=== PATIENT | male | born 1945 | race Caucasian/White ===

== ENCOUNTER 2019-11-02 18:02 | Inpatient (IN) | payer MEDICARE, SELFPAY ==
[2019-11-02 18:04] VITALS: BP 108/85; PULSE 82; RESP 16; TEMP 36.7; O2SAT 97; BMI 27.3
[2019-11-02 18:09] VITALS: BP 97/64; PULSE 72; RESP 17; TEMP 36.8; O2SAT 99
--- NOTE | 2019-11-02 19:39 | RAD_ITS ---
STUDY: X-RAY CHEST REASON FOR EXAM: Male, 74 years old. PT ARRIVES TO ED WITH COMPLAINTS. HAD A BIOPSY THAT CAUSED BLOOD INFECTION TECHNIQUE: Frontal view COMPARISON: None. FINDINGS: The lungs are clear and expanded. There is no demonstrated pleural abnormality. Normal size heart. Normal mediastinum and haleigh. Normal visualized pulmonary arteries. Normal visualized aortic arch and descending thoracic aorta. Normal visualized thoracic spine. Normal visualized ribs, clavicles, and shoulders. There is no demonstrated abnormality of the visualized soft tissue structures of the upper abdomen. RAD/Chest 1 View (Portable) IMPRESSION: Normal x-ray examination of the chest. Electronically Signed: Yadiel Skinner DO at 19:58 EST Tel [phone], Service support ,
[2019-11-02] MEDS: 0.9% Normal Saline 1,000 ML 150 ML IV (20:16)
[2019-11-02 20:18] VITALS: BP 97/64; PULSE 73; RESP 11; O2SAT 99
[2019-11-02 20:25] LABS: Absolute Lymphocyte Count 1.04 X10^3/uL (0.83-4.51); Absolute Neutrophil Count 3.8 X10^3/uL (2.0-7.7); Basophil# 0.03 X10^3/uL; Basophil% 0.5 % (0-1); Eosinophils% 3.5 % (0-5); Hematocrit 32.1 % (40-54); Hemoglobin 11.2 g/dL (13.0-16.5); Lymphocyte # 1.04 X10^3/ul (4.0); Lymphocyte % 18.2 % (19-41); Mean Corp Hgb Conc 34.9 g/dL (32-36); Mean Corpuscular Hgb 33.7 pg (27.0-32.0); Mean Corpuscular Volume 96.7 fL (80-94); Mean Platelet Vol. 10.7 fl (6.2-12.0); Monocyte% 10.5 % (0-10); NRBC Flagged by Analyzer 0 % (0-5); Neutrophil # 3.81 X10^3/uL (2.7-7.7); Neutrophil % 66.9 % (47-70); POSITIVE COUNT YES; Platelet Count 230 K/mm3 (150-450); RBC Distribution Width CV 12.5 % (11.6-14.6); RBC Distribution Width SD 44.3 fl (35.1-43.9); Red Blood Count 3.32 M/mm3 (4.6-6.2); White Blood Count 5.7 K/mm3 (4.4-11.0)
[2019-11-02 20:35] LABS: Differential Indicated SCAN CRITERIA MET
[2019-11-02 20:43] LABS: ALB/GLOB Ratio 0.6 RATIO (0.9-2.4); AST(SGOT) 62 U/L (15-37); Alanine Aminotransfer ALT/SGPT 49 U/L (16-61); Albumin, Serum 3.1 g/dL (3.2-5.0); Alkaline Phosphatase 63 U/L (45-117); Anion Gap 8 (5-15); BUN 58 mg/dL (7-18); BUN/Creat Ratio 22.7 RATIO (10-20); Calcium,Total 9.4 mg/dL (8.5-10.1); Chloride 101 mmol/L (98-107); Creatinine, Serum 2.56 mg/dL (0.70-1.30); EST Glomerular Filtration Rate 26 mL/min (>60); Est Glom Filt Rate - Afr Amer 32 mL/min (>60); Estimated Creatinine Clearance 30.33 ml/min; Glucose 130 mg/dL (74-106); Potassium 4.6 mmol/L (3.5-5.1); Protein, Total 8.1 g/dL (6.4-8.2); Sodium Level 132 mmol/L (136-145)
[2019-11-02 21:42] LABS: Mucous, Urine 0 SEEN /hpf (<or=2+); Red Blood Cells-Urine 0 SEEN /hpf (0-5); Squamous Epithelial Cells - UA 0 SEEN /hpf (0-5)
[2019-11-02 21:42] LABS: Differential Comment SCANNED; Platelet Estimate ADEQUATE (ADEQ)
[2019-11-02 21:43] LABS: Color, Urine Yellow (Yellow); Glucose, Dipstick Normal (Normal); Ketone-Dipstick Negative (Negative); Leukocyte Esterase-Dipstick 500 /ul (Negative); Nitrite-Dipstick Negative (Negative); Occult Blood-Urine 25 /ul (Negative); Protein-Dipstick 500 mg/dl (Negative); Urine Bilirubin Dipstick Negative (Negative); Urine Clarity Cloudy (Clear); Urine Urobilinogen Normal (Normal)
[2019-11-02 21:44] LABS: Red Cell Morphology NORM C+C NORMAL (NORM C&C)
[2019-11-02 21:51] VITALS: BP 112/75; PULSE 74; RESP 18; TEMP 36.9; O2SAT 100
[2019-11-02 21:52] LABS: Bacteria 2+ /hpf (None Seen); White Blood Cells >100 SEEN /hpf (0-5)
[2019-11-02] MEDS: 0.9% Normal Saline 1,000 ML 999 ML IV (21:53)
--- NOTE | 2019-11-02 22:25 | HP.PCM_ITS ---
History of Present Illness Date of Admission: 11/02/19 Chief Complaint: weakness, general malaise The patient is a 74 year old M with a PMH as outlined. He was admitted via the ED on 11/02/2019 with a complaint of generalised weakness and malaise. Patient was admitted at [facility] in September 2018 after he had a prostate biopsy due to suspicion for enlarged prostate. He subsequently developed sepsis due to UTI was in the hospital for about 5 days. He was subsequently discharged home and states is not been doing well since. He subsequently felt gradually weaker and had generalized malaise which worsened over the past few days. He has not been able to eat or drink well and also had burning with urination. He denied any fever or chills, cough or chest pain, palpitations, abdominal pain, diarrhea vomiting. He felt very unwell today so he decided to come to the ED. He tried going to his PCPs at the [facility] but they were just about closing so he decided to come to the ED. On admission in the ED, vitals were significant for blood pressure of 112/75. He was afebrile with temperature of 98.4 and pulse rate was 74 with respiratory of 18. Was saturating at 100% on room air. Chemistry was remarkable for sodium of 132 and creatinine of 2.56. Initial troponin was negative. CBC showed WBC of 5.7 with hemoglobin of 11.2. Urinalysis showed bacteria of 2+ WBC of more than 100. He has been admitted to be managed for debility due to UTI. [] Past Medical History Allergies No Known Allergies Allergy (Verified 11/02/19 18:09) Home Medications: Ambulatory Orders Medication Instructions Recorded Amlodipine [Norvasc] 5 mg PO DAILY 11/02/19 Aspirin [Aspirin, Baby] 1 tab PO DAILY 11/02/19 Atorvastatin Calcium [Lipitor] 10 mg PO QHS 11/02/19 Fenofibrate [Tricor] 48 mg PO DAILY 11/02/19 Glimepiride 4 mg PO DAILY 11/02/19 Lisinopril 40 mg PO DAILY 11/02/19 metFORMIN HCl [Glucophage] 1,000 mg PO BIDCM 11/02/19 Surgical History: no surgical history Psychiatric History: No pertinent psych hx Lives: Spouse/ Significant Other Smoking Status: Never smoker Alcohol: None Drugs: None - *Family History Maternal History Items: No pertinent history Paternal History Items: No pertinent history Review of Systems Constitutional: Reports: Anorexia, Malaise, Weakness, Fatigue. Denies: Chills, Fever Eyes: Denies: Blurred vision HEENT: Denies: Head Aches, Sinus Congestion, Sinus Drainage Cardiovascular: Denies: Chest Pain, Palpitations Respiratory: Denies: Cough, Shortness of Breath, Shortness of breath at rest, Shortness of breath upon exertion, Sputum production Gastrointestinal: Denies: Abdominal Pain, Nausea, Vomiting Genitourinary: Reports: Dysuria Musculoskeletal: Denies: Joint Pain, Joint Tenderness Skin: Denies: Rash, Wounds Neurological: Denies: Numbness, Tingling, Focal weakness Psychiatric: Denies: Anxiety, Depression, Homicidal Ideations, Suicidal Ideations Hematologic/ Lymphatic: Denies: Easy Bruising, Easy Bleeding VTE Information - Inpt Only VTE Present on Admission: No VTE Pharm Prophylaxis ordered?: Yes - Physical Exam Vitals/I&O's: Vital Signs Temp Pulse Resp BP Pulse Ox 98.4 F 74 18 112/75 100 11/02/19 21:51 11/02/19 21:51 11/02/19 21:51 11/02/19 21:51 11/02/19 21:51 Oxygen Delivery Method Room Air Weight: 213 lb Body Mass Index (BMI) 27.3 General: Alert, Oriented x3, Cooperative, No apparent distress, Lethargic HEENT: Atraumatic, PERRLA, EOMI, Normocephalic Oral: Dry Mucosa Neck: Supple, No JVD, Negative Carotid Bruits Lungs: Clear to auscultation, Normal air movement, No rhonchi, No wheeze, No rales Cardiovascular: Regular rate, Regular Rhythm, Normal S1, Normal S2, No murmurs Abdomen: Bowel Sounds Present, Soft, Non Tender, Non-Distended, No Hepato- splenomegaly Extremities: No clubbing, No cyanosis, No edema, Capillary Refill Less than 3 Seconds Musculoskeletal: No Tenderness to Palpation of Joints or Extremities Lymphatic: No Cervical, Supraclavicular, or Inguinal Adenopathy Neurological: Cranial nerves II-XII grossly intact, Neuro grossly intact, Motor Exam 5/5 strength throughout Psych/Mental Status: Normal Affect, Appropriate, Alert and oriented to time, place, person, mood and affect Laboratory Results 11/02/19 20:10: WBC 5.7, RBC 3.32 L, Hgb 11.2 L, Hct 32.1 L, MCV 96.7 H, MCH 33.7 H, MCHC 34.9, RDW Std Deviation 44.3 H, RDW Coeff of Bobby 12.5, Plt Count 230, MPV 10.7, Immature Gran % (Auto) 0.400, Neut % (Auto) 66.9, Lymph % (Auto) 18.2 L, Stephens % (Auto) 10.5 H, Eos % (Auto) 3.5, Baso % (Auto) 0.5, Absolute Neuts (auto) 3.8, Absolute Lymphs (auto) 1.04, Nucleated RBC % 0, Differential Comment SCANNED, Platelet Estimate ADEQUATE, Plt Morphology Comment COMMENT, RBC Morphology NORM C+C 11/02/19 20:10: Sodium 132 L, Potassium 4.6, Chloride 101, Carbon Dioxide 23.0, Anion Gap 8, BUN 58 H, Creatinine 2.56 H, Estim Creat Clear Calc 30.33, Est GFR (MDRD) Af Amer 32 L, Est GFR (MDRD) Non-Af 26 L, BUN/Creatinine Ratio 22.7 H, Glucose 130 H, Calcium 9.4, Total Bilirubin 0.50, AST 62 H, ALT 49, Alkaline Phosphatase 63, Troponin I < 0.015, Total Protein 8.1, Albumin 3.1 L, Globulin 5.0 H, Albumin/Globulin Ratio 0.6 L 11/02/19 21:38: Urine Color Yellow, Urine Clarity Cloudy, Urine pH 5.0, Ur Specific [place] 1.020, Urine Protein 500 H, Urine Glucose (UA) Normal, Urine Ketones Negative, Urine Occult Blood 25 H, Urine Nitrite Negative, Urine Bilirubin Negative, Urine Urobilinogen Normal, Ur Leukocyte Esterase 500 H, Urine RBC 0 SEEN, Urine WBC >100 SEEN, Ur Squamous Epith Cells 0 SEEN, Urine Bacteria 2+, Urine Mucus 0 SEEN Diagnostic Data Chest X-Ray 11/02/19 19:39 IMPRESSION: Normal x-ray examination of the chest. Electronically Signed: Yadiel Skinner DO at 19:58 EST Tel [phone], Service support , Current Medications Sodium Chloride () 1,000 mls @ 150 mls/hr IV .[id number] [facility] Last Admin: 11/02/19 20:16 Dose: 150 mls/hr Documented by: Ceftriaxone Sodium (Rocephin) 1 gm in 50 mls @ 100 mls/hr IV X1 ONE Stop: 11/02/19 22:43 Assessment/Plan 74 y/o admitted with a complaint of weakness and generalised malaise, with UA positive for UTI 1. UTI * Was admitted in [facility] and discharged on April 05 to be managed for sepsis due to UTI. States he had E. coli then. * Currently has no leukocytosis and UA is positive for UTI with 2+ bacteria more than 100 WBC per high-power field * Admit to [facility]. * Hydrated with IV fluid normal saline at 150 cc/h. * Start with IV ceftriaxone * Get blood cultures. * 2. Debility due to UTI: Consult PT OT. Fall precautions. 3. GOKUL on CKD: * Creatinine is 2.56 with a baseline of around 1.3 from September 2019, from admission at [facility] * Likely due to dehydration as he is not been eating and drinking well. * Will hydrate gently with IV fluid normal saline. * Will insert Ibarra catheter due to history of enlarged prostate and monitor urine output. * Will get renal USG to rule out any obstructive uropathy. * 4. Hyponatremia: Sodium is 132. This is likely due to dehydration. Should improve with IV fluid administration. 5. Hypertension: On amlodipine and lisinopril. Hold lisinopril on account of GOKUL. 6. Type 2 diabetes mellitus: On glimepiride and metformin which will be held on account of GOKUL. Accu-Cheks AC at bedtime. Insulin sliding scale. 7. Hyperlipidemia: On statin. DVT prophylaxis: Lovenox renally dosed Code Visit Inpatient E&M: 20997 Init Hosp L3
--- NOTE | 2019-11-02 22:33 | ED.DCSUM_ITS ---
- ER Visit Summary Date of Service: 11/02/19 Chief Complaint: Weakness History of Present Illness: The patient is a 74 M who presents with weakness. He has had this for about a month. At the end of September he was admitted to [facility] for E. coli bacteremia and UTI. This is after a cystoscopy for what sounds like prostate biopsies. He was told that he had prostate cancer after this biopsy. He has not started any treatment. Since being home he has felt weak. He is not eating well. He has had some fecal incontinence. He states he has low energy. He denies any blood in his stools. He did have some bleeding after his cystoscopy. Physical Examination: Vital signs reviewed. HEENT exam unremarkable. Heart is regular rate and rhythm without murmurs. Lungs are clear to auscultation. Abdomen is soft and nontender. Extremities reveal no edema. Skin exam normal. Neurologic exam diffuse overall weakness but is got no other neurologic deficits. Test Results: Blood cell count normal. Hemoglobin 11.2. BUN 58, creatinine 2.56. He has a UTI. Chest x-ray unremarkable Emergency Department Course and Treatment: Patient was given IV fluids. I gave him a dose of Rocephin. His creatinine has doubled in the past 2 weeks. His culture from [place] grew out pansensitive E. coli. I will treat him with IV Rocephin. He will be admitted to the hospital. Treatment Plan: [] Disposition: Admit Impression: Acute kidney injury, UTI, dehydration This note was generated with [employer] dictation software. It may contain incorrect words, spelling, and punctuation that were not noted in review of the chart prior to signing ED Disposition - Plan for ED Patient: Referrals: Mo Gorman [Primary Care Provider] -
[2019-11-02] MEDS: Ceftriaxone 1 GM/50 ML BAG IV (22:42)
[2019-11-02 23:40] VITALS: BP 120/81; PULSE 67; RESP 16; TEMP 36.7; O2SAT 99
[2019-11-02 23:41] VITALS: PULSE 70; BMI 25.8
[2019-11-03] VITALS (9 sets, daily range): BP systolic 110–143; BP diastolic 66–76; PULSE 67–83; RESP 18; TEMP 36.6–37.2; O2SAT 96–98
[2019-11-03] MEDS: 0.9% Normal Saline 1,000 ML 150 ML IV ×3 (00:02→13:49)
[2019-11-03 04:02] LABS: Urea Nitrogen, Urine 658 mg/dL (NO RANGE EST.)
[2019-11-03 05:11] LABS: Absolute Neutrophil Count 4.9 X10^3/uL (2.0-7.7); Basophil# 0.03 X10^3/uL; Basophil% 0.5 % (0-1); Eosinophil# 0.16 X10^3/uL; Eosinophils% 2.7 % (0-5); Hematocrit 28.7 % (40-54); Hemoglobin 9.9 g/dL (13.0-16.5); Lymphocyte % 10.2 % (19-41); Mean Corp Hgb Conc 34.5 g/dL (32-36); Mean Corpuscular Hgb 33.8 pg (27.0-32.0); Mean Platelet Vol. 9.3 fl (6.2-12.0); Monocyte# 0.18 X10^3/uL; Monocyte% 3.1 % (0-10); NRBC Flagged by Analyzer 0 % (0-5); Neutrophil # 4.87 X10^3/uL (2.7-7.7); Neutrophil % 83.2 % (47-70); POSITIVE DIFFERENTIAL YES; Platelet Count 225 K/mm3 (150-450); RBC Distribution Width CV 12.5 % (11.6-14.6); RBC Distribution Width SD 45.1 fl (35.1-43.9); Red Blood Count 2.93 M/mm3 (4.6-6.2); White Blood Count 5.9 K/mm3 (4.4-11.0)
[2019-11-03 05:12] LABS: Differential Indicated SCAN CRITERIA MET
[2019-11-03 05:25] LABS: Anion Gap 10 (5-15); BUN 57 mg/dL (7-18); BUN/Creat Ratio 24.4 RATIO (10-20); Calcium,Total 8.6 mg/dL (8.5-10.1); Chloride 104 mmol/L (98-107); Creatinine, Serum 2.34 mg/dL (0.70-1.30); EST Glomerular Filtration Rate 29 mL/min (>60); Est Glom Filt Rate - Afr Amer 35 mL/min (>60); Estimated Creatinine Clearance 33.18 ml/min; Glucose 150 mg/dL (74-106); Potassium 3.9 mmol/L (3.5-5.1); Sodium Level 138 mmol/L (136-145)
[2019-11-03 05:47] LABS: Differential Comment SCANNED; Platelet Estimate ADEQUATE (ADEQ); Red Cell Morphology NORM C+C NORMAL (NORM C&C)
--- NOTE | 2019-11-03 05:55 | US_ITS ---
STUDY: RENAL ULTRASOUND - COMPLETE REASON FOR EXAM: Male, 74 years old. GOKUL, BPH COMPARISON: None TECHNIQUE: Serial longitudinal and transverse scans of the kidneys were obtained utilizing a real-time sector scanner. FINDINGS: The right and left kidneys were examined and have the following measurements: Right Kidney: 13.3 cm. x 10.0 cm. x 6.2 cm. in size with a cortex measuring 1.8 cm in thickness. Left Kidney: 12.6 cm. x 4.6 cm. x 6.1 cm. in size with a cortex measuring 2.0 cm in thickness. No fluid is noted in Morison''s pouch. The right renal parenchyma has a normal echogenic relationship to the liver. The right renal contour is smooth and no evidence hydronephrosis is identified. There is normal Doppler flow to the right kidney. Left renal contour is smooth and no evidence of hydronephrosis is identified. There is normal Doppler flow to the left kidney. A Ibarra catheter is noted in a collapsed urinary bladder US/Kidney and Bladder IMPRESSION: Normal bilateral renal ultrasound Electronically Signed: Roc Mathis, at 11:43 EST Tel , Service support ,
[2019-11-03 07:11] LABS: Bedside Glucose 145 mg/dL (70-110)
[2019-11-03] MEDS: Aspirin 81 MG TAB.CHEW PO (08:53)
[2019-11-03] MEDS: Fenofibrate 48 MG Tablet PO (08:53)
[2019-11-03] MEDS: Enoxaparin 30 MG/0.3 ML Syringe SC (08:53)
[2019-11-03] MEDS: amLODIPine 5 MG Tablet PO (08:53)
--- NOTE | 2019-11-03 11:41 | CASEMGMT ---
KENYATTA SALMON assessment: Face to Face with patient for initial transition planning/care coordination assessment. RN LUIS ANTONIO introduced self and role at [facility], pt voices understanding and consents to assessment at this time. Pt is sitting up in chair in no distress at this time. Pt is pale and c/o some fatigue. Pt is Alert and oriented x4 at this time and answers most questions appropriately at this time. Care providers, pharmacy, and demographics verified at this time. Presentation: Pt arrived with complaints, recent bx of prostate that caused blood infection Admitting dx: Debility, UTI, GOKUL PCP: [facility] Specialists: Pt states no current specialists. Preferred Pharmacy: [facility]Mail order Insurance: AeR Prescription Benefit: AeR Living Will/HPOA: Pt states that he thinks he has LW/HPOA and that his daughter, Ann-Marie, is HPOA. Pt is aware that these are not on file at [facility] at this time. LNOK: Chel Dede, sig other Living Arrangements: Pt states lives with girlfriend in 2 story house and states has been having some frequent falls at home. Pt states is mostly independent with ADL's but has been 'weak' since recent admission for bx. Transportation: Pt states drives self and states no transportation concerns at this time. DME/HHC: Pt states has grab bars in shower and states no need for any furthe DME at this time. Pt states no hx of HHC or SNF in the past. Pt states no concerns with going home at time of discharge. Pt states is retired. Pt states does not smoke or drink ETOH. Pt states no further concerns/needs at this time. CM to follow PT/OT evals and for any further discharge planning/needs. Advised pt to ask for CM if any further questions/concerns/needs arise, voices understanding. Pt Goal: Home Plan: TBD, pending PT/OT evals. [place] KENYATTA SALMON
[2019-11-03 12:05] LABS: Bedside Glucose 220 mg/dL (70-110)
[2019-11-03] MEDS: Insulin Lispro 100 UNIT/ML INSULN.PEN SC ×2 (12:06→16:46)
--- NOTE | 2019-11-03 12:58 | PCM.PROGNOTE ---
<Anjana Cesar - Last Filed: 11/03/19 13:06> Subjective: Patient seen and examined. Denies fever, chills. Denies nausea, vomiting. Reports generalized weakness. Denies other complaints. - Physical Exam Vitals/I&O's: Vital Signs Temp Pulse Resp BP Pulse Ox 98.9 F 77 18 110/67 97 11/03/19 08:51 11/03/19 08:51 11/03/19 08:51 11/03/19 08:51 11/03/19 08:51 Oxygen Delivery Method Room Air Weight: 201 lb 0.985 oz Body Mass Index (BMI) 25.8 Intake and Output for Last 24 Hours 11/01/19 11/02/19 11/03/19 23:59 23:59 23:59 Intake Total 915.8 / 915.8 1785 / 1785 Output Total 1100 / 1100 Balance 915.8 / 915.8 685 / 685 General: Alert, Oriented x3, Cooperative HEENT: Atraumatic, PERRLA, EOMI, Normocephalic Neck: Supple, No JVD, Negative Carotid Bruits Lungs: Clear to auscultation, Normal air movement Cardiovascular: Regular rate, Regular Rhythm, Normal S1, Normal S2, No murmurs Abdomen: Bowel Sounds Present, Soft, Non Tender, Non-Distended Extremities: No clubbing, No cyanosis, No edema, Capillary Refill Less than 3 Seconds Skin: No rashes, No breakdown Musculoskeletal: No Tenderness to Palpation of Joints or Extremities Neurological: Cranial nerves II-XII grossly intact, Neuro grossly intact Psych/Mental Status: Flat Affect Microbiology Past 72 Hours 11/02/19 21:38 Urine, Clean Catch Urine Culture - Preliminary GNR lactose epic ambulatory analyst Laboratory Results 11/02/19 20:10: WBC 5.7, RBC 3.32 L, Hgb 11.2 L, Hct 32.1 L, MCV 96.7 H, MCH 33.7 H, MCHC 34.9, RDW Std Deviation 44.3 H, RDW Coeff of Obbby 12.5, Plt Count 230, MPV 10.7, Immature Gran % (Auto) 0.400, Neut % (Auto) 66.9, Lymph % (Auto) 18.2 L, Smith % (Auto) 10.5 H, Eos % (Auto) 3.5, Baso % (Auto) 0.5, Absolute Neuts (auto) 3.8, Absolute Lymphs (auto) 1.04, Nucleated RBC % 0, Differential Comment SCANNED, Platelet Estimate ADEQUATE, Plt Morphology Comment COMMENT, RBC Morphology NORM C+C 11/02/19 20:10: Sodium 132 L, Potassium 4.6, Chloride 101, Carbon Dioxide 23.0, Anion Gap 8, BUN 58 H, Creatinine 2.56 H, Estim Creat Clear Calc 30.33, Est GFR (MDRD) Af Amer 32 L, Est GFR (MDRD) Non-Af 26 L, BUN/Creatinine Ratio 22.7 H, Glucose 130 H, Calcium 9.4, Total Bilirubin 0.50, AST 62 H, ALT 49, Alkaline Phosphatase 63, Troponin I < 0.015, Total Protein 8.1, Albumin 3.1 L, Globulin 5.0 H, Albumin/Globulin Ratio 0.6 L 11/02/19 21:38: Urine Color Yellow, Urine Clarity Cloudy, Urine pH 5.0, Ur Specific [place] 1.020, Urine Protein 500 H, Urine Glucose (UA) Normal, Urine Ketones Negative, Urine Occult Blood 25 H, Urine Nitrite Negative, Urine Bilirubin Negative, Urine Urobilinogen Normal, Ur Leukocyte Esterase 500 H, Urine RBC 0 SEEN, Urine WBC >100 SEEN, Ur Squamous Epith Cells 0 SEEN, Urine Bacteria 2+, Urine Mucus 0 SEEN 11/03/19 02:30: Urine Urea Nitrogen 658 11/03/19 02:30: Urine Creatinine 101.00 11/03/19 04:55: WBC 5.9, RBC 2.93 L, Hgb 9.9 L, Hct 28.7 L, MCV 98.0 H, MCH 33.8 H, MCHC 34.5, RDW Std Deviation 45.1 H, RDW Coeff of Bobby 12.5, Plt Count 225, MPV 9.3, Immature Gran % (Auto) 0.300, Neut % (Auto) 83.2 H, Lymph % (Auto) 10.2 L, Smith % (Auto) 3.1, Eos % (Auto) 2.7, Baso % (Auto) 0.5, Absolute Neuts (auto) 4.9, Absolute Lymphs (auto) 0.60 L, Nucleated RBC % 0, Differential Comment SCANNED, Platelet Estimate ADEQUATE, RBC Morphology NORM C+C 11/03/19 04:55: Sodium 138, Potassium 3.9, Chloride 104, Carbon Dioxide 24.0, Anion Gap 10, BUN 57 H, Creatinine 2.34 H, Estim Creat Clear Calc 33.18, Est GFR (MDRD) Af Amer 35 L, Est GFR (MDRD) Non-Af 29 L, BUN/Creatinine Ratio 24.4 H, Glucose 150 H, Calcium 8.6 11/03/19 06:47: POC Glucose 145 H 11/03/19 11:59: POC Glucose 220 H Current Medications Amlodipine Besylate (Norvasc) 5 mg PO DAILY [facility] Last Admin: 11/03/19 08:53 Dose: 5 mg Documented by: Aspirin (Aspirin, Baby) 81 mg PO DAILYCM [facility] Last Admin: 11/03/19 08:53 Dose: 81 mg Documented by: Atorvastatin Calcium (Lipitor) 10 mg PO QHS [facility] Enoxaparin Sodium (Lovenox) 30 mg SC DAILY [facility] Last Admin: 11/03/19 08:53 Dose: 30 mg Documented by: Fenofibrate (Tricor) 48 mg PO DAILY [facility] Last Admin: 11/03/19 08:53 Dose: 48 mg Documented by: Glucagon () 1 mg IM .X1 PRN PRN Reason: Hypoglycemia Sodium Chloride () 1,000 mls @ 150 mls/hr IV .Q6H40M [facility] Last Admin: 11/03/19 06:45 Dose: 150 mls/hr Documented by: Ceftriaxone Sodium (Rocephin) 1 gm in 50 mls @ 100 mls/hr IV Q24H [facility] Dextrose (Dextrose 10%-Water) 250 mls @ 999 mls/hr IV .Q16M PRN; Protocol PRN Reason: HYPOGLYCEMIA Sodium Chloride () 250 mls @ 15 mls/hr IV .[id number] PRN PRN Reason: Saline Flush Sodium Chloride () 250 mls @ 15 mls/hr IV .[id number] PRN PRN Reason: Additional IVPB Infusion Insulin Human Lispro (Humalog Kwikpen (Bkc)) 0 unit SC ACHS [facility]; Protocol Last Admin: 11/03/19 12:06 Dose: 4 units Documented by: Ondansetron HCl (Zofran) 4 mg IV Q8H PRN PRN PRN Reason: NAUSEA/VOMITING Medical Necessity - Tobacco Use Smoking Status: Never smoker Assessment/Plan 1. Acute GNR UTI-continue Rocephin. Preliminary culture GNR, final pending. Afebrile. No leukocytosis. 2. Acute kidney injury on suspected chronic kidney disease-no prior labs for comparison to stage CKD. Renal ultrasound unremarkable. Check FENa. Trend BMP. If no significant improvement, will consult nephrology. Suspect prerenal secondary to dehydration. 3. Hypovolemic hyponatremia-resolved with hydration. Trend BMP. 4. Debility, patient reports falls at home-PT/OT. 5. Hypertension-continue amlodipine, hold lisinopril. 6. Type 2 diabetes mellitus-oral regimen on hold. Continue Accu-Cheks with sliding scale insulin. 7. Hyperlipidemia-continue statin. DVT prophylaxis-Lovenox subcu This patient was seen by NEDRA Tyler under the supervision of Dr. Marquez. <Oscar Marquez - Last Filed: 11/03/19 13:41> - Physical Exam Vitals/I&O's: Vital Signs Temp Pulse Resp BP Pulse Ox 98.9 F 77 18 110/67 97 11/03/19 08:51 11/03/19 08:51 11/03/19 08:51 11/03/19 08:51 11/03/19 08:51 Oxygen Delivery Method Room Air Weight: 91.2 kg Body Mass Index (BMI) 25.8 Intake and Output for Last 24 Hours 11/01/19 11/02/19 11/03/19 23:59 23:59 23:59 Intake Total 915.8 / 915.8 1785 / 1785 Output Total 1100 / 1100 Balance 915.8 / 915.8 685 / 685 Microbiology Past 72 Hours 11/02/19 21:38 Urine, Clean Catch Urine Culture - Preliminary GNR lactose epic ambulatory analyst Laboratory Results 11/02/19 20:10: WBC 5.7, RBC 3.32 L, Hgb 11.2 L, Hct 32.1 L, MCV 96.7 H, MCH 33.7 H, MCHC 34.9, RDW Std Deviation 44.3 H, RDW Coeff of Bobby 12.5, Plt Count 230, MPV 10.7, Immature Gran % (Auto) 0.400, Neut % (Auto) 66.9, Lymph % (Auto) 18.2 L, Smith % (Auto) 10.5 H, Eos % (Auto) 3.5, Baso % (Auto) 0.5, Absolute Neuts (auto) 3.8, Absolute Lymphs (auto) 1.04, Nucleated RBC % 0, Differential Comment SCANNED, Platelet Estimate ADEQUATE, Plt Morphology Comment COMMENT, RBC Morphology NORM C+C 11/02/19 20:10: Sodium 132 L, Potassium 4.6, Chloride 101, Carbon Dioxide 23.0, Anion Gap 8, BUN 58 H, Creatinine 2.56 H, Estim Creat Clear Calc 30.33, Est GFR (MDRD) Af Amer 32 L, Est GFR (MDRD) Non-Af 26 L, BUN/Creatinine Ratio 22.7 H, Glucose 130 H, Calcium 9.4, Total Bilirubin 0.50, AST 62 H, ALT 49, Alkaline Phosphatase 63, Troponin I < 0.015, Total Protein 8.1, Albumin 3.1 L, Globulin 5.0 H, Albumin/Globulin Ratio 0.6 L 11/02/19 21:38: Urine Color Yellow, Urine Clarity Cloudy, Urine pH 5.0, Ur Specific [place] 1.020, Urine Protein 500 H, Urine Glucose (UA) Normal, Urine Ketones Negative, Urine Occult Blood 25 H, Urine Nitrite Negative, Urine Bilirubin Negative, Urine Urobilinogen Normal, Ur Leukocyte Esterase 500 H, Urine RBC 0 SEEN, Urine WBC >100 SEEN, Ur Squamous Epith Cells 0 SEEN, Urine Bacteria 2+, Urine Mucus 0 SEEN 11/03/19 02:30: Urine Urea Nitrogen 658 11/03/19 02:30: Urine Creatinine 101.00 11/03/19 04:55: WBC 5.9, RBC 2.93 L, Hgb 9.9 L, Hct 28.7 L, MCV 98.0 H, MCH 33.8 H, MCHC 34.5, RDW Std Deviation 45.1 H, RDW Coeff of Bobby 12.5, Plt Count 225, MPV 9.3, Immature Gran % (Auto) 0.300, Neut % (Auto) 83.2 H, Lymph % (Auto) 10.2 L, Smith % (Auto) 3.1, Eos % (Auto) 2.7, Baso % (Auto) 0.5, Absolute Neuts (auto) 4.9, Absolute Lymphs (auto) 0.60 L, Nucleated RBC % 0, Differential Comment SCANNED, Platelet Estimate ADEQUATE, RBC Morphology NORM C+C 11/03/19 04:55: Sodium 138, Potassium 3.9, Chloride 104, Carbon Dioxide 24.0, Anion Gap 10, BUN 57 H, Creatinine 2.34 H, Estim Creat Clear Calc 33.18, Est GFR (MDRD) Af Amer 35 L, Est GFR (MDRD) Non-Af 29 L, BUN/Creatinine Ratio 24.4 H, Glucose 150 H, Calcium 8.6 11/03/19 06:47: POC Glucose 145 H 11/03/19 11:59: POC Glucose 220 H Current Medications Amlodipine Besylate (Norvasc) 5 mg PO DAILY [facility] Last Admin: 11/03/19 08:53 Dose: 5 mg Documented by: Aspirin (Aspirin, Baby) 81 mg PO DAILYCM [facility] Last Admin: 11/03/19 08:53 Dose: 81 mg Documented by: Atorvastatin Calcium (Lipitor) 10 mg PO QHS [facility] Enoxaparin Sodium (Lovenox) 30 mg SC DAILY [facility] Last Admin: 11/03/19 08:53 Dose: 30 mg Documented by: Fenofibrate (Tricor) 48 mg PO DAILY [facility] Last Admin: 11/03/19 08:53 Dose: 48 mg Documented by: Glucagon () 1 mg IM .X1 PRN PRN Reason: Hypoglycemia Sodium Chloride () 1,000 mls @ 100 mls/hr IV .Q10H [facility] Last Admin: 11/03/19 06:45 Dose: 150 mls/hr Documented by: Ceftriaxone Sodium (Rocephin) 1 gm in 50 mls @ 100 mls/hr IV Q24H [facility] Dextrose (Dextrose 10%-Water) 250 mls @ 999 mls/hr IV .Q16M PRN; Protocol PRN Reason: HYPOGLYCEMIA Sodium Chloride () 250 mls @ 15 mls/hr IV .[id number] PRN PRN Reason: Saline Flush Sodium Chloride () 250 mls @ 15 mls/hr IV .[id number] PRN PRN Reason: Additional IVPB Infusion Insulin Human Lispro (Humalog Kwikpen (Bkc)) 0 unit SC ACHS [facility]; Protocol Last Admin: 11/03/19 12:06 Dose: 4 units Documented by: Ondansetron HCl (Zofran) 4 mg IV Q8H PRN PRN PRN Reason: NAUSEA/VOMITING Assessment/Plan This patient was seen in conjunction with NEDRA Tyler . I have independently interviewed and examined the patient and reviewed pertinent historical, laboratory, and other data. Please refer to NEDRA Tyler note for details of this patient's presentation, findings, and recommendations. I have reviewed NEDRA Tyler note and concur with documented findings. In brief, patient is a 74-year-old gentleman admitted with generalized malaise found to have acute cystitis admitted to regular nursing floor for further management Physical Examination: GENERAL: Ill-looking HEENT: Atraumatic; EYES; Anicteric, Normal Conjunctiva NECK; supple, normal thyroid, RESPIRATORY: Diminished to auscultation CARDIOVASCULAR: Regular S1 S2, GI: soft, normoactive bowel sounds, : No Renal angle tenderness; NEURO: Awake; no lateralizing signs. SKIN: No Rash PSYCH; Flat affect Assessment: 1. Acute cystitis with gram-negative rods 2. Acute kidney injury 3. Hypovolemic hyponatremia 4. Essential hypertension 5. Diabetes mellitus type 2 6. Dyslipidemia 7. Physical debility 8. DVT prophylaxis Recommendations: 1. I have discussed the results of my overview and impressions with the patient 2. Options for management were reviewed Code Visit Inpatient E&M: 52161 Subs Hosp L3
[2019-11-03 14:32] LABS: Urine Sodium 40 mmol/L (Not Establ.)
[2019-11-03 17:11] LABS: Bedside Glucose 184 mg/dL (70-110)
[2019-11-03] MEDS: 0.9% Normal Saline 1,000 ML 100 ML IV (21:00)
[2019-11-03] MEDS: Atorvastatin Calcium 10 MG Tablet PO (21:56)
[2019-11-03] MEDS: Ceftriaxone 1 GM/50 ML BAG IV (22:11)
[2019-11-03 22:30] LABS: Bedside Glucose 126 mg/dL (70-110)
[2019-11-04] VITALS (7 sets, daily range): BP systolic 100–132; BP diastolic 46–74; PULSE 61–77; RESP 16–18; TEMP 36.5–36.6; O2SAT 97–99
[2019-11-04 05:12] LABS: Hematocrit 26.9 % (40-54); Mean Corp Hgb Conc 33.5 g/dL (32-36); Mean Corpuscular Hgb 33.2 pg (27.0-32.0); Mean Corpuscular Volume 99.3 fL (80-94); Platelet Count 196 K/mm3 (150-450); RBC Distribution Width CV 12.6 % (11.6-14.6); RBC Distribution Width SD 45.3 fl (35.1-43.9); Red Blood Count 2.71 M/mm3 (4.6-6.2)
[2019-11-04 05:35] LABS: Anion Gap 6 (5-15); BUN 34 mg/dL (7-18); BUN/Creat Ratio 19.9 RATIO (10-20); Calcium,Total 8.4 mg/dL (8.5-10.1); Chloride 109 mmol/L (98-107); Creatinine, Serum 1.71 mg/dL (0.70-1.30); EST Glomerular Filtration Rate 42 mL/min (>60); Est Glom Filt Rate - Afr Amer 51 mL/min (>60); Glucose 141 mg/dL (74-106); Potassium 4.1 mmol/L (3.5-5.1); Sodium Level 140 mmol/L (136-145)
[2019-11-04] MEDS: Insulin Lispro 100 UNIT/ML INSULN.PEN SC ×3 (07:42→22:11)
[2019-11-04 07:50] LABS: Bedside Glucose 156 mg/dL (70-110)
[2019-11-04] MEDS: amLODIPine 5 MG Tablet PO (08:31)
[2019-11-04] MEDS: Fenofibrate 48 MG Tablet PO (08:31)
[2019-11-04] MEDS: Enoxaparin 30 MG/0.3 ML Syringe SC (08:31)
[2019-11-04] MEDS: Aspirin 81 MG TAB.CHEW PO (08:31)
--- NOTE | 2019-11-04 08:52 | PCM.PN.HOSP ---
Reason for Visit: Follow-up acute cystitis and physical debility Subjective: Patient is a 74-year-old gentleman admitted with generalized malaise found to have acute cystitis admitted to regular nursing floor for further management urine culture so far positive for gram-negative rods awaiting final identification and sensitivities. Objective: GENERAL: Ill-looking HEENT: Atraumatic; EYES; Anicteric, Normal Conjunctiva NECK; supple, normal thyroid, RESPIRATORY: Diminished to auscultation CARDIOVASCULAR: Regular S1 S2, GI: soft, normoactive bowel sounds, : No Renal angle tenderness; NEURO: Awake; no lateralizing signs. 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 Results 11/03/19 02:30: Ur Random Sodium 40 11/03/19 11:59: POC Glucose 220 H 11/03/19 16:45: POC Glucose 184 H 11/03/19 22:09: POC Glucose 126 H 11/04/19 04:55: WBC 4.0 L, RBC 2.71 L, Hgb 9.0 L, Hct 26.9 L, MCV 99.3 H, MCH 33.2 H, MCHC 33.5, RDW Std Deviation 45.3 H, RDW Coeff of Bobby 12.6, Plt Count 196, MPV 9.0 11/04/19 04:55: Sodium 140, Potassium 4.1, Chloride 109 H, Carbon Dioxide 25.0, Anion Gap 6, BUN 34 H, Creatinine 1.71 H, Estim Creat Clear Calc 45.40, Est GFR (MDRD) Af Amer 51 L, Est GFR (MDRD) Non-Af 42 L, BUN/Creatinine Ratio 19.9, Glucose 141 H, Calcium 8.4 L 11/04/19 07:31: POC Glucose 156 H Current Medications Amlodipine Besylate (Norvasc) 5 mg PO DAILY [facility] Last Admin: 11/04/19 08:31 Dose: 5 mg Documented by: Aspirin (Aspirin, Baby) 81 mg PO DAILYCM [facility] Last Admin: 11/04/19 08:31 Dose: 81 mg Documented by: Atorvastatin Calcium (Lipitor) 10 mg PO QHS [facility] Last Admin: 11/03/19 21:56 Dose: 10 mg Documented by: Enoxaparin Sodium (Lovenox) 30 mg SC DAILY [facility] Last Admin: 11/04/19 08:31 Dose: 30 mg Documented by: Fenofibrate (Tricor) 48 mg PO DAILY [facility] Last Admin: 11/04/19 08:31 Dose: 48 mg Documented by: Glucagon () 1 mg IM .X1 PRN PRN Reason: Hypoglycemia Sodium Chloride () 1,000 mls @ 100 mls/hr IV .Q10H [facility] Last Infusion: 11/03/19 22:50 Dose: 100 mls/hr Documented by: Ceftriaxone Sodium (Rocephin) 1 gm in 50 mls @ 100 mls/hr IV Q24H [facility] Last Infusion: 11/03/19 22:50 Dose: Infused Documented by: Dextrose (Dextrose 10%-Water) 250 mls @ 999 mls/hr IV .Q16M PRN; Protocol PRN Reason: HYPOGLYCEMIA Sodium Chloride () 250 mls @ 15 mls/hr IV .[id number] PRN PRN Reason: Saline Flush Sodium Chloride () 250 mls @ 15 mls/hr IV .[id number] PRN PRN Reason: Additional IVPB Infusion Insulin Human Lispro (Humalog Kwikpen (Bkc)) 0 unit SC ACHS [facility]; Protocol Last Admin: 11/04/19 07:42 Dose: 2 units Documented by: Ondansetron HCl (Zofran) 4 mg IV Q8H PRN PRN PRN Reason: NAUSEA/VOMITING STROKE Vital Signs/Narrative: Vital Signs Temp Pulse Resp BP Pulse Ox 11/04/19 08:19 97.8 F 61 18 116/67 99 11/04/19 05:04 77 Medical Necessity - Tobacco Use Smoking Status: Never smoker Assessment/Plan Patient is a 74-year-old gentleman admitted with generalized malaise found to have acute cystitis admitted to regular nursing floor for further management 1. Acute cystitis with gram-negative rods ?Admitted to regular nursing floor started on broad-spectrum antibiotic therapy with plans adjust antibiotics based on culture result 2. Acute kidney injury ?On IV fluid with subsequent monitoring of electrolytes 3. Hypovolemic hyponatremia ?Managed with fluids. Sodium levels up from 132 on admission to 140 4. Essential hypertension -BP stable at this point , on amlodipine did continue 5. Diabetes mellitus type II ~, patient's oral hypoglycemics held. Placed on long acting insulin, Accu-Cheks a.c. and at bedtime and covered with sliding scale insulin 6. Dyslipidemia ~patient is on statin as well as fenofibrate therapy, continued at home dose 7. Physical debility -Requested PT OT eval and social worker psychiatric to assist with discharge planning 8. Anemia ?Secondary to anemia of chronic disorder monitoring H&H with plans to transfuse patient With medical hemoglobin falls below 7. 9. DVT prophylaxis -Enoxaparin Active Medications Amlodipine Besylate (Norvasc) 5 mg PO DAILY [facility] Last Admin: 11/04/19 08:31 Dose: 5 mg Documented by: [facility] Admin: 11/04/19 08:31 Dose: 81 mg Documented by: Atorvastatin Calcium (Lipitor) 10 mg PO QHS [facility] Last Admin: 11/03/19 21:56 Dose: 10 mg Documented by: Enoxaparin Sodium (Lovenox) 30 mg SC DAILY [facility] Last Admin: 11/04/19 08:31 Dose: 30 mg Documented by: Fenofibrate (Tricor) 48 mg PO DAILY [facility] Last Admin: 11/04/19 08:31 Dose: 48 mg Documented by: Glucagon () 1 mg IM .X1 PRN PRN Reason: Hypoglycemia Sodium Chloride () 1,000 mls @ 100 mls/hr IV .Q10H [facility] Last Infusion: 11/03/19 22:50 Dose: 100 mls/hr Documented by: Ceftriaxone Sodium (Rocephin) 1 gm in 50 mls @ 100 mls/hr IV Q24H [facility] Last Infusion: 11/03/19 22:50 Dose: Infused Documented by: Dextrose (Dextrose 10%-Water) 250 mls @ 999 mls/hr IV .Q16M PRN; Protocol PRN Reason: HYPOGLYCEMIA Sodium Chloride () 250 mls @ 15 mls/hr IV .[id number] PRN PRN Reason: Saline Flush Sodium Chloride () 250 mls @ 15 mls/hr IV .[id number] PRN PRN Reason: Additional IVPB Infusion Insulin Human Lispro (Humalog Kwikpen (Bkc)) 0 unit SC ACHS [facility]; Protocol Last Admin: 11/04/19 07:42 Dose: 2 units Documented by: Ondansetron HCl (Zofran) 4 mg IV Q8H PRN PRN PRN Reason: NAUSEA/VOMITING Code Visit Inpatient E&M: 17640 Subs Hosp L2
--- NOTE | 2019-11-04 09:36 | NURSING ---
Pt requesting d/c. This RN called micro to determine when final result of urine culture would be resulted. Notified final would be in tomorrow. Dr. Marquez updated and states he wants to keep patient as he is deconditioned. Patient notified of same.
--- NOTE | 2019-11-04 10:00 | CASEMGMT ---
Addendum entered by Dominique Ivan 11/04/19 11:18: SW spoke w/pt about LW. Pt initially said it was difficult to speak about this topic, but then we did discuss the document briefly to see if he would like to complete it. Upon further discussion, pt states he thinks he does have a living will at home. TARYN Frost Original Note: As per pt, has POA but unable to bring in documentation, he had said daughter Ann-Marie is POA. TARYN Frost
--- NOTE | 2019-11-04 10:13 | CASEMGMT ---
SW met w/pt in room in regard to discharge plan. Pt states plans to return home, significant other Chel will be there with him. Pt declined referral to rehab facility. SW spoke w/pt about home health, pt declined referral for this as well. Pt then spoke w/SW about that he was to go to [facility] tomorrow, he takes bikes and goes down with his buddies. Pt states this is the first year he cannot go. SW offered support to pt. No further needs anticipated, pt plans to return home at discharge. TARYN Frost
[2019-11-04] MEDS: 0.9% Normal Saline 1,000 ML 100 ML IV ×2 (10:34→19:45)
[2019-11-04 11:40] LABS: Bedside Glucose 192 mg/dL (70-110)
[2019-11-04 16:46] LABS: Bedside Glucose 176 mg/dL (70-110)
[2019-11-04] MEDS: Ceftriaxone 1 GM/50 ML BAG IV (22:07)
[2019-11-04] MEDS: Atorvastatin Calcium 10 MG Tablet PO (22:07)
[2019-11-04 22:26] LABS: Bedside Glucose 181 mg/dL (70-110)
[2019-11-05 02:08] VITALS: BP 112/70; PULSE 65; RESP 18; TEMP 36.9; O2SAT 97
[2019-11-05] MEDS: 0.9% Normal Saline 1,000 ML 100 ML IV (05:45)
[2019-11-05 06:45] LABS: Bedside Glucose 137 mg/dL (70-110)
--- NOTE | 2019-11-05 09:42 | DCINST_ITS ---
You will use the following diet at home:: No restrictions Your food should be the consistency of: Regular Discharge Activity: Return to Normal Activity Allergies/Adverse Reactions: Allergies No Known Allergies Allergy (Verified 11/02/19 18:09) Medications to take at Discharge Amlodipine [Norvasc] 5 mg PO DAILY 11/02/19 Aspirin [Aspirin, Baby] 1 tab PO DAILY 11/02/19 Atorvastatin Calcium [Lipitor] 10 mg PO QHS 11/02/19 Fenofibrate [Tricor] 48 mg PO DAILY 11/02/19 Glimepiride 4 mg PO DAILY 11/02/19 Lisinopril 40 mg PO DAILY 11/02/19 metFORMIN HCl [Glucophage] 1,000 mg PO BIDCM 11/02/19 Cephalexin [Keflex] 500 mg PO Q8 #21 cap 11/05/19 The following prescriptions were given: Cephalexin [Keflex] 500 mg PO Q8 #21 cap Transmission Status: Pending to [id number] Primary Care Physician: Mo Gorman [Primary Care Provider] - Please follow up with your Primary Care Physician in: in 5-7 days Test Results: Test results from this visit will be discussed in further detail at your follow- up appointment, if applicable. Proposed Discharge Date: 11/05/19
--- NOTE | 2019-11-05 09:48 | PCM.DC.SUM ---
Discharge Date and Diagnosis - Problem List Patient Problems: Active and Suspected Problems Acute cystitis (Acute) Date of Admission: 11/02/19 Date of Discharge: 11/05/19 - Primary Discharge Diagnosis Active and Suspected Problems Acute cystitis (Acute) - Secondary Discharge Diagnosis Chronic Problems Essential hypertension (Chronic) Dyslipidemia (Chronic) Hospital Course and Treatment Summary of Care Provided: Patient is a 74-year-old gentleman admitted with generalized malaise found to have acute cystitis admitted to regular nursing floor for further management 1. Acute cystitis with E. coli. ?Admitted to regular nursing floor started on broad-spectrum antibiotic therapy with plans adjust antibiotics based on culture result patient grew E. coli in the urine discharged home on Keflex 2. Acute kidney injury ?On IV fluid with subsequent monitoring of electrolytes ?Kidney function did improve. 3. Hypovolemic hyponatremia ?Managed with fluids. Sodium levels up from 132 on admission to 140 4. Essential hypertension -BP stable at this point , on amlodipine did continue 5. Diabetes mellitus type II ~, patient's oral hypoglycemics held. Placed on long acting insulin, Accu-Cheks a.c. and at bedtime and covered with sliding scale insulin 6. Dyslipidemia ~patient is on statin as well as fenofibrate therapy, continued at home dose 7. Physical debility -Requested PT OT eval and neonatal social worker to assist with discharge planning 8. Anemia ?Secondary to anemia of chronic disorder monitoring H&H with plans to transfuse patient With medical hemoglobin falls below 7. 9. DVT prophylaxis -Enoxaparin Patient Problems: Active and Suspected Problems Acute cystitis (Acute) Objective: GENERAL: Cooperative in no apparent distress HEENT: Atraumatic; EYES; Anicteric, Normal Conjunctiva NECK; supple, normal thyroid, RESPIRATORY: Diminished to auscultation CARDIOVASCULAR: Regular S1 S2, GI: soft, normoactive bowel sounds, : No Renal angle tenderness; NEURO: Awake; no lateralizing signs. SKIN: No Rash PSYCH; Flat affect - Physical Exam Vitals/I&O's: Vital Signs Temp Pulse Resp BP Pulse Ox 98.4 F 65 18 112/70 97 11/05/19 02:08 11/05/19 02:08 11/05/19 02:08 11/05/19 02:08 11/05/19 02:08 Oxygen Delivery Method Room Air Weight: 91.2 kg Body Mass Index (BMI) 25.8 Intake and Output for Last 24 Hours 11/03/19 11/04/19 11/05/19 23:59 23:59 23:59 Intake Total 4253.33 / 4253.33 3163.33 / 3163.33 1250 / 1250 Output Total 2250 / 2250 650 / 650 Balance / 2513.33 / 2513.33 1250 / 1250 Microbiology Past 72 Hours 11/02/19 21:38 Urine, Clean Catch Urine Culture - Final Escherichia coli Laboratory Results 11/04/19 11:15: POC Glucose 192 H 11/04/19 16:03: POC Glucose 176 H 11/04/19 22:10: POC Glucose 181 H 11/05/19 06:36: POC Glucose 137 H Current Medications Amlodipine Besylate (Norvasc) 5 mg PO DAILY [facility] Last Admin: 11/04/19 08:31 Dose: 5 mg Documented by: Aspirin (Aspirin, Baby) 81 mg PO DAILYCM [facility] Last Admin: 11/04/19 08:31 Dose: 81 mg Documented by: Atorvastatin Calcium (Lipitor) 10 mg PO QHS [facility] Last Admin: 11/04/19 22:07 Dose: 10 mg Documented by: Enoxaparin Sodium (Lovenox) 30 mg SC DAILY [facility] Last Admin: 11/04/19 08:31 Dose: 30 mg Documented by: Fenofibrate (Tricor) 48 mg PO DAILY [facility] Last Admin: 11/04/19 08:31 Dose: 48 mg Documented by: Glucagon () 1 mg IM .X1 PRN PRN Reason: Hypoglycemia Sodium Chloride () 1,000 mls @ 100 mls/hr IV .Q10H [facility] Last Admin: 11/05/19 05:45 Dose: 100 mls/hr Documented by: Ceftriaxone Sodium (Rocephin) 1 gm in 50 mls @ 100 mls/hr IV Q24H [facility] Last Infusion: 11/04/19 22:40 Dose: Infused Documented by: Dextrose (Dextrose 10%-Water) 250 mls @ 999 mls/hr IV .Q16M PRN; Protocol PRN Reason: HYPOGLYCEMIA Sodium Chloride () 250 mls @ 15 mls/hr IV .L63C15H PRN PRN Reason: Saline Flush Sodium Chloride () 250 mls @ 15 mls/hr IV .Y33M34H PRN PRN Reason: Additional IVPB Infusion Insulin Human Lispro (Humalog Kwikpen (Bkc)) 0 unit SC ACHS [facility]; Protocol Last Admin: 11/05/19 06:38 Dose: Not Given Documented by: Nutritional Formula (Lactose Free) (Glucerna Shake) 120 ml PO TIDCM [facility] Last Admin: 11/04/19 16:13 Dose: Not Given Documented by: Ondansetron HCl (Zofran) 4 mg IV Q8H PRN PRN PRN Reason: NAUSEA/VOMITING Discharge Diet: No Restrictions Discharge Activity: Return to Normal Activity Home Medications: Medications to take at Discharge Amlodipine [Norvasc] 5 mg PO DAILY 11/02/19 Aspirin [Aspirin, Baby] 1 tab PO DAILY 11/02/19 Atorvastatin Calcium [Lipitor] 10 mg PO QHS 11/02/19 Fenofibrate [Tricor] 48 mg PO DAILY 11/02/19 Glimepiride 4 mg PO DAILY 11/02/19 Lisinopril 40 mg PO DAILY 11/02/19 metFORMIN HCl [Glucophage] 1,000 mg PO BIDCM 11/02/19 Cephalexin [Keflex] 500 mg PO Q8 #21 cap 11/05/19 Following Prescrptions Were Given to Patient: Cephalexin [Keflex] 500 mg PO Q8 #21 cap Transmission Status: Pending to [id number] Primary Care Physician: oM Gorman [Primary Care Provider] - Please follow up with your Primary Care Physician in: in 5-7 days Disposition: Home Minutes spent on discharge:: 32 Patient Condition:: Stable Medical Necessity - Tobacco Use Smoking Status: Never smoker Meaningful Use Info Meaningful Use Diagnoses (Choose all that apply): None applicable Code Visit Inpatient E&M: 46283 Disch Hosp
[2019-11-05] MEDS: Aspirin 81 MG TAB.CHEW PO (10:14)
[2019-11-05] MEDS: amLODIPine 5 MG Tablet PO (10:15)
[2019-11-05] MEDS: Fenofibrate 48 MG Tablet PO (10:15)
[2019-11-05 10:17] VITALS: BP 131/61; PULSE 76; RESP 18; TEMP 36.7; O2SAT 100
== END 2019-11-05 11:09 | disposition home or self-care (01) | DRG 683 ==
LOC: ED 19:30 → PCU 22:43 → MS2 11-03 22:53 → MS3 11-04 14:59
PROVIDERS: Nurse Practitioner Family; Admitting Provider Student in an Organized Health Care Education/Training Program; Emergency Provider Emergency Medicine; PCP Internal Medicine; Visit Provider Internal Medicine
DX: N17.9 Acute kidney failure, unspecified (principal); N30.00 Acute cystitis without hematuria; E87.1 Hypo-osmolality and hyponatremia; E86.0 Dehydration; B96.20 Unspecified Escherichia coli [E. coli] as the cause of diseases classified elsewhere; R53.81 Other malaise; E78.5 Hyperlipidemia, unspecified; E11.9 Type 2 diabetes mellitus without complications; I10 Essential (primary) hypertension; D64.9 Anemia, unspecified; Z79.84 Long term (current) use of oral hypoglycemic drugs
CPT/HCPCS: 36415; 71045; 76770; 80048; 80053; 81001; 82570; 82962; 84300; 84484; 84540; 85025; 85027; 87077; 87086; 87088; 87186; 97110; 97116; 97162; 97166; 97530; 97535; 97802; 99284; J7030; A4216

== ENCOUNTER 2021-12-02 10:46 | Day surgery (SDC) | payer MEDICARE, SELFPAY ==
[2021-12-02] VITALS (7 sets, daily range): BP systolic 128–155; BP diastolic 73–83; PULSE 46–63; RESP 16–18; TEMP 36.4–36.6; O2SAT 92–100; BMI 28.0
[2021-12-02] MEDS: Lactated Ringers 1,000 ML 15 ML IV (11:31)
[2021-12-02 11:41] LABS: Bedside Glucose 128 mg/dL (74-106)
--- NOTE | 2021-12-02 12:15 | IMM_PTH ---
PATIENT: ZHANNA OBRIEN LOC: EN U#:[id number] AGE/SX: 76/M ROOM: RE12/02/[address]: Dr. Gabriel Bradford DO : 1945 BED: DIS: 12/02/2021 SPEC #: [id number] RECD: 12/03/21 14:37 STATUS: CHRISTINA REQuyen #: [id number] STEPHAN: 12/02/21 12:[address]: Gabriel Bradford DEPT: IMMUNOHISTOCHEMISTRY RECD BY: Marlene Marcial ENTERED: 12/03/21 14:37 SP TYPE: IMMUNO OTHR DR: Dr. Todd Christianson MD Tissues: Stomach, NOS Procedures: H Pylori (initial) PHYSICIAN & INSTITUTION [place] [address] SPECIMEN INFORMATION: Tissue Source: Polyp of gastric cardia Clinical Info: Polyp of gastric cardia Specimen Number: [id number] CPT code: 30632 METHODOLOGY: Deparaffinized sections of prefer/formalin-fixed tissue or PAP/DQ stained slides are incubated with monoclonal/polyclonal antibodies/oligonucleotide probes. Localization is made via biotin free immunoperoxidase method. Appropriate controls are performed and reacted as expected. Results on target cell population are indicated in the following table: RESULTS: ANTIBODY / CLONE RESULT H Pylori (polyclonal) negative These tests were developed and their performance characteristics determined by [facility]. They may not have been cleared or approved by the U.S. Food and Drug Administration. The FDA has determined that such clearance or approval is not necessary. INTERPRETATION: Polyp of gastric cardia: Negative for Helicobacter pylori organisms. JACKELIN:johny 12/04/2021
--- NOTE | 2021-12-02 12:15 | EGD_PTH ---
PATIENT: ZHANNA OBRIEN LOC: EN U#:[id number] AGE/SX: 76/M ROOM: RE12/02/[address]: Dr. Gabriel Bradford DO : 1945 BED: DIS: 12/02/2021 SPEC #: [id number] RECD: 12/02/21 14:05 STATUS: CHRISTINA MAYCOL #: [id number] STEPHAN: 12/02/21 12:[address]: Gabriel Bradford DEPT: SURGICAL PATHOLOGY RECD BY: Rossi Martinez ENTERED: 12/03/21 08:12 SP TYPE: EGD BIOPSY OTHR DR: Dr. Todd Christianson MD Tissues: Gastric mucous membrane Procedures: Surgery Specimen Level IV HEADER OPERATION: EGD and incomplete colonoscopy PRE-OP DIAGNOSIS: Polyp of gastric cardia TISSUE SUBMITTED: Polyp of gastric cardia MICROSCOPIC DIAGNOSIS Gastric cardia polyp, biopsy: Fragments of hyperplastic cells/inflammatory polyp. Additional fragment of gastric mucosa with moderate chronic inflammation. JACKELIN:johny 12/04/2021 COMMENT The results of immunohistochemistry for Helicobacter pylori will be reported separately ([id number]). MICROSCOPIC DESCRIPTION Slides are reviewed. GROSS DESCRIPTION Received in fixative is one container labeled with the patient's name and designated polyp of gastric cardia. The specimen consists of multiple irregular fragments of light irwin soft tissue that in aggregate measure 1.5 x 0.4 x 0.2 cm. The specimen is totally submitted in one cassette. / JACKELIN:johny 12/03/2021 TC:5 CPT: 39592
--- NOTE | 2021-12-02 12:22 | HP.PCM_ITS ---
History and Physical Date of Admission: 12/02/21 76 M who presents to the office today for the evaluation of anemia. Patient said the he has had some issues with anemia in the past. After checking his blood counts his hemoglobin was [address] way down to 7.7. He has been on iron therapy along with vitamin C, but he has not had any etiology of his anemia. He says that he does see dark stool but he blames this on the oral iron. He does have poorly controlled diabetes mellitus and CKD. He takes aspirin on a daily basis. He does get occasional heartburn without chest pain or esophageal dysphagia. He is experiencing some mild nausea on occasion. He suffers also from diabetic neuropathy and nephropathy. He does reports that he has issues with dizziness. With medication changes for DMII he was also started on vitamin B12 pills and since this he has had dizziness with some falls. Additional medical history includes diabetes II (treated with metformin and glimipiride), arthritis/osteoarthritis, hyperlipidemia, HTN, asbestos exposure, prostate cancer with treatment. Last colonoscopy performed 2016. ROS Const Constitutional: No anorexia, fatigue, fever(s), weight change or sleep problems Eyes Eyes: No change in vision ENT ENT: No abnormal hearing, difficulty swallowing, mouth lesions, tongue swelling or throat swelling Resp Respiratory: No cough or shortness of breath Cardio Cardiology: No chest pain at rest, chest pain with exertion, shortness of breath or dyspnea on exertion Gastro GI: No difficulty swallowing Genitourinary Male: No difficulty urinating or burning urination Musc Musculoskeletal: No joint pain, joint swelling, muscle weakness or decreased muscle mass Skin Skin: No hair loss in leg, yellowing of the eye, itchy eyes, rash, skin ulcer or skin swelling Neuro Neurology: No abnormal hearing, abnormal movements, confusion, unsteady gait/balance or memory loss Psych Psychiatric: No anxiety, No confusion and No memory loss Endo Endocrine: No fatigue or weight change Aller/Imm Allergy/Immunologic: No itchy eyes, throat swelling or tongue swelling Hossein/Lymp Hematologic/Lymphatic: No easy bleeding, easy bruising or enlarged lymph nodes Exam Const General: cooperative and comfortable Nutritional Appearance: average body habitus and well nourished HENMT Head: normal to inspection Ears: hearing grossly normal bilaterally Nose: external nose normal Face and sinus: normal facial exam Mouth: oral mucosae normal Throat: posterior oropharynx normal Eyes General: appearance normal, both eyes and all related structures Neck Neck: normal visual inspection Chest Chest palpation & inspection: normal inspection of the chest and normal palpation of entire chest wall Resp Effort & Inspection: normal respiratory effort Auscultation: Bilateral: Clear to Auscultation Cardio Palpation: normal PMI Rate: regular rate Rhythm: regular rhythm GI Inspection: normal to inspection Auscultation: normal bowel sounds Percussion: normal to percussion Palpation: no hepatosplenomegaly Skin General: no rashes or lesions noted Neuro General: patient alert Extrem General: normal to inspection Psych Affect: normal affect Quality Reporting Tobacco Screening ([facility] 138) Smoking Status: Never smoker Assessment and Plan Assessment and Plan (1) Anemia: Plan - Dr. Rios Friend, DO: The differential diagnosis for his anemia does include peptic ulcer disease, AVMs, gastritis, esophagitis, duodenitis. Also initial diagnosis would be neoplasia involving the upper or lower GI tract. He should undergo upper and lower endoscopy and possible capsule endoscopy. He was explained alternatives, risk, benefits including outstanding bleeding, infection, sepsis, perforation, need for emergent . He will have ASA of 3. I have re-examined the patient. There are no clinical changes since date of exam.
--- NOTE | 2021-12-02 13:08 | OP.COLON_ITS ---
Patient Name: Dean Oh Procedure Date: 12/02/2021 12:52 PM Date of : 1945 Age: 76 Procedure: Colonoscopy Indications: Iron deficiency anemia Providers: Gabriel Bradford DO Medicines: See the Anesthesia note for documentation of the administered medications Patient Profile: Last Colonoscopy: date unknown. Unable to locate last colonoscopy report. Complications: No immediate complications. Procedure: Pre-Anesthesia Assessment: - Prior to the procedure, a History and Physical was performed, and patient medications and allergies were reviewed. The patient is competent. The risks and benefits of the procedure and the sedation options and risks were discussed with the patient. All questions were answered and informed consent was obtained. Patient identification and proposed procedure were verified by the physician in the pre-procedure area. Mental Status Examination: alert and oriented. Airway Examination: normal oropharyngeal airway and neck mobility. Respiratory Examination: clear to auscultation. CV Examination: normal. Prophylactic Antibiotics: The patient does not require prophylactic antibiotics. Prior Anticoagulants: The patient has taken no previous anticoagulant or antiplatelet agents. ASA Grade Assessment: II - A patient with mild systemic disease. After reviewing the risks and benefits, the patient was deemed in satisfactory condition to undergo the procedure. The anesthesia plan was to use moderate sedation / analgesia (conscious sedation). Immediately prior to administration of medications, the patient was re-assessed for adequacy to receive sedatives. The heart rate, respiratory rate, oxygen saturations, blood pressure, adequacy of pulmonary ventilation, and response to care were monitored throughout the procedure. The physical status of the patient was re-assessed after the procedure. After I obtained informed consent, the scope was passed under direct vision. Throughout the procedure, the patient's blood pressure, pulse, and oxygen saturations were monitored continuously. The colonoscope was introduced through the anus and advanced to the hepatic flexure. The colonoscopy was performed without difficulty. The patient tolerated the procedure well. The quality of the bowel preparation was inadequate. Moderate Sedation: Moderate (conscious) sedation was administered by the endoscopy nurse and supervised by the endoscopist. The patient's oxygen saturation, heart rate, blood pressure and response to care were monitored. Total physician intraservice time was 15 minutes. Scope In: 12:55:04 PM Scope Out: 12:57:54 PM Total Procedure Duration Time 0 hours 2 minutes 50 seconds Findings: The perianal and digital rectal examinations were normal. A few small and large-mouthed diverticula were found in the recto-sigmoid colon, sigmoid colon and descending colon. A large amount of solid stool was found in the rectum, in the recto-sigmoid colon, in the sigmoid colon, in the descending colon, at the splenic flexure, in the transverse colon and at the hepatic flexure, precluding visualization. Lavage of the area was performed using greater than 500 mL of sterile water, resulting in incomplete clearance with continued poor visualization. Impression: - Preparation of the colon was inadequate. - Diverticulosis in the recto-sigmoid colon, in the sigmoid colon and in the descending colon. - Stool in the rectum, in the recto-sigmoid colon, in the sigmoid colon, in the descending colon, at the splenic flexure, in the transverse colon and at the hepatic flexure. - No specimens collected. Recommendation: - Discharge patient to home. - Resume previous diet. - Continue present medications. - Repeat colonoscopy in 3 months because the bowel preparation was suboptimal. Procedure Code(s): --- Professional --- 33540, 53, Colonoscopy, flexible; diagnostic, including collection of specimen(s) by brushing or washing, when performed (separate procedure) 77433, 59, Moderate sedation services provided by the same physician or other qualified health outdoor emergency care technician performing the diagnostic or therapeutic service that the sedation supports, requiring the presence of an independent trained observer to assist in the monitoring of the patient's level of consciousness and physiological status; initial 15 minutes of intraservice time, patient age 5 years or older CPT copyright 2017 [employer]. All rights reserved. The codes documented in this report are preliminary and upon burglar alarm superintendent review may be revised to meet current compliance requirements. Gabriel Bradford DO 12/02/2021 1:07:20 PM This report has been signed electronically. Number of Addenda: 1 Note Initiated On: 12/02/2021 12:52 PM Addendum Number: 1 Addendum Date: 06/04/2022 6:18:25 AM MAC was used as sedation for this procedure. Gabriel Bradford DO 06/04/2022 6:18:29 AM This report has been signed electronically.
--- NOTE | 2021-12-02 13:08 | OP.CCLET_ITS ---
06/04/2022 Todd Christianson MD Re : Colonoscopy procedure for Dean Oh Dear Dr. Christianson This procedure was performed on Thursday, December 02, 2021. My impressions and recommendations are as follows: Impressions : - Preparation of the colon was inadequate. - Diverticulosis in the recto-sigmoid colon, in the sigmoid colon and in the descending colon. - Stool in the rectum, in the recto-sigmoid colon, in the sigmoid colon, in the descending colon, at the splenic flexure, in the transverse colon and at the hepatic flexure. - No specimens collected. Recommendations : - Discharge patient to home. - Resume previous diet. - Continue present medications. - Repeat colonoscopy in 3 months because the bowel preparation was suboptimal. My findings are described in the full procedure note, which is enclosed. If I can be of further assistance, please feel free to contact me at . Sincerely, Gabriel Bradford, 12/02/2021 1:07:20 PM This report has been signed electronically.
--- NOTE | 2021-12-02 13:11 | OP.EGD_ITS ---
Patient Name: Dean Oh Procedure Date: 12/02/2021 12:28 PM Date of : 1945 Age: 76 Procedure: Upper GI endoscopy Indications: Iron deficiency anemia Providers: Gabriel Bradford DO Medicines: See the Anesthesia note for documentation of the administered medications Patient Profile: This is a 76 year old male. Refer to note in patient chart for documentation of history and physical. Complications: No immediate complications. Procedure: Pre-Anesthesia Assessment: - Prior to the procedure, a History and Physical was performed, and patient medications and allergies were reviewed. The risks and benefits of the procedure and the sedation options and risks were discussed with the patient. All questions were answered and informed consent was obtained. Patient identification and proposed procedure were verified in the pre-procedure area. Mental Status Examination: alert and oriented. Airway Examination: normal oropharyngeal airway and neck mobility. Respiratory Examination: clear to auscultation. CV Examination: normal. Prophylactic Antibiotics: The patient does not require prophylactic antibiotics. Prior Anticoagulants: The patient has taken no previous anticoagulant or antiplatelet agents. After reviewing the risks and benefits, the patient was deemed in satisfactory condition to undergo the procedure. The anesthesia plan was to use moderate sedation / analgesia (conscious sedation). Immediately prior to administration of medications, the patient was re-assessed for adequacy to receive sedatives. The heart rate, respiratory rate, oxygen saturations, blood pressure, adequacy of pulmonary ventilation, and response to care were monitored throughout the procedure. The physical status of the patient was re-assessed after the procedure. After obtaining informed consent, the endoscope was passed under direct vision. Throughout the procedure, the patient's blood pressure, pulse, and oxygen saturations were monitored continuously. The gastroscope was introduced through the mouth, and advanced to the second part of duodenum. The upper GI endoscopy was accomplished without difficulty. The patient tolerated the procedure well. Moderate Sedation: Moderate (conscious) sedation was administered by the endoscopy nurse and supervised by the endoscopist. The patient's oxygen saturation, heart rate, blood pressure and response to care were monitored. Total physician intraservice time was 15 minutes. Scope In: 12:40:49 PM Scope Out: 12:51:10 PM Total Procedure Duration Time 0 hours 10 minutes 21 seconds Findings: The examined esophagus was normal. Three 5 mm sessile polyps with stigmata of recent bleeding were found on the greater curvature of the stomach. The polyp was removed with a jumbo cold forceps. Resection and retrieval were complete. Verification of patient identification for the specimen was done. Estimated blood loss was minimal. The second portion of the duodenum was normal. Impression: - Normal esophagus. - Three gastric polyps. Resected and retrieved. - Normal second portion of the duodenum. Recommendation: - Discharge patient to home. - Resume previous diet. - Continue present medications. - Await pathology results. Procedure Code(s): --- Professional --- 16741, Esophagogastroduodenoscopy, flexible, transoral; with biopsy, single or multiple 76125, 59, Moderate sedation services provided by the same physician or other qualified health complex care nurse practitioner performing the diagnostic or therapeutic service that the sedation supports, requiring the presence of an independent trained observer to assist in the monitoring of the patient's level of consciousness and physiological status; initial 15 minutes of intraservice time, patient age 5 years or older CPT copyright 2017 [employer]. All rights reserved. The codes documented in this report are preliminary and upon clinical lab clerk review may be revised to meet current compliance requirements. Gabriel Bradford DO 12/02/2021 1:10:23 PM This report has been signed electronically. Number of Addenda: 1 Note Initiated On: 12/02/2021 12:28 PM Addendum Number: 1 Addendum Date: 06/04/2022 6:18:11 AM MAC was used as sedation for this procedure. Gabriel Bradford DO 06/04/2022 6:18:15 AM This report has been signed electronically.
--- NOTE | 2021-12-02 13:12 | OP.CCLET_ITS ---
06/04/2022 Todd Christianson MD Re : Upper GI endoscopy procedure for Dean Adriano Dear Dr. Christianson This procedure was performed on Thursday, December 02, 2021. My impressions and recommendations are as follows: Impressions : - Normal esophagus. - Three gastric polyps. Resected and retrieved. - Normal second portion of the duodenum. Recommendations : - Discharge patient to home. - Resume previous diet. - Continue present medications. - Await pathology results. My findings are described in the full procedure note, which is enclosed. If I can be of further assistance, please feel free to contact me at . Sincerely, Gabriel Bradford, 12/02/2021 1:10:23 PM This report has been signed electronically.
== END 2021-12-02 23:59 | disposition home or self-care (01) ==
LOC: EN 10:50 → AC 10:52
PROVIDERS: PCP Family Medicine; Referring Provider Family Medicine; Visit Provider Internal Medicine Gastroenterology
PROC: 0DJD8ZZ Inspection of Lower Intestinal Tract, Via Natural or Artificial Opening Endoscopic (ICD-10-PCS; CPT 45378; principal; 2021-12-02 12:10)
DX: K57.30 Diverticulosis of large intestine without perforation or abscess without bleeding (principal); E11.9 Type 2 diabetes mellitus without complications; K31.7 Polyp of stomach and duodenum; D64.9 Anemia, unspecified; E78.00 Pure hypercholesterolemia, unspecified; I10 Essential (primary) hypertension; M19.90 Unspecified osteoarthritis, unspecified site; Z79.84 Long term (current) use of oral hypoglycemic drugs; Z79.82 Long term (current) use of aspirin; Z79.899 Other long term (current) drug therapy
CPT/HCPCS: 45378; 43239; 82962; 88305; 88342; J7120

== ENCOUNTER 2022-08-14 05:13 | Day surgery (SDC) | payer MEDICARE, SELFPAY ==
[2022-08-14] VITALS (7 sets, daily range): BP systolic 122–156; BP diastolic 71–84; PULSE 58–68; RESP 14–18; TEMP 36.4–36.8; O2SAT 96–100; BMI 28.5
--- NOTE | 2022-08-14 | COLBX_PTH ---
PATIENT: ZHANNA OBRIEN LOC: EN U#:[id number] AGE/SX: 77/M ROOM: RE08/14/[address]: Dr. Gabriel Bradford DO : 1945 BED: DIS: 08/14/2022 SPEC #: [id number] RECD: 08/14/22 11:44 STATUS: CHRISTINA REQuyen #: [id number] STEPHAN: 08/14/22 00:[address]: Gabriel Bradford DEPT: SURGICAL PATHOLOGY RECD BY: Srinivasan Rincon ENTERED: 08/14/22 11:45 SP TYPE: COLON BX OTHR DR: Dr. Todd Christianson MD Tissues: Ileum, NOS Procedures: Surgery Specimen Level IV HEADER OPERATION: Colonoscopy (MAC), electrohemostasis PRE-OP DIAGNOSIS: Anemia TISSUE SUBMITTED: Terminal ileum biopsy MICROSCOPIC DIAGNOSIS Terminal ileum, biopsy: Fragments of small intestinal mucosa, no pathologic diagnosis. JACKELIN:johny 08/15/2022 MICROSCOPIC DESCRIPTION Slides are reviewed. GROSS DESCRIPTION Received in fixative is one container labeled with the patient's name and designated terminal ileum biopsy. The specimen consists of two irregular fragments of light irwin soft tissue that in aggregate measure 0.8 x 0.5 x 0.1 cm. The specimen is totally submitted in one cassette. / SJ:johny 08/14/2022 TC:4 CPT: 35796
[2022-08-14] MEDS: Lactated Ringers 1,000 ML 15 ML IV (05:50)
--- NOTE | 2022-08-14 06:26 | PCM.HP.BLA ---
History and Physical Date of Admission: 08/14/22 77 M who presents to the office today for Follow up visit. Dean established with this clinic 10.02.21 with referral from his PCP for anemia evaluation. He has a history of anemia with hemoglobin trending from 14 to 7.7. At time of presentation he was taking PO iron therapy with vitamin C but no etiology had been found. Additional medical history includes diabetes II (treated with metformin and glimepiride), arthritis/osteoarthritis, hyperlipidemia, HTN, asbestos exposure, prostate cancer with treatment. EGD and colonoscopy performed 12.02.21. EGD found three hyperplastic/inflammatory gastric polyps, retrieved. H.Pylori negative. Colonoscopy prep was inadequate. Diverticulosis in recto-sigmoid, sigmoid and descending colon. No specimens collected. Plan LV 12.16.21: Anemia ? repeat colonoscopy one year r/t inadequate prep. Inflammatory polyps seen in stomach Gastritis ? continue PPI and carfate. Feels he is doing well overall. ROS Const Constitutional: No anorexia, fatigue, fever(s), weight change or sleep problems Eyes Eyes: No change in vision ENT ENT: No abnormal hearing, difficulty swallowing, mouth lesions, tongue swelling or throat swelling Resp Respiratory: No cough or shortness of breath Cardio Cardiology: No chest pain at rest, chest pain with exertion, shortness of breath or dyspnea on exertion Gastro GI: No difficulty swallowing Genitourinary Male: No difficulty urinating or burning urination Musc Musculoskeletal: No joint pain, joint swelling, muscle weakness or decreased muscle mass Skin Skin: No hair loss in leg, yellowing of the eye, itchy eyes, rash, skin ulcer or skin swelling Neuro Neurology: No abnormal hearing, abnormal movements, confusion, unsteady gait/balance or memory loss Psych Psychiatric: No anxiety, No confusion and No memory loss Endo Endocrine: No fatigue or weight change Aller/Imm Allergy/Immunologic: No itchy eyes, throat swelling or tongue swelling Hossein/Lymp Hematologic/Lymphatic: No easy bleeding, easy bruising or enlarged lymph nodes Exam Const General: cooperative and comfortable Nutritional Appearance: average body habitus and well nourished [facility] Head: normal to inspection Ears: hearing grossly normal bilaterally Nose: external nose normal Face and sinus: normal facial exam Mouth: oral mucosae normal Throat: posterior oropharynx normal Eyes General: appearance normal, both eyes and all related structures Neck Neck: normal visual inspection Chest Chest palpation & inspection: normal inspection of the chest and normal palpation of entire chest wall Resp Effort & Inspection: normal respiratory effort Auscultation: Bilateral: Clear to Auscultation Cardio Palpation: normal PMI Rate: regular rate Rhythm: regular rhythm GI Inspection: normal to inspection Auscultation: normal bowel sounds Percussion: normal to percussion Palpation: no hepatosplenomegaly Skin General: no rashes or lesions noted Neuro General: patient alert Extrem General: normal to inspection Psych Affect: normal affect Quality Reporting Tobacco Screening ([facility] 138) Smoking Status: Never smoker Assessment and Plan Assessment and Plan (1) Anemia: ?Status:?Chronic ?Plan: He underwent EGD and colonoscopy for his iron deficiency anemia and macrocytosis.? There were no signs of active bleeding in his upper GI tract and he had a very poor prep for his colonoscopy.? We will need to repeat his colonoscopy and if that is negative he will need a capsule endoscopy notes to evaluate his entire GI tract.? We will recheck his iron studies as well as his CBC including hemoglobin and platelets.? He is not taking nonsteroidals except for aspirin.? He does not know his last hemoglobin A1c.? He is not having abdominal pain, cramping, hematochezia or melena.? We will reschedule his colonoscopy. I have examined the patient and the H&P has been reviewed. There are no clinical changes since date of exam.
[2022-08-14 06:50] LABS: Bedside Glucose 149 mg/dL (74-106)
--- NOTE | 2022-08-14 07:06 | OP.COLON_ITS ---
Patient Name: Dean Oh Procedure Date: 08/14/2022 6:16 AM Date of : 1945 Age: 77 Procedure: Colonoscopy Indications: Iron deficiency anemia Providers: Gabriel Bradford DO Referring MD: Todd Christianson MD Medicines: Monitored Anesthesia Care Patient Profile: This is a 77 year old male. Refer to note in patient chart for documentation of history and physical. Last Colonoscopy: 6 months ago. Complications: No immediate complications. Procedure: Pre-Anesthesia Assessment: - Prior to the procedure, a History and Physical was performed, and patient medications and allergies were reviewed. The risks and benefits of the procedure and the sedation options and risks were discussed with the patient. All questions were answered and informed consent was obtained. Patient identification and proposed procedure were verified by the physician in the pre-procedure area. Mental Status Examination: alert and oriented. Airway Examination: normal oropharyngeal airway and neck mobility. Respiratory Examination: clear to auscultation. CV Examination: normal. Prophylactic Antibiotics: The patient does not require prophylactic antibiotics. Prior Anticoagulants: The patient has taken no previous anticoagulant or antiplatelet agents. After reviewing the risks and benefits, the patient was deemed in satisfactory condition to undergo the procedure. The anesthesia plan was to use minimal sedation / analgesia (anxiolysis). Immediately prior to administration of medications, the patient was re-assessed for adequacy to receive sedatives. The heart rate, respiratory rate, oxygen saturations, blood pressure, adequacy of pulmonary ventilation, and response to care were monitored throughout the procedure. The physical status of the patient was re-assessed after the procedure. After I obtained informed consent, the scope was passed under direct vision. Throughout the procedure, the patient's blood pressure, pulse, and oxygen saturations were monitored continuously. The Colonoscope was introduced through the anus and advanced to the terminal ileum. The colonoscopy was performed without difficulty. The patient tolerated the procedure well. The quality of the bowel preparation was adequate. Scope In: 6:38:05 AM Scope Withdrawal Time 0 hours 12 minutes 54 seconds Scope Out: 6:57:04 AM Total Procedure Duration Time 0 hours 18 minutes 59 seconds Findings: The perianal and digital rectal examinations were normal. Scattered small and large-mouthed diverticula were found in the entire colon. Stool was found in the rectum, in the recto-sigmoid colon, in the sigmoid colon and in the cecum. A single medium-sized angiodysplastic lesion with bleeding was found in the cecum. Coagulation for hemostasis using heater probe was successful. Estimated blood loss was minimal. Localized inflammation, mild in severity and characterized by congestion (edema) was found in the terminal ileum. Biopsies were taken with a cold forceps for histology. Verification of patient identification for the specimen was done. Estimated blood loss was minimal. The terminal ileum contained a single small angiodysplastic lesion with bleeding. Coagulation for hemostasis using heater probe was successful. Estimated blood loss was minimal. Impression: - No specimens collected. Recommendation: - Discharge patient to home. - Resume previous diet. - Continue present medications. - Await pathology results. - Repeat colonoscopy in 5 years for surveillance. - Return to GI office. Procedure Code(s): --- Professional --- 55311, 59, Colonoscopy, flexible; with control of bleeding, any method 23861, Colonoscopy, flexible; with biopsy, single or multiple CPT copyright 2017 [employer]. All rights reserved. The codes documented in this report are preliminary and upon wage and salary specialist review may be revised to meet current compliance requirements. Gabriel Bradford DO 08/14/2022 7:06:01 AM This report has been signed electronically. Number of Addenda: 0 Note Initiated On: 08/14/2022 6:16 AM
--- NOTE | 2022-08-14 07:07 | OP.CCLET_ITS ---
08/14/2022 Todd Christianson MD Re : Colonoscopy procedure for Dean Oh Dear Dr. Christianson This procedure was performed on August. My impressions and recommendations are as follows: Impressions : - No specimens collected. Recommendations : - Discharge patient to home. - Resume previous diet. - Continue present medications. - Await pathology results. - Repeat colonoscopy in 5 years for surveillance. - Return to GI office. My findings are described in the full procedure note, which is enclosed. If I can be of further assistance, please feel free to contact me at . Sincerely, Gabriel Bradford, 08/14/2022 7:06:01 AM This report has been signed electronically.
== END 2022-08-14 07:49 | disposition home or self-care (01) ==
LOC: EN 05:13 → AC 05:14
PROVIDERS: PCP Family Medicine; Referring Provider Family Medicine; Visit Provider Internal Medicine Gastroenterology
PROC: 0DJD8ZZ Inspection of Lower Intestinal Tract, Via Natural or Artificial Opening Endoscopic (ICD-10-PCS; CPT 45378; principal; 2022-08-14 06:25)
DX: K57.30 Diverticulosis of large intestine without perforation or abscess without bleeding (principal); E11.9 Type 2 diabetes mellitus without complications; D50.9 Iron deficiency anemia, unspecified; E78.00 Pure hypercholesterolemia, unspecified; I10 Essential (primary) hypertension; Z79.82 Long term (current) use of aspirin; Z79.84 Long term (current) use of oral hypoglycemic drugs; Z79.899 Other long term (current) drug therapy; Z86.16 Personal history of COVID-19
CPT/HCPCS: 45380; 45382; 82962; 88305; J7120; J2405

== ENCOUNTER → 2022-08-28 | Outpatient (CLI) | payer MEDICARE, SELFPAY ==
[2022-08-28 14:47] LABS: Absolute Lymphocyte Count 1.89 X10^3/uL (0.83-4.51); Basophil# 0.04 X10^3/uL; Basophil% 0.7 % (0-1); Eosinophils% 3.6 % (0-5); Hematocrit 35.8 % (40-54); Hemoglobin 12.2 g/dL (13.0-16.5); Lymphocyte # 1.89 X10^3/ul (0.83-4.51); Lymphocyte % 33.8 % (19-41); Mean Corp Hgb Conc 34.1 g/dL (32-36); Mean Corpuscular Hgb 31.6 pg (27.0-32.0); Mean Corpuscular Volume 92.7 fL (80-94); Mean Platelet Vol. 8.5 fl (6.2-12.0); Monocyte# 0.47 X10^3/uL; Monocyte% 8.4 % (0-10); NRBC Flagged by Analyzer 0 % (0-5); Neutrophil # 2.99 X10^3/uL (2.7-7.7); Neutrophil % 53.3 % (47-70); Platelet Count 272 K/mm3 (150-450); RBC Distribution Width CV 13.2 % (11.6-14.6); RBC Distribution Width SD 44.9 fl (35.1-43.9); Red Blood Count 3.86 M/mm3 (4.6-6.2); White Blood Count 5.6 K/mm3 (4.4-11.0)
[2022-08-28 15:16] LABS: Ferritin 61 ng/mL (26-388); Iron 59 ug/dL (65-175); Iron Binding Capacity,Total 346 ug/dL (250-450); PERCENT IRON SATURATION 17.1 % (15.0-55.0)
== END | disposition home or self-care (01) ==
LOC: LABSPEC 14:16
PROVIDERS: Nurse Practitioner Adult Health; PCP Family Medicine; Referring Provider Nurse Practitioner Gerontology; Visit Provider Nurse Practitioner Gerontology
DX: N30.00 Acute cystitis without hematuria (principal); D64.9 Anemia, unspecified
CPT/HCPCS: 36415; 82728; 83540; 83550; 85025

== ENCOUNTER → 2023-02-23 | Outpatient (CLI) | payer MEDICARE, SELFPAY ==
[2023-02-23 15:13] LABS: Absolute Lymphocyte Count 1.89 X10^3/uL (0.83-4.51); Absolute Neutrophil Count 3.7 X10^3/uL (2.0-7.7); Basophil# 0.05 X10^3/uL; Basophil% 0.8 % (0-1); Eosinophil# 0.28 X10^3/uL; Eosinophils% 4.3 % (0-5); Hematocrit 37.9 % (40-54); Hemoglobin 12.2 g/dL (13.0-16.5); Lymphocyte # 1.89 X10^3/ul (0.83-4.51); Lymphocyte % 29.1 % (19-41); Mean Corp Hgb Conc 32.2 g/dL (32-36); Mean Corpuscular Hgb 30.7 pg (27.0-32.0); Mean Corpuscular Volume 95.2 fL (80-94); Monocyte# 0.58 X10^3/uL; Monocyte% 8.9 % (0-10); NRBC Flagged by Analyzer 0 % (0-5); Neutrophil # 3.68 X10^3/uL (2.7-7.7); Neutrophil % 56.6 % (47-70); Platelet Count 252 K/mm3 (150-450); RBC Distribution Width CV 12.7 % (11.6-14.6); RBC Distribution Width SD 43.8 fl (35.1-43.9); Red Blood Count 3.98 M/mm3 (4.6-6.2); White Blood Count 6.5 K/mm3 (4.4-11.0)
[2023-02-23 15:46] LABS: Ferritin 49 ng/mL (26-388); Iron 59 ug/dL (65-175); Iron Binding Capacity,Total 376 ug/dL (250-450); PERCENT IRON SATURATION 15.7 % (15.0-55.0)
== END | disposition home or self-care (01) ==
PROVIDERS: PCP Family Medicine; Referring Provider Nurse Practitioner Adult Health; Visit Provider Nurse Practitioner Adult Health
DX: N30.00 Acute cystitis without hematuria (principal); D64.9 Anemia, unspecified
CPT/HCPCS: 36415; 82728; 83540; 83550; 85025

== ENCOUNTER 2025-02-26 12:40 | Emergency (ER) | payer MEDICARE, SELFPAY ==
[2025-02-26 12:40] VITALS: BP 171/89; PULSE 67; RESP 14; TEMP 37; O2SAT 97; BMI 29.7
--- NOTE | 2025-02-26 13:53 | EX.ED.DYSGE1 ---
HPI History of Present Illness Chief Complaint: General Illness [facility] Medical History Alcohol use Altered gait Ambulates with cane Bladder disease Dementia Diabetes Dietary restriction Easy bruising Headache Heartburn High cholesterol History of edema History of pain when walking History of renal disease History of stress test Hx of traumatic brain injury Hypertension Laxative abuse Leg cramps Loss of consciousness Loss of hearing Low iron Non-smoker Prostate disease Restless legs Shortness of breath on exertion Wears glasses Home Medications ?Medication ?Instructions ?Recorded ?Last Taken ?Type amlodipine 5 mg tablet 5 mg PO DAILY 11/02/19 02/26/25 History aspirin 81 mg chewable tablet 1 tab PO DAILY 11/02/19 02/26/25 History fenofibrate nanocrystallized 48 mg 48 mg PO DAILY 11/02/19 02/26/25 History tablet glimepiride 4 mg tablet 4 mg PO DAILY 11/02/19 02/26/25 History lisinopril 40 mg tablet 40 mg PO DAILY 11/02/19 02/26/25 History metformin 500 mg tablet 1,000 mg PO BIDCM 11/02/19 02/26/25 History atorvastatin 40 mg tablet 40 mg PO DAILY 02/26/25 02/25/25 History ferrous sulfate, dried 159 mg (45 159 mg PO DAILY 02/26/25 02/26/25 History mg iron) tablet,extended release finasteride 5 mg tablet 5 mg PO DAILY 02/26/25 02/26/25 History mecobalamin (vitamin B12) 1,000 2,000 mcg PO DAILY 02/26/25 02/26/25 History mcg lozenges pioglitazone 30 mg tablet 30 mg PO DAILY 02/26/25 02/26/25 History tamsulosin 0.4 mg capsule 0.4 mg PO Q24H 02/26/25 02/25/25 History Allergy/AdvReac Type Severity Reaction Status Date / Time No Known Allergies Allergy Verified 02/23/23 14:20 Surgical History History of circumcision History of colonoscopy Social History Smoking Status: Never smoker EXAM Physical Exam Const Vital Signs: 02/26/25 12:40 02/26/25 13:05 02/26/25 14:38 Temperature 98.6 F Temperature Source Oral Pulse Rate 67 58 L Respiratory Rate 14 16 Respiratory Effort Normal Non-Labored Respiratory Pattern Normal Blood Pressure 171/89 H 172/84 H Blood Pressure Mean 116 113 Pulse Ox 97 100 Oxygen Delivery Method Room Air Room Air 02/26/25 16:00 02/26/25 17:19 Temperature 97.8 F Temperature Source Pulse Rate 64 64 Respiratory Rate 14 14 Respiratory Effort Respiratory Pattern Blood Pressure 145/86 H 145/86 H Blood Pressure Mean 105 105 Pulse Ox 99 99 Oxygen Delivery Method Room Air [facility] [place] Narrative Medical decision making narrative: HISTORY OF PRESENT ILLNESS: Chief complaint: Dizziness, altered mental status 79-year-old male history of altered gait, alcohol use, hyperlipidemia, hypertension presents with dizziness and concern for change in mental status. Patient notes transient confusion. States he has had kidney pain for several days. He notes at times he feels more confused like he is thinking more slowly than usual. States he lifting very fast but more recently he is felt more slowly. He denies head trauma, headache. Denies visual disturbance, loss of movement sensation or coordination. He endorses bilateral flank pain that began 2 to 3 days ago. Denies urinary complaint such as urgency frequency or dysuria. Notes he has been urinating more but has been drinking more tried to flush his system. He states he was diagnosed with sepsis REVIEW OF SYSTEMS: Pertinent positives: transient confusion, dizziness, bilateral flank pain. Pertinent negatives: BRIGGS, CP, SOB, Vomiting, fever PHYSICAL EXAM: Nursing triage notes reviewed, Vital signs reviewed Constitutional: please see [facility] HENT: MMM Eyes: Pupils equal round and reactive to light, Extraocular muscles intact Neck: No stridor, no JVD, full neck ROM Lungs: Clear to auscultation, No wheezing or rales. No increased work of breathing, no conversational dyspnea, no accessory muscle use, no nasal flaring. No respiratory distress noted Heart: Regular rate and rhythm, No murmurs, No rubs and No gallops, 2+ distal pulses (radial, femoral, posterior tibial) in all extremities Abdomen: Soft, there is no tenderness, rigidity, rebound or guarding, no obvious peritoneal signs, no palpable pulsatile abdominal masses, no auscultated abdominal bruit : No CVAT Extremities: No edema Neuro: Alert, oriented x 3, no new focal neurological deficits, cranial nerves II through XII intact, 5/5 strength in all present extremities. Intact sensation to light touch in all present extremities, 2+ reflexes bilateral patella tendons. Skin: No rash or lesions noted MEDICAL DECISION MAKING: Chief Complaint: please see HPI External records reviewed: Reviewed prior inpatient notes. Reviewed prior gastroenterology note. Reviewed medications. Reviewed allergies and problem list. Factors affecting care: as per HPI Social determinants of health: patient alcohol use History obtained from others: none Consults: none [facility] Narrative: The patient was initially hypertensive with a blood pressure 171/89 otherwise afebrile and nontoxic-appearing. Exam without focal neurologic deficits. No focal cardiopulmonary abnormalities I considered the following differential diagnosis: ICH, mass, nephrolithiasis, pyelonephritis, pneumonia, UTI, metabolic or infectious encephalopathy I obtained a broad lab and imaging workup to further determine if the patient was suffering from a life-threatening etiology. Initially assisted 500 cc bolus. ALL IMAGES (IF OBTAINED) HAVE BEEN PERSONALLY REVIEWED AND INTERPRETED BY MYSELF. CBC with no leukocytosis to suggest systemic inflammation, mild anemia, no thrombocytopenia BMP with improved renal function, no significant electrolyte abnormalities, no sign of metabolic acidosis Lactate is wnl indicating no end-organ hypoperfusion and/or hypoxia. LFTs show no evidence of hepatobiliary pathology. Urinalysis shows no evidence of urinary inflammation suggestive of UTI I have personally reviewed the patient's chest x-ray. Chest x-ray is unremarkable for pulmonary edema, pneumothorax, pneumonia or focal cardiopulmonary abnormality. CT scan of the brain was negative for ICH or mass or bleed CT scan abdomen pelvis with IV contrast showed no evidence of acute intra-abdominal otology. Did show distended bladder, hydronephrosis Upon reevaluation the patient urinated approximately 2 L of urine. He certainly does not have a bladder outlet obstruction. He has no sign of UTI. Patient blood pressure improved to 145/86 (was still technically abnormal does not require emergent treatment). He has no sign of sepsis (no leukocytosis, no anion gap, no metabolic acidosis, lactate less than or equal to 2). His kidney numbers are improved with a creatinine of 1.57 which is better than his last 4 studies which were as high as 2.56. There is no clear etiology to explain his symptoms. His mental status was reassessed he was alert and orient x 3. I discussed his mental status with his family ember who noted he is at his baseline. He is appropriate for discharge with close urology follow-up given report of hydronephrosis The patient and/or family, caregivers express understanding. The patient and/or family, caregivers agrees with the plan. Shared decision making: I will have a discussion with the patient and or visitors regarding risk/benefits of further testing or admission. They will be made aware of of the risk/benefits inherent in this decision they will be given the opportunity to voice understanding. Total critical care time today provided was at least 0 minutes. This excludes separately billable procedures. Critical care time (if documented) is secondary to the patient having high probability of clinically significant/life threatening deterioration in the patient's condition which required my urgent intervention. Impression: 1. Dizziness 2. Transient confusion 3. Hydronephrosis Dispo: Discharge home This note was generated with Plynked dictation software. It may contain incorrect words, spelling, and punctuation that were not noted in review of the chart prior to signing. Lab Data Labs: Laboratory Results - last 24 hr 02/26/25 02/26/25 14:55 15:00 WBC 5.8 RBC 3.61 L Hgb 11.4 L Hct 33.7 L MCV 93.4 MCH 31.6 MCHC 33.8 RDW Std Deviation 46.3 H RDW Coeff of Bobby 13.5 Plt Count 234 MPV 8.8 Immature Gran % (Auto) 0.200 Neut % (Auto) 65.8 Lymph % (Auto) 22.1 Harrison % (Auto) 7.1 Eos % (Auto) 4.3 Baso % (Auto) 0.5 Absolute Neuts (auto) 3.8 Absolute Lymphs (auto) 1.28 Nucleated RBC % 0 Sodium 141 Potassium 4.1 Chloride 105 Carbon Dioxide 23.9 Anion Gap 12 BUN 15 Creatinine 1.57 H Estim Creat Clear Calc 49.56 L Est GFR (MDRD) Non-Af 45 L BUN/Creatinine Ratio 9.3 L Glucose 89 Lactic Acid 2.0 Calcium 9.5 Total Bilirubin 0.32 AST 29 ALT 15 Alkaline Phosphatase 53 Troponin T High Sens 18 Total Protein 7.2 Albumin 4.4 Globulin 2.8 Albumin/Globulin Ratio 1.6 Lipase 49 Urine Color Straw Urine Clarity Clear Urine pH 7.0 Ur Specific [place] 1.005 Urine Protein Negative Urine Glucose (UA) Normal Urine Ketones Negative Urine Occult Blood Negative Urine Nitrite Negative Urine Bilirubin Negative Urine Urobilinogen Normal Ur Leukocyte Esterase Negative Urine RBC 0-5 SEEN Urine WBC 0-5 SEEN Ur Squamous Epith Cells 0-5 SEEN Urine Bacteria 0 SEEN Urine Mucus 0 SEEN Radiography Diagnostic Testing: Clinical Impression(s) from Imaging Studies Brain CT 02/26/25 14:27 IMPRESSION: No acute intracranial finding. Reading Location: [facility] Abdomen/Pelvis CT 02/26/25 14:28 IMPRESSION: 1. Markedly enlarged prostate, distended urinary bladder with mild right and moderate left hydroureteronephrosis, likely secondary to chronic outlet obstruction. Urinary bladder scan and possible straight catheterization recommended. 2. Small left mid ureteral diverticulum, likely secondary to chronic bladder outlet obstruction. 3. Moderate distal colonic diverticulosis. Reading Location: [facility] Chest X-Ray 02/26/25 15:50 IMPRESSION: Negative Chest. Reading Location: [facility] Discharge Plan Triage Chief Complaint: General Illness ED Provider: Blayne Mcdonald Dx/Rx/DC Orders Clinical Impression: Dizziness Instructions: ED Dizziness, Uncertain Cause Prescriptions: No Action metformin 500 MG tablet 1,000 mg PO BIDCM amlodipine 5 MG tablet 5 mg PO DAILY glimepiride 4 MG tablet 4 mg PO DAILY aspirin 81 MG tablet,chewable 1 tab PO DAILY lisinopril 40 MG tablet 40 mg PO DAILY fenofibrate nanocrystallized 48 MG tablet 48 mg PO DAILY atorvastatin 40 mg tablet 40 mg PO DAILY tamsulosin 0.4 mg capsule 0.4 mg PO Q24H pioglitazone 30 mg tablet 30 mg PO DAILY finasteride 5 mg tablet 5 mg PO DAILY ferrous sulfate, dried 159 mg (45 mg iron) tablet extended release 159 mg PO DAILY mecobalamin (vitamin B12) 1,000 mcg lozenge 2,000 mcg PO DAILY Rx Instructions: allow to dissolve in mouth OR may chew lightly before swallowing Primary Care Provider: Todd Christianson Referrals: Todd Christianson MD [Primary Care Provider] - Activity Restrictions/Additional Instructions: Thank you for trusting us with your care today! Your labs and images were reassuring. No sign of sepsis or infections. Please take Tylenol (2 pills, 650 mg), ibuprofen (2 pills, 400 mg) every 6 hours as needed for pain and fever control. Please return to the emergency department if your symptoms change or worsen. Please follow with your primary care physician for further outpatient evaluation and management. Print Language: Kittitian Disposition Disposition: Home, Self Care Discharge Date/Time: 02/26/25 17:20
--- NOTE | 2025-02-26 14:27 | CT_ITS ---
EXAM: BRAIN/HEAD WITHOUT CONTRAST CLINICAL HISTORY: 79 y/o M with DIZZINESS. COMPARISON: None. TECHNIQUE: Routine CT imaging of the head without IV contrast. Additional multiplanar reformats were obtained. Dose reduction techniques were used including intermediate exposure control (AEC),iterative reconstruction technique, and/or mA and/or KV dose adjustments based on patient's size. FINDINGS: The ventricles, sulci and cisterns are normal for patient age. There is no acute intracranial hemorrhage or herniation. There is no midline shift, mass effect, or extra-axial collection. Mild scattered supratentorial white matter hypodensities. 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 The baker-white matter interfaces are otherwise maintained. Prior ocular lens replacements. The visualized paranasal sinuses and mastoids are unremarkable. No acute calvarial fracture or scalp hematoma. CT/Brain/Head without Contrast IMPRESSION: No acute intracranial finding. Reading Location: [id number]
--- NOTE | 2025-02-26 14:28 | EKG12_ITS ---
Test Reason : GENERAL Blood Pressure : */* mmHG Vent. Rate : 61 BPM Atrial Rate : 61 BPM P-R Int : 228 ms QRS Dur : 92 ms QT Int : 408 ms P-R-T Axes : 73 5 48 degrees QTcB Int : 410 ms Sinus rhythm with 1st degree A-V block Otherwise normal ECG Confirmed by JAIR MCDONOUGH, JACKSON ([id number]), editor book NEGRO HUNTER ([id number]) on 02/28/2025 6:44:36 AM Referred By: Confirmed By: JACKSON ADAM MD
--- NOTE | 2025-02-26 14:28 | CT_ITS ---
PROCEDURE: ABDOMEN/PELVIS W IV CONT ONLY 02/26/2025 REASON FOR EXAM: BILATERAL FLANK PAIN TECHNIQUE: ABDOMEN/PELVIS W IV CONT ONLY with delayed phase imaging. Coronal and Sagittal reconstruction series were provided. CONTRAST: Visualized within the mid left ureter. Minimal contrast visualized within the urinary bladder on delayed phase imaging, likely due to timing of contrast bolus. VOLUME: 100 mL One or more dose reduction techniques were used (e.g., Automated exposure control, adjustment of the mA and/or kV according to patient size, use of iterative reconstruction technique. RADIATION DOSE SUMMARY: DLP: 2400 mGycm COMPARISON: Renal bladder ultrasound 11/03/2019. FINDINGS: Lung bases: Bibasilar atelectasis. The heart is normal in size. Liver: Mild hepatomegaly with diffuse hepatic steatosis. The major portal veins are patent. No biliary ductal dilation. Gallbladder: No radiopaque stones within the gallbladder. Spleen: Normal in size. Pancreas: Unremarkable. Adrenals: Right adrenal mass, likely an adenoma. No left adrenal mass. Kidneys: Mild symmetric renal cortical scarring. Mild right and moderate left hydroureteronephrosis. No renal or ureteral calculi. Contrast opacifies the bilateral renal collecting systems on delayed imaging. Contrast layering throughout the left ureter at the site of focal ureteral outpouching (best visualized on sagittal image 102). Minimal contrast within the urinary bladder on delayed imaging, likely secondary to timing of contrast bolus. Bladder: The urinary bladder is distended and unremarkable. Reproductive Organs: Markedly enlarged prostate which indents the bladder base. Bowel: The bowel loops are nondilated. No ascites or pneumoperitoneum. Normal appendix. Moderate distal colonic diverticulosis. Lymph nodes: No suspicious lymphadenopathy. Vasculature: Moderate mixed plaque of the aortoiliac vessels. Ectasia of the right common iliac artery measuring up to 2.5 cm (series 2, image 90). Bones: Thoracolumbar spondylosis. CT/Abdomen/Pelvis W IV Cont ONLY IMPRESSION: 1. Markedly enlarged prostate, distended urinary bladder with mild right and mo derate left hydroureteronephrosis, likely secondary to chronic outlet obstruction. Urinary bladder scan and possible str aight catheterization recommended. 2. Small left mid ureteral diverticulum, likely secondary to chronic bladder ou tlet obstruction. 3. Moderate distal colonic diverticulosis. Reading Location: [facility]
[2025-02-26] MEDS: 0.9% Normal Saline (500mL Bag) 500 ML 1000 ML IV (14:30)
[2025-02-26 14:38] VITALS: BP 172/84; PULSE 58; RESP 16; O2SAT 100
--- OUTSIDE RECORDS SUMMARY | 2025-02-26 15:02 | XMS RPT_ITS | CCD ---
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 Mo Gorman Referring Provider Dr. Gabriel Bradford Attending Provider [phone] Dr. Todd Bunch Primary Care Provider Dr. Todd Bunch Referring Provider Dr. Gabriel Bradford Other Provider [phone] Todd Bunch MD Primary Care Provider LEATHA PRECIADO Referring Unavailable TODD BUNCH Primary Care Unavailable Todd Bunch MD Primary Care Provider Dr. Todd Bunch Primary Care Provider Dr. Todd Bunch Referring Provider Dr. Gabriel Bradford Attending Provider [phone] Dr. Gabriel Bradford Other Provider [phone] Todd Bunch MD Primary Care Provider Yunior HUDSON, DIRECTOR OF GLOBAL SALES-C Elda Hurt Attending Provider [phone] Dr. Todd Bunch Primary Care Provider Dr. Todd Bunch Referring Provider Yunior HUDSON, DIRECTOR OF GLOBAL SALES-C Elda Hurt Attending Provider [phone] Todd Bunch Referring Unavailable Gabriel Bradford Attending Unavailable Gabriel Bradford Consulting Unavailable Julio C, Todd Primary Care Unavailable Julio C, Todd Referring Unavailable Julio C, Todd Primary Care Unavailable Gabriel Bradford Attending Unavailable Faizan DIRECTOR OF GLOBAL SALES, Ann-Marie Referring Unavailable Faizan DIRECTOR OF GLOBAL SALES, Ann-Marie Attending Unavailable Julio C, Todd Primary Care Unavailable Yunior DIRECTOR OF GLOBAL SALES, Elda Hurt Attending Unavailable Julio C, Todd Primary Care Unavailable Yunior DIRECTOR OF GLOBAL SALES, Elda M Referring Unavailable Yunior DIRECTOR OF GLOBAL SALES, Elda M Attending Unavailable Julio C, Todd Referring Unavailable Julio C, Todd Primary Care Unavailable Julio C, Todd Referring Unavailable Julio C, Todd Primary Care Unavailable FriendGabriel Attending Unavailable Yunior DIRECTOR OF GLOBAL SALES, Elda M Attending Unavailable Julio C, Todd Primary Care Unavailable Julio C, Todd Referring Unavailable Todd Bunch MD Primary Care Provider [facility].Talia ALFONSO Unavailable Monserrat Cortez PA-C Unavailable PEDRO WASHINGTON Attending Unavailable JULIO C, TODD A Primary Care Unavailable PADMINIPEDRO Ba Attending Unavailable JULIO C, TODD A Primary Care Unavailable JULIO C, TODD A Attending Unavailable JULIO C, TODD A Primary Care Unavailable PADMINIPEDRO Referring Unavailable JULIO C, TODD A Primary Care Unavailable JULIO C, TODD A Referring Unavailable JULIO C, TODD A Primary Care Unavailable ADAL HOWELL Referring Unavailabl e JULIO C, TODD A Primary Care Unavailable PADMINIPEDRO Referring Unavailable JULIO C, TODD A Primary Care Unavailable TALIA DORSEY Attending Unavailable JULIO C, TODD A Primary Care Unavailable TALIA DORSEY Referring Unavailable JULIO C, TODD A Primary Care Unavailable [facility].Talia ALFONSO Unavailable Monserrat Cortez PA-C Unavailable Medications Current Medications Medication Drug Class(es) Dates Sig (Normalized) Sig (Original) amLODIPine 5 mg oral tablet (20 sources) Dihydropyridine Calcium Channel Heriberto Start: 09-15-2023 End: 02-07-2025 take 1 tablet by mouth once daily amLODIPine (NORVASC) 5 mg tablet Take 1 tablet by mouth once daily. 90 tablet 1 02/07/2025 Active Start: 07-21-2019 End: 05-13-2023 take 1 tablet by mouth once daily amLODIPine (NORVASC) 5 mg tablet Take 1 tablet by mouth once daily. 90 tablet 1 05/13/2023 Active Comment on above: Take 1 tablet by tito th once daily. aspirin 81 mg chewable tablet (20 sources) Platelet Aggregation Inhibitor, Nonsteroidal Anti-inflammatory Drug Start: 11-02-2019 take 1 tablet by mouth once daily Aspirin Active 1 TABLET PO DAILY November 02, 2019 1:00am take 1 tablet by mouth once lauren y aspirin, enteric coated (ASPIRIN, ENTERIC COATED) 81 mg EC tablet Take 81 mg by mouth once daily. Active Comment on above: Take 81 mg by mouth once daily. atorvastatin 40 mg oral tablet (20 sources) HMG-CoA Reductase Inhibitor Start: 09-15-19 End: 02-08-20 take 1 tablet by mouth once daily at bedtime for hyperlipidemia atorvastatin (LIPITOR) 40 mg tablet Take 1 tablet by mouth daily at bedtime. For cholesterol. 90 tablet 1 02/07/2025 Active Start: 12-11-2022 End: 05-15-2023 take 1 tablet by mouth once daily at bedtime for hyperlipidemia atorvastatin (LIPITOR) 40 mg tablet Take 1 tablet by mouth daily at bedtime. For cholesterol. 90 tablet 1 05/15/2023 Active Start: 09-11-2022 End: 12-10-2022 take 1 tablet by mouth once daily atorvastatin (LIPITO R) 20 mg tablet Take 1 tablet by mouth once daily. 90 tablet 1 12/09/2022 12/10/2022 Discontinued Start: 11-02-2019 End: 09-11-2022 take 10 mg by mouth at bedtime Atorvastatin Active 10 MG PO AT BEDTIME November 02, 2019 1:00am Comment on above: Take 1 tablet by tito th once daily. Take 1 tablet by tito th daily at bedtime. For cholesterol. docusate sodium 100 mg oral capsule (4 sources) Start: 11-30-19 Docusate Sodium (Stool Softener) 100 mg Capsule Active 300 MG PO TWICE A DAY November 29, 2021 12:00am fenofibrate 48 mg oral tablet (20 sources) Peroxisome Proliferator Receptor alpha Agonist Start: 09-15-19 End: 02-08-20 take 1 tablet by mouth once daily fenofibrate nanocrystallized (TRICOR) 48 mg tablet Take 1 tablet by mouth once daily. 90 tablet 1 02/07/2025 Active Start: 11-02-2019 End: 05-13-2023 take 1 tablet by mouth once daily fenofibrate nanocrystallized (TRICOR) 48 mg tablet Take 1 tablet by mouth once daily. 90 tablet 1 05/13/2023 Active Comment on above: Take 1 tablet by tito th once daily. 24 hr ferrous sulfate 142 mg extended release oral tablet (20 sources) Start: 1 End: 5 take 1 tablet by mouth once daily Ferrous Sulfate 142 mg (45 mg iron) TbER Indications: Iron deficiency anemia, unspecified iron deficiency anemia type Take 1 tablet by mouth once daily. 90 tablet 3 01/10/2025 Active Comment on above: Take one tab daily finasteride 5 mg oral tablet (12 sources) 5-alpha Reductase Inhibitor Start: 4 End: 6 take 1 tablet by mouth once daily finasteride (PROSCAR) 5 mg tablet Indications: Benign prostatic hyperplasia with nocturia Take 1 tablet by mouth once daily. 90 tablet 3 10/17/2024 10/17/2025 Active glimepiride 4 mg oral tablet (20 sources) Sulfonylurea Start: 4 End: 5 take 1 tablet by mouth once daily glimepiride (AMARYL) 4 mg tablet Take 1 tablet by mouth once daily. 90 tablet 1 02/07/2025 Active Start: 06-28-2019 End: 05-13-2023 take 1 tablet by mouth once daily glimepiride (AMARYL) 4 mg tablet Take 1 tablet by mouth once daily. 90 tablet 1 05/13/2023 Active Comment on above: Take 1 tablet by tito th once daily. lisinopril 40 mg oral tablet (20 sources) Angiotensin Converting Enzyme Inhibitor Start: 09-15-2023 End: 02-07-2025 take 1 tablet by mouth once daily lisinopril (ZESTRIL) 40 mg tablet Take 1 tablet by mouth once daily. 90 tablet 1 02/07/2025 Active Start: 11-02-2019 End: 05-13-2023 take 1 tablet by mouth once daily lisinopril (ZESTRIL) 40 mg tablet Take 1 tablet by mouth once daily. 90 tablet 1 05/13/2023 Active Comment on above: Take 1 tablet by tito th once daily. metFORMIN hydrochloride 500 mg oral tablet (20 sources) Biguanide Start: End: take 2 tablets by mouth twice daily at mealtime metFORMIN (GLUCOPHAGE) 500 mg tablet Take 2 tablets by mouth two times a day with meals. 360 tablet 1 02/07/2025 Active Start: 08-23-2021 End: 05-13-2023 take 2 tablets by mouth twice daily at mealtime metFORMIN (GLUCOPHAGE) 500 mg tablet Take 2 tablets by mouth twice daily with meals. 360 tablet 1 05/13/2023 Active Start: 11-02-2019 take 1000 mg by mout h twice daily at mealtime Metformin Active 1000 MG PO TWICE DAILY WITH MEALS November 02, 2019 1:00am take 1 tablet by tito th twice daily metFORMIN 500 mg oral tablet ; 1 tab(s) orally 2 times a day Quantity: 0 Refills: 0 Ordered: 18-Aug-2020 Alice Mariee Generic Substitution Allowed take 2 tablets by mo ut twice daily metFORMIN HCl - 500 MG Oral Tablet TAKE 2 TABLETS TWICE DAILY Quantity: 360 Refills: 3 Mo Gorman MD Active Comment on above: Take 2 tablets by mo ut twice daily with meals. Take two tablets by mouth twice daily. Take 2 tablets by mo uth twice daily with meals. Take 2 tablets by mo uth two times a day with meals. pioglitazone 30 mg oral tablet (20 sources) Peroxisome Proliferator Receptor alpha Agonist, Peroxisome Proliferator Receptor gamma Agonist, Thiazolidinedione Start: 09-15-19 24 End: 02-08-20 25 take 1 tablet by mouth once daily pioglitazone (ACTOS) 30 mg tablet Take 1 tablet by mouth once daily. 90 tablet 1 02/07/2025 Active Start: 12-11-2022 End: 05-15-2023 take 1 tablet by mouth once daily pioglitazone (ACTOS) 30 mg tablet Take 1 tablet by mouth once daily. 90 tablet 1 05/15/2023 Active Start: 08-23-2021 End: 12-10-2022 take 1 tablet by mouth once daily pioglitazone (ACTOS) 15 mg tablet Take 1 tablet by mouth once daily. 90 tablet 1 12/09/2022 12/10/2022 Discontinued Comment on above: Take 1 tablet by tito once daily. tamsulosin hydrochloride 0.4 mg oral capsule (20 sources) alpha-Adrenergic Heriberto Start: 07-03-2022 End: 11-16-2024 take 1 capsule by mouth once daily at bedtime tamsulosin (FLOMAX) 0.4 mg Take 1 capsule by mouth daily at bedtime for 30 doses. 90 capsule 3 10/17/2024 Active Start: 06-20-2021 take 1 capsule by mo [facility] once daily at bedtime tamsulosin (FLOMAX) 0.4 mg Take 1 capsule by mouth daily at bedtime for 30 doses. 90 capsule 5 06/20/2021 Active Comment on above: Take 1 capsule by mo [facility] daily at bedtime for 30 doses. vitamin b12 1 mg oral tablet (20 sources) Vitamin B12 Start: 09-18-2023 End: 08-26-2024 take 2 tablets by mouth once daily cyanocobalamin (VITAMIN B-12) 1,000 mcg tab Take 2 tablets by mouth once daily. 180 tablet 3 08/26/2024 Active Start: 09-15-2023 End: 09-17-2023 take 1 tablet by mouth once daily cyanocobalamin (VITAMIN B-12) 1,000 mcg tab Take 1 tablet by mouth once daily. 90 tablet 3 09/15/2023 09/17/2023 Discontinued (Adjust Sig - Block E-Cancel) Start: 08-26-2021 End: 12-09-2022 take 1 tablet by mouth once daily cyanocobalamin (VITAMIN B-12) 1,000 mcg tab Take 1 tablet by mouth once daily. 90 tablet 3 12/09/2022 Active Comment on above: Take 1 tablet by tito once daily. Take 2 tablets by [facility] once daily. Completed/Discontinued Medications Medication Drug Class(es) Dates Sig (Normalized) Sig (Original) bacitracin 0.5 unt/mg topical ointment (10 sources) Start: 01-01-20 End: 09-10-19 23 bacitracin 500 unit/gram ointment Apply to affected area twice daily. 14 g 1 12/31/2021 09/10/2022 Discontinued Comment on above: Apply to affected ar ea twice daily. cefuroxime 250 mg oral tablet (1 source) Cephalosporin Antibacterial Start: 10-09-19 End: 10-18-19 20 take 1 tablet by mouth twice daily at mealtime cefuroxime 250 mg oral tablet ; 1 tab(s) orally 2 times a day x 10 days Quantity: 20 Refills: 0 Ordered: 09-Oct-2019 Delfino Walker Start: 09-Oct-2019 End: 18-Oct-2019 Generic Substitution Allowed Comments: Finish all this medication unless otherwise directed by prescriber.Medication should be taken with plenty of water.Take with food or milk. Comment on above: Finish all this medi cation unless otherwise directed by prescriber.Medication should be taken with plenty of water.Take with food or milk. ciprofloxacin 500 mg oral tablet (1 source) Quinolone Antimicrobial Start: 09-05-20 take 1 tablet by mouth twice daily Ciprofloxacin HCl - 500 MG Oral Tablet Take 1 tablet twice daily Quantity: 6 Refills: 0 Teresa Gomez II, MD Start : 05-Sep-2019 Active hydroCHLOROthiazide 25 mg oral tablet (2 sources) Thiazide Diuretic Start: 07-18-20 take 1 tablet by mouth once daily hydroCHLOROthiazide 25 MG Oral Tablet Take 1 tablet daily Quantity: 90 Refills: 3 Sherif MCDONOUGH, Mo Start : 18-Jul-2019 Active polyethylene glycol 3350 [id number] mg / potassium chloride 2970 mg / sodium bicarbonate 6740 mg / sodium chloride 5860 mg / sodium sulfate 49841 mg powder for oral solution (3 sources) Osmotic Laxative Start: 06-18-20 End: 08-28-20 Peg 3350-Electrolytes (Golytely) 236-22.74-6.74 -5.86 gram recon soln Discontinued 240 ML PO Q10M 4000 June 18, 2022 12:00am August 28, 2022 3:01pm until fecal effluent is clear Problems Active Problems Problem Classification Problem Date Documented Date Episodic/Chronic Acquired foot deformities (20 sources) Hammer toe; Translations: [Other hammer toe(s) (acquired), right foot] Onset: 08-13-2020 02-18-2021 Chronic Calculus of urinary tract (1 source) Kidney stone; Translations: [Calculus of kidney] Episodic Cancer of prostate (20 sources) Malignant tumor of prostate; Translations: [Malignant neoplasm of prostate] Onset: 11-17-2019 08-13-2020 Chronic Chronic kidney disease (20 sources) Chronic kidney disease stage 3; Translations: [Stage 3 chronic kidney disease, unspecified whether stage 3a or 3b CKD (HCC)] Onset: 08-15-2020 Chronic Chronic kidney disease (1 source) Chronic kidney disease; Translations: [Stage 3b chronic kidney disease (HCC)] Onset: 05-13-2023 Deficiency and other anemia (3 sources) Pancytopenia; Translations: [Pancytopenia] Chronic Deficiency and other anemia (20 sources) Anemia of chronic disease; Translations: [Anemia in other chronic diseases classified elsewhere] Onset: 08-15-2020 08-15-2020 Chronic Deficiency and other anemia (1 source) Anemia in other chronic diseases classified elsewhere; Translations: [Anemia of chronic disease] Onset: 08-15-2020 Chronic Deficiency and other anemia (3 sources) Anemia; Translations: [Anemia, unspecified] 06-18-2022 Episodic Deficiency and other anemia (5 sources) Anemia, unspecified; Translations: [Anemia, unspecified] Onset: 04-06-2023 Episodic Deficiency and other anemia (2 sources) Iron deficiency anemia, unspecified; Translations: [Iron deficiency anemia, unspecified] Onset: 08-21-2022 Episodic Diabetes mellitus with complications (20 sources) Type 2 diabetes mellitus; Translations: [Type 2 diabetes mellitus with diabetic chronic kidney disease] Onset: 08-13-2020 09-15-2023 Chronic Diabetes mellitus without complication (20 sources) Diabetes mellitus; Translations: [Type 2 diabetes mellitus without complication] Onset: 08-13-2020 Chronic Diabetes mellitus without complication (1 source) Diabetes mellitus without complication; Translations: [Type 2 diabetes mellitus with stage 3b chronic kidney disease, without long-term current use of insulin (HCC)] Onset: 09-15-2023 Disorders of lipid metabolism (20 sources) Hypercholesterolemia ; Translations: [Dyslipidemia] Onset: 08-13-2020 Chronic Essential hypertension (20 sources) Essential hypertension; Translations: [Essential (primary) hypertension] Onset: 08-13-2020 Chronic Gastritis and duodenitis (3 sources) Gastritis; Translations: [Gastritis, unspecified, without bleeding] 12-16-2021 Episodic Hyperplasia of prostate (8 sources) Benign prostatic hyperplasia; Translations: [Benign prostatic hypertrophy with outflow obstruction] Onset: 04-04-2024 Chronic Immunizations and screening for infectious disease (1 source) Patient encounter status; Translations: [Encounter for immunization] 09-20-2024 Episodic Neoplasms of unspecified nature or uncertain behavior (5 sources) Neoplasm of uncertain behavior of skin of back; Translations: [Neoplasm of uncertain behavior of skin] Onset: 05-20-2023 05-13-2023 Episodic Osteoarthritis (20 sources) Generalized arthritis; Translations: [Unspecified osteoarthritis, unspecified site] Onset: 10-02-2003 08-13-2020 Chronic Other infections; including parasitic (3 sources) Personal history of other infectious and parasitic diseases; Translations: [H/O sepsis] Episodic Other male genital disorders (4 sources) Impotence; Translations: [Male erectile disorder] Chronic Other male genital disorders (6 sources) Phimosis; Translations: [Phimosis] Onset: 08-23-2021 Episodic Other nervous system disorders (2 sources) Abnormal gait; Translations: [Abnormality of gait] 08-30-2021 Episodic Other skin disorders (2 sources) Skin lesion; Translations: [Disorder of the skin and subcutaneous tissue, unspecified] 05-13-2023 Episodic Residual codes; unclassified (1 source) Clouded consciousness 08-30-2021 Episodic Schizophrenia and other psychotic disorders (1 source) Confusional state; Translations: [Unspecified psychosis] 08-30-2021 Chronic Unclassified (2 sources) STAGGERD WALKING,CONFUSED 08-30-2021 Comment on above: STAGGERD WALKING,CON FUSED Urinary tract infections (5 sources) Acute cystitis; Translations: [Acute cystitis without hematuria] Onset: 04-06-2023 11-05-2019 Episodic Past or Other Problems Problem Classification Problem Date Documented Da te Episodic/Chronic Administrative/social admission (20 sources) Advance directive discussed with patient; Translations: [Other specified counseling] Onset: 09-10-2022 Episodic Deficiency and other anemia (20 sources) Iron deficiency anemia; Translations: [Iron deficiency anemia, unspecified] Onset: 08-25-2021 Episodic Genitourinary symptoms and ill-defined conditions (5 sources) Nocturia; Translations: [Nocturia] Onset: 04-04-2024 Episodic Lung disease due to external agents (20 sources) Asbestosis; 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] Onset: 08-13-2020 Resolved: 09-11-2022 Chronic Nutritional deficiencies (20 sources) Cobalamin deficiency; Translations: [Deficiency of other specified B group vitamins] Onset: 08-25-2021 08-25-2021 Episodic Other infections; including parasitic (20 sources) Personal history of other infectious and parasitic diseases; Translations: [History of 2019 novel coronavirus disease (COVID-19)] Onset: 02-18-2021 02-18-2021 Episodic Other male genital disorders (17 sources) Disorder of prostate; Translations: [Disorder of prostate, unspecified] Onset: 09-15-2023 09-15-2023 Episodic Other non-epithelial cancer of skin (20 sources) Squamous cell carcinoma of skin; Translations: [Squamous cell carcinoma of skin, unspecified] Onset: 05-25-2023 05-25-2023 Episodic Other nutritional; endocrine; and metabolic disorders (20 sources) Overweight; Translations: [Overweight] Onset: 01-18-2018 08-13-2020 Episodic Other screening for suspected conditions (not mental disorders or infectious disease) (20 sources) Raised prostate specific antigen; Translations: [Patient encounter status] Onset: 02-21-2022 Episodic Other skin disorders (18 sources) Foot callus; Translations: [Corns and callosities] Onset: 09-15-2023 09-15-2023 Episodic Residual codes; unclassified (20 sources) Memory impairment; Translations: [Other amnesia] Onset: 02-18-2021 02-18-2021 Episodic Residual codes; unclassified (20 sources) Active living will ; Translations: [Other specified health status] Onset: 09-10-2022 09-10-2022 Episodic Residual codes; unclassified (20 sources) Contact with and (suspected) exposure to asbestos; Translations: [Personal history of contact with and (suspected) exposure to asbestos] Onset: 09-11-2022 Episodic Unclassified (4 sources) Patient encounter status; Translations: [History of Screening PSA (prostate specific antigen)] NEGATED: Highlighted row has not occurred!Residual codes; unclassified (20 sources) Disease Episodic Results Test Name Value Interpretation Reference Range Facility BLADDER SCANon 10-17-2024 120 ml [facility] CNOVon 10-17-2024 CNOV Office Visit ([facility] ) [place] ([id number]) 1945 M Date Time Provider Department 10/17/24 10:45 AM PEDRO WASHINGTON During your visit today, we recorded the following information about you: Pedro Washington MD 10/17/2024 10:35 AM Signed ESTABLISHED PATIENT OFFICE VISIT The patient is here for follow-up of prostate cancer and BPH. He is content with his urination and denies bony pain. His IPSS is 3/0. Postvoid residual is 120 cc. His PSA decreased significantly after starting finasteride 6 months ago. The current value was 3.79 (September 2024) LAB RESULTS Creatinine Date Value Ref Range Status 09/20/2024 1.60 (H) 0.73 - 1.22 mg/dL Final PSA (ng/mL) Date Value 09/20/2024 3.79 03/09/2024 13.56 09/15/2023 10.63 07/03/2022 11.32 12/13/2020 8.81 06/14/2020 7.72 GLUCOSE UA (POCT) (mg/dL) Date Value 04/04/2024 Negative BILIRUBIN UA (POCT) (no units) Date Value 04/04/2024 Negative KETONE UA (POCT) (mg/dL) Date Value 04/04/2024 Negative SPECIFIC GRAVITY UA (POCT) (no units) Date Value 04/04/2024 1.010 HEMOGLOBIN/BLOOD UA (POCT) (no units) Date Value 04/04/2024 Negative PH UA (POCT) (no units) Date Value 04/04/2024 6.0 PROTEIN UA (POCT) (mg/dL) Date Value 04/04/2024 Negative UROBILINOGEN UA (POCT) (E.U./dL) Date Value 04/04/2024 0.2 NITRITE UA (POCT) (no units) Date Value 04/04/2024 Negative LEUKOCYTES UA (POCT) (no units) Date Value 04/04/2024 Negative COLOR UA (POCT) (no units) Date Value 04/04/2024 Yellow CLARITY UA (POCT) (no units) Date Value 04/04/2024 Clear ] ALLERGIES No Known Allergies MEDICATIONS: amLODIPine (NORVASC) 5 mg tablet Take 1 tablet by mouth once daily. atorvastatin (LIPITOR) 40 mg tablet Take 1 tablet by mouth daily at bedtime. For cholesterol. fenofibrate nanocrystallized (TRICOR) 48 mg tablet Take 1 tablet by mouth once daily. glimepiride (AMARYL) 4 mg tablet Take 1 tablet by mouth once daily. lisinopril (ZESTRIL) 40 mg tablet Take 1 tablet by mouth once daily. metFORMIN (GLUCOPHAGE) 500 mg tablet Take 2 tablets by mouth two times a day with meals. pioglitazone (ACTOS) 30 mg tablet Take 1 tablet by mouth once daily. cyanocobalamin (VITAMIN B-12) 1,000 mcg tab Take 2 tablets by mouth once daily. Ferrous Sulfate 142 mg (45 mg iron) TbER Take 1 tablet by mouth once daily. finasteride (PROSCAR) 5 mg tablet Take 1 tablet by mouth once daily. blood sugar diagnostic ([employer] NO CODING) test strip 1 Strip once daily. Use as instructed Lancets Test blood sugar(s) once daily. Dx: Type 2 DM - Controlled E11.9 Insulin: No tamsulosin (FLOMAX) 0.4 mg Take 1 capsule by mouth daily at bedtime for 30 doses. aspirin, enteric coated (ASPIRIN, ENTERIC COATED) 81 mg EC tablet Take 81 mg by mouth once daily. REVIEW OF SYSTEMS GENERAL:no unintentional weight loss, malaise or fevers. NEUROLOGIC: pt is alert and oriented GASTROINTESTINAL: No nausea, vomiting, or diarrhea GENITOURINARY: No history of dysuria, frequency or incontinence MUSCULOSKELETAL: Negative for joint pain or swelling, back pain or muscle pain SKIN: Negative for lesions, rash, and itching. ACTIVE PROBLEM LIST Generalized Arthritis Over Weight Prostate Cancer (Hcc) Hypertension, Essential Type 2 Diabetes Mellitus With Stage 3b Chronic Kidney Disease, Without Long-Term Current Use of Insulin (Hcc) Mixed Hyperlipidemia Hammer Toes of Both Feet Medicare Annual Wellness Visit, Subsequent Diabetic Eye Exam ([facility]) Anemia of Chronic Disease Stage 3b chronic kidney disease (HCC) History of 2019 Novel Coronavirus Disease (Covid-19) Memory Impairment Iron Deficiency Anemia Vitamin B12 Deficiency Screening for Colon Cancer Living Will in Place Advance Directive Discussed With Patient Asbestos Exposure Squamous Cell Skin Cancer Prostate Disorder Foot Callus HISTORIES PAST MEDICAL HISTORY Diagnosis Date Advance directive discussed with patient 09/10/2022 Discussed 09/2022 Needs to bring in copies Asbestos exposure 09/11/2022 Asbestosis (HCC) 08/13/[address] Seth. Foot callus 09/15/2023 Generalized arthritis 10/02/2003 Hammer toes of both feet 08/13/2020 History of 2019 novel coronavirus disease (COVID-19) 02/18/2021 Had but not aware of date Hypertension, essential 08/13/2020 Iron deficiency anemia 08/25/[address] 09/10/2022 DPA: Ann-Marie (daughter) Medicare annual wellness visit, subsequent 08/13/2020 Medicare Part B: 03/07/2012, last done 08/23/2021 Memory impairment 02/18/2021 Secondary to chemo Tx for hs prostate cancer. Mixed hyperlipidemia 08/13/2020 Over weight 01/18/2018 Prostate cancer (HCC) 11/17/2019 Seeing Urology and oncology (Dr. Logan) Squamous cell skin cancer 05/25/2023 Right upper back removed 05/2023 Stage 3a chronic kidney disease (HCC) 08/15/2020 Type 2 diab (more content not included)... [facility] [facility] CNCOon 09-26-2024 CNCO Letter Text Normal [facility] Luis 09-23-2024 CNPN Telephone (FAMPWS) ZHANNA [place] ([id number]) 1945 M Date Time Provider Department 09/23/24 [facility] During your visit today, we recorded the following information about you: Todd Bunch MD 09/23/2024 3:44 PM Signed Let patient know his lipid panel showed Trigs elevated at 249 (goal<150 and was 106), HDL low at 39 (goal>40 and was 37), LDL was good. Advise working on reduced fats in diet and increased walking for exercise. His A1c is elevated at 7.4% (goal<7% and had been 6.6%). we can increase the Actos to 45 mg instead of 30 mg or he can back on a better diet like when he was better controlled. His urine show he is spilling an elevated amount of small protein which will damage his kidnies further and this is do to the worsened sugar control. His anemia is stable. His other labs were ok. Kidnies current show stable function. Adiel Castelan MA 09/26/2024 8:40 AM Signed Patient notified and voiced understanding. Ok with the increase. Please send to [facility]. Adiel Castelan MA Allergies As of Date: 09/23/2024 (No Known Allergies) Date Reviewed: 09/20/2024 Reviewed by: Todd Bunch MD - Fully Assessed Reason for Visit: Results [95] Primary Visit Diagnosis:Anemia of chronic disease [D63.8] Prescriptions as of 09/26/2024 - amLODIPine (NORVASC) 5 mg tablet Take 1 tablet by mouth once daily. - atorvastatin (LIPITOR) 40 mg tablet Take 1 tablet by mouth daily at bedtime. For cholesterol. - fenofibrate nanocrystallized (TRICOR) 48 mg tablet Take 1 tablet by mouth once daily. - glimepiride (AMARYL) 4 mg tablet Take 1 tablet by mouth once daily. - lisinopril (ZESTRIL) 40 mg tablet Take 1 tablet by mouth once daily. - metFORMIN (GLUCOPHAGE) 500 mg tablet Take 2 tablets by mouth two times a day with meals. - pioglitazone (ACTOS) 30 mg tablet Take 1 tablet by mouth once daily. - cyanocobalamin (VITAMIN B-12) 1,000 mcg tab Take 2 tablets by mouth once daily. - Ferrous Sulfate 142 mg (45 mg iron) TbER Take 1 tablet by mouth once daily. - finasteride (PROSCAR) 5 mg tablet Take 1 tablet by mouth once daily. - blood sugar diagnostic (PRODIGY NO CODING) test strip 1 Strip once daily. Use as instructed - Lancets Test blood sugar(s) once daily. Dx: Type 2 DM - Controlled E11.9 Insulin: No - tamsulosin (FLOMAX) 0.4 mg Take 1 capsule by mouth daily at bedtime for 30 doses. - aspirin, enteric coated (ASPIRIN, ENTERIC COATED) 81 mg EC tablet Take 81 mg by mouth once daily. Problem List As Of Date 09/23/2024 Noted Resolved Generalized arthritis [M19.90] 10/02/2003 Over weight [E66.3] 01/18/2018 Prostate cancer (HCC) [C61] 11/17/2019 Hypertension, essential [I10] 08/13/2020 Type 2 diabetes mellitus with stage 3b chronic *08/13/2020 Mixed hyperlipidemia [E78.2] 08/13/2020 Asbestosis (HCC) [J61] 08/13/2020 09/11/2022 Hammer toes of both feet [M20.41, M20.42] 08/13/2020 Medicare annual wellness visit, subsequent [Z00*08/13/2020 Diabetic eye exam (HCC) [Z01.00, E11.9] 08/13/2020 Anemia of chronic disease [D63.8] 08/15/2020 Stage 3b chronic kidney disease (HCC) [N18.32] 08/15/2020 History of 2019 novel coronavirus disease (COVI*02/18/2021 Memory impairment [R41.3] 02/18/2021 Iron deficiency anemia [D50.9] 08/25/2021 Vitamin B12 deficiency [E53.8] 08/25/2021 Screening for colon cancer [Z12.11] 02/21/[address] [Z78.9] 09/10/2022 Advance directive discussed with patient [Z71.8*09/10/2022 Asbestos exposure [Z77.090] 09/11/2022 Squamous cell skin cancer [C44.92] 05/25/2023 Prostate disorder [N42.9] 09/15/2023 Foot callus [L84] 09/15/2023 Encounter Status:Closed by ADIEL CASTELAN on 09/26/24 Normal [facility] Cobalamin (Vitamin B12) [Mas s/Vol]on 09-21-2024 Interpretation and review of laboratory results Normal [facility] Comprehensive metabolic 2000 panelon 09-21-2024 Albumin [Mass/Vol] 4.6 g/dL 3.9 - 4.9 g/dL [facility] ALP [Catalytic activity/Vol] 62 U/L 38 - 113 U/L [facility] ALT [Catalytic activity/Vol] 29 U/L 10 - 54 U/L [facility] Anion gap [Moles/Vol] 12 mmol/L 8 - 15 mmol/L [facility] AST [Catalytic activity/Vol] 33 U/L 14 - 40 U/L [facility] Bilirubin [Mass/Vol] 0.3 mg/dL 0.2 - 1 .3 mg/dL [facility] Calcium [Mass/Vol] 10.1 mg/dL 8.5 - 10. 2 mg/dL [facility] Chloride [Moles/Vol] 101 mmol/L 98 - 10 7 mmol/L [facility] CO2 [Moles/Vol] 25 mmol/L 22 - 30 mmol/L [facility] Creatinine [Mass/Vol] 1.60 mg/dL High 0.73 - 1.22 mg/dL [facility] GFR/1.73 sq M.predicted among non-blacks MDRD (S/P/Bld) [Vol rate/Area] 44 mL/min/{1.73_m2} Low - PINF [facility] Comment on above: Estimated Glomerular Filtration Rate (eGFR) is calculated using the 2020 CKD-EPI creatinine equation. This equation utilizes serum creatinine, sex, and age as parameters. The creatinine assay has traceable calibration to isotope dilution-mass spectrometry. Refer to KDIGO guidelines for clinical interpretation. In patients with unstable renal function, e.g. those with acute kidney injury, the eGFR may not accurately reflect actual GFR. Glucose [Mass/Vol] 128 mg/dL High 74 - 99 mg/dL [facility] Comment on above: The [place] Diabete s Association (ADA) provides guidance for cutoff values for fasting glucose and random glucose. The ADA defines fasting as no caloric intake for at least 8 hours. Fasting plasma glucose results between 100 to 125 mg/dL indicate increased risk for diabetes (prediabetes). Fasting plasma glucose results greater than or equal to 126 mg/dL meet the criteria for diagnosis of diabetes. In the absence of unequivocal hyperglycemia, results should be confirmed by repeat testing. In a patient with classic symptoms of hyperglycemia or hyperglycemic crisis, random plasma glucose results greater than or equal to 200 mg/dL meet the criteria for diagnosis of diabetes. Reference: Standards of Medical Care in Diabetes 2016, [place] Diabetes Association. Diabetes Care. 2016.39(Suppl 1). Potassium [Moles/Vol] 4.0 mmol/L 3.7 - 5.1 mmol/L [facility] Protein [Mass/Vol] 7.3 g/dL 6.3 - 8.0 g/dL [facility] Sodium [Moles/Vol] 138 mmol/L 136 - 144 mmol/L [facility] Urea nitrogen [Mass/Vol] 19 mg/dL 9 - 24 mg/dL [facility] HbA1c (Bld)on 09-21-2024 Average glucose Estimated from glycated hemoglobin (Bld) [Mass/Vol] 166 mg/dL [facility] Comment on above: eAG: (Estimated aver age glucose) is a calculated value from HgbA1c and is payable representative of the average blood glucose level in the last 2-3 month period. HbA1c (Bld) [Mass fraction] 7.4 % High 4.3 - 5.6 % [facility] Comment on above: [place] Diabetes As sociation guidelines indicate that patients with HgbA1c in the range 5.7-6.4% are at increased risk for development of diabetes, and intervention by lifestyle modification may be beneficial. HgbA1c greater or equal to 6.5% is considered diagnostic of diabetes. Interpretation and review of laboratory results Abnormal [facility] Iron and Iron binding capaci ty panelon 09-21-2024 Interpretation and review of laboratory results Normal [facility] Iron [Mass/Vol] 59 ug/dL 41 - 186 ug/dL [facility] Iron binding capacity [Mass/Vol] 366 ug/dL 232 - 386 ug/dL [facility] Iron/TIBC [Molar ratio] 16.1 % 15.0 - 57.0 % [facility] LIPID PANEL, NONFASTINGon Cholesterol [Mass/Vol] 151 mg/dL NINF - 200 mg/dL [facility] Comment on above: <200 mg/dL, Desirabl e 200-239 mg/dL, Borderline high >239 mg/dL, High HDL Cholesterol, Nonfasting 39 mg/dL Low 39 - PINF mg/dL [facility] Comment on above: 40-59 mg/dL, Accepta ble >59 mg/dL, High: Negative risk factor for coronary heart disease <40 mg/dL, Low: Positive risk factor for coronary heart disease LDL Cholesterol, Nonfasting 62 mg/dL NINF - 100 mg/dL [facility] Comment on above: <100 mg/dL, Optimal 100-129 mg/dL, Near optimal/above optimal 130-159 mg/dL, Borderline high 160-189 mg/dL, High >189 mg/dL, Very high Secondary prevention optimal LDL Cholesterol levels are recommended to be < 70 mg/dL LDL/HDL Ratio, Nonfasting 1.59 mg/dL NINF - 2.54 mg/dL [facility] Comment on above: Reference: 1. National Cholesterol Education Program ATP III Guideline At-A-Glance Quick Desk Reference: National Heart, Lung, and Blood [place]. National Institutes of Health. 2001: NIH Publication No. 01-3305. 2. An International Atherosclerosis Society position paper: global recommendations for the management of dyslipidemia: executive summary, Atherosclerosis. 2014: 232(2):410-413. Non HDL Cholesterol, Nonfasting 112 mg/dL NINF - 130 mg/dL [facility] Comment on above: <130 mg/dL, Optimal 130-159 mg/dL, Near optimal/above optimal 160-189 mg/dL, Borderline high 190-219 mg/dL, High >219 mg/dL, Very high Secondary prevention optimal non HDL Cholesterol levels are recommended to be <100 mg/dL Total Chol/HDL Ratio, Nonfasting 3.87 mg/dL NINF - 5.10 mg/dL [facility] Triglycerides, Nonfasting 249 mg/dL [facility] - [facility] mg/dL [facility] Comment on above: <150 mg/dL, Normal 150-199 mg/dL, Borderline high 200-499 mg/dL, High >499 mg/dL, Very high VLDL Cholesterol, Nonfasting 50 mg/dL High NINF - 30 mg/dL [facility] No Panel Informationon 09-21 Interpretation and review of laboratory results Abnormal [facility] VITAMIN B12on 09-21-2024 Cobalamin (Vitamin B12) [Mass/Vol] 977 pg/mL 232 - 1245 pg/mL [facility] ALBUMIN/CREATININE RATIO, UR INEon 09-20-2024 Albumin DL <= 20 mg/L (U) [Mass/Vol] 29.7 mg/L [facility] Comment on above: Order Comment: Speci men Type: BLOOD SPECIMEN Ordering Facility: [facility] Address: [address] [place] [address] Performed By: #### 5 7021-8 #### [facility] CLIA [id number] [address] [place] [address] [place] Albumin/Creatinine (U) [Mass ratio] 85 mg/g High <30 [facility] Comment on above: Order Comment: Speci men Type: BLOOD SPECIMEN Ordering Facility: [facility] Address: [address] [place] [address] Result Comment: Adul t Male and Female Nephrotic Criteria: <30 mg/g is considered normal to mildly increased 30-300 mg/g is considered moderately increased >300 mg/g is considered severely increased KDIGO. (2013). KDIGO 2012 Clinical Practice Guideline for the Evaluation and Management of Chronic Kidney Disease. Official Journal of the International Society of Nephrology, 3(1), 1-150. Performed By: #### 5 7021-8 #### [facility] CLIA [id number] [address] [place] [address] [place] Creatinine (U) [Mass/Vol] 34.8 mg/dL Normal 20.0-300.0 [facility] Comment on above: Order Comment: Speci men Type: BLOOD SPECIMEN Ordering Facility: [facility] Address: [address] [place] [address] Performed By: #### 5 7021-8 #### [facility] CLIA [id number] [address] [place] [address] [place] CBC W Auto Differential pane l (Bld)on 09-20-2024 Basophils (Bld) [#/Vol] 0.05 10*3/uL [facility] Basophils/100 WBC (Bld) 0.8 % [facility] Differential cell count method Nom (Bld) Auto [facility] Eosinophils (Bld) [#/Vol] 0.22 10*3/uL [facility] Eosinophils/100 WBC (Bld) 3.5 % [facility] Erythrocyte distribution width (RBC) [Ratio] 12.9 % 11.5 - 15.0 % [facility] Hematocrit (Bld) [Volume fraction] 36.4 % Low 39.0 - 51.0 % [facility] Hemoglobin (Bld) [Mass/Vol] 12.0 g/dL Low 13.0 - 17.0 g/dL [facility] Immature granulocytes (Bld) [#/Vol] NINF [facility] Immature granulocytes/100 WBC (Bld) 0.2 % [facility] Interpretation and review of laboratory results Abnormal [facility] Lymphocytes (Bld) [#/Vol] 1.54 10*3/uL [facility] Lymphocytes/100 WBC (Bld) 24.8 % [facility] MCH (RBC) [Entitic mass] 31.3 pg 26.0 - 34.0 pg [facility] MCHC (RBC) [Mass/Vol] 33.0 g/dL 30.5 - 36.0 g/dL [facility] MCV (RBC) [Entitic vol] 94.8 fL 80.0 - 100.0 fL [facility] Monocytes (Bld) [#/Vol] 0.62 10*3/uL [facility] Monocytes/100 WBC (Bld) 10.0 % [facility] Neutrophils (Bld) [#/Vol] 3.78 10*3/uL [facility] Neutrophils/100 WBC (Bld) 60.7 % [facility] Nucleated RBC (Bld) [#/Vol] NINF [facility] Nucleated RBC/100 WBC (Bld) [Ratio] 0.0 % /100 WBC [facility] Platelet mean volume (Bld) [Entitic vol] 9.2 fL 9.0 - 12.7 fL [facility] Platelets (Bld) [#/Vol] 239 10*3/uL [facility] RBC (Bld) [#/Vol] 3.84 10*6/uL Low 4.20 - 6.0 0 m/uL [facility] WBC (Bld) [#/Vol] 6.22 10*3/uL [facility] Basophils (Bld) [#/Vol] 0.05 10*3/uL Normal <0.11 [facility] Comment on above: Order Comment: Speci men Type: BLOOD SPECIMEN Ordering Facility: [facility] Address: [address] [place] [address] Performed By: #### 5 7021-8 #### [facility] CLIA [id number] [address] [place] [address] [place] Basophils/100 WBC (Bld) 0.8 % Normal [facility] Comment on above: Order Comment: Speci men Type: BLOOD SPECIMEN Ordering Facility: [facility] Address: [address] [place] [address] Performed By: #### 5 7021-8 #### [facility] CLIA [id number] [address] [place] [address] [place] Differential cell count method Nom (Bld) Auto Normal [facility] Comment on above: Order Comment: Speci men Type: BLOOD SPECIMEN Ordering Facility: [facility] Address: [address] [place] [address] Performed By: #### 5 7021-8 #### [facility] CLIA [id number] [address] [place] [address] [place] Eosinophils (Bld) [#/Vol] 0.22 10*3/uL Normal <0.46 [facility] Comment on above: Order Comment: Speci men Type: BLOOD SPECIMEN Ordering Facility: [facility] Address: [address] [place] [address] Performed By: #### 5 7021-8 #### [facility] CLIA [id number] [address] [place] [address] [place] Eosinophils/100 WBC (Bld) 3.5 % Normal [facility] Comment on above: Order Comment: Speci men Type: BLOOD SPECIMEN Ordering Facility: [facility] Address: [address] [place] [address] Performed By: #### 5 7021-8 #### [facility] CLIA [id number] [address] [place] [address] [place] Erythrocyte distribution width (RBC) [Ratio] 12.9 % Normal 11.5-15.0 [facility] Comment on above: Order Comment: Speci men Type: BLOOD SPECIMEN Ordering Facility: [facility] Address: [address] [place] [address] Performed By: #### 5 7021-8 #### [facility] CLIA [id number] [address] [place] [address] [place] Hematocrit (Bld) [Volume fraction] 36.4 % Low 39.0-51.0 [facility] Comment on above: Order Comment: Speci men Type: BLOOD SPECIMEN Ordering Facility: [facility] Address: [address] [place] [address] Performed By: #### 5 7021-8 #### [facility] CLIA [id number] [address] [place] [address] [place] Hemoglobin (Bld) [Mass/Vol] 12.0 g/dL Low 13.0-17.0 [facility] Comment on above: Order Comment: Speci men Type: BLOOD SPECIMEN Ordering Facility: [facility] Address: [address] [place] [address] Performed By: #### 5 7021-8 #### [facility] CLIA [id number] [address] [place] [address] [place] Immature granulocytes (Bld) [#/Vol] 10*3/uL Normal <0.10 [facility] Comment on above: Order Comment: Speci men Type: BLOOD SPECIMEN Ordering Facility: [facility] Address: [address] [place] [address] Performed By: #### 5 7021-8 #### [facility] CLIA [id number] [address] [place] [address] [place] Immature granulocytes/100 WBC (Bld) 0.2 % Normal [facility] Comment on above: Order Comment: Speci men Type: BLOOD SPECIMEN Ordering Facility: [facility] Address: [address] [place] [address] Performed By: #### 5 7021-8 #### [facility] CLIA [id number] [address] [place] [address] [place] Lymphocytes (Bld) [#/Vol] 1.54 10*3/uL Normal 1.00-4.00 [facility] Comment on above: Order Comment: Speci men Type: BLOOD SPECIMEN Ordering Facility: [facility] Address: [address] [place] [address] Performed By: #### 5 7021-8 #### [facility] CLIA [id number] [address] [place] [address] [place] Lymphocytes/100 WBC (Bld) 24.8 % Normal [facility] Comment on above: Order Comment: Speci men Type: BLOOD SPECIMEN Ordering Facility: [facility] Address: [address] [place] [address] Performed By: #### 5 7021-8 #### [facility] CLIA [id number] [address] [place] [address] [place] MCH (RBC) [Entitic mass] 31.3 pg Normal 26.0-34.0 [facility] Comment on above: Order Comment: Speci men Type: BLOOD SPECIMEN Ordering Facility: [facility] Address: [address] [place] [address] Performed By: #### 5 7021-8 #### [facility] CLIA [id number] [address] [place] [address] [place] MCHC (RBC) [Mass/Vol] 33.0 g/dL Normal 30.5-36.0 [facility] Comment on above: Order Comment: Speci men Type: BLOOD SPECIMEN Ordering Facility: [facility] Address: [address] [place] [address] Performed By: #### 5 7021-8 #### [facility] CLIA [id number] [address] [place] [address] [place] MCV (RBC) [Entitic vol] 94.8 fL Normal 80.0-100.0 [facility] Comment on above: Order Comment: Speci men Type: BLOOD SPECIMEN Ordering Facility: [facility] Address: [address] [place] [address] Performed By: #### 5 7021-8 #### [facility] CLIA [id number] [address] [place] [address] [place] Monocytes (Bld) [#/Vol] 0.62 10*3/uL Normal <0.87 [facility] Comment on above: Order Comment: Speci men Type: BLOOD SPECIMEN Ordering Facility: [facility] Address: [address] [place] [address] Performed By: #### 5 7021-8 #### [facility] CLIA [id number] [address] [place] [address] [place] Monocytes/100 WBC (Bld) 10.0 % Normal [facility] Comment on above: Order Comment: Speci men Type: BLOOD SPECIMEN Ordering Facility: [facility] Address: [address] [place] [address] Performed By: #### 5 7021-8 #### [facility] CLIA [id number] [address] [place] [address] [place] Neutrophils (Bld) [#/Vol] 3.78 10*3/uL Normal 1.45-7.50 [facility] Comment on above: Order Comment: Speci men Type: BLOOD SPECIMEN Ordering Facility: [facility] Address: [address] [place] [address] Performed By: #### 5 7021-8 #### [facility] CLIA [id number] [address] [place] [address] [place] Neutrophils/100 WBC (Bld) 60.7 % Normal [facility] Comment on above: Order Comment: Speci men Type: BLOOD SPECIMEN Ordering Facility: [facility] Address: [address] [place] [address] Performed By: #### 5 7021-8 #### [facility] CLIA [id number] [address] [place] [address] [place] Nucleated RBC (Bld) [#/Vol] 10*3/uL Normal <0.01 [facility] Comment on above: Order Comment: Speci men Type: BLOOD SPECIMEN Ordering Facility: [facility] Address: [address] [place] [address] Performed By: #### 5 7021-8 #### [facility] CLIA [id number] [address] [place] [address] [place] Nucleated RBC/100 WBC (Bld) [Ratio] 0.0 /100 WBC Normal [facility] Comment on above: Order Comment: Speci men Type: BLOOD SPECIMEN Ordering Facility: [facility] Address: [address] [place] [address] Performed By: #### 5 7021-8 #### [facility] CLIA [id number] [address] [place] [address] [place] Platelet mean volume (Bld) [Entitic vol] 9.2 fL Normal 9.0-12.7 [facility] Comment on above: Order Comment: Speci men Type: BLOOD SPECIMEN Ordering Facility: [facility] Address: [address] [place] [address] Performed By: #### 5 7021-8 #### [facility] CLIA [id number] [address] [place] [address] [place] Platelets (Bld) [#/Vol] 239 10*3/uL Normal 150-400 [facility] Comment on above: Order Comment: Speci men Type: BLOOD SPECIMEN Ordering Facility: [facility] Address: [address] [place] [address] Performed By: #### 5 7021-8 #### [facility] CLIA [id number] [address] [place] [address] [place] RBC (Bld) [#/Vol] 3.84 10*6/uL Low 4.20-6.[address] [facility] Comment on above: Order Comment: Speci men Type: BLOOD SPECIMEN Ordering Facility: [facility] Address: [address] [place] [address] Performed By: #### 5 7021-8 #### [facility] CLIA [id number] [address] [place] [address] [place] WBC (Bld) [#/Vol] 6.22 10*3/uL Normal 3.70-11.[address] [facility] Comment on above: Order Comment: Speci men Type: BLOOD SPECIMEN Ordering Facility: [facility] Address: [address] [place] [address] Performed By: #### 5 7021-8 #### [facility] CLIA [id number] [address] [place] [address] OF [facility] CNOVon 09-20-2024 CNOV Office Visit (FAMPWS ) ADRIANOZHANNA Yokasta ([id number]) 1945 M Date Time Provider Department 09/20/24 1:40 PM [facility] During your visit today, we recorded the following information about you: Pulse Respiration Blood pressure Weight 56/minute 16/minute 128/84 104.3 kg Height 1.842 m Todd Bunch MD 09/21/2024 11:11 AM Signed Zhannakana Oh is a 79 year old male here for a Medicare wellness visit. Medicare Health Risk Assessment General Health Good Exercise: Minutes/Day 60 min Exercise: Days/Week On average, how many days per week do you engage in moderate to strenuous exercise (like a brisk walk)?: 7 days (outside work) Alcohol: Daily Use Never Alcohol: Drinks/Day Patient does not drink Alcohol: 6 or more drinks Never Feel off balance No Concerns: Teeth/Dentures No Concerns: Sexual function No Troubled by feelings None of the above Frequency: Eating healthy diet More than half the days ADLs requiring help None of the above Safety precautions in home/vehicle No Smoke, vape, chews tobacco No Difficulty hearing Yes Difficulty seeing No Current Providers Specialists: I have reviewed specialist-related care of the patient in the medical record. Current care team: Patient Care Team: Todd Bunch MD as PCP - General (Family Medicine) Talia Dorsey APRN.MACHINING SUPERVISOR as Software Validation Engineer (Family Medicine) Monserrat Cortez PA-C as Software Validation Engineer (Family Medicine) Urology Optho Medical/Family history review Reviewed and updated problem list, medical/surgical/family/soc ial history, medications, and allergies. Opioid use review Opioid Medications (last 90 days) No data to display Anxiety/Depression screening PHQ-2 Score: 0 (Lower risk for depression) Recommendation: no further intervention at this time Cognitive screening Score: 4 Cognitive screening reviewed and No further action needed (score 3-5). Functional Observation Was the patient's Timed Up AND Go test unsteady or >= 12 seconds? No Advance Care Planning Surrogate decision maker and/or advance care plan documented Measurements BP 128/84 Pulse (!) 56 Resp 16 Ht 184.2 cm (6' 0.5) Wt 104.3 kg (230 lb) BMI 30.76 kg/m? Vision Screening: Follows with optometry/ophthalmology Assessment/Plan Medicare annual wellness visit, subsequent (Z00.00) - Counseled on healthy diet and regular exercise - Fall avoidance information provided - Personalized prevention plan provided See below Chief Complaint Patient presents with: Medicare Wellness Exam HPI Zhanna Oh is a 79 year old male who presents here today for Chronic Medical Conditions. and Medicare Annual Visit. Patient with hx HTN, hyperlipidemia, CKD, DM2, anemia, prostate cancer, Arthritis and those as below. Component Ref Range AND Units 6 mo ago (03/15/24) 1 yr ago (09/15/23) 1 yr ago (03/11/23) 1 yr ago (12/09/22) 2 yr ago (09/10/22) 2 yr ago (02/21/22) 3 yr ago (08/23/21) Hemoglobin A1C 4.3 - 5.6 % 6.7 High 6.6 High CM 6.5 High CM 7.2 High CM 7.7 High CM 6.3 High CM 9.4 High Patient see Urology -next visit 10/2024 Patient has been noting that his blood sugars in the morning seem to be higher then they had been. Past medical history, appointments, medications, allergies reviewed. Previous Medical History PAST MEDICAL HISTORY Diagnosis Date Advance directive discussed with patient 09/10/2022 Discussed 09/2022 Needs to bring in copies Asbestos exposure 09/11/2022 Asbestosis (HCC) 08/13/[address] Seth. Foot callus 09/15/2023 Generalized arthritis 10/02/2003 Hammer toes of both feet 08/13/2020 History of 2019 novel coronavirus disease (COVID-19) 02/18/2021 Had but not aware of date Hypertension, essential 08/13/2020 Iron deficiency anemia 08/25/[address] 09/10/2022 DPA: Ann-Marie (daughter) Medicare annual wellness visit, subsequent 08/13/2020 Medicare Part B: 03/07/2012, last done 08/23/2021 Memory impairment 02/18/2021 Secondary to chemo Tx for hs prostate cancer. Mixed hyperlipidemia 08/13/2020 Over weight 01/18/2018 Prostate cancer (HCC) 11/17/2019 Seeing Urology and oncology (Dr. Logan) Squamous cell skin cancer 05/25/2023 Right upper back removed 05/2023 Stage 3a chronic kidney disease (HCC) 08/15/2020 Type 2 diabetes mellitus with stage 3b chronic kidney disease, without long-term current use of insulin (HCC) 08/13/2020 Type 2 diabetes mellitus without complication, without long-term current use of insulin (HCC) 08/13/2020 Vitamin B12 deficiency 08/25/2021 Previous Surgical History PAST SURGICAL HISTORY Procedure Laterality Date COLONOSCOPY 12/2021 EGD W/O BRSH SPEC VARICIES INJ 12/2021 PROSTATE BIOPSY 2019 REMV CATARACT EXTRACAP,INSERT LENS 06/2020 TONSILLECTOMY HX as a child Family History FAMILY HISTORY Problem Relation Age of Onset Lung Cancer Mother (more content not included)... Normal [facility] CNPNon 09-20-2024 [facility] ZHANNA OH ([id number]) 1945 M Date Time Provider Department 09/20/24 TODD BUNCH During your visit today, we recorded the following information about you: Todd Bunch MD 09/20/2024 5:07 PM Signed Let patient know chest x-ray was ok. Sol Lee LPN 09/21/2024 8:27 AM Signed Left message for pt to contact office. RANDI Newton Kathryn, MA 09/22/2024 11:57 AM Signed Pt notified. Uma Pereira MA Allergies As of Date: 09/20/2024 (No Known Allergies) Date Reviewed: 09/20/2024 Reviewed by: Todd Bunch MD - Fully Assessed Reason for Visit: Results [95] Prescriptions as of 09/22/2024 - amLODIPine (NORVASC) 5 mg tablet Take 1 tablet by mouth once daily. - atorvastatin (LIPITOR) 40 mg tablet Take 1 tablet by mouth daily at bedtime. For cholesterol. - fenofibrate nanocrystallized (TRICOR) 48 mg tablet Take 1 tablet by mouth once daily. - glimepiride (AMARYL) 4 mg tablet Take 1 tablet by mouth once daily. - lisinopril (ZESTRIL) 40 mg tablet Take 1 tablet by mouth once daily. - metFORMIN (GLUCOPHAGE) 500 mg tablet Take 2 tablets by mouth two times a day with meals. - pioglitazone (ACTOS) 30 mg tablet Take 1 tablet by mouth once daily. - cyanocobalamin (VITAMIN B-12) 1,000 mcg tab Take 2 tablets by mouth once daily. - Ferrous Sulfate 142 mg (45 mg iron) TbER Take 1 tablet by mouth once daily. - finasteride (PROSCAR) 5 mg tablet Take 1 tablet by mouth once daily. - blood sugar diagnostic ([employer] NO CODING) test strip 1 Strip once daily. Use as instructed - Lancets Test blood sugar(s) once daily. Dx: Type 2 DM - Controlled E11.9 Insulin: No - tamsulosin (FLOMAX) 0.4 mg Take 1 capsule by mouth daily at bedtime for 30 doses. - aspirin, enteric coated (ASPIRIN, ENTERIC COATED) 81 mg EC tablet Take 81 mg by mouth once daily. Problem List As Of Date 09/20/2024 Noted Resolved Generalized arthritis [M19.90] 10/02/2003 Over weight [E66.3] 01/18/2018 Prostate cancer (HCC) [C61] 11/17/2019 Hypertension, essential [I10] 08/13/2020 Type 2 diabetes mellitus with stage 3b chronic *08/13/2020 Mixed hyperlipidemia [E78.2] 08/13/2020 Asbestosis (HCC) [J61] 08/13/2020 09/11/2022 Hammer toes of both feet [M20.41, M20.42] 08/13/2020 Medicare annual wellness visit, subsequent [Z00*08/13/2020 Diabetic eye exam (HCC) [Z01.00, E11.9] 08/13/2020 Anemia of chronic disease [D63.8] 08/15/2020 Stage 3b chronic kidney disease (HCC) [N18.32] 08/15/2020 History of 2019 novel coronavirus disease (COVI*02/18/2021 Memory impairment [R41.3] 02/18/2021 Iron deficiency anemia [D50.9] 08/25/2021 Vitamin B12 deficiency [E53.8] 08/25/2021 Screening for colon cancer [Z12.11] 02/21/[address] [Z78.9] 09/10/2022 Advance directive discussed with patient [Z71.8*09/10/2022 Asbestos exposure [Z77.090] 09/11/2022 Squamous cell skin cancer [C44.92] 05/25/2023 Prostate disorder [N42.9] 09/15/2023 Foot callus [L84] 09/15/2023 Encounter Status:Closed by UMA PEREIRA on 09/22/24 Normal [facility] metabolic 2000 panelon 09-20-2024 Albumin [Mass/Vol] 4.6 g/dL Normal 3.9-4.[address] [facility] Comment on above: Order Comment: Speci men Type: BLOOD SPECIMENOrdering Facility: [facility] Address: [address] [place] [address] Performed By: #### 5 0190-8, LIPNF, 2132-05, ####[facility] LABCLIA [id number] [place] [address] [place] ALP [Catalytic activity/Vol] 62 U/L Normal 38-113 [facility] Comment on above: Order Comment: Speci men Type: BLOOD SPECIMENOrdering Facility: [facility] Address: [address] [place] [address] Performed By: #### 5 0190-8, LIPNF, 2132-05, ####[facility] LABCLIA [id number] [place] [address] [place] ALT [Catalytic activity/Vol] 29 U/L Normal 10-54 [facility] Comment on above: Order Comment: Speci men Type: BLOOD SPECIMENOrdering Facility: [facility] Address: [address] [place] [address] Performed By: #### 5 0190-8, LIPNF, 2132-05, ####[facility] LABCLIA [id number] [place] [address] [place] Anion gap [Moles/Vol] 12 mmol/L Normal 8-15 [facility] Comment on above: Order Comment: Speci men Type: BLOOD SPECIMENOrdering Facility: [facility] Address: [address] [place] [address] Performed By: #### 5 0190-8, LIPNF, 2132-05, ####[facility] LABCLIA [id number] [place] [address] [place] AST [Catalytic activity/Vol] 33 U/L Normal 14-40 [facility] Comment on above: Order Comment: Speci men Type: BLOOD SPECIMENOrdering Facility: [facility] Address: [address] [place] [address] Performed By: #### 5 0190-8, LIPNF, 2132-05, ####[facility] LABCLIA [id number] [address] [address] [place] Bilirubin [Mass/Vol] 0.3 mg/dL Normal 0.2-1.3 [facility] Comment on above: Order Comment: Speci men Type: BLOOD SPECIMENOrdering Facility: [facility] Address: [address] [place] [address] Performed By: #### 5 0190-8, LIPNF, 2132-05, ####[facility] LABIA [id number] [place] [address] [place] Calcium [Mass/Vol] 10.1 mg/dL Normal 8.5-10.[address] [facility] Comment on above: Order Comment: Speci men Type: BLOOD SPECIMENOrdering Facility: [facility] Address: [address] [place] [address] Performed By: #### 5 0190-8, LIPNF, 2132-05, ####[facility] LABCLIA [id number] [place] [address] [place] Chloride [Moles/Vol] 101 mmol/L Normal 98-107 [facility] Comment on above: Order Comment: Speci men Type: BLOOD SPECIMENOrdering Facility: [facility] Address: [address] [place] [address] Performed By: #### 5 0190-8, LIPNF, 2132-05, ####[facility] LABCLIA [id number] [place] [id number] [place] CO2 [Moles/Vol] 25 mmol/L Normal 22-30 [facility] Comment on above: Order Comment: Speci men Type: BLOOD SPECIMENOrdering Facility: [facility] Address: [address] [place] [address] Performed By: #### 5 0190-8, LIPSEAN, 2132-05, ####[facility] LABCLIA [id number] [place] [address] [place] Creatinine [Mass/Vol] 1.60 mg/dL High 0.73-1.22 [facility] Comment on above: Order Comment: Speci men Type: BLOOD SPECIMENOrdering Facility: [facility] Address: [address] [place] [address] Performed By: #### 5 0190-8, LIPSEAN, 2132-05, ####[facility] LABIA [id number] [place] [address] [place] Creatinine and Glomerular filtration rate.predicted panel (S/P/Bld) 44 mL/min/1.73m??? Low >=60 [facility] Comment on above: Order Comment: Jem men Type: BLOOD SPECIMENOrdering Facility: [facility] Address: [address] [place] [address] Result Comment: Dez mated Glomerular Filtration Rate (eGFR) is calculated using the 2020 CKD-EPI creatinine equation. This equation utilizes serum creatinine, sex, and age as parameters. The creatinine assay has traceable calibration to isotope dilution-mass spectrometry. Refer to KDIGO guidelines for clinical interpretation. In patients with unstable renal function, e.g. those with acute kidney injury, the eGFR may not accurately reflect actual GFR. Performed By: #### 5 0190-8, MARQUEZ, 2132-05, ####[facility] LABCLIA [id number] [place] [id number] [place] Glucose [Mass/Vol] 128 mg/dL High 74-[address] [facility] Comment on above: Order Comment: Speci men Type: BLOOD SPECIMENOrdering Facility: [facility] Address: [address] [place] [address] Result Comment: The [place] Diabetes Association (ADA) provides guidance for cutoff values for fasting glucose and random glucose. The ADA defines fasting as no caloric intake for at least 8 hours. Fasting plasma glucose results between 100 to 125 mg/dL indicate increased risk for diabetes (prediabetes). Fasting plasma glucose results greater than or equal to 126 mg/dL meet the criteria for diagnosis of diabetes. In the absence of unequivocal hyperglycemia, results should be confirmed by repeat testing. In a patient with classic symptoms of hyperglycemia or hyperglycemic crisis, random plasma glucose results greater than or equal to 200 mg/dL meet the criteria for diagnosis of diabetes. Reference: Standards of Medical Care in Diabetes 2016, [place] Diabetes Association. Diabetes Care. 2016.39(Suppl 1). Performed By: #### 5 0190-8, LIPSEAN, 2132-05, ####[facility] LABCLIA [id number] [place] [address] [place] Potassium [Moles/Vol] 4.0 mmol/L Normal 3.7-5.1 [facility] Comment on above: Order Comment: Speci men Type: BLOOD SPECIMENOrdering Facility: [facility] Address: [address] [place] [address] Performed By: #### 5 0190-8, LIPSEAN, 2132-05, ####[facility] LABIA [id number] [place] [address] [place] Protein [Mass/Vol] 7.3 g/dL Normal 6.3-8.[address] [facility] Comment on above: Order Comment: Facundoi men Type: BLOOD SPECIMENOrdering Facility: [facility] Address: [address] [place] [address] Performed By: #### 5 0190-8, LIPSEAN, 2132-05, ####[facility] LABCLIA [id number] [place] [address] [place] Sodium [Moles/Vol] 138 mmol/L Normal 136-[address] [facility] Comment on above: Order Comment: Speci men Type: BLOOD SPECIMENOrdering Facility: [facility] Address: [address] [place] [address] Performed By: #### 5 0190-8, LIPNF, 2132-05, ####[facility] LABCLIA [id number] [place] [address] [place] Urea nitrogen [Mass/Vol] 19 mg/dL Normal 9-24 [facility] Comment on above: Order Comment: Speci men Type: BLOOD SPECIMENOrdering Facility: [facility] Address: [address] [place] [address] Performed By: #### 5 0190-8, LIPNF, 2132-05, ####[facility] LABCLIA [id number] [place] [address] [place] HbA1c (Bld)on 09-20-2024 Average glucose Estimated from glycated hemoglobin (Bld) [Mass/Vol] 166 mg/dL Normal [facility] Comment on above: Order Comment: Facundoi men Type: BLOOD SPECIMENOrdering Facility: [facility] Address: [address] [place] [address] Result Comment: eAG: (Estimated average glucose) is a calculated value from HgbA1c and is payable representative of the average blood glucose level in the last 2-3 month period. Performed By: #### 5 5454-3 ####[facility] LABCLIA [id number] [place] [address] [place] HbA1c (Bld) [Mass fraction] 7.4 % High 4.3-5.6 [facility] Comment on above: Order Comment: Speci men Type: BLOOD SPECIMENOrdering Facility: [facility] Address: [address] [place] [address] Result Comment: [place] Diabetes Association guidelines indicate that patients with HgbA1c in the range 5.7-6.4% are at increased risk for development of diabetes, and intervention by lifestyle modification may be beneficial. HgbA1c greater or equal to 6.5% is considered diagnostic of diabetes. Performed By: #### 5 5454-3 ####[facility] LABCLIA [id number] [address] [address] [place] Iron and Iron binding capaci ty panelon 09-20-2024 Iron [Mass/Vol] 59 ug/dL Normal 41-186 [facility] Comment on above: Order Comment: Speci men Type: BLOOD SPECIMENOrdering Facility: [facility] Address: [address] [place] [address] Performed By: #### 5 0190-8, LIPNF, 2132-05, ####[facility] LABIA [id number] [place] [address] [place] Iron binding capacity [Mass/Vol] 366 ug/dL Normal 232-386 [facility] Comment on above: Order Comment: Speci men Type: BLOOD SPECIMENOrdering Facility: [facility] Address: [address] [place] [address] Performed By: #### 5 0190-8, LIPNF, 2132-05, ####[facility] LABIA [id number] [place] [address] [place] Iron/TIBC [Molar ratio] 16.1 % Normal 15.0-57.0 [facility] Comment on above: Order Comment: Speci men Type: BLOOD SPECIMENOrdering Facility: [facility] Address: [address] [place] [address] Performed By: #### 5 0190-8, LIPNF, 2132-05, ####[facility] LABIA [id number] [place] [id number] [place] LIPID PANEL, NONFASTINGon Cholesterol [Mass/Vol] 151 mg/dL Normal <200 [facility] Comment on above: Order Comment: Speci men Type: BLOOD SPECIMENOrdering Facility: [facility] Address: [address] [place] [address] Result Comment: <200 mg/dL, Desirable 200-239 mg/dL, Borderline high >239 mg/dL, High Performed By: #### 5 0190-8, LIPNF, 2132-05, ####[facility] LABCLIA [id number] [place] [address] [place] HDL CHOLESTEROL, NF 39 mg/dL Low >[address] [facility] Comment on above: Order Comment: Speci men Type: BLOOD SPECIMENOrdering Facility: [facility] Address: [address] [place] [address] Result Comment: 40-5 9 mg/dL, Acceptable >59 mg/dL, High: Negative risk factor for coronary heart disease <40 mg/dL, Low: Positive risk factor for coronary heart disease Performed By: #### 5 0190-8, LIPNF, 2132-05, ####[facility] LABCLIA [id number] [place] [address] [place] LDL CHOLESTEROL, NF 62 mg/dL Normal <[address] [facility] Comment on above: Order Comment: Speci men Type: BLOOD SPECIMENOrdering Facility: [facility] Address: [address] [place] [address] Result Comment: <100 mg/dL, Optimal 100-129 mg/dL, Near optimal/above optimal 130-159 mg/dL, Borderline high 160-189 mg/dL, High >189 mg/dL, Very high Secondary prevention optimal LDL Cholesterol levels are recommended to be < 70 mg/dL Performed By: #### 5 0190-8, LIPNF, 2132-05, ####[facility] LABCLIA [id number] [place] [address] [place] LDL/HDL RATIO, NF 1.59 mg/dL Normal <2.54 [facility] Comment on above: Order Comment: Speci men Type: BLOOD SPECIMENOrdering Facility: [facility] Address: [address] [place] [address] Result Comment: Refe jessicace: 1. National Cholesterol Education Program ATP III Guideline At-A-Glance Quick Desk Reference: National Heart, Lung, and Blood [place]. National Institutes of Health. 2001: NIH Publication No. 01-3305. 2. An International Atherosclerosis Society position paper: global recommendations for the management of dyslipidemia: executive summary, Atherosclerosis. 2014: 232(2):410-413. Performed By: #### 5 0190-8, LIPNF, 2132-05, ####[facility] LABCLIA [id number] [place] [address] [place] NON HDL CHOL, NF 112 mg/dL Normal <130 [facility] Comment on above: Order Comment: Speci men Type: BLOOD SPECIMENOrdering Facility: [facility] Address: [address] [place] [address] Result Comment: <130 mg/dL, Optimal 130-159 mg/dL, Near optimal/above optimal 160-189 mg/dL, Borderline high 190-219 mg/dL, High >219 mg/dL, Very high Secondary prevention optimal non HDL Cholesterol levels are recommended to be <100 mg/dL Performed By: #### 5 0190-8, LIPNF, 2132-05, ####[facility] LABCLIA [id number] [place] [address] [place] T CHOL/HDL RATIO NF 3.87 mg/dL Normal <5.[address] [facility] Comment on above: Order Comment: Speci men Type: BLOOD SPECIMENOrdering Facility: [facility] Address: [address] [place] [address] Performed By: #### 5 0190-8, LIPNF, 2132-05, ####[facility] LABCLIA [id number] [place] [address] [place] TRIGLYCERIDES, NF 249 mg/dL High <150 [facility] Comment on above: Order Comment: Speci men Type: BLOOD SPECIMENOrdering Facility: [facility] Address: [address] [place] [address] Result Comment: <150 mg/dL, Normal 150-199 mg/dL, Borderline high 200-499 mg/dL, High >499 mg/dL, Very high Performed By: #### 5 0190-8, LIPNF, 2132-05, ####[facility] LABCLIA [id number] [place] [address] [place] VLDL CHOLESTEROL, NF 50 mg/dL High <30 [facility] Comment on above: Order Comment: Speci men Type: BLOOD SPECIMENOrdering Facility: [facility] Address: [address] [place] [address] Performed By: #### 5 0190-8, LIPNF, 2132-05, ####[facility] LABCLIA [id number] [place] [address] [place] PSA SerPl-mCncon 09-20-2024 Prostate specific Ag [Mass/Vol] 3.79 ng/mL High <2.60 [facility] Comment on above: Order Comment: Speci men Type: BLOOD SPECIMEN [facility] Address: [address] [place] [address] Result Comment: Tota l PSA test methodology used is the Electrochemiluminescence Immunoassay by [employer]. Total PSA values by differing methodologies cannot be interchanged. For an individual patient, the significance of a PSA level should be interpreted in a broad clinical context, including age, race, family history, digital rectal exam, prostate size, results of prior testing (prostate biopsy, free PSA, PCA3), and use of 5-alpha reductase inhibitors. Considering the high incidence of asymptomatic cancer in the general population that may not pose an ultimate risk to a patient, the decision to recommend urological evaluation or prostate biopsy should be individualized after consideration of all these factors. REFERENCE: [place] Jacome M.D., M.P.H., Edwardo Ortiz M.D., Ph.D., Aston Mathew M.D., Rachele Madrigal, M.P.H., Alina Valentin, Mirna. Effect of Verification Bias on Screening for Prostate Cancer by Measurement of Prostatic Specific Antigen. N Engl J Med 2003,349:335-42. Performed By: #### 5 7021-8 #### [facility] CLIA [id number] [address] [place] [address] [place] Urinalysis complete panel (U )on 09-20-2024 Bacteria LM.HPF (Urine sed) [#/Area] Negative Negative /HPF [facility] Bilirubin Ql (U) Negative Negative [facility] Clarity (Unsp spec) Clear Clear [facility] Color (U) Yellow Yellow [facility] Epithelial cells LM.HPF (Urine sed) [#/Area] None Seen /HPF [facility] Glucose Test strip (U) [Mass/Vol] Negative Negative [facility] Hemoglobin Ql (U) Negative Negative [facility] Hyaline casts (Urine sed) [#/Area] 0 /[LPF] 0 /LPF [facility] Ketones Ql (U) Negative Negative [facility] Leukocyte esterase Test strip Ql (U) Negative Negative [facility] Nitrite Ql (U) Negative Negative [facility] pH (U) 6.0 [pH] NINF - 8.5 [facility] Protein (U) [Mass/Vol] Negative Negative [facility] RBC LM.HPF (Urine sed) [#/Area] 0-2 /HPF 0-2 /HPF [facility] Specific gravity (U) [Rel density] 1.005 1.005 - 1.030 [facility] Urobilinogen Ql (U) 0.2 EU/dL 0.2-1.0 EU/dL [facility] WBC LM.HPF (Urine sed) [#/Area] 0-5 /HPF 0-5 /HPF [facility] This test was beryl jose and its performance characteristics determined by [facility]'s [facility] [place] ([facility]). It has not been cleared or approved by the FDA. [facility] is regulated under CLIA as qualified to perform high-complexity testing. This test is used for clinical purposes. It should not be regarded as investigational or for research. [facility] Bacteria LM.HPF (Urine sed) [#/Area] Negative Normal Negative [facility] Comment on above: Order Comment: Speci men Type: URINE SPECIMENOrdering Facility: [facility] Address: [address] [place] [address] Performed By: #### 2 4356-8 ####[facility] LABCLIA [id number] [place] [address] [place] Bilirubin Ql (U) Negative Normal Negative [facility] Comment on above: Order Comment: Speci men Type: URINE SPECIMENOrdering Facility: [facility] Address: [address] [place] [address] Performed By: #### 2 4356-8 ####[facility] LABCLIA [id number] [place] [address] [place] Clarity (Unsp spec) Clear Normal Clear [facility] Comment on above: Order Comment: Speci men Type: URINE SPECIMENOrdering Facility: [facility] Address: [address] [place] [address] Performed By: #### 2 4356-8 ####[facility] LABCLIA [id number] [place] [address] [place] Color (U) Yellow Normal Yellow [facility] Comment on above: Order Comment: Speci men Type: URINE SPECIMENOrdering Facility: [facility] Address: [address] [place] [address] Performed By: #### 2 4356-8 ####[facility] LABCLIA [id number] [place] [address] [place] Epithelial cells LM.HPF (Urine sed) [#/Area] None Seen Normal [facility] Comment on above: Order Comment: Speci men Type: URINE SPECIMENOrdering Facility: [facility] Address: [address] [place] [address] Performed By: #### 2 4356-8 ####[facility] LABCLIA [id number] [place] [address] [place] Glucose Test strip (U) [Mass/Vol] Negative Normal Negative [facility] Comment on above: Order Comment: Speci men Type: URINE SPECIMENOrdering Facility: [facility] Address: [address] [place] [address] Performed By: #### 2 4356-8 ####[facility] LABCLIA [id number] [place] [address] [place] Hemoglobin Ql (U) Negative Normal Negative [facility] Comment on above: Order Comment: Speci men Type: URINE SPECIMENOrdering Facility: [facility] Address: [address] [place] [address] Performed By: #### 2 4356-8 ####[facility] LABCLIA [id number] [place] [address] [place] Hyaline casts (Urine sed) [#/Area] 0 /[LPF] Normal 0 /LPF [facility] Comment on above: Order Comment: Speci men Type: URINE SPECIMENOrdering Facility: [facility] Address: [address] [place] [address] Performed By: #### 2 4356-8 ####[facility] LABCLIA [id number] [place] [address] [place] Ketones Ql (U) Negative Normal Negative [facility] Comment on above: Order Comment: Speci men Type: URINE SPECIMENOrdering Facility: [facility] Address: [address] [place] [address] Performed By: #### 2 4356-8 ####[facility] LABCLIA [id number] [place] [address] [place] Leukocyte esterase Test strip Ql (U) Negative Normal Negative [facility] Comment on above: Order Comment: Speci men Type: URINE SPECIMENOrdering Facility: [facility] Address: [address] [place] [address] Performed By: #### 2 4356-8 ####[facility] LABCLIA [id number] [address] [id number] [address] [place] Nitrite Ql (U) Negative Normal Negative [facility] Comment on above: Order Comment: Speci men Type: URINE SPECIMENOrdering Facility: [facility] Address: [address] [place] [address] Performed By: #### 2 4356-8 ####[facility] LABIA [id number] [place] [address] [place] pH (U) 6.0 [pH] Normal <8.5 [facility] Comment on above: Order Comment: Speci men Type: URINE SPECIMENOrdering Facility: [facility] Address: [address] [place] [address] Performed By: #### 2 4356-8 ####[facility] LABIA [id number] [place] [address] [place] Protein (U) [Mass/Vol] Negative Normal Negative [facility] Comment on above: Order Comment: Speci men Type: URINE SPECIMENOrdering Facility: [facility] Address: [address] [place] [address] Performed By: #### 2 4356-8 ####[facility] LABIA [id number] [place] [address] [place] RBC LM.HPF (Urine sed) [#/Area] 0-2 /HPF Normal 0-2 /HPF [facility] Comment on above: Order Comment: Speci men Type: URINE SPECIMENOrdering Facility: [facility] Address: [address] [place] [address] Performed By: #### 2 4356-8 ####[facility] LABIA [id number] [place] [address] [place] Specific gravity (U) [Rel density] 1.005 Normal 1.005-1.030 [facility] Comment on above: Order Comment: Speci men Type: URINE SPECIMENOrdering Facility: [facility] Address: [address] [place] [address] Performed By: #### 2 4356-8 ####[facility] LABIA [id number] [place] [address] [place] Urobilinogen Ql (U) 0.2 EU/dL Normal 0.2-1.0 EU/dL [facility] Comment on above: Order Comment: Speci men Type: URINE SPECIMENOrdering Facility: [facility] Address: [address] [place] [address] Performed By: #### 2 4356-8 ####[facility] [id number] [place] [address] [place] WBC LM.HPF (Urine sed) [#/Area] 0-5 /HPF Normal 0-5 /HPF [facility] Comment on above: Order Comment: Speci men Type: URINE SPECIMENOrdering Facility: [facility] Address: [address] [place] [address] Performed By: #### 2 4356-8 ####[facility] [id number] [place] [address] [place] Vit B12 SerPl-mCncon 025 Cobalamin (Vitamin B12) [Mass/Vol] 977 pg/mL Normal 232-1245 [facility] Comment on above: Order Comment: Speci men Type: BLOOD SPECIMENOrdering Facility: [facility] Address: [address] [place] [address] Performed By: #### 5 0190-8, LIPNF, 2132-9, 80529-1 ####[facility] [id number] [place] [address] [place] XR CHEST 2V FRONTAL/LATon XR CHEST 2V FRONTAL/LAT * * *Final Report* * * DATE OF EXAM: Sep 20 2024 3:18PM WOX [id number] - XR CHEST 2V FRONTAL/LAT / PROCEDURE REASON: Asbestos exposure * * * * Physician Interpretation * * * * EXAMINATION: CHEST RADIOGRAPH (2 VIEW FRONTAL and LATERAL) CLINICAL HISTORY: Asbestos exposure MQ: XC2_6 EXAM DATE/TIME: 09/20/2024 3:18 PM COMPARISON: 09/15/2023 RESULT: Lines, tubes, and devices: None. Lungs and pleura: No consolidation. No lung mass. No pleural effusion. No pneumothorax. No interstitial prominence or calcified pleural plaques Cardiomediastinal silhouette: Normal cardiomediastinal silhouette. Bones and soft tissues: Unremarkable. IMPRESSION: No acute radiographic abnormality. Operations Analyst: [facility] Transcribe Date/Time: Sep 20 2024 3:21P Dictated by : FLIP KAYE MD This examination was interpreted and the report reviewed and electronically signed by: FLIP KAYE MD on Sep 20 2024 3:22PM EST [id number] Normal [facility] XR Chest PA and Lateralon IMPRESSION: No acute radiographic abnormality. Operations Analyst: [facility] Transcribe Date/Time: Sep 20 2024 3:21P Dictated by : FLIP KAYE MD This examination was interpreted and the report reviewed and electronically signed by: FLIP KAYE MD on Sep 20 2024 3:22PM EST DIVISION OF RADIOLOGY * * *Final Report* * * DATE OF EXAM: Sep 20 2024 3:18PM WOX [id number] - XR CHEST 2V FRONTAL/LAT / PROCEDURE REASON: Asbestos exposure * * * * Physician Interpretation * * * * EXAMINATION: CHEST RADIOGRAPH (2 VIEW FRONTAL & LATERAL) CLINICAL HISTORY: Asbestos exposure MQ: XC2_6 EXAM DATE/TIME: 09/20/2024 3:18 PM COMPARISON: 09/15/2023 RESULT: Lines, tubes, and devices: None. Lungs and pleura: No consolidation. No lung mass. No pleural effusion. No pneumothorax. No interstitial prominence or calcified pleural plaques Cardiomediastinal silhouette: Normal cardiomediastinal silhouette. Bones and soft tissues: Unremarkable. DIVISION OF RADIOLOGY Provider, [facility] - 09/20/2024 * * *Final Report* * * DATE OF EXAM: Sep 20 2024 3:18PM WOX [id number] - XR CHEST 2V FRONTAL/LAT / PROCEDURE REASON: Asbestos exposure * * * * Physician Interpretation * * * * EXAMINATION: CHEST RADIOGRAPH (2 VIEW FRONTAL & LATERAL) CLINICAL HISTORY: Asbestos exposure MQ: XC2_6 EXAM DATE/TIME: 09/20/2024 3:18 PM COMPARISON: 09/15/2023 RESULT: Lines, tubes, and devices: None. Lungs and pleura: No consolidation. No lung mass. No pleural effusion. No pneumothorax. No interstitial prominence or calcified pleural plaques Cardiomediastinal silhouette: Normal cardiomediastinal silhouette. Bones and soft tissues: Unremarkable. IMPRESSION IMPRESSION: No acute radiographic abnormality. Operations Analyst: [facility] Transcribe Date/Time: Sep 20 2024 3:21P Dictated by : FLIP KAYE MD This examination was interpreted and the report reviewed and electronically signed by: FLIP KAYE MD on Sep 20 2024 3:22PM [facility] Radiology Study observation (narrative) [facility] XR Chest PA and LateralOrder ed By: [facility] Provider on 09-20-2024 [facility] BLADDER SCANon 04-04-2024 168mL [facility] CNOVon 04-04-2024 CNOV Office Visit (URMASS ) ZHANNA [place] ([id number]) 1945 M Date Time Provider Department 04/04/24 10:45 AM PEDRO WASHINGTON URMASS During your visit today, we recorded the following information about you: Pedro Washington MD 04/04/2024 11:07 AM Signed ESTABLISHED PATIENT OFFICE VISIT F/u BPH and CaP. He is content with his urination on tamsulosin. His current IPSS is 7/3. Postvoid residuals 168 cc. His PSA increased slightly this visit to 13.56. LAB RESULTS Creatinine Date Value Ref Range Status 12/28/2023 1.73 (H) 0.73 - 1.22 mg/dL Final PSA (ng/mL) Date Value 03/09/2024 13.56 09/15/2023 10.63 07/03/2022 11.32 12/13/2020 8.81 06/14/2020 7.72 GLUCOSE UA (POCT) (mg/dL) Date Value 04/04/2024 Negative BILIRUBIN UA (POCT) (no units) Date Value 04/04/2024 Negative KETONE UA (POCT) (mg/dL) Date Value 04/04/2024 Negative SPECIFIC GRAVITY UA (POCT) (no units) Date Value 04/04/2024 1.010 HEMOGLOBIN/BLOOD UA (POCT) (no units) Date Value 04/04/2024 Negative PH UA (POCT) (no units) Date Value 04/04/2024 6.0 PROTEIN UA (POCT) (mg/dL) Date Value 04/04/2024 Negative UROBILINOGEN UA (POCT) (E.U./dL) Date Value 04/04/2024 0.2 NITRITE UA (POCT) (no units) Date Value 04/04/2024 Negative LEUKOCYTES UA (POCT) (no units) Date Value 04/04/2024 Negative COLOR UA (POCT) (no units) Date Value 04/04/2024 Yellow CLARITY UA (POCT) (no units) Date Value 04/04/2024 Clear ] ALLERGIES No Known Allergies MEDICATIONS: Ferrous Sulfate 142 mg (45 mg iron) TbER Take 1 tablet by mouth once daily. amLODIPine (NORVASC) 5 mg tablet Take 1 tablet by mouth once daily. atorvastatin (LIPITOR) 40 mg tablet Take 1 tablet by mouth daily at bedtime. For cholesterol. fenofibrate nanocrystallized (TRICOR) 48 mg tablet Take 1 tablet by mouth once daily. glimepiride (AMARYL) 4 mg tablet Take 1 tablet by mouth once daily. lisinopril (ZESTRIL) 40 mg tablet Take 1 tablet by mouth once daily. metFORMIN (GLUCOPHAGE) 500 mg tablet Take 2 tablets by mouth two times a day with meals. pioglitazone (ACTOS) 30 mg tablet Take 1 tablet by mouth once daily. blood sugar diagnostic (PRODIGY NO CODING) test strip 1 Strip once daily. Use as instructed Lancets Test blood sugar(s) once daily. Dx: Type 2 DM - Controlled E11.9 Insulin: No cyanocobalamin (VITAMIN B-12) 1,000 mcg tab Take 2 tablets by mouth once daily. aspirin, enteric coated (ASPIRIN, ENTERIC COATED) 81 mg EC tablet Take 81 mg by mouth once daily. finasteride (PROSCAR) 5 mg tablet Take 1 tablet by mouth once daily. tamsulosin (FLOMAX) 0.4 mg Take 1 capsule by mouth daily at bedtime for 30 doses. REVIEW OF SYSTEMS GENERAL:no unintentional weight loss, malaise or fevers. NEUROLOGIC: pt is alert and oriented GASTROINTESTINAL: No nausea, vomiting, or diarrhea GENITOURINARY: No history of dysuria, frequency or incontinence MUSCULOSKELETAL: Negative for joint pain or swelling, back pain or muscle pain SKIN: Negative for lesions, rash, and itching. ACTIVE PROBLEM LIST Generalized Arthritis Over Weight Prostate Cancer (Hcc) Hypertension, Essential Type 2 Diabetes Mellitus With Stage 3b Chronic Kidney Disease, Without Long-Term Current Use of Insulin (Hcc) Mixed Hyperlipidemia Hammer Toes of Both Feet Medicare Annual Wellness Visit, Subsequent Diabetic Eye Exam ([facility]) Anemia of Chronic Disease Stage 3b chronic kidney disease (HCC) History of 2019 Novel Coronavirus Disease (Covid-19) Memory Impairment Iron Deficiency Anemia Vitamin B12 Deficiency Screening for Colon Cancer Living Will in Place Advance Directive Discussed With Patient Asbestos Exposure Squamous Cell Skin Cancer Prostate Disorder Foot Callus HISTORIES PAST MEDICAL HISTORY Diagnosis Date Advance directive discussed with patient 09/10/2022 Discussed 09/2022 Needs to bring in copies Asbestos exposure 09/11/2022 Asbestosis (HCC) 08/13/[address] Seth. Foot callus 09/15/2023 Generalized arthritis 10/02/2003 Hammer toes of both feet 08/13/2020 History of 2019 novel coronavirus disease (COVID-19) 02/18/2021 Had but not aware of date Hypertension, essential 08/13/2020 Iron deficiency anemia 08/25/[address] 09/10/2022 DPA: Ann-Marie (daughter) Medicare annual wellness visit, subsequent 08/13/2020 Medicare Part B: 03/07/2012, last done 08/23/2021 Memory impairment 02/18/2021 Secondary to chemo Tx for hs prostate cancer. Mixed hyperlipidemia 08/13/2020 Over weight 01/18/2018 Prostate cancer (HCC) 11/17/2019 Seeing Urology and oncology (Dr. Logan) Squamous cell skin cancer 05/25/2023 Right upper back removed 05/2023 Stage 3a chronic kidney disease (HCC) 08/15/2020 Type 2 diabetes mellitus with stage 3b chronic kidney disease, without long-term current use of insulin (HCC) 08/13/2020 Type 2 diabetes manisha (more content not included)... Normal [facility] UA DIP, URINE (POC)on 2023 BILIRUBIN UA (POCT) Negative Negative [facility] CLARITY [facility]A (POCT) [facility] COLOR UA (POCT) Yellow [facility] GLUCOSE UA (POCT) Negative Negative mg/dL [facility] Hemoglobin Ql (U) Negative [facility] KETONE UA (POCT) Negative Negative mg/dL [facility] LEUKOCYTES UA (POCT) Negative Negative [facility] NITRITE UA (POCT) Negative [facility] PH UA (POCT) 6.0 4.5 - 8.0 [facility] Protein Ql (U) Negative Negative mg/dL [facility] SPECIFIC GRAVITY UA (POCT) 1.010 1.005 - 1.030 [facility] UROBILINOGEN UA (POCT) 0.2 Normal E.U./dL [facility] Location:[facility] mimi [place], [address], [address] [facility] POINT OF CARE [facility] 03-17-2024 NATYN Telephone (LINO) ZHANNA [place] ([id number]) 1945 M Date Time Provider Department 03/17/24 TALIA DORSEY During your visit today, we recorded the following information about you: Talia Dorsey APRN.MACHINING SUPERVISOR 03/17/2024 11:17 AM Signed Please let patient know their labs are stable. Jodie Roe, KENYATTA 03/17/2024 11:47 AM Signed Pt called and is notified of providers results. Pt voices understanding. Jodie Roe RN Allergies As of Date: 03/17/2024 (No Known Allergies) Date Reviewed: 03/15/2024 Reviewed by: Vanessa Watt MA - Fully Assessed Reason for Visit: Results [95] Prescriptions as of 03/17/2024 - Ferrous Sulfate 142 mg (45 mg iron) TbER Take 1 tablet by mouth once daily. - amLODIPine (NORVASC) 5 mg tablet Take 1 tablet by mouth once daily. - atorvastatin (LIPITOR) 40 mg tablet Take 1 tablet by mouth daily at bedtime. For cholesterol. - fenofibrate nanocrystallized (TRICOR) 48 mg tablet Take 1 tablet by mouth once daily. - glimepiride (AMARYL) 4 mg tablet Take 1 tablet by mouth once daily. - lisinopril (ZESTRIL) 40 mg tablet Take 1 tablet by mouth once daily. - metFORMIN (GLUCOPHAGE) 500 mg tablet Take 2 tablets by mouth two times a day with meals. - pioglitazone (ACTOS) 30 mg tablet Take 1 tablet by mouth once daily. - blood sugar diagnostic (PRODIGInform Genomics NO CODING) test strip 1 Strip once daily. Use as instructed - Lancets Test blood sugar(s) once daily. Dx: Type 2 DM - Controlled E11.9 Insulin: No - cyanocobalamin (VITAMIN B-12) 1,000 mcg tab Take 2 tablets by mouth once daily. - tamsulosin (FLOMAX) 0.4 mg Take 1 capsule by mouth daily at bedtime for 30 doses. - aspirin, enteric coated (ASPIRIN, ENTERIC COATED) 81 mg EC tablet Take 81 mg by mouth once daily. Problem List As Of Date 03/17/2024 Noted Resolved Generalized arthritis [M19.90] 10/02/2003 Over weight [E66.3] 01/18/2018 Prostate cancer (HCC) [C61] 11/17/2019 Hypertension, essential [I10] 08/13/2020 Type 2 diabetes mellitus with stage 3b chronic *08/13/2020 Mixed hyperlipidemia [E78.2] 08/13/2020 Asbestosis ([facility]) [J61] 08/13/2020 09/11/2022 Hammer toes of both feet [M20.41, M20.42] 08/13/2020 Medicare annual wellness visit, subsequent [Z00*08/13/2020 Diabetic eye exam (HCC) [Z01.00, E11.9] 08/13/2020 Anemia of chronic disease [D63.8] 08/15/2020 Stage 3b chronic kidney disease (HCC) [N18.32] 08/15/2020 History of 2019 novel coronavirus disease (COVI*02/18/2021 Memory impairment [R41.3] 02/18/2021 Iron deficiency anemia [D50.9] 08/25/2021 Vitamin B12 deficiency [E53.8] 08/25/2021 Screening for colon cancer [Z12.11] 02/21/[address] [Z78.9] 09/10/2022 Advance directive discussed with patient [Z71.8*09/10/2022 Asbestos exposure [Z77.090] 09/11/2022 Squamous cell skin cancer [C44.92] 05/25/2023 Prostate disorder [N42.9] 09/15/2023 Foot callus [L84] 09/15/2023 Encounter Status:Closed by JODIE ROE on 03/17/24 [facility] CNOVon 03-15-2024 CNOV Office Visit (ELIZABETHPWS ) NESHA OHALD Y[place]asta ([id number]) 1945 M Date Time Provider Department 03/15/24 11:40 AM TALIA DORSEY During your visit today, we recorded the following information about you: Pulse Respiration Blood pressure Weight 51/minute 14/minute 133/76 102.1 kg Talia Dorsey, DEANNA.MACHINING SUPERVISOR 03/15/2024 11:55 AM Signed Chief Complaint Patient presents with: 6 Month Exam HPI Zhannakana Oh is a 78 year old male who presents here today for Above Complaints.. Patient presents for routine follow up. Patient has follow up with urology later this month. Patient reports he is feeling well. Past medical history, appointments, medications, allergies reviewed. Previous Medical History PAST MEDICAL HISTORY Diagnosis Date Advance directive discussed with patient 09/10/2022 Discussed 09/2022 Needs to bring in copies Asbestos exposure 09/11/2022 Asbestosis (HCC) 08/13/[address] Seth. Foot callus 09/15/2023 Generalized arthritis 10/02/2003 Hammer toes of both feet 08/13/2020 History of 2019 novel coronavirus disease (COVID-19) 02/18/2021 Had but not aware of date Hypertension, essential 08/13/2020 Iron deficiency anemia 08/25/[address] 09/10/2022 DPA: Ann-Marie (daughter) Medicare annual wellness visit, subsequent 08/13/2020 Medicare Part B: 03/07/2012, last done 08/23/2021 Memory impairment 02/18/2021 Secondary to chemo Tx for hs prostate cancer. Mixed hyperlipidemia 08/13/2020 Over weight 01/18/2018 Prostate cancer (HCC) 11/17/2019 Seeing Urology and oncology (Dr. Logan) Squamous cell skin cancer 05/25/2023 Right upper back removed 05/2023 Stage 3a chronic kidney disease (HCC) 08/15/2020 Type 2 diabetes mellitus with stage 3b chronic kidney disease, without long-term current use of insulin (HCC) 08/13/2020 Type 2 diabetes mellitus without complication, without long-term current use of insulin (HCC) 08/13/2020 Vitamin B12 deficiency 08/25/2021 Previous Surgical History PAST SURGICAL HISTORY Procedure Laterality Date COLONOSCOPY 12/2021 EGD W/O BRSH SPEC VARICIES INJ 12/2021 PROSTATE BIOPSY 2019 REMV CATARACT EXTRACAP,INSERT LENS 06/2020 TONSILLECTOMY HX as a child Family History FAMILY HISTORY Problem Relation Age of Onset Lung Cancer Mother Pneumonectomy. 2nd surgery. COPD Mother Emphysema. Smoker. other (Other) Father age 101. Diabetes Sister Diabetes Sister Patient Allergies ALLERGIES No Known Allergies Current Medications Current Outpatient Medications on File Prior to Visit Medication Sig amLODIPine (NORVASC) 5 mg tablet Take 1 tablet by mouth once daily. atorvastatin (LIPITOR) 40 mg tablet Take 1 tablet by mouth daily at bedtime. For cholesterol. fenofibrate nanocrystallized (TRICOR) 48 mg tablet Take 1 tablet by mouth once daily. glimepiride (AMARYL) 4 mg tablet Take 1 tablet by mouth once daily. lisinopril (ZESTRIL) 40 mg tablet Take 1 tablet by mouth once daily. metFORMIN (GLUCOPHAGE) 500 mg tablet Take 2 tablets by mouth two times a day with meals. pioglitazone (ACTOS) 30 mg tablet Take 1 tablet by mouth once daily. blood sugar diagnostic (PRODIGY NO CODING) test strip 1 Strip once daily. Use as instructed Lancets Test blood sugar(s) once daily. Dx: Type 2 DM - Controlled E11.9 Insulin: No cyanocobalamin (VITAMIN B-12) 1,000 mcg tab Take 2 tablets by mouth once daily. tamsulosin (FLOMAX) 0.4 mg Take 1 capsule by mouth daily at bedtime for 30 doses. Ferrous Sulfate (SLOW FE) 142 mg (45 mg iron) TbER Take one tab daily aspirin, enteric coated (ASPIRIN, ENTERIC COATED) 81 mg EC tablet Take 81 mg by mouth once daily. No current facility-administered medications on file prior to visit. Social History Social History Tobacco Use Smoking status: Never Smokeless tobacco: Never Tobacco comments: Mother smoked in childhood home. Vaping Use Vaping Use: Never used Substance Use Topics Alcohol use: No Drug use: No Review of Symptoms REVIEW OF SYSTEMS SEE HPI EXAM: BP 155/77 Pulse (!) 51 Resp 14 Wt 102.1 kg (225 lb) BMI 30.47 kg/m? General Appearance: Well appearing, alert, in no acute distress, well-hydrated, well nourished.. Lungs: Lungs clear to auscultation. No wheezing, rhonchi, rales.. Heart: RRR without murmur, gallop, or rubs. No ectopy. Peripheral Pulses: Normal. Health Maintenance List BP Controlled (<130/80) due on 08/23/2022 Behavioral Health Screening Never done Covid-19 Vaccine(2022- season) due on 11/05/2023 HbA1C due on 03/15/2024 RSV Vaccine(1 - 1-dose 60+ series) due on 09/15/2024 Urine Albumin:Creatinine Ratio due on 09/15/2024 LDL Cholesterol due on 09/15/2024 Diabetic Foot Exam due on 09/15/2024 Annual PCP Team Chronic Disease Visit due on 09/15/2024 Dilated Retinal Exam due on 10/16/2024 Serum Creatinine due on 12/27/2024 Hemoglobin/ (more content not included)... Normal [facility] HbA1c (Bld)on 03-15-2024 Average glucose Estimated from glycated hemoglobin (Bld) [Mass/Vol] 146 mg/dL Normal [facility] Comment on above: Order Comment: Jem bustamante Type: BLOOD SPECIMEN Ordering Facility: [facility] Address: [address] [place] [address] Result Comment: eAG: (Estimated average glucose) is a calculated value from HgbA1c and is payable representative of the average blood glucose level in the last 2-3 month period. Performed By: #### 5 7021-8 #### [facility] CLIA [id number] [address] [place] [address] [place] HbA1c (Bld) [Mass fraction] 6.7 % High 4.3-5.6 [facility] Comment on above: Order Comment: Jem bustamante Type: BLOOD SPECIMEN Ordering Facility: [facility] Address: [address] [place] [address] Result Comment: [place] Diabetes Association guidelines indicate that patients with HgbA1c in the range 5.7-6.4% are at increased risk for development of diabetes, and intervention by lifestyle modification may be beneficial. HgbA1c greater or equal to 6.5% is considered diagnostic of diabetes. Performed By: #### 5 7021-8 #### [facility] CLIA [id number] [address] [place] [address] [place] LIPID PANEL, NONFASTINGon Cholesterol [Mass/Vol] 129 mg/dL Normal <200 [facility] Comment on above: Order Comment: Jem bustamante Type: BLOOD SPECIMEN Ordering Facility: [facility] Address: [address] [place] [address] Result Comment: <200 mg/dL, Desirable 200-239 mg/dL, Borderline high >239 mg/dL, High Performed By: #### L IPNF #### [facility] CLIA [id number] [address] [place] [address] [place] HDL CHOLESTEROL, NF 37 mg/dL Low >[address] [facility] Comment on above: Order Comment: Jem bustamante Type: BLOOD SPECIMEN Ordering Facility: [facility] Address: [address] [place] [address] Result Comment: 40-5 9 mg/dL, Acceptable >59 mg/dL, High: Negative risk factor for coronary heart disease <40 mg/dL, Low: Positive risk factor for coronary heart disease Performed By: #### L IPNF #### [facility] CLIA [id number] [address] [place] [address] [place] [facility] LDL CHOLESTEROL, NF 71 mg/dL Normal <[address] [facility] Comment on above: Order Comment: Jem bustamante Type: BLOOD SPECIMEN Ordering Facility: [facility] Address: [address] [place] [address] Result Comment: <100 mg/dL, Optimal 100-129 mg/dL, Near optimal/above optimal 130-159 mg/dL, Borderline high 160-189 mg/dL, High >189 mg/dL, Very high Secondary prevention optimal LDL Cholesterol levels are recommended to be < 70 mg/dL Performed By: #### L IPNF #### [facility] CLIA [id number] [address] [place] [address] [place] LDL/HDL RATIO, NF 1.92 mg/dL Normal <2.54 [facility] Comment on above: Order Comment: Jem dianna Type: BLOOD SPECIMEN Ordering Facility: [facility] Address: [address] [place] [address] Result Comment: Refyokasta lopezce: 1. National Cholesterol Education Program ATP III Guideline At-A-Glance Quick Desk Reference: National Heart, Lung, and Blood [place]. National Institutes of Health. 2001: NIH Publication No. 01-3305. 2. An International Atherosclerosis Society position paper: global recommendations for the management of dyslipidemia: executive summary, Atherosclerosis. 2014: 232(2):410-413. Performed By: #### L IPNF #### [facility] CLIA [id number] [address] [place] [address] [place] NON HDL CHOL, NF 92 mg/dL Normal <130 [facility] Comment on above: Order Comment: Speci men Type: BLOOD SPECIMEN Ordering Facility: [facility] Address: [address] [place] [address] Result Comment: <130 mg/dL, Optimal 130-159 mg/dL, Near optimal/above optimal 160-189 mg/dL, Borderline high 190-219 mg/dL, High >219 mg/dL, Very high Secondary prevention optimal non HDL Cholesterol levels are recommended to be <100 mg/dL Performed By: #### L IPNF #### [facility] CLIA [id number] [address] [place] [address] [place] T CHOL/HDL RATIO NF 3.49 mg/dL Normal <5.[address] [facility] Comment on above: Order Comment: Speci men Type: BLOOD SPECIMEN Ordering Facility: [facility] Address: [address] [place] [address] Performed By: #### L IPNF #### [facility] CLIA [id number] [address] [place] [address] [place] TRIGLYCERIDES, NF 106 mg/dL Normal <150 [facility] Comment on above: Order Comment: Speci men Type: BLOOD SPECIMEN Ordering Facility: [facility] Address: [address] [place] [address] Result Comment: <150 mg/dL, Normal 150-199 mg/dL, Borderline high 200-499 mg/dL, High >499 mg/dL, Very high Performed By: #### L IPNF #### [facility] CLIA [id number] [address] [place] [address] [place] VLDL CHOLESTEROL, NF 21 mg/dL Normal <30 [facility] Comment on above: Order Comment: Speci men Type: BLOOD SPECIMEN Ordering Facility: [facility] Address: [address] [place] [address] Performed By: #### L IPNF #### [facility] CLIA [id number] [address] [place] [address] [place] PSA SerPl-mCncon 03-09-2024 Prostate specific Ag [Mass/Vol] 13.56 ng/mL High <2.60 [facility] Comment on above: Order Comment: Speci men Type: BLOOD SPECIMENOrdering Facility: [facility] Address: [address] [place] [address] Result Comment: Tota l PSA test methodology used is the Electrochemiluminescence Immunoassay by [employer]. Total PSA values by differing methodologies cannot be interchanged. For an individual patient, the significance of a PSA level should be interpreted in a broad clinical context, including age, race, family history, digital rectal exam, prostate size, results of prior testing (prostate biopsy, free PSA, PCA3), and use of 5-alpha reductase inhibitors. Considering the high incidence of asymptomatic cancer in the general population that may not pose an ultimate risk to a patient, the decision to recommend urological evaluation or prostate biopsy should be individualized after consideration of all these factors. REFERENCE: [place] Jacome M.D., M.P.H., Edwardo Ortiz M.D., Ph.D., Aston Mathew M.D., Rachele Madrigal, M.P.H., Alina Valentin, Sc.Levy. Effect of Verification Bias on Screening for Prostate Cancer by Measurement of Prostatic Specific Antigen. N Engl J Med 2003,349:335-42. Performed By: #### 2 857-1 ####[facility] [id number] [place] [address] [place] 25-HYDROXY D2+D3on 25-hydroxyvitamin D3 [Mass/Vol] 28.2 ng/mL Low 30.0-100.0 [facility] Comment on above: Order Comment: Speci men Type: BLOOD SPECIMEN Ordering Facility: [facility] Address: [address] [place] [address] Result Comment: Defi cient: <20.1 ng/mL Insufficient: 20.1 - 29.9 ng/mL Sufficient: 30.0 - 100.0 ng/mL Toxic: >150.0 ng/mL Reference: Holick MF, N Engl J Med (2007)357:266-81 This test was developed and its performance characteristics determined by the Pathology and Laboratory Medicine [place] at the [facility]. The U.S. Food and Drug Administration has not approved or cleared this test, however, FDA clearance or approval is not currently required for clinical use. Performed By: #### 5 7021-8 #### [facility] CLIA [id number] [address] [place] [address] [place] Vitamin D2 [Mass/Vol] <5.0 Normal [facility] Comment on above: Order Comment: Speci men Type: BLOOD SPECIMEN Ordering Facility: [facility] Address: [address] [place] [address] Performed By: #### 5 7021-8 #### [facility] CLIA [id number] [address] [place] [address] [place] Vitamin D3 [Mass/Vol] 28.2 ng/mL Normal [facility] Comment on above: Order Comment: Speci men Type: BLOOD SPECIMEN Ordering Facility: [facility] Address: [address] [place] [address] Performed By: #### 5 7021-8 #### [facility] CLIA [id number] [address] [place] [address] [place] CBC panel Auto (Bld)on 12-27 Erythrocyte distribution width (RBC) [Ratio] 12.9 % Normal 11.5-15.0 [facility] Comment on above: Order Comment: Speci men Type: BLOOD SPECIMEN Ordering Facility: [facility] Address: [address] [place] [address] Performed By: #### 5 7021-8 #### [facility] CLIA [id number] [address] [place] [address] [place] Hematocrit (Bld) [Volume fraction] 37.1 % Low 39.0-51.0 [facility] Comment on above: Order Comment: Speci men Type: BLOOD SPECIMEN Ordering Facility: [facility] Address: [address] [place] [address] Performed By: #### 5 7021-8 #### [facility] CLIA [id number] [address] [place] [address] [place] Hemoglobin (Bld) [Mass/Vol] 12.3 g/dL Low 13.0-17.0 [facility] Comment on above: Order Comment: Speci men Type: BLOOD SPECIMEN Ordering Facility: [facility] Address: [address] [place] [address] Performed By: #### 5 7021-8 #### [facility] CLIA [id number] [address] [place] [address] [place] MCH (RBC) [Entitic mass] 31.5 pg Normal 26.0-34.0 [facility] Comment on above: Order Comment: Speci men Type: BLOOD SPECIMEN Ordering Facility: [facility] Address: [address] [place] [address] Performed By: #### 5 7021-8 #### [facility] CLIA [id number] [address] [place] [address] [place] MCHC (RBC) [Mass/Vol] 33.2 g/dL Normal 30.5-36.0 [facility] Comment on above: Order Comment: Speci men Type: BLOOD SPECIMEN Ordering Facility: [facility] Address: [address] [place] [address] Performed By: #### 5 7021-8 #### [facility] CLIA [id number] [address] [place] [address] [place] MCV (RBC) [Entitic vol] 94.9 fL Normal 80.0-100.0 [facility] Comment on above: Order Comment: Speci men Type: BLOOD SPECIMEN Ordering Facility: [facility] Address: [address] [place] [address] Performed By: #### 5 7021-8 #### [facility] CLIA [id number] [address] [place] [address] [place] Nucleated RBC (Bld) [#/Vol] 10*3/uL Normal <0.01 [facility] Comment on above: Order Comment: Speci men Type: BLOOD SPECIMEN Ordering Facility: [facility] Address: [address] [place] [address] Performed By: #### 5 7021-8 #### [facility] CLIA [id number] [address] [place] [address] [place] Platelet mean volume (Bld) [Entitic vol] 9.5 fL Normal 9.0-12.7 [facility] Comment on above: Order Comment: Speci men Type: BLOOD SPECIMEN Ordering Facility: [facility] Address: [address] [place] [address] Performed By: #### 5 7021-8 #### [facility] CLIA [id number] [address] [place] [address] [place] Platelets (Bld) [#/Vol] 263 10*3/uL Normal 150-400 [facility] Comment on above: Order Comment: Speci men Type: BLOOD SPECIMEN Ordering Facility: [facility] Address: [address] [place] [address] Performed By: #### 5 7021-8 #### [facility] CLIA [id number] [address] [place] [address] [place] RBC (Bld) [#/Vol] 3.91 10*6/uL Low 4.20-6.[address] [facility] Comment on above: Order Comment: Speci men Type: BLOOD SPECIMEN Ordering Facility: [facility] Address: [address] [place] [address] Performed By: #### 5 7021-8 #### [facility] CLIA [id number] [address] [place] [address] [place] WBC (Bld) [#/Vol] 6.52 10*3/uL Normal 3.70-11.[address] [facility] Comment on above: Order Comment: Speci men Type: BLOOD SPECIMEN Ordering Facility: [facility] Address: [address] [place] [address] Performed By: #### 5 7021-8 #### [facility] CLIA [id number] [address] [place] [address] [place] PTH-Intact SerPl-mCncon 04- Parathyrin.intact [Mass/Vol] 23 pg/mL Normal 15-65 [facility] Comment on above: Order Comment: Speci men Type: BLOOD SPECIMEN Ordering Facility: [facility] Address: [address] [place] [address] Performed By: #### 5 7021-8 #### [facility] CLIA [id number] [address] [place] [address] [place] Prot/Creat Uron 12-28-2023 Protein/Creatinine (U) [Mass ratio] 0.11 mg/mg Normal <0.15 [facility] Comment on above: Order Comment: Jem bustamante Type: URINE SPECIMENOrdering Facility: [address] Address: [address] [place], [place] [id number] Result Comment: Adul t Proteinuria Categories: <0.15 mg/mg is considered normal to mildly increased 0.15 - 0.50 mg/mg is considered moderately increased >0.50 mg/mg is considered severely increased KDIGO. (2013). KDIGO 2012 Clinical Practice Guideline for the Evaluation and Management of Chronic Kidney Disease. Official Journal of the International Society of Nephrology, 3(1), 1-150. Performed By: #### 2 890-2 ####[facility] [id number] [place] [address] [place] Protein/Creatinine (U) [Mass ratio]on 12-28-2023 Creatinine (U) [Mass/Vol] 122.2 mg/dL Normal 20.0-300.0 [facility] Comment on above: Order Comment: Speci men Type: URINE SPECIMENOrdering Facility: [facility] Address: [address] [place] [address] Performed By: #### 2 890-2 ####[facility] [id number] [place] [address] [place] Protein (U) [Mass/Vol] 13 mg/dL Normal 0-20 [facility] Comment on above: Order Comment: Speci men Type: URINE SPECIMENOrdering Facility: o[facility] Address: [facility] [place] [address] Performed By: #### 2 890-2 ####[facility] [id number] [place] [address] [place] Renal function 2000 panelon 12-28-2023 Albumin [Mass/Vol] 4.5 g/dL Normal 3.9-4.[address] [facility] Comment on above: Order Comment: Speci men Type: BLOOD SPECIMEN Ordering Facility: [facility] Address: [address] [place] [address] Performed By: #### 5 7021-8 #### [facility] CLIA [id number] [address] [place] [address] [place] Anion gap [Moles/Vol] 15 mmol/L Normal 9-18 [facility] Comment on above: Order Comment: Speci men Type: BLOOD SPECIMEN Ordering Facility: [facility] Address: [address] [place] [address] Performed By: #### 5 7021-8 #### [facility] CLIA [id number] [address] [place] [address] [place] Calcium [Mass/Vol] 9.9 mg/dL Normal 8.5-10.[address] [facility] Comment on above: Order Comment: Speci men Type: BLOOD SPECIMEN Ordering Facility: [facility] Address: [address] [place], [place] [address] Performed By: #### 5 7021-8 #### [facility] CLIA [id number] [address] [place] [address] [place] Chloride [Moles/Vol] 103 mmol/L Normal 97-105 [facility] Comment on above: Order Comment: Speci men Type: BLOOD SPECIMEN Ordering Facility: [facility] Address: [address] [place] [address] Performed By: #### 5 7021-8 #### [facility] CLIA [id number] [address] [place] [address] [place] CO2 [Moles/Vol] 22 mmol/L Normal 22-30 [facility] Comment on above: Order Comment: Speci men Type: BLOOD SPECIMEN Ordering Facility: [facility] Address: [address] [place] [address] Performed By: #### 5 7021-8 #### [facility] CLIA [id number] [address] [place] [address] [place] Creatinine [Mass/Vol] 1.73 mg/dL High 0.73-1.22 [facility] Comment on above: Order Comment: Speci men Type: BLOOD SPECIMEN Ordering Facility: [facility] Address: [address] [place] [address] Performed By: #### 5 7021-8 #### [facility] CLIA [id number] [address] [place] [address] [place] Creatinine and Glomerular filtration rate.predicted panel (S/P/Bld) 40 mL/min/1.73m??? Low >=60 [facility] Comment on above: Order Comment: Speci men Type: BLOOD SPECIMEN Ordering Facility: [facility] Address: [address] [place] [address] Result Comment: Dez mated Glomerular Filtration Rate (eGFR) is calculated using the 2020 CKD-EPI creatinine equation. This equation utilizes serum creatinine, sex, and age as parameters. The creatinine assay has traceable calibration to isotope dilution-mass spectrometry. Refer to KDIGO guidelines for clinical interpretation. In patients with unstable renal function, e.g. those with acute kidney injury, the eGFR may not accurately reflect actual GFR. Performed By: #### 5 7021-8 #### [facility] CLIA [id number] [address] [place] [address] [place] Glucose [Mass/Vol] 192 mg/dL High 74-[address] [facility] Comment on above: Order Comment: Jem bustamante Type: BLOOD SPECIMEN Ordering Facility: [facility] Address: [address] [place] [address] Result Comment: The [place] Diabetes Association (ADA) provides guidance for cutoff values for fasting glucose and random glucose. The ADA defines fasting as no caloric intake for at least 8 hours. Fasting plasma glucose results between 100 to 125 mg/dL indicate increased risk for diabetes (prediabetes). Fasting plasma glucose results greater than or equal to 126 mg/dL meet the criteria for diagnosis of diabetes. In the absence of unequivocal hyperglycemia, results should be confirmed by repeat testing. In a patient with classic symptoms of hyperglycemia or hyperglycemic crisis, random plasma glucose results greater than or equal to 200 mg/dL meet the criteria for diagnosis of diabetes. Reference: Standards of Medical Care in Diabetes 2016, [place] Diabetes Association. Diabetes Care. 2016.39(Suppl 1). Performed By: #### 5 7021-8 #### [facility] CLIA [id number] [address] [place] [address] [place] Phosphate [Mass/Vol] 2.9 mg/dL Normal 2.7-4.8 [facility] Comment on above: Order Comment: Jem bustamante Type: BLOOD SPECIMEN Ordering Facility: [facility] Address: [address] [place] [address] Performed By: #### 5 7021-8 #### [facility] IA [id number] [address] [place] [address] [place] Potassium [Moles/Vol] 4.4 mmol/L Normal 3.7-5.1 [facility] Comment on above: Order Comment: Jem bustamante Type: BLOOD SPECIMEN Ordering Facility: [facility] Address: [address] [place] [address] Performed By: #### 5 7021-8 #### [facility] CLIA [id number] [address] [place] [address] [place] Sodium [Moles/Vol] 140 mmol/L Normal 136-[address] [facility] Comment on above: Order Comment: Speci men Type: BLOOD SPECIMEN Ordering Facility: [facility] Address: [address] [place] [address] Performed By: #### 5 7021-8 #### [facility] CLIA [id number] [address] [place] [address] [place] Urea nitrogen [Mass/Vol] 21 mg/dL Normal 9-24 [facility] Comment on above: Order Comment: Speci men Type: BLOOD SPECIMEN Ordering Facility: [facility] Address: [address] [place] [address] Performed By: #### 5 7021-8 #### [facility] CLIA [id number] [address] [place] [address] [place] XR Chest PA and Lateralon IMPRESSION: No acute radiographic abnormality. Operations Analyst: PSCB Transcribe Date/Time: Sep 15 2023 4:46P Dictated by : CASIE NEGRETE MD This examination was interpreted and the report reviewed and electronically signed by: CASIE NEGRETE MD on Sep 15 2023 4:49PM [facility] DIVISION OF RADIOLOGY * * *Final Report* * * DATE OF EXAM: Sep 15 2023 3:26PM WOX [id number] - XR CHEST 2V FRONTAL/LAT / PROCEDURE REASON: Asbestos exposure * * * * Physician Interpretation * * * * EXAMINATION: CHEST RADIOGRAPH (2 VIEW FRONTAL & LATERAL) CLINICAL HISTORY: Asbestos exposure MQ: XC2_6 EXAM DATE/TIME: 09/15/2023 3:26 PM COMPARISON: 10/01/2021 RESULT: Lines, tubes, and devices: None. Lungs and pleura: No consolidation. No lung mass. No pleural effusion. No pneumothorax. Cardiomediastinal silhouette: Normal cardiomediastinal silhouette. Bones and soft tissues: Unremarkable. DIVISION OF RADIOLOGY Provider, [facility]c Rojel[facility] - 09/15/2023 * * *Final Report* * * DATE OF EXAM: Sep 15 2023 3:26PM WOX [id number] - XR CHEST 2V FRONTAL/LAT / PROCEDURE REASON: Asbestos exposure * * * * Physician Interpretation * * * * EXAMINATION: CHEST RADIOGRAPH (2 VIEW FRONTAL & LATERAL) CLINICAL HISTORY: Asbestos exposure MQ: XC2_6 EXAM DATE/TIME: 09/15/2023 3:26 PM COMPARISON: 10/01/2021 RESULT: Lines, tubes, and devices: None. Lungs and pleura: No consolidation. No lung mass. No pleural effusion. No pneumothorax. Cardiomediastinal silhouette: Normal cardiomediastinal silhouette. Bones and soft tissues: Unremarkable. IMPRESSION IMPRESSION: No acute radiographic abnormality. Operations Analyst: DANETTE Transcribe Date/Time: Sep 15 2023 4:46P Dictated by : CASIE NEGRETE MD This examination was interpreted and the report reviewed and electronically signed by: CASIE NEGRETE MD on Sep 15 2023 4:49PM EST [facility] Radiology Study observation (narrative) [facility] XR Chest PA and LateralOrder ed By: Ccf Provider on 09-15-2023 [facility] SURGICAL PATHOLOGYon 023 Case Report Surgical Pathology R eport Case: [id number] Authorizing Provider: Todd Bunch MD Collected: 05/20/2023 11:59 AM Ordering Location: [facility] Received: 05/20/2023 12:16 PM Pathologist: Pedro Campo MD Specimen: SKIN EXCISION [facility] Clinical History increasing in size a nd concern for BCC vs SCC[right upper back [facility] FINAL DIAGNOSIS A. Skin, right upper back, excision: - Invasive well-differentiated squamous cell carcinoma. - Margins negative for tumor. SDB/CR 05/22/2023 [facility] Gross Description A. SKIN EXCISION Received in formalin is an elliptical shaped segment of skin and subcutaneous tissue measuring 3.5 x 1.8 x 1.2 cm. The skin surface demonstrates an irregular irwin-pink, elevated and fibrous area measuring 0.9 x 0.9 cm, and extends to 0.3 cm to the nearest margin. The margins are inked black. The specimen is sectioned and totally submitted as follows: A1 tips, A2-A6 body. SS May 21, 2023 1:21 AM Gross examination performed at [facility], [address] Performing Lab Diagnostic interpret ation performed at [facility] [address] [facility] [address] CLIA# [id number] Sales Engineering Manager: Jorge Keane M.D. [facility] HbA1c (Bld)on 03-11-2023 Average glucose Estimated from glycated hemoglobin (Bld) [Mass/Vol] 140 mg/dL [facility] HbA1c (Bld) [Mass fraction] 6.5 % High 4.3 - 5.6 % [facility] Absolute lymphocyte countOrd ered By: Elda Mojica on 02-23-2023 Lymphocytes Auto (Unsp spec) [#/Vol] 1.89 10*3/uL 0.83-4.51 [facility] Basophil percentageOrdered B y: Elda Mojica on 02-23-2023 Basophils/100 WBC (Bld) 0.8 % 0-1 [facility] Eosinophils/100 WBC (Bld) 4.3 % 0-5 [facility] Neutrophils (Bld) [#/Vol] 3.7 10*3/uL 2.0-7.7 [facility] Neutrophils/100 WBC (Bld) 56.6 % 47-70 [facility] WBC (Bld) [#/Vol] 6.5 10*3/uL 4.4-11.0 [facility] Blood erythrocytes count (nu mber/volume)Ordered By: Elda Mojica on 02-23-2023 RBC (Bld) [#/Vol] 3.98 10*6/uL 4.6-6.2 [facility] Blood hemoglobin measurement (mass/volume)Ordered By: Elda Mojica on 02-23-2023 Hemoglobin (Bld) [Mass/Vol] 12.2 g/dL 13.0-16.5 [facility] Blood lymphocytes/100 leukoc ytesOrdered By: Elda Mojica on 02-23-2023 Lymphocytes/100 WBC (Bld) 29.1 % 19-41 [facility] Blood monocytes/100 leukocyt esOrdered By: Elda Mojica on 02-23-2023 Monocytes/100 WBC (Bld) 8.9 % 0-10 [facility] Blood platelet mean volumeOr dered By: Elda Mojica on 02-23-2023 Platelet mean volume (Bld) [Entitic vol] 9.0 fL 6.2-12.0 [facility] CBC W/Diff, Automatedon 02-05 Absolute Lymph 1.89 X10 3/uL Normal 0.83-4.51 [facility] Comment on above: Performed By: #### L 100.0100, L503.6550, L503.6030 #### [facility] [address] [place], [address] Absolute Neut 3.7 X10 3/uL Normal 2.0-7.7 [facility] Comment on above: Performed By: #### L 100.0100, L503.6550, L503.6030 #### [facility] [address] [place], [address] Basophils/100 WBC (Bld) 0.8 % Normal 0-1 [facility] Comment on above: Performed By: #### L 100.0100, L503.6550, L503.6030 #### [facility] [address] [place], [address] Eosinophils/100 WBC (Bld) 4.3 % Normal 0-5 [facility] Comment on above: Performed By: #### L 100.0100, L503.6550, L503.6030 #### [facility] [address] [place], [address] Erythrocyte distribution width (RBC) [Ratio] 12.7 % Normal 11.6-14.6 [facility] Comment on above: Performed By: #### L 100.0100, L503.6550, L503.6030 #### [facility] [address] [place], [address] Hematocrit (Bld) [Volume fraction] 37.9 % Low 40-54 [facility] Comment on above: Performed By: #### L 100.0100, L503.6550, L503.6030 #### [facility] [address] [place], [address] Hemoglobin (Bld) [Mass/Vol] 12.2 g/dL Low 13.0-16.5 [facility] Comment on above: Performed By: #### L 100.0100, L503.6550, L503.6030 #### [facility] [address] [place], [address] IG% 0.300 Normal 0.0-0.9 [facility] Comment on above: Result Comment: IG% - Immature Granulocytes (promyelocytes, myelocytes and metamyelocytes) > 1% indicates that a LEFT SHIFT is Present. Performed By: #### L 100.0100, L503.6550, L503.6030 #### [facility] [address] [place], [address] Lymphocytes/100 WBC (Bld) 29.1 % Normal 19-41 [facility] Comment on above: Performed By: #### L 100.0100, L503.6550, L503.6030 #### [facility] [address] [place], [address] MCH (RBC) [Entitic mass] 30.7 pg Normal 27.0-32.0 [facility] Comment on above: Performed By: #### L 100.0100, L503.6550, L503.6030 #### [facility] [address] [place], [address] MCHC (RBC) [Mass/Vol] 32.2 g/dL Normal 32-36 [facility] Comment on above: Performed By: #### L 100.0100, L503.6550, L503.6030 #### [facility] [address] [place], [address] MCV (RBC) [Entitic vol] 95.2 fL High 80-94 [facility] Comment on above: Performed By: #### L 100.0100, L503.6550, L503.6030 #### [facility] [address] [place], [address] Monocytes/100 WBC (Bld) 8.9 % Normal 0-10 [facility] Comment on above: Performed By: #### L 100.0100, L503.6550, L503.6030 #### [facility] [address] [place], [address] Neutrophils/100 WBC (Bld) 56.6 % Normal 47-70 [facility] Comment on above: Performed By: #### L 100.0100, L503.6550, L503.6030 #### [facility] [address] [place], [address] Nucleated RBC (Bld) [#/Vol] 0 10*3/uL Normal 0-5 [facility] Comment on above: Performed By: #### L 100.0100, L503.6550, L503.6030 #### [facility] [address] [place], [address] Platelet mean volume (Bld) [Entitic vol] 9.0 fL Normal 6.2-12.0 [facility] Comment on above: Performed By: #### L 100.0100, L503.6550, L503.6030 #### [facility] [address] [place], [address] Platelets (Bld) [#/Vol] 252 10*3/uL Normal 150-450 [facility] Comment on above: Performed By: #### L 100.0100, L503.6550, L503.6030 #### [facility] [address] [place], [address] RBC (Bld) [#/Vol] 3.98 10*6/uL Low 4.6-6.2 [facility] Comment on above: Performed By: #### L 100.0100, L503.6550, L503.6030 #### [facility] [address] [place], [address] RDW SD 43.8 fl Normal 35.1-43.9 [facility] Comment on above: Performed By: #### L 100.0100, L503.6550, L503.6030 #### [facility] [address] [place], [address] WBC (Bld) [#/Vol] 6.5 10*3/uL Normal 4.4-11.0 [facility] Comment on above: Performed By: #### L 100.0100, L503.6550, L503.6030 #### [facility] [address] [place], [address] Determination of erythrocyte mean corpuscular volume (MCV)Ordered By: Elda Mojica on 02-23-2023 MCV (RBC) [Entitic vol] 95.2 fL 80-94 [facility] Ferritinon 02-23-2023 Ferritin [Mass/Vol] 49 ng/mL Normal 26-388 [facility] Comment on above: Performed By: #### L 100.0100, L503.6550, L503.6030 #### [facility] [address] [place], [address] Gastroenterology Visit Repor ton 02-23-2023 Gastroenterology Visit Report [facility] [address] [place] [address] OFFICE VISIT Date of Service: 02/23/23 MR#: [id number] Acct: [id number] Name: ZHANNA [place] Rep #: [id number] : 1945 Provider: NEDRA Mojica Age/Sex: 77/M Location: [facility] [place] Status: Signed Intake Vital Signs 08/14/22 05:59 Height 6 ft 2 in Intake Visit Reasons: 6 MO FU Chief Complaint: f/u anemia Allergies No Known Allergies Allergy (Verified 02/23/23 14:20) Medications amlodipine 5 mg tablet 5 mg PO DAILY 11/02/19 [History Confirmed 02/23/23] aspirin 81 mg chewable tablet 1 tab PO DAILY 11/02/19 [History Confirmed 02/23/23] atorvastatin 10 mg tablet 10 mg PO QHS 11/02/19 [History Confirmed 02/23/23] fenofibrate nanocrystallized 48 mg tablet 48 mg PO DAILY 11/02/19 [History Confirmed 02/23/23] glimepiride 4 mg tablet 4 mg PO DAILY 11/02/19 [History Confirmed 02/23/23] lisinopril 40 mg tablet 40 mg PO DAILY 11/02/19 [History Confirmed 02/23/23] metformin 500 mg tablet 1,000 mg PO BIDCM 11/02/19 [History Confirmed 02/23/23] docusate sodium 100 mg capsule (Stool Softener) 300 mg PO BID 11/29/21 [History Confirmed 02/23/23] [facility] Medical History (Reviewed 02/23/23 @ 14:22 by Elda Mojica DIRECTOR OF [employer]ES, DIRECTOR OF [employer]-C) Alcohol use Altered gait Ambulates with cane Bladder disease Dementia Diabetes Dietary restriction Easy bruising Headache Heartburn High cholesterol History of edema History of pain when walking History of renal disease History of stress test Hx of traumatic brain injury Hypertension Laxative abuse Leg cramps Loss of consciousness Loss of hearing Low iron Non-smoker Prostate disease Restless legs Shortness of breath on exertion Wears glasses Surgical History (Reviewed 02/23/23 @ 14:22 by Elda Mojica [employer], [employer]) History of circumcision History of colonoscopy Social History (Reviewed 02/23/23 @ 14:22 by Elda Mojica [employer], DIRECTOR [employer]-C) Smoking Status: Never smoker HPI HPI Chief Complaint: f/u anemia Details: ZHANNA HO, is a 77 M who presents to the office today for 6 month f/u anemia. Dr Bradford treated 2 areas found on colonoscopy done in 08/2022--there was a single medium sized angiodysplastic lesion without bleeding in the cecum, and the terminal ileum contained a single small angiodysplastic lesion with bleeding. Biopsy from the terminal ileum showed no pathologic diagnosis. There were no signs of bleeding on upper endoscopy in 11/2021. 08/2022 labs: mild anemia with hgb 12.2, iron almost normal at 59. Plan was to recheck labs in 3 mos. Previously on oral iron plus vitamin C. ??? He is not taking nonsteroidals except for aspirin 81 mg dialy.??? He is not having abdominal pain, cramping, hematochezia or melena.??? He has no GI complaints whatsoever. 01/2023 labs: vit B12 235, hgb a1c 7.2, HBV neg, HAV neg 12/2022 liver enzymes normal ROS Const Constitutional: No fatigue ENT ENT: No difficulty swallowing Gastro GI: No abdominal pain, belching, bloating, change in bowel habits, change in stool character, coffee ground emesis, constipation, cramping, diarrhea, heartburn, difficulty swallowing, feeling full early, excessive flatus, incontinent of stools, Vomiting blood/hematemesis, Blood in stool, loose stools, Black,tarry stools, nausea/dyspepsia, pain with swallowing, vomiting or other Musc Musculoskeletal: No joint pain Skin Skin: No yellowing of the eye or itchy eyes Psych Psychiatric: No anxiety and No depression Endo Endocrine: No fatigue Aller/Imm Allergy/Immunologic: No itchy eyes Hossein/Lymp Hematologic/Lymphatic: No easy bleeding or easy bruising Exam Const General: cooperative, healthy appearing and comfortable Orientation: alert, awake and oriented x3 Quality Reporting Tobacco Screening ([facility] 138) Smoking Status: Never smoker Assessment and Plan Assessment and Plan (1) Anemia: Status: Chronic Plan: Update labs today, will notify pt of results F/u prn if labs are good Orders: Orders Ferritin Today D64.9 - Anemia, unspecified Iron+Iron Binding Capacity Today D64.9 - Anemia, unspecified CBC W/Diff, Automated Today D64.9 - Anemia, unspecified, N30.00 - Acute cystitis without hematuria Coding Level of Care Code Off vis,est,level 2 Diagnoses Anemia D64.9 02/23/23 1435 Date Elda Teixeira Signature: Date (if applicable) CC: Dr. Todd Bunch MD Normal [facility] Hematocrit Auto (Bld) [Volum e fraction]Ordered By: Elda Mojica on 02-23-2023 Hematocrit (Bld) [Volume fraction] 37.9 % 40-54 [facility] Iron measurement (mass/mass) Ordered By: Elda Mojica on 02-23-2023 Iron (Unsp spec) [Mass/Mass] 59 ug/dL 65-175 [facility] Iron+Iron Binding Capacityon 02-23-2023 Iron [Mass/Vol] 59 ug/dL Low 65-175 [facility] Comment on above: Performed By: #### L 100.0100, L503.6550, L503.6030 #### [facility] [address] [place], [address] IRON SATURATION 15.7 Normal 15.0-55.0 [facility] Comment on above: Performed By: #### L 100.0100, L503.6550, L503.6030 #### [facility] [address] [place], [address] TIBC 376 ug/dL Normal 250-450 [facility] Comment on above: Performed By: #### L 100.0100, L503.6550, L503.6030 #### [facility] [address] [facility] [place], [address] Laboratory - Hematology and Cell countsOrdered By: Elda Mojica on 02-23-2023 Erythrocyte distribution width (RBC) [Entitic vol] 43.8 fL 35.1-43.9 [facility] Erythrocyte distribution width (RBC) [Ratio] 12.7 % 11.6-14.6 [facility] Immature granulocytes/100 WBC (Bld) 0.300 % 0.0-0.9 [facility] Comment on above: IG% - Immature Granu locytes (promyelocytes, myelocytes and metamyelocytes) > 1% indicates that a LEFT SHIFT is Present. MCH (RBC) [Entitic mass] 30.7 pg 27.0-32.0 [facility] Nucleated RBC/100 WBC (Bld) [Ratio] 0 % 0-5 [facility] MCHC Auto (RBC) [Mass/Vol]Or dered By: Elda Mojica on 02-23-2023 MCHC (RBC) [Mass/Vol] 32.2 g/dL 32-36 [facility] No Panel InformationOrdered By: Elda Mojica on 02-23-2023 Total Iron Binding Capacity 376 ug/dL 250-450 [facility] Platelets bldOrdered By: Jody Mojica on 02-23-2023 Platelets (Bld) [#/Vol] 252 10*3/uL 150-450 [facility] Serum or plasma ferritin wilfredo surement (mass/volume)Ordered By: Elda Mojica on 02-23-2023 Ferritin [Mass/Vol] 49 ng/mL 26-388 [facility] Serum or plasma iron saturat ion measurement (mass fraction)Ordered By: Elda Mojica on 02-23-2023 Iron saturation [Mass fraction] 15.7 % 15.0-55.0 [facility] ALBUMIN/CREAT RATIO RND URon 09-11-2022 Albumin DL <= 20 mg/L (U) [Mass/Vol] 33.1 mg/L [facility] Albumin/Creatinine (U) [Mass ratio] 26 mg/g <30 mg/g [facility] Creatinine (U) [Mass/Vol] 129.3 mg/dL 20.0 - 300.0 mg/dL [facility] Comprehensive metabolic 2000 panelon 09-11-2022 Albumin [Mass/Vol] 4.6 g/dL 3.9 - 4.9 g/dL [facility] ALP [Catalytic activity/Vol] 74 U/L 38 - 113 U/L [facility] ALT [Catalytic activity/Vol] 67 U/L High 10 - 54 U/L [facility] Anion gap [Moles/Vol] 15 mmol/L 9 - 18 mmol/L [facility] AST [Catalytic activity/Vol] 63 U/L High 14 - 40 U/L [facility] Bilirubin [Mass/Vol] 0.3 mg/dL 0.2 - 1 .3 mg/dL [facility] Calcium [Mass/Vol] 9.8 mg/dL 8.5 - 10. 2 mg/dL [facility] Chloride [Moles/Vol] 98 mmol/L 97 - 10 5 mmol/L [facility] CO2 [Moles/Vol] 22 mmol/L 22 - 30 mmol/L [facility] Creatinine [Mass/Vol] 1.59 mg/dL High 0.73 - 1.22 mg/dL [facility] Estimated Glomerular Filtration Rate 45 mL/min/1.73m Low >=60 mL/min/1.73 m [facility] Glucose [Mass/Vol] 299 mg/dL High 74 - 99 mg/dL [facility] Potassium [Moles/Vol] 4.5 mmol/L 3.7 - 5.1 mmol/L [facility] Protein [Mass/Vol] 7.3 g/dL 6.3 - 8.0 g/dL [facility] Sodium [Moles/Vol] 135 mmol/L Low 136 - 144 mmol/L [facility] Urea nitrogen [Mass/Vol] 15 mg/dL 9 - 24 mg/dL [facility] LIPID PANEL, NONFASTINGon Cholesterol [Mass/Vol] 191 mg/dL <200 mg/dL [facility] HDL Cholesterol, Nonfasting 29 mg/dL Low >39 mg/dL [facility] LDL Cholesterol, Nonfasting [facility] LDL/HDL Ratio, Nonfasting [facility] Non HDL Cholesterol, Nonfasting 162 mg/dL High <130 mg/dL [facility] Total Chol/HDL Ratio, Nonfasting 6.59 mg/dL High <5.10 mg/dL [facility] Triglycerides, Nonfasting 656 mg/dL High <150 mg/dL [facility] VLDL Cholesterol, Nonfasting [facility] VITAMIN B12 BLOODon 09-11-19 23 Cobalamin (Vitamin B12) [Mass/Vol] Low 232 - 1,245 pg/mL [facility] HbA1c (Bld)on 09-10-2022 Average glucose Estimated from glycated hemoglobin (Bld) [Mass/Vol] 174 mg/dL [facility] HbA1c (Bld) [Mass fraction] 7.7 % High 4.3 - 5.6 % [facility] Urinalysis complete panel (U )on 09-10-2022 Bilirubin Ql (U) Negative Negative [facility] Clarity (Unsp spec) Clear Clear [facility] Color (U) Light Yellow Yellow [facility] Glucose Test strip (U) [Mass/Vol] 3+ Abnormal Trace, Negative [facility] Hemoglobin Ql (U) Negative Negative, Trace [facility] Ketones Ql (U) Negative Trace, Negative [facility] Leukocyte esterase Test strip Ql (U) Negative Negative, 25 Ariel/mL [facility] Nitrite Ql (U) Negative Negative [facility] pH (U) 5.5 [pH] 5.0 - 8.0 [facility] Protein (U) [Mass/Vol] Trace Trace, Negative [facility] RBC LM.HPF (Urine sed) [#/Area] 0-3 /HPF 0-3 /HPF [facility] Specific gravity (U) [Rel density] 1.019 1.005 - 1.030 [facility] Urobilinogen Ql (U) Negative Negative [facility] WBC LM.HPF (Urine sed) [#/Area] 0-5 /HPF 0-5 /HPF [facility] Absolute lymphocyte counton 08-28-2022 Lymphocytes Auto (Unsp spec) [#/Vol] 1.89 10*3/uL 0.83-4.51 [facility] Work Phone: Basophil percentageon 2021 Basophils/100 WBC (Bld) 0.7 % 0-1 [facility] Work Phone: Eosinophils/100 WBC (Bld) 3.6 % 0-5 [facility] Work Phone: Neutrophils (Bld) [#/Vol] 3.0 10*3/uL 2.0-7.7 [facility] Work Phone: Neutrophils/100 WBC (Bld) 53.3 % 47-70 [facility] Work Phone: WBC (Bld) [#/Vol] 5.6 10*3/uL 4.4-11.0 [facility] Work Phone: Blood erythrocytes count (nu mber/volume)on 08-28-2022 RBC (Bld) [#/Vol] 3.86 10*6/uL 4.6-6.2 [facility] Work Phone: Blood hemoglobin measurement (mass/volume)on 08-28-2022 Hemoglobin (Bld) [Mass/Vol] 12.2 g/dL 13.0-16.5 [facility] Work Phone: Blood lymphocytes/100 leukoc yteson 08-28-2022 Lymphocytes/100 WBC (Bld) 33.8 % 19-41 [facility] Work Phone: Blood monocytes/100 leukocyt eson 08-28-2022 Monocytes/100 WBC (Bld) 8.4 % 0-10 [facility] Work Phone: Blood platelet mean volumeon 08-28-2022 Platelet mean volume (Bld) [Entitic vol] 8.5 fL 6.2-12.0 [facility] Work Phone: CBC W/Diff, Automatedon -10 09-2021 Absolute Lymph 1.89 X10 3/uL Normal 0.83-4.51 [facility] Comment on above: Performed By: #### L 100.0100, L503.6030, L503.6550 #### [facility] [address] [place], [address] Absolute Neut 3.0 X10 3/uL Normal 2.0-7.7 [facility] Comment on above: Performed By: #### L 100.0100, L503.6030, L503.6550 #### [facility] [address] [place], [address] Basophils/100 WBC (Bld) 0.7 % Normal 0-1 [facility] Comment on above: Performed By: #### L 100.0100, L503.6030, L503.6550 #### [facility] [address] [place], [address] Eosinophils/100 WBC (Bld) 3.6 % Normal 0-5 [facility] Comment on above: Performed By: #### L 100.0100, L503.6030, L503.6550 #### [facility] [address] [place], [address] Erythrocyte distribution width (RBC) [Ratio] 13.2 % Normal 11.6-14.6 [facility] Comment on above: Performed By: #### L 100.0100, L503.6030, L503.6550 #### [facility] [address] [place], [address] Hematocrit (Bld) [Volume fraction] 35.8 % Low 40-54 [facility] Comment on above: Performed By: #### L 100.0100, L503.6030, L503.6550 #### [facility] [address] [place], [address] Hemoglobin (Bld) [Mass/Vol] 12.2 g/dL Low 13.0-16.5 [facility] Comment on above: Performed By: #### L 100.0100, L503.6030, L503.6550 #### [facility] [address] [place], [address] IG% 0.200 Normal 0.0-0.9 [facility] Comment on above: Result Comment: IG% - Immature Granulocytes (promyelocytes, myelocytes and metamyelocytes) > 1% indicates that a LEFT SHIFT is Present. Performed By: #### L 100.0100, L503.6030, L503.6550 #### [facility] [address] [place], [address] Lymphocytes/100 WBC (Bld) 33.8 % Normal 19-41 [facility] Comment on above: Performed By: #### L 100.0100, L503.6030, L503.6550 #### [facility] [address] [place], [address] MCH (RBC) [Entitic mass] 31.6 pg Normal 27.0-32.0 [facility] Comment on above: Performed By: #### L 100.0100, L503.6030, L503.6550 #### [facility] [address] [place], [address] MCHC (RBC) [Mass/Vol] 34.1 g/dL Normal 32-36 [facility] Comment on above: Performed By: #### L 100.0100, L503.6030, L503.6550 #### [facility] [address] [place], [address] MCV (RBC) [Entitic vol] 92.7 fL Normal 80-94 [facility] Comment on above: Performed By: #### L 100.0100, L503.6030, L503.6550 #### [facility] [address] [place], [address] Monocytes/100 WBC (Bld) 8.4 % Normal 0-10 [facility] Comment on above: Performed By: #### L 100.0100, L503.6030, L503.6550 #### [facility] [address] [place], [address] Neutrophils/100 WBC (Bld) 53.3 % Normal 47-70 [facility] Comment on above: Performed By: #### L 100.0100, L503.6030, L503.6550 #### [facility] [address] [place], [address] Nucleated RBC (Bld) [#/Vol] 0 10*3/uL Normal 0-5 [facility] Comment on above: Performed By: #### L 100.0100, L503.6030, L503.6550 #### [facility] [address], [address] Platelet mean volume (Bld) [Entitic vol] 8.5 fL Normal 6.2-12.0 [facility] Comment on above: Performed By: #### L 100.0100, L503.6030, L503.6550 #### [facility] [address] [place], [address] Platelets (Bld) [#/Vol] 272 10*3/uL Normal 150-450 [facility] Comment on above: Performed By: #### L 100.0100, L503.6030, L503.6550 #### [facility] [address] [place], [address] RBC (Bld) [#/Vol] 3.86 10*6/uL Low 4.6-6.2 [facility] Comment on above: Performed By: #### L 100.0100, L503.6030, L503.6550 #### [facility] [address] [place], [address] RDW SD 44.9 fl High 35.1-43.9 [facility] Comment on above: Performed By: #### L 100.0100, L503.6030, L503.6550 #### [facility] [address] [place], [address] WBC (Bld) [#/Vol] 5.6 10*3/uL Normal 4.4-11.0 [facility] Comment on above: Performed By: #### L 100.0100, L503.6030, L503.6550 #### [facility] [address] [place], [address] Determination of erythrocyte mean corpuscular volume (MCV)on 08-28-2022 MCV (RBC) [Entitic vol] 92.7 fL 80-94 [facility] Work Phone: Ferritinon 08-28-2022 Ferritin [Mass/Vol] 61 ng/mL Normal 26-388 [facility] Comment on above: Performed By: #### L 100.0100, L503.6030, L503.6550 #### [facility] [address] [place], [address] Gastroenterology Visit Repor ton 08-28-2022 Gastroenterology Visit Report [facility] [address] [place] [address] OFFICE VISIT Date of Service: 08/28/22 MR#: [id number] Acct: [id number] Name: ZHANNA [place] Rep #: [id number] : 1945 Provider: NEDRA Mojica Age/Sex: 77/M Location[place] [facility] [place] Status: Signed Intake Vital Signs 12/02/21 11:19 08/14/22 05:59 Height 6 ft 2 in 6 ft 2 in Intake Visit Reasons: 2 WK FU Chief Complaint: f/u colonoscopy Allergies No Known Allergies Allergy (Verified 08/28/22 13:47) Medications amlodipine 5 mg tablet 5 mg PO DAILY 11/02/19 [History Confirmed 08/28/22] aspirin 81 mg chewable tablet 1 tab PO DAILY 11/02/19 [History Confirmed 08/28/22] atorvastatin 10 mg tablet 10 mg PO QHS 11/02/19 [History Confirmed 08/28/22] fenofibrate nanocrystallized 48 mg tablet 48 mg PO DAILY 11/02/19 [History Confirmed 08/28/22] glimepiride 4 mg tablet 4 mg PO DAILY 11/02/19 [History Confirmed 08/28/22] lisinopril 40 mg tablet 40 mg PO DAILY 11/02/19 [History Confirmed 08/28/22] metformin 500 mg tablet 1,000 mg PO BIDCM 11/02/19 [History Confirmed 08/28/22] docusate sodium 100 mg capsule (Stool Softener) 300 mg PO BID 11/29/21 [History Confirmed 08/28/22] [facility] Medical History (Reviewed 08/28/22 @ 14:13 by Elda Mojica DIRECTOR OF GLOBAL SALES, DIRECTOR OF GLOBAL SALES-C) Alcohol use Altered gait Ambulates with cane Bladder disease Dementia Diabetes Dietary restriction Easy bruising Headache Heartburn High cholesterol History of edema History of pain when walking History of renal disease History of stress test Hx of traumatic brain injury Hypertension Laxative abuse Leg cramps Loss of consciousness Loss of hearing Low iron Non-smoker Prostate disease Restless legs Shortness of breath on exertion Wears glasses Surgical History (Reviewed 08/28/22 @ 14:13 by Elda Mojica DIRECTOR OF GLOBAL SALES, DIRECTOR OF GLOBAL SALES-C) History of circumcision History of colonoscopy Social History Smoking Status: Never smoker HPI HPI Chief Complaint: f/u colonoscopy Details: ZHANNA OH, is a 77 M who presents to the office today for discussion of colonoscopy findings. This was a repeat colonoscopy due to poor prep for 11/2021 colonoscopy. He needed colonoscopy to evaluate for GI bleeding. There were no signs of bleeding on upper endoscopy in 11/2021. Dr Bradford did treat for 2 areas of bleeding found on colonoscopy done in 08/2022--there was a single medium sized angiodysplastic lesion without bleeding in the cecum, and the terminal ileum contained a single small angiodysplastic lesion with bleeding. Both were successfully treated. Biopsy from the terminal ileum showed no pathologic diagnosis. He is not taking nonsteroidals except for aspirin.??? He is not having abdominal pain, cramping, hematochezia or melena.??? He has no GI complaints whatsoever. Zhanna established with this clinic 10.02.21 with referral from his PCP for anemia evaluation. He has a history of anemia with hemoglobin trending from 14 to 7.7. At time of presentation he was taking PO iron therapy with vitamin C but no etiology had been found. Today he reports he is not on iron therapy. EGD and colonoscopy performed 12.02.21. EGD found three hyperplastic/inflammatory gastric polyps, retrieved. H.Pylori negative. Colonoscopy prep was inadequate. Diverticulosis in recto-sigmoid, sigmoid and descending colon. No specimens collected. 08/14/22 Colonoscopy Findings: ? The perianal and digital rectal examinations were normal. ? Scattered small and large-mouthed diverticula were found in the entire ? colon. ? Stool was found in the rectum, in the recto-sigmoid colon, in the ? sigmoid colon and in the cecum. ? A single medium-sized angiodysplastic lesion with bleeding was found in ? the cecum. Coagulation for hemostasis using heater probe was successful. ? Estimated blood loss was minimal. ? Localized inflammation, mild in severity and characterized by congestion ? (edema) was found in the terminal ileum. Biopsies were taken with a cold ? forceps for histology. Verification of patient identification for the ? specimen was done. Estimated blood loss was minimal. ? The terminal ileum contained a single small angiodysplastic lesion with ? bleeding. Coagulation for hemostasis using heater probe was successful. ? Estimated blood loss was minimal. MICROSCOPIC DIAGNOSIS Terminal ileum, biopsy: Fragments of small intestinal mucosa, no pathologic diagnosis ROS Const Constitutional: No fatigue, fever(s), frequent falls, headache(s) or weight change ENT ENT: No headache(s) or difficulty swallowing Cardio Cardiology: No leg pain with exertion Gastro GI: No abdominal (more content not included)... Normal [facility] Hematocrit Auto (Bld) [Volum e fraction]on 08-28-2022 Hematocrit (Bld) [Volume fraction] 35.8 % 40-54 [facility] Work Phone: Iron measurement (mass/mass) on 08-28-2022 Iron (Unsp spec) [Mass/Mass] 59 ug/dL 65-175 [facility] Work Phone: Iron+Iron Binding Capacityon 08-28-2022 Iron [Mass/Vol] 59 ug/dL Low 65-175 [facility] Comment on above: Performed By: #### L 100.0100, L503.9191, L503.1938 #### [facility] [place], [address] IRON SATURATION 17.1 Normal 15.0-55.0 [facility] Comment on above: Performed By: #### L 100.0100, L503.6030, L503.6550 #### [facility] [address] [place], [address] TIBC 346 ug/dL Normal 250-450 [facility] Comment on above: Performed By: #### L 100.0100, L503.6030, L503.6550 #### [facility] [address] [place], [address] Laboratory - Hematology and Cell countson 08-28-2022 Erythrocyte distribution width (RBC) [Entitic vol] 44.9 fL 35.1-43.9 [facility] Work Phone: Erythrocyte distribution width (RBC) [Ratio] 13.2 % 11.6-14.6 [facility] Work Phone: Immature granulocytes/100 WBC (Bld) 0.200 % 0.0-0.9 [facility] Work Phone: [phone] Comment on above: IG% - Immature Granu locytes (promyelocytes, myelocytes and metamyelocytes) > 1% indicates that a LEFT SHIFT is Present. MCH (RBC) [Entitic mass] 31.6 pg 27.0-32.0 [facility] Work Phone: Nucleated RBC/100 WBC (Bld) [Ratio] 0 % 0-5 [facility] Work Phone: MCHC Auto (RBC) [Mass/Vol]on 08-28-2022 MCHC (RBC) [Mass/Vol] 34.1 g/dL 32-36 [facility] Work Phone: No Panel Informationon 08-28 Total Iron Binding Capacity 346 ug/dL 250-450 [facility] Work Phone: Platelets bldon 08-28-2022 Platelets (Bld) [#/Vol] 272 10*3/uL 150-450 [facility] Work Phone: Serum or plasma ferritin wilfredo surement (mass/volume)on 08-28-2022 Ferritin [Mass/Vol] 61 ng/mL 26-388 [facility] Work Phone: Serum or plasma iron saturat ion measurement (mass fraction)on 08-28-2022 Iron saturation [Mass fraction] 17.1 % 15.0-55.0 [facility] Work Phone: Bedside Glucoseon 08-14-2022 FINGERSTICK GLU 149 mg/dL High 74-106 [facility] Comment on above: Result Comment: LUIS CARLOS BREWSTER OF PATIENT CARE PER NURSING PROTOCOL Performed By: #### L 501.080 #### [facility] [address] [facility] [place], [place], [id number] Colonoscopy Reporton 022 Colonoscopy Report [facility] Medical Records Department [address] [place] [address] Colonoscopy Report MR#: [id number] Acct: [id number] Name: ZHANNA OH Rep #: [id number] : 1945 77 From: Gabriel Bradford DO PCP: Dr. Todd Bunch MD Status:[facility] Patient Name: Zhanna Oh Procedure Date: 08/14/2022 6:16 AM Date of : 1945 Age: 77 Procedure: Colonoscopy Indications: Iron deficiency anemia Providers: Gabriel Bradford DO Referring MD: Todd Bunch MD Medicines: Monitored Anesthesia Care Patient Profile: This is a 77 year old male. Refer to note in patient chart for documentation of history and physical. Last Colonoscopy: 6 months ago. Complications: No immediate complications. Procedure: Pre-Anesthesia Assessment: - Prior to the procedure, a History and Physical was performed, and patient medications and allergies were reviewed. The risks and benefits of the procedure and the sedation options and risks were discussed with the patient. All questions were answered and informed consent was obtained. Patient identification and proposed procedure were verified by the physician in the pre-procedure area. Mental Status Examination: alert and oriented. Airway Examination: normal oropharyngeal airway and neck mobility. Respiratory Examination: clear to auscultation. CV Examination: normal. Prophylactic Antibiotics: The patient does not require prophylactic antibiotics. Prior Anticoagulants: The patient has taken no previous anticoagulant or antiplatelet agents. After reviewing the risks and benefits, the patient was deemed in satisfactory condition to undergo the procedure. The anesthesia plan was to use minimal sedation / analgesia (anxiolysis). Immediately prior to administration of medications, the patient was re-assessed for adequacy to receive sedatives. The heart rate, respiratory rate, oxygen saturations, blood pressure, adequacy of pulmonary ventilation, and response to care were monitored throughout the procedure. The physical status of the patient was re-assessed after the procedure. After I obtained informed consent, the scope was passed under direct vision. Throughout the procedure, the patient's blood pressure, pulse, and oxygen saturations were monitored continuously. The Colonoscope was introduced through the anus and advanced to the terminal ileum. The colonoscopy was performed without difficulty. The patient tolerated the procedure well. The quality of the bowel preparation was adequate. Scope In: 6:38:05 AM Scope Withdrawal Time 0 hours 12 minutes 54 seconds Scope Out: 6:57:04 AM Total Procedure Duration Time 0 hours 18 minutes 59 seconds Findings: The perianal and digital rectal examinations were normal. Scattered small and large-mouthed diverticula were found in the entire colon. Stool was found in the rectum, in the recto-sigmoid colon, in the sigmoid colon and in the cecum. A single medium-sized angiodysplastic lesion with bleeding was found in the cecum. Coagulation for hemostasis using heater probe was successful. Estimated blood loss was minimal. Localized inflammation, mild in severity and characterized by congestion (edema) was found in the terminal ileum. Biopsies were taken with a cold forceps for histology. Verification of patient identification for the specimen was done. Estimated blood loss was minimal. The terminal ileum contained a single small angiodysplastic lesion with bleeding. Coagulation for hemostasis using heater probe was successful. Estimated blood loss was minimal. Impression: - No specimens collected. Recommendation: - Discharge patient to home. - Resume previous diet. - Continue present medications. - Await pathology results. - Repeat colonoscopy in 5 years for surveillance. - Return to GI office. Procedure Code(s): --- Professional --- 35593, 59, Colonoscopy, flexible; with control of bleeding, any method 70803, Colonoscopy, flexible; with biopsy, single or multiple CPT copyright 2017 [employer]. All rights reserved. The codes documented in this report are preliminary and upon flour worker review may be revised to meet current compliance requirements. Gabriel Bradford DO 08/14/2022 7:06:01 AM This report has been signed electronically. Number of Addenda: 0 Note Initiated On: 08/14/2022 6:16 AM 08/14/22705 Date Gabriel Bradford DO Cosigner Signature: Date (if indicated) CC: Dr. Todd Bunch MD; Gabriel Bradford, Date Dictated: 08/14/22615 Date Transcribed: Operations Analyst: GIANFRANCO Signed Normal [facility] Glucose Glucometer (BldC) [M ass/Vol]on 08-14-2022 Glucose [Mass/Vol] 149 mg/dL 74-106 [facility] Work Phone: Comment on above: MANAGEMENT OF PATIEN T CARE PER NURSING PROTOCOL Surgery Specimen Level Nicole 08-14-2022 Surgery Specimen Level IV Patient Age/Sex Location Account Attending Physician ZHANNA OH 77/M EN [id number] Gabriel Bradford DO Specimen: [id number] Received: 08/14/22 Status: CHRISTINA Baker Num: [id number] Spec Type: COLON BX Subm Dr: Gabriel Bradford DO HEADJUVENAL OPERATION: Colonoscopy (MAC), electrohemostasis PRE-OP DIAGNOSIS: Anemia TISSUE SUBMITTED: Terminal ileum biopsy MICROSCOPIC DIAGNOSIS Terminal ileum, biopsy: Fragments of small intestinal mucosa, no pathologic diagnosis. JACKELIN:johny 08/15/2022 MICROSCOPIC DESCRIPTION Slides are reviewed. GROSS DESCRIPTION Received in fixative is one container labeled with the patient's name and designated terminal ileum biopsy. The specimen consists of two irregular fragments of light irwin soft tissue that in aggregate measure 0.8 x 0.5 x 0.1 cm. The specimen is totally submitted in one cassette. / JACKELIN:johny 08/14/2022 TC:4 CPT: 55466 Patient Age/Sex Location Account Attending Physician ZHANNA OH 77/M EN [id number] Gabrielcarlos Bradford DO Signed (signature on file) Dr. Chase Millard MD 08/15/22 1023 Normal [facility] Comment on above: Performed By: #### P SUJOSUÉ ####[facility] [id number] [place], [place], [address] PSA [facility] 07-03-2022 Prostate specific Ag [Mass/Vol] 11.32 ng/mL High <2.60 [facility] Comment on above: Order Comment: Speci men Type: BLOOD SPECIMEN Ordering Facility: [facility] Address: [address] [place] [address] Result Comment: Jacea earl PSA test methodology used is the Electrochemiluminescence Immunoassay by [employer]. Total PSA values by differing methodologies cannot be interchanged. For an individual patient, the significance of a PSA level should be interpreted in a broad clinical context, including age, race, family history, digital rectal exam, prostate size, results of prior testing (prostate biopsy, free PSA, PCA3), and use of 5-alpha reductase inhibitors. Considering the high incidence of asymptomatic cancer in the general population that may not pose an ultimate risk to a patient, the decision to recommend urological evaluation or prostate biopsy should be individualized after consideration of all these factors. REFERENCE: [place] Jacome M.D., M.P.H., Edwardo Ortiz M.D., Ph.D., Aston Mathew M.D., Rachele Madrigal, M.P.H., Alina Valentin ScAmmon. Effect of Verification Bias on Screening for Prostate Cancer by Measurement of Prostatic Specific Antigen. N Engl J Med 2003,349:335-42. Performed By: #### 2 857-1 #### [facility] CLIA [id number] [address] [place] [address] [place] Gastroenterology Visit Repor ton 06-18-2022 Gastroenterology Visit Report [facility] [address] [facility] [place] [address] OFFICE VISIT Date of Service: 06/18/22 MR#: [id number] Acct: [id number] Name: ZHANNA OH Rep #: [id number] : 1945 Provider: Gabriel Bradford DO Age/Sex: 77/M [place] [facility] [place]: Signed Intake Vital Signs 12/02/21 11:19 Height 6 ft 2 in Intake Visit Reasons: 6 MO FU Allergies No Known Allergies Allergy (Verified 12/02/21 11:15) [facility] Medical History (Updated 06/18/22 @ 13:57 by Winnie Sanches) Alcohol use Altered gait Ambulates with cane Bladder disease Chest pain Dementia Diabetes Dietary restriction Easy bruising Headache Heartburn High cholesterol History of edema History of pain when walking History of renal disease History of stress test Hx of traumatic brain injury Hypertension Laxative abuse Leg cramps Loss of consciousness Loss of hearing Low iron Non-smoker Prostate disease Restless legs Shortness of breath on exertion Wears glasses Social History Smoking Status: Never smoker HPI HPI Details: ZHANNA OH, is a 77 M who presents to the office today for Follow up visit. Zhanna established with this clinic 10.02.21 with referral from his PCP for anemia evaluation. He has a history of anemia with hemoglobin trending from 14 to 7.7. At time of presentation he was taking PO iron therapy with vitamin C but no etiology had been found. Additional medical history includes diabetes II (treated with metformin and glimepiride), arthritis/osteoarthritis, hyperlipidemia, HTN, asbestos exposure, prostate cancer with treatment. EGD and colonoscopy performed 12.02.21. EGD found three hyperplastic/inflammatory gastric polyps, retrieved. H.Pylori negative. Colonoscopy prep was inadequate. Diverticulosis in recto-sigmoid, sigmoid and descending colon. No specimens collected. Plan LV 12.16.21: Anemia ??? repeat colonoscopy one year r/t inadequate prep. Inflammatory polyps seen in stomach Gastritis ??? continue PPI and carfate. Feels he is doing well overall. ROS Const Constitutional: No anorexia, fatigue, fever(s), weight change or sleep problems Eyes Eyes: No change in vision ENT ENT: No abnormal hearing, difficulty swallowing, mouth lesions, tongue swelling or throat swelling Resp Respiratory: No cough or shortness of breath Cardio Cardiology: No chest pain at rest, chest pain with exertion, shortness of breath or dyspnea on exertion Gastro GI: No difficulty swallowing Genitourinary Male: No difficulty urinating or burning urination Musc Musculoskeletal: No joint pain, joint swelling, muscle weakness or decreased muscle mass Skin Skin: No hair loss in leg, yellowing of the eye, itchy eyes, rash, skin ulcer or skin swelling Neuro Neurology: No abnormal hearing, abnormal movements, confusion, unsteady gait/balance or memory loss Psych Psychiatric: No anxiety, No confusion and No memory loss Endo Endocrine: No fatigue or weight change Aller/Imm Allergy/Immunologic: No itchy eyes, throat swelling or tongue swelling Hossein/Lymp Hematologic/Lymphatic: No easy bleeding, easy bruising or enlarged lymph nodes Exam Const General: cooperative and comfortable Nutritional Appearance: average body habitus and well nourished HENMT Head: normal to inspection Ears: hearing grossly normal bilaterally Nose: external nose normal Face and sinus: normal facial exam Mouth: oral mucosae normal Throat: posterior oropharynx normal Eyes General: appearance normal, both eyes and all related structures Neck Neck: normal visual inspection Chest Chest palpation inspection: normal inspection of the chest and normal palpation of entire chest wall Resp Effort Inspection: normal respiratory effort Auscultation: Bilateral: Clear to Auscultation Cardio Palpation: normal PMI Rate: regular rate Rhythm: regular rhythm GI Inspection: normal to inspection Auscultation: normal bowel sounds Percussion: normal to percussion Palpation: no hepatosplenomegaly Skin General: no rashes or lesions noted Neuro General: patient alert Extrem General: normal to inspection Psych Affect: normal affect Quality Reporting Tobacco Screening ([facility] 138) Smoking Status: Never smoker Assessment and Plan Assessment and Plan (1) Anemia: Status: Chronic Plan: He underwent EGD and colonoscopy for his iron deficiency anemia and macrocytosis. There were no signs of active bleeding in his upper GI tract and he had a very poor prep for his colonoscopy. We will need to repeat his colonoscopy and if that is negative he will need a capsule endoscopy notes to evaluate his entire GI tract. We will recheck his iron studies as well as his CBC including hemoglobin and platelets. He is not taking nonsteroidals except for asp (more content not included)... Normal [facility] Basic metabolic 2000 panelon 02-21-2022 Anion gap [Moles/Vol] 12 mmol/L 9 - 18 mmol/L [facility] Calcium [Mass/Vol] 9.8 mg/dL 8.5 - 10. 2 mg/dL [facility] Chloride [Moles/Vol] 103 mmol/L 97 - 10 5 mmol/L [facility] CO2 [Moles/Vol] 22 mmol/L 22 - 30 mmol/L [facility] Creatinine [Mass/Vol] 1.55 mg/dL High 0.73 - 1.22 mg/dL [facility] Estimated Glomerular Filtration Rate 47 mL/min/1.73m Low >=60 mL/min/1.73 m [facility] Glucose [Mass/Vol] 159 mg/dL High 74 - 99 mg/dL [facility] Potassium [Moles/Vol] 4.3 mmol/L 3.7 - 5.1 mmol/L [facility] Sodium [Moles/Vol] 137 mmol/L 136 - 144 mmol/L [facility] Urea nitrogen [Mass/Vol] 23 mg/dL 9 - 24 mg/dL [facility] HbA1c (Bld)on 02-21-2022 Average glucose Estimated from glycated hemoglobin (Bld) [Mass/Vol] 134 mg/dL [facility] HbA1c (Bld) [Mass fraction] 6.3 % High 4.3 - 5.6 % [facility] LIPID PANEL, NONFASTINGon Cholesterol [Mass/Vol] 157 mg/dL <200 mg/dL [facility] HDL Cholesterol, Nonfasting 34 mg/dL Low >39 mg/dL [facility] LDL Cholesterol, Nonfasting 68 mg/dL <100 mg/dL [facility] LDL/HDL Ratio, Nonfasting 2.00 mg/dL <2.54 mg/dL [facility] Non HDL Cholesterol, Nonfasting 123 mg/dL <130 mg/dL [facility] Total Chol/HDL Ratio, Nonfasting 4.62 mg/dL <5.10 mg/dL [facility] Triglycerides, Nonfasting 274 mg/dL High <150 mg/dL [facility] VLDL Cholesterol, Nonfasting 55 mg/dL High <30 mg/dL [facility] ANES POSTPROC EVALon 022 ANES POSTPROC EVAL HNO ID: [id number] Author: Nisha Lou MD Service: Anesthesiology Author Type: Anesthesiologist Type: Anesthesia Postprocedure Evaluation Filed: 12/31/2021 12:50 PM Note Text: POST ANESTHESIA EVALUATION NOTE : 1945 Procedure Summary Date: 12/31/21 Room / Location: [facility] OR / [facility] OR Anesthesia Start: 1024 Anesthesia Stop: 1129 Procedure: CIRCUMCISION ADULT (N/A Penis) Diagnosis: Phimosis Surgeons: Rafa De La Vega MD Responsible Provider: Nisha Lou MD Anesthesia Type: MAC, general ASA Status: 3 Anesthesia Type: MAC, general Airway Type: LMA Last Vitals Vitals Value Taken Time BP 151/95 12/31/21 1230 Temp 36 ?C (96.8 ?F) 12/31/21 1125 Pulse 58 12/31/21 1236 Resp 10 12/31/21 1155 SpO2 96 % 12/31/21 1236 Vitals shown include unvalidated device data. Post Anesthesia Patient Status Patient Evaluation: PACU. PACU/ICU Patient Condition: stable. Anticipated Disposition: phase 2 then home. Neurological Status: aware and responsive. Pulmonary Status: breathing comfortably on supplemental oxygen Airway Control: returned to baseline unsupported. Cardiovascular Status: stable. Pain Management: clinically adequate Postoperative Hydration: acceptable. Intraoperative Events: no significant anesthesia events Post Operative Nausea/Vomiting Status: no significant post operative nausea or vomiting Anesthetic Observations: Recommendation: continue current plan of care. Anesthesia Observations No Documentation SIGNATURE: Nisha Lou MD PATIENT NAME: Zhanna Oh DATE: December 31, 2021 TIME: 12:50 PM CSN: [id number] [facility] ANES PRE-OPon 12-31-2021 ANES PRE-OP HNO ID: [id number] Author: Nisha Lou MD Service: Anesthesiology Author Type: Anesthesiologist Type: Anesthesia Preprocedure Evaluation Filed: 12/31/2021 10:20 AM Note Text: ANESTHESIOLOGY DAY OF SURGERY NOTE : 1945 Procedure Information Date/Time: 12/31/21 1050 Procedure: CIRCUMCISION ADULT (N/A Penis) Location: [facility] OR / [facility] OR Surgeons: Rafa De La Vega MD Estimated body mass index is 29.02 kg/m? as calculated from the following: Height as of 12/19/21: 188 cm (6' 2). Weight as of 12/19/21: 102.5 kg (226 lb). Most recent hematocrit and potassium results: Hematocrit 35.0 08/23/2021 Potassium 4.3 08/23/2021 Other history: HTN amlodipine, lisinopril SERGIO, Hgb 12.2 HLD Prostate CA T2DM, A1c 9.4 CKD 3, creatinine 1.4 ASA Asbestosis, last visit with pulm 09/2021 with PFTs unchanged Prostate CA PFTs 09/2021: IMPRESSION: Spirometry is normal. Relevant Problems CARDIO (+) Hypertension, essential ENDO (+) Type 2 diabetes mellitus without complication, without long-term current use of insulin (HCC) -RENAL (+) Stage 3a chronic kidney disease (HCC) NEURO-PSYCH (+) History of 2019 novel coronavirus disease (COVID-19) PULMONARY (+) History of 2019 novel coronavirus disease (COVID-19) Other (+) Generalized arthritis I - PHYSICAL EVALUATION AIRWAY Patient intubated: No. Tracheostomy tube not present Mallampati: III. TM distance: >3 FB. Neck ROM: full ROM without neurological symptoms. Mouth opening: adequate. Short neck: no. Thick neck: no DENTAL Dental findings: poor dentition, missing tooth/teeth, broken tooth and chipped. II - ANESTHESIA PLAN ASA Score: 3 Anesthetic Plan: MAC The patient is not a current smoker. NPO Status: adequate Beta Heriberto Perioperative beta-heriberto/statin: n/a. Monitoring plan: standard ASA. Postoperative analgesic plan: multimodal analgesia. Informed Consent Anesthetic risks, benefits, alternatives, personnel and consent discussed: yes. Patient / Responsible Libertarian agrees to proceed: yes Patient / Surrogate agrees to blood products: blood products not planned Significant changes in the patient condition since the History and Physical, not otherwise documented in primary service progress note: no. Potential Anesthesia issues that may suggest increased risk of complications or contraindication to planned procedure: none. No vitals data found for the desired time range. Facility-Administered Medications as of 12/31/2021 Medication Dose Route Frequency - lidocaine 10 mg/mL (1 %) 1-2 mg injection (XYLOCAINE) 0.1-0.2 mL INTRADERMAL PRN - lactated ringers iv infusion 5-30 mL/hr INTRAVENOUS CONTINUOUS - ceFAZolin iv piggyback 2 g in D5W (iso-osmotic) 100 mL (ANCEF) 2 g INTRAVENOUS Pre-Op Once - acetaminophen 975 mg tab(s) (TYLENOL) 975 mg ORAL Pre-Op Once - celecoxib 400 mg cap(s) (CeleBREX) 400 mg ORAL Pre-Op Once Outpatient Medications as of 12/31/2021 Medication Sig - blood sugar diagnostic (BLOOD GLUCOSE TEST) test strip Test blood sugar(s) two times daily. Dx: Type 2 DM - Controlled E11.9 Insulin: No - Lancets lancets Test blood sugar(s) two times daily. Dx: Type 2 DM - Controlled E11.9 Insulin: No - glimepiride (AMARYL) 4 mg tablet Take 1 tablet by mouth once daily. - cyanocobalamin (VITAMIN B-12) 1,000 mcg tab Take 1 tablet by mouth once daily. - Ferrous Sulfate (SLOW FE) 142 mg (45 mg iron) TbER Take one tab daily - atorvastatin (LIPITOR) 10 mg tablet Take 1 tablet by mouth once daily. - fenofibrate nanocrystallized (TRICOR) 48 mg tablet Take 1 tablet by mouth once daily. - lisinopril (ZESTRIL, PRINIVIL) 40 mg tablet Take 1 tablet by mouth once daily. - metFORMIN (GLUCOPHAGE) 500 mg tablet Take 2 tablets by mouth twice daily with meals. Take two tablets by mouth twice daily. - pioglitazone (ACTOS) 15 mg tablet Take 1 tablet by mouth once daily. - tamsulosin (FLOMAX) 0.4 mg Take 1 capsule by mouth daily at bedtime for 30 doses. - amLODIPine (NORVASC) 5 mg tablet Take 1 tablet by mouth once daily. - aspirin, enteric coated (ASPIRIN, ENTERIC COATED) 81 mg EC tablet Take 81 mg by mouth once daily. I have interviewed and examined the patient. I have reviewed the medical record and/or the pre-anesthesia evaluation, pertinent labs, and test results. This contains updated information obtained within 48 hours of Surgery/Procedure. SIGNATURE: Nisha Lou MD PATIENT NAME: Zhanna Oh DATE: December 31, 2021 TIME: 9:00 AM CSN: [id number] [facility] OPERATIVE NOon 12-31-2021 OPERATIVE NO HNO ID: [id number] Author: Rafa De La Vega MD Service: Urology Author Type: Physician Type: Operative Report Filed: 12/31/2021 11:25 AM Note Text: LOG ID: [id number] Surgery/Procedure Date: 12/31/2021 Incision/Procedure Start Time: 10:47 AM Incision Close/Procedure End Time: 11:19 AM Surgeon(s)/Proceduralist(s) and Marine Service Operator(s): Surgeon(s) and Role: * Rafa De La Vega MD - Primary * Chris Salguero MD - Resident - Assisting Anesthesia: Monitored Anesthesia Care Preoperative Diagnosis: phimosis Postoperative Diagnosis: same Procedure: circumcision Pathology: foreskin Findings: Phimosis Estimated Blood Loss: 5 cc/ml Packs, drains, catheters: none Complications: none Description of Procedure: The patient was brought to the OR on the day of surgery and positioned on the OR table in the supine position. After General anesthesia was given, a Time Out was done and then a local penile block was performed using 0.5% marcaine. A circumferential incision was made on the foreskin proximally overling the indentation created by the coronal edge. A second circumferential incision was made on the prepuce five millimeters proximal to the coronal edge. The foreskin was then sharply excised and sent for pathologic analysis. Hemostasis was achieved using electrocautery. The skin edges were reapproximated using interrupted absorbable sutures. A U stitch was done ventrally overlying the urethra. After the skin edges were reapproximated, manual pressure was held for five minutes. Adequate hemostasis had been achieved. Sterile dry dressing using xeroform gauze and coban was applied. The patient tolerated the procedure well. All needle and sponge counts were correct. The patient was brought to the recovery room in stable condition. Rafa De La Vega MD [facility] SURGICAL PATHOLOGYon [address] [facility] Comment on above: Order Comment: Speci men Type: TISSUE SPECIMEN Ordering Facility: [facility] Address: [address] [place] [address] Result Comment: Surg ical Pathology Report Case: [id number] Authorizing Provider: Rafa De La Vega MD Collected: 12/31/2021 10:55 AM Ordering Location: [facility] Received: 12/31/2021 12:59 PM Pathologist: Mikal Conley MD Specimen: FORESKIN Performed By: #### S #### [facility] CLIA [id number] [address] [place] [address] CLINICAL HISTORY Phimosis Normal [facility] Comment on above: Order Comment: Speci men Type: TISSUE SPECIMEN Ordering Facility: [facility] Address: [address] [place] [address] Performed By: #### S #### [facility] CLIA [id number] [address] [place] [address] FINAL DIAGNOSIS Normal [facility] Comment on above: Order Comment: Speci men Type: TISSUE SPECIMEN Ordering Facility: [facility] Address: [address] [place] [address] Result Comment: A. P enile foreskin, circumcision: - Penile foreskin with chronic inflammation. Performed By: #### S #### [facility] CLIA [id number] FINAL PERFORMING LAB Normal [facility] Comment on above: Order Comment: Speci men Type: TISSUE SPECIMEN Ordering Facility: [facility] Address: [address] [place] [address] Result Comment: Diag nostic interpretation performed at [facility], [address] [place] [address] CLIA# [id number] Sales Engineering Manager: Mikal Conley M.D. Performed By: #### S #### [facility] CLIA [id number] [address] [place] [address] GROSS DESCRIPTION A. FORESKIN. Normal [facility] Comment on above: Order Comment: Speci men Type: TISSUE SPECIMEN Ordering Facility: [facility] Address: [address] [place] [address] Result Comment: Rece ived in formalin labeled foreskin is a irregular, unoriented fragment of irwin wrinkled skin measuring 5.5 x 5.2 x 1.3 cm. Upon sectioning, no nodularity or induration is identified. A payable representative section is submitted in cassette A1. Gross examination performed at [facility], [address] [place] [address] CLIA#[id number] OLS January 01, 2022 8:01 AM Performed By: #### S #### [facility] CLIA [id number] [address] [place] [address] Bacteria Ur Culton 2 Bacteria identified Cx Nom (U) CULTURE, URINE: 50,000-<100,000 CFU/ml Normal Urogenital Kemi Normal [facility] Comment on above: Performed By: #### 6 30-4 #### [facility] CLIA [id number] [address] [place] [address] HISTORY PHYSICALon 2 HISTORY PHYSICAL HNO ID: [id number] Author: Chel Miller APRN.MACHINING SUPERVISOR Service: ? Author Type: Nurse Practitioner Type: HANDP Filed: 12/17/2021 11:04 AM Note Text: HISTORY AND PHYSICAL EXAMINATION SERVICE DATE: 12/11/2021 SERVICE TIME: 11:02 AM PRIMARY CARE PHYSICIAN: Todd Bunch MD REASON FOR VISIT: Zhanna Oh is a 76 year old male who is scheduled for Procedure(s): CIRCUMCISION ADULT (N/A) at the request of Dr. Rafa De La Vega for routine HANDP. My final recommendation will be communicated back to the requesting physician by way of shared medical record or letter. Subjective The patient has the following: ACTIVE PROBLEM LIST Generalized Arthritis Over Weight Prostate Cancer (Hcc) Hypertension, Essential Type 2 Diabetes Mellitus Without Complication, Without Long-Term Current Use of Insulin (Hcc) Mixed Hyperlipidemia Asbestosis (Hcc) Hammer Toes of Both Feet Medicare Annual Wellness Visit, Subsequent Diabetic Eye Exam ([facility]) Anemia of Chronic Disease Stage 3a Chronic Kidney Disease ([facility]) History of 2019 Novel Coronavirus Disease (Covid-19) Memory Impairment Phimosis Iron Deficiency Anemia Vitamin B12 Deficiency COVID-19 Immunization Status COVID-19 VACCINE (Series Information) Completed 08/29/2021 Imm Admin: COVID-19 vaccine, full dose (MODERNA) 12/20/2020 Imm Admin: COVID-19 vaccine, full dose (MODERNA) 11/22/2020 Imm Admin: COVID-19 vaccine, full dose (MODERNA) CHIEF COMPLAINT: Phimosis HPI: Patient is a 76 year old male here for a preoperative exam. Pt diagnosed with prostate cancer about 1 years ago. Pt now complains of inability to pull back foreskin, this has been ongoing for the last year. Pt also complains of weak stream, nocturia, increased frequency. Pt denies hematuria or dysuria. Pt discussed with surgeon and agrees to surgical intervention. REVIEW OF SYSTEMS: General: Negative for: unintentional weight change, malaise and fever. Neurological: Negative for: headaches, seizures and strokes. Respiratory: Asbestosis Negative for: asthma, COPD, URI < 2 weeks and obstructive sleep apnea. Cardiovascular: Positive for: hyperlipidemia and hypertension Negative for: arrhythmia, CAD, chest pain, CHF and DVT/PE. GI: Negative for: abdominal pain, GERD, nausea and vomiting. : See HPI Positive for: decreased stream and frequent urination. Negative for: dysuria, hematuria and renal failure. Endocrine: Positive for: diabetes mellitus. Patient's diabetes mellitus is controlled by oral agents. Negative for: hypothyroidism. Hematology: Positive for: anemia and chronic anti-coagulation/platelet meds. Patient is on anti-coagulation/platelet medication(s): Aspirin. Negative for: factor V Leiden and von Willebrand disease. Oncology: Prostate cancer, no treatment. No history of CA metastasis, chemo within 30 days, or radiotherapy within 90 days. No history of oncological symptoms or problems. Psych: Negative for: anxiety and depression. Musculoskeletal: Negative for joint pain or swelling, back pain or muscle pain. Skin: Negative for lesions, rash and itching. PAST MEDICAL HISTORY Diagnosis Date - Asbestosis (HCC) 08/13/[address] Seth. - Generalized arthritis 10/02/2003 - Hammer toes of both feet 08/13/2020 - History of 2019 novel coronavirus disease (COVID-19) 02/18/2021 Had but not aware of date - Hypertension, essential 08/13/2020 - Iron deficiency anemia 08/25/2021 - Medicare annual wellness visit, subsequent 08/13/2020 Medicare Part B: 03/07/2012, last done 08/23/2021 - Memory impairment 02/18/2021 Secondary to chemo Tx for hs prostate cancer. - Mixed hyperlipidemia 08/13/2020 - Over weight 01/18/2018 - Prostate cancer (HCC) 11/17/2019 Seeing Urology and oncology (Dr. Logan) - Stage 3a chronic kidney disease (HCC) 08/15/2020 - Type 2 diabetes mellitus without complication, without long-term current use of insulin (HCC) 08/13/2020 - Vitamin B12 deficiency 08/25/2021 PAST SURGICAL HISTORY Procedure Laterality Date - COLONOSCOPY 12/2021 - EGD W/O BRSH SPEC VARICIES INJ 12/2021 - PROSTATE BIOPSY 2019 - REMV CATARACT EXTRACAP,INSERT LENS 06/2020 - TONSILLECTOMY HX as a child FAMILY HISTORY Problem Relation Age of Onset - Cancer Mother Pneumonectomy. 2nd surgery. - COPD Mother Emphysema. Smoker. - other (Other) Father age 101. - Diabetes Sister - Diabetes Sister Social History Tobacco Use - Smoking status: Never Smoker - Smokeless tobacco: Never Used - Tobacco comment: Mother smoked in childhood home. Vaping Use - Vaping Use: Never used Substance Use Topics - Alcohol use: No - Drug use: No Prior to Admission medications as of 12/17/21 1027 Medication Sig Last Dose Taking blood sugar diagnostic (BLOOD GLUCOSE TEST) test strip Test blood sugar(s) two times daily. Dx: Type 2 DM - Controlled E11.9 Insulin: No Taking Yes Lancets lancets Test blood sugar(s) two times lauren (more content not included)... Normal [facility] Glucose Glucometer (BldC) [M ass/Vol]on 12-02-2021 Glucose [Mass/Vol] 128 mg/dL 74-106 [facility] Work Phone: Comment on above: MANAGEMENT OF PATIEN T CARE PER NURSING PROTOCOL CNPArcelia 10-31-2021 CNPN Telephone (UROLAE) ZHANNA OH ([id number]) 1945 M Date Time Provider Department 10/31/21 RAFA DE LA VEGA During your visit today, we recorded the following information about you: Christiano Corado 10/31/2021 11:34 AM Signed Left message for patient to return my call to schedule his surgery with Dr. De La Vega Allergies As of Date: 10/31/2021 (No Known Allergies) Date Reviewed: 10/17/2021 Reviewed by: Umm Weeks Cma - Fully Assessed Reason for Visit: LMTCB [1226] Prescriptions as of 11/01/2021 - blood sugar diagnostic (BLOOD GLUCOSE TEST) test strip Test blood sugar(s) two times daily. Dx: Type 2 DM - Controlled E11.9 Insulin: No - Lancets lancets Test blood sugar(s) two times daily. Dx: Type 2 DM - Controlled E11.9 Insulin: No - glimepiride (AMARYL) 4 mg tablet Take 1 tablet by mouth once daily. - cyanocobalamin (VITAMIN B-12) 1,000 mcg tab Take 1 tablet by mouth once daily. - Ferrous Sulfate (SLOW FE) 142 mg (45 mg iron) TbER Take one tab daily - atorvastatin (LIPITOR) 10 mg tablet Take 1 tablet by mouth once daily. - fenofibrate nanocrystallized (TRICOR) 48 mg tablet Take 1 tablet by mouth once daily. - lisinopril (ZESTRIL, PRINIVIL) 40 mg tablet Take 1 tablet by mouth once daily. - metFORMIN (GLUCOPHAGE) 500 mg tablet Take 2 tablets by mouth twice daily with meals. Take two tablets by mouth twice daily. - pioglitazone (ACTOS) 15 mg tablet Take 1 tablet by mouth once daily. - tamsulosin (FLOMAX) 0.4 mg Take 1 capsule by mouth daily at bedtime for 30 doses. - amLODIPine (NORVASC) 5 mg tablet Take 1 tablet by mouth once daily. - iv contrast (will be provided with radiology test) MRI Prostate Inject, intravenously, once for 1 dose. No IV access, insert saline lock prior to the beginning of sedation, infusion, injection of imaging exam. Discontinue saline lock post exam. If Pt. has a central line or IVAD, may access for administration according to line specific nursing protocol. Once exam is complete flush line and de-access according to line specific nursing protocol in the MR contrast administration guidelines link. - aspirin, enteric coated (ASPIRIN, ENTERIC COATED) 81 mg EC tablet Take 81 mg by mouth once daily. Problem List As Of Date 10/31/2021 Noted Resolved Generalized arthritis [M19.90] 10/02/2003 Over weight [E66.3] 01/18/2018 Prostate cancer (HCC) [C61] 11/17/2019 Hypertension, essential [I10] 08/13/2020 Type 2 diabetes mellitus without complication, *08/13/2020 Mixed hyperlipidemia [E78.2] 08/13/2020 Asbestosis ([facility]) [J61] 08/13/2020 Hammer toes of both feet [M20.41, M20.42] 08/13/2020 Medicare annual wellness visit, subsequent [Z00*08/13/2020 Diabetic eye exam (HCC) [Z01.00, E11.9] 08/13/2020 Anemia of chronic disease [D63.8] 08/15/2020 Stage 3a chronic kidney disease [N18.31] 08/15/2020 History of 2019 novel coronavirus disease (COVI*02/18/2021 Memory impairment [R41.3] 02/18/2021 Phimosis [N47.1] 08/23/2021 Iron deficiency anemia [D50.9] 08/25/2021 Vitamin B12 deficiency [E53.8] 08/25/2021 Encounter Status:Closed by CHRISTIANO CORADO on 11/01/21 [facility] CNOVon 10-17-2021 CNOV Office Visit (AKURFL ) ZHANNA OH ([id number]) 1945 M Date Time Provider Department 10/17/21 2:30 PM RAFA DE LA VEGA During your visit today, we recorded the following information about you: Weight 98.9 kg Rafa De La Vega MD 10/17/2021 3:14 PM Signed [facility] UROLOGY ESTABLISHED PATIENT CLINIC NOTE PATIENT INFO: Zhanna Oh PCP: Todd Bunch MD UROLOGY DIAGNOSES: 1. Phimosis - ICD9: 605, ICD10: N47.1 CHIEF COMPLAINT: Phimosis HPI: Patient returns for continuing evaluation and management. Having difficulty pulling back foreskin Hx of Ecoli sepsis after prostate biopsy Weak stream On Flomax Dr. Preciado Note: Very low risk prostate cancer [place] 6. PSA 5.1?at diagnosis. Sandra to 8.81 - December 2020. No recent PSA. ? At this time we had a discussion regarding his prostate cancer. ? Oncotype?GPS 20 Prostate MRI?- PIRADS 4, no SHANE. Complains of back pain -?AMY?negative. ?Flexeril PRN. Flomax for LUTS ? Proceed to active surveillance. ?PSA every?6?months. ?Needs PSA now.? PMHx/PSHx: see above, otherwise unchanged Rx: reviewed and unchanged ROS: see above, otherwise unchanged Labs: Component Latest Ref Rng AND Units 08/23/2021 Hemoglobin A1C 4.3 - 5.6 % 9.4 (H) Estimated Average Glucose mg/dL 223 Imaging: None MEDICATIONS: Current Outpatient Medications Medication Sig - blood sugar diagnostic (BLOOD GLUCOSE TEST) test strip Test blood sugar(s) two times daily. Dx: Type 2 DM - Controlled E11.9 Insulin: No - Lancets lancets Test blood sugar(s) two times daily. Dx: Type 2 DM - Controlled E11.9 Insulin: No - glimepiride (AMARYL) 4 mg tablet Take 1 tablet by mouth once daily. - cyanocobalamin (VITAMIN B-12) 1,000 mcg tab Take 1 tablet by mouth once daily. - Ferrous Sulfate (SLOW FE) 142 mg (45 mg iron) TbER Take one tab daily - atorvastatin (LIPITOR) 10 mg tablet Take 1 tablet by mouth once daily. - fenofibrate nanocrystallized (TRICOR) 48 mg tablet Take 1 tablet by mouth once daily. - lisinopril (ZESTRIL, PRINIVIL) 40 mg tablet Take 1 tablet by mouth once daily. - metFORMIN (GLUCOPHAGE) 500 mg tablet Take 2 tablets by mouth twice daily with meals. Take two tablets by mouth twice daily. - pioglitazone (ACTOS) 15 mg tablet Take 1 tablet by mouth once daily. - amLODIPine (NORVASC) 5 mg tablet Take 1 tablet by mouth once daily. - iv contrast (will be provided with radiology test) MRI Prostate Inject, intravenously, once for 1 dose. No IV access, insert saline lock prior to the beginning of sedation, infusion, injection of imaging exam. Discontinue saline lock post exam. If Pt. has a central line or IVAD, may access for administration according to line specific nursing protocol. Once exam is complete flush line and de-access according to line specific nursing protocol in the MR contrast administration guidelines link. - aspirin, enteric coated (ASPIRIN, ENTERIC COATED) 81 mg EC tablet Take 81 mg by mouth once daily. - tamsulosin (FLOMAX) 0.4 mg Take 1 capsule by mouth daily at bedtime for 30 doses. No current facility-administered medications for this visit. PHYSICAL EXAM: Wt 98.9 kg (218 lb) BMI 27.99 kg/m? Body mass index is 27.99 kg/m?. General: Well masculinized, well nourished male Psych: euthymic, NAD Neuro: AANDOx3 Inguinal: No lesions, adenopathy, or hernias Phallus: normal, uncircumcised, no lesions Meatus: orthotopic, patent, no discharge Scrotum: no lesions, normal rugae Testes: Descended, nontender, and no masses bilaterally DIAGNOSES: 1. Phimosis - ICD9: 605, ICD10: N47.1 IMPRESSION/PLAN: Severe phimosis Recent Ecoli UTI sepsis HgA1c 9.4 On Flomax Urinate dribbles out Would like to proceed with Circumcision, all R/B/A dw patient MD Rafa Sullivan MD 10/17/2021 2:[address] De La Vega Talent Partner Christiano Corado: Referring Provider: TODD BUNCH [[id number]] Allergies As of Date: 10/17/2021 (No Known Allergies) Date Reviewed: 10/17/2021 Reviewed by: Umm Weeks Cma - Fully Assessed Reason for Visit: Consult [173] Primary Visit Diagnosis:Phimosis [N47.1] Prescriptions as of 10/17/2021 - blood sugar diagnostic (BLOOD GLUCOSE TEST) test strip Test blood sugar(s) two times daily. Dx: Type 2 DM - Controlled E11.9 Insulin: No - Lancets lancets Test blood sugar(s) two times daily. Dx: Type 2 DM - Controlled E11.9 Insulin: No - glimepiride (AMARYL) 4 mg tablet Take 1 tablet by mouth once daily. - cyanocobalamin (VITAMIN B-12) 1,000 mcg tab Take 1 tablet by mouth once daily. - Ferrous Sulfate (SLOW FE) 142 mg (45 mg iron) TbER Take one tab daily - atorvastatin (LIPITOR) 10 mg tablet Take 1 tablet by mouth once daily. - fenofibrate nanocrystallized (TRICOR) 48 mg tablet Take 1 tablet by mouth once daily. - lisinopril (ZES (more content not included)... Normal [facility] CNPArcelia 09-16-2021 NATYN Telephone (NVBLADIMIR) ZHANNA OH ([id number]) 1945 M Date Time Provider Department 09/16/21 RAFA DE LA VEGA During your visit today, we recorded the following information about you: Key Mathew 09/16/2021 10:03 AM Signed Pt confirmed his appt with Dr. De La Vega in [facility] 10/17/21 @ 2:30. Erlinda Allergies As of Date: 09/16/2021 (No Known Allergies) Date Reviewed: 08/25/2021 Reviewed by: Todd Bunch MD - Fully Assessed Reason for Visit: Appointment [186] Prescriptions as of 09/16/2021 - glimepiride (AMARYL) 4 mg tablet Take 1 tablet by mouth once daily. - cyanocobalamin (VITAMIN B-12) 1,000 mcg tab Take 1 tablet by mouth once daily. - Ferrous Sulfate (SLOW FE) 142 mg (45 mg iron) TbER Take one tab daily - atorvastatin (LIPITOR) 10 mg tablet Take 1 tablet by mouth once daily. - fenofibrate nanocrystallized (TRICOR) 48 mg tablet Take 1 tablet by mouth once daily. - lisinopril (ZESTRIL, PRINIVIL) 40 mg tablet Take 1 tablet by mouth once daily. - metFORMIN (GLUCOPHAGE) 500 mg tablet Take 2 tablets by mouth twice daily with meals. Take two tablets by mouth twice daily. - pioglitazone (ACTOS) 15 mg tablet Take 1 tablet by mouth once daily. - blood sugar diagnostic (BLOOD GLUCOSE TEST) test strip Test blood sugar(s) two times daily. Dx: Type 2 DM - Controlled E11.9 Insulin: No - Lancets lancets Test blood sugar(s) two times daily. Dx: Type 2 DM - Controlled E11.9 Insulin: No - tamsulosin (FLOMAX) 0.4 mg Take 1 capsule by mouth daily at bedtime for 30 doses. - amLODIPine (NORVASC) 5 mg tablet Take 1 tablet by mouth once daily. - iv contrast (will be provided with radiology test) MRI Prostate Inject, intravenously, once for 1 dose. No IV access, insert saline lock prior to the beginning of sedation, infusion, injection of imaging exam. Discontinue saline lock post exam. If Pt. has a central line or IVAD, may access for administration according to line specific nursing protocol. Once exam is complete flush line and de-access according to line specific nursing protocol in the MR contrast administration guidelines link. - aspirin, enteric coated (ASPIRIN, ENTERIC COATED) 81 mg EC tablet Take 81 mg by mouth once daily. Problem List As Of Date 09/16/2021 Noted Resolved Generalized arthritis [M19.90] 10/02/2003 Over weight [E66.3] 01/18/2018 Prostate cancer (HCC) [C61] 11/17/2019 Hypertension, essential [I10] 08/13/2020 Type 2 diabetes mellitus without complication, *08/13/2020 Mixed hyperlipidemia [E78.2] 08/13/2020 Asbestosis ([facility]) [J61] 08/13/2020 Hammer toes of both feet [M20.41, M20.42] 08/13/2020 Medicare annual wellness visit, subsequent [Z00*08/13/2020 Diabetic eye exam (HCC) [Z01.00, E11.9] 08/13/2020 Anemia of chronic disease [D63.8] 08/15/2020 Stage 3a chronic kidney disease [N18.31] 08/15/2020 History of 2019 novel coronavirus disease (COVI*02/18/2021 Memory impairment [R41.3] 02/18/2021 Phimosis [N47.1] 08/23/2021 Iron deficiency anemia [D50.9] 08/25/2021 Vitamin B12 deficiency [E53.8] 08/25/2021 Encounter Status:Closed by KEY ARBOLEDA on 09/16/21 Normal [facility] BLOOD CULTURE, BACTERIALon 1 10-31-2020 BLOOD CULTURE, BACTERIAL PATIENT: ZHANNA OH LOCATION: [facility] BILL#: [id number] : 49 AGE: SEX: M ORDERED BY: MATT SNIDER SOURCE: Blood COLLECTED: 08/30/21 19:59 ANTIBIOTICS AT STEPH[facility].: RECEIVED : 08/31/21 12:06 SITE: ANTECUBITAL R E S U L T S BLOOD CULTURE, BACTERIAL FINAL 09/05/21 13:42 No Growth at 1 days No Growth at 2 days No Growth at 3 days No Growth at 4 days NO GROWTH - FINAL REPORT Normal [facility] Comment on above: Performed By: #### B LDC #### [facility] [address] [place] [address] CBC AND DIFFERENTIALon 08-30 Basophils (Bld) [#/Vol] 0.00 10*3/uL Normal 0.00 - 0.10 [facility] Comment on above: Performed By: #### C BCDF ####[address] [address] Basophils/100 WBC (Bld) 0.9 % Normal 0.0 - 2.0 [facility] Comment on above: Performed By: #### C BCDF ####[address] [address] Eosinophils (Bld) [#/Vol] 0.00 10*3/uL Normal 0.00 - 0.40 [facility] Comment on above: Performed By: #### C BCDF ####[address] [address] Eosinophils/100 WBC (Bld) 0.4 % Normal 0.0 - 6.0 [facility] Comment on above: Performed By: #### C BCDF ####[address] [address] Erythrocyte distribution width (RBC) [Ratio] 14.8 % High 11.5 - 14.5 [facility] Comment on above: Performed By: #### C BCDF ####[address] [address] Hematocrit (Bld) [Volume fraction] 34.9 % Low 41.0 - 52.0 [facility] Comment on above: Performed By: #### C BCDF ####[address] [address] Hemoglobin (Bld) [Mass/Vol] 11.8 g/dL Low 13.5 - 17.5 [facility] Comment on above: Performed By: #### C BCDF ####[address] [address] Lymphocytes (Bld) [#/Vol] 0.60 10*3/uL Low 0.80 - 3.00 [facility] Comment on above: Performed By: #### C BCDF ####[address] [address] Lymphocytes/100 WBC (Bld) 13.3 % Normal 13.0 - 44.0 [facility] Comment on above: Performed By: #### C BCDF ####[address] [address] MCHC (RBC) [Mass/Vol] 34.0 g/dL Normal 32.0 - 36.0 [facility] Comment on above: Performed By: #### C BCDF ####[address] [address] MCV (RBC) [Entitic vol] 109 fL High 80 - 100 [facility] Comment on above: Performed By: #### C BCDF ####[address] [address] Monocytes (Bld) [#/Vol] 0.40 10*3/uL Normal 0.05 - 0.80 [facility] Comment on above: Performed By: #### C BCDF ####[address] [address] Monocytes/100 WBC (Bld) 8.8 % Normal 2.0 - 10.0 [facility] Comment on above: Performed By: #### C BCDF ####[address] [address] Neutrophils (Bld) [#/Vol] 3.20 10*3/uL Normal 1.60 - 5.50 [facility] Comment on above: Result Comment: Perc ent differential counts (%) should be interpreted in the context of the absolute cell counts (cells/L). Performed By: #### C BCDF ####[address] [address] Neutrophils/100 WBC (Bld) 76.6 % Normal 40.0 - 80.0 [facility] Comment on above: Performed By: #### C BCDF ####[address] [address] NUCLEATED RBC 0.1 /100 WBC Normal [facility] Comment on above: Performed By: #### C BCDF ####[address] [address] Platelets (Bld) [#/Vol] 196 10*3/uL Normal 150 - 450 [facility] Comment on above: Performed By: #### C BCDF ####[address] [address] RBC 3.20 x10E12/L Low 4.50 - 5.90 [facility] Comment on above: Performed By: #### C BCDF ####[address] [address] WBC (Bld) [#/Vol] 4.1 10*3/uL Low 4.4 - 11.3 [facility] Comment on above: Performed By: #### C BCDF ####[address] [address] CHEST 1 VIEWon 08-30-2021 CHEST 1 VIEW Patient Name: ZHANNA [place] STUDY: CHEST 1 VIEW; 08/30/2021 8:12 pm INDICATION: fever . COMPARISON: Chest x-ray 10/06/2019 ACCESSION NUMBER(S): [id number] ORDERING CLINICIAN: MATT SNIDER FINDINGS: CARDIOMEDIASTINAL SILHOUETTE: Cardiomediastinal silhouette is stable in size and configuration. Atherosclerotic calcification of the aortic arch. LUNGS: No consolidation, pleural effusion or pneumothorax. ABDOMEN: No remarkable upper abdominal findings. BONES: Mild degenerative changes of the spine. IMPRESSION: No acute cardiopulmonary process. Electronically signed by: RENUKA PETERSON MD Normal [facility] COMPREHENSIVE PANELon 2020 Albumin [Mass/Vol] 4.1 g/dL Normal 3.4 - 5.0 [facility] Comment on above: Performed By: #### C MP ####[address] [address] ALP [Catalytic activity/Vol] 38 U/L Normal 33 - 136 [facility] Comment on above: Performed By: #### C MP ####[address] [address] ALT [Catalytic activity/Vol] 11 U/L Normal 10 - 52 [facility] Comment on above: Result Comment: Radha ents treated with Sulfasalazine may generate falsely decreased results for ALT. Performed By: #### C MP ####[address] [address] Anion gap [Moles/Vol] 12 mmol/L Normal 10 - 20 [facility] Comment on above: Performed By: #### C MP ####[address] [address] AST [Catalytic activity/Vol] 20 U/L Normal 9 - 39 [facility] Comment on above: Performed By: #### C MP ####[address] [address] Bilirubin [Mass/Vol] 0.5 mg/dL Normal 0.0 - 1.2 [facility] Comment on above: Performed By: #### C MP ####[address] [address] Calcium [Mass/Vol] 9.0 mg/dL Normal 8.6 - 10.3 [facility] Comment on above: Performed By: #### C MP ####[address] [address] Chloride [Moles/Vol] 101 mmol/L Normal 98 - 107 [facility] Comment on above: Performed By: #### C MP ####[address] [address] Creatinine [Mass/Vol] 1.60 mg/dL High 0.50 - 1.30 [facility] Comment on above: Performed By: #### C MP ####[address] [address] GFR- AM. 51 mL/min/1.73m2 Abnormal >60 [facility] Comment on above: Result Comment: CALC ULATIONS OF ESTIMATED GFR ARE PERFORMED USING THE MDRD STUDY EQUATION FOR THE IDMS-TRACEABLE CREATININE METHODS. CLIN CHEM 2007;53:766-72 Performed By: #### C MP ####[address] [address] GFR-NON AM. 42 mL/min/1.73m2 Abnormal >60 [facility] Comment on above: Performed By: #### C MP ####[address] [address] Glucose [Mass/Vol] 233 mg/dL High 74 - 99 [facility] Comment on above: Performed By: #### C MP ####[address] [address] HCO3 (Bld) [Moles/Vol] 24 mmol/L Normal 21 - 32 [facility] Comment on above: Performed By: #### C MP ####[address] [address] Potassium [Moles/Vol] 4.1 mmol/L Normal 3.5 - 5.3 [facility] Comment on above: Performed By: #### C MP ####[address] [address] Protein [Mass/Vol] 6.7 g/dL Normal 6.4 - 8.2 [facility] Comment on above: Performed By: #### C MP ####[address] [address] Sodium [Moles/Vol] 133 mmol/L Low 136 - 145 [facility] Comment on above: Performed By: #### C MP ####[address] [address] Urea nitrogen [Mass/Vol] 20 mg/dL Normal 6 - 23 [facility] Comment on above: Performed By: #### C MP ####[address] [address] CT HEAD WO CONTRASTon 2020 CT HEAD WO CONTRAST Patient Name: ZHANNA [place] STUDY: CT HEAD WO CONTRAST; 08/30/2021 9:27 pm INDICATION: confusion . COMPARISON: 10/06/2019. ACCESSION NUMBER(S): [id number] ORDERING CLINICIAN: MATT SNIDER TECHNIQUE: Noncontrast axial CT scan of head was performed. Angled reformats in brain and bone windows were generated. The images were reviewed in bone, brain, blood and soft tissue windows. FINDINGS: CSF Spaces: The ventricles, sulci and basal cisterns are within normal limits. There is no extraaxial fluid collection. Parenchyma: Rdiu-cd-grygiulm volume loss. There is patchy white matter hypoattenuation, nonspecific, but most often attributable to chronic microvascular ischemic change. The milligan-white differentiation is intact. There is no mass effect or midline shift. There is no intracranial hemorrhage. Calvarium: The calvarium is unremarkable. Paranasal sinuses and mastoids: Visualized paranasal sinuses and mastoids are clear. IMPRESSION: No evidence of acute cortical infarct or intracranial hemorrhage. Electronically signed by: ESPERANZA RAMOS MD [facility] Covid 19 Resultson 1 SARS-CoV-2 (COVID-19) RNA ADAN+probe Ql (Unsp spec) NEGATIVE COVID-19 Test Coronaviruses are common world-wide and are the cause of many common colds. SARS-COV2 is a new coronavirus that began circulating worldwide in 2019 so we are calling it COVID-19. It has been estimated that four out of five patients with COVID-19 will recover at home without the need for medical attention. Symptoms of COVID-19 may include cough, fever, shortness of breath, loss of taste or smell and other flu-like symptoms including chills, sore muscles, sore throat, and headache. Severe illness is more common in older people and people with other health problems such as high blood pressure, obesity, and immune system problems. If the test is positive, you have COVID-19. You will be contacted by the ordering physicians office and instructed to remain on home isolation, in accordance with CDC guidelines. You may also be contacted by the [facility] to see if any of your close contacts may have been exposed to the virus and need to quarantine. If the test is negative, you likely do not have COVID-19 at this time, but you still may have a different illness that can spread to other people (like Influenza, or the Flu) and could still be at risk for getting COVID-19. We recommend that you stay away from other people to limit the spread of illness until your symptoms are improving and you are fever-free for 24 hours without the use of fever lowering medications such as acetaminophen or ibuprofen. No test is 100% accurate so if you are still concerned you may have COVID-19, talk to your doctor about the need to continue to stay away from others. Medicines Unless your provider told you not to use the following: Acetaminophen (Tylenol and others) is generally safe. Anti-inflammatory medications, such as Ibuprofen (Advil or Motrin) or Naproxen (Aleve) can also be used. Ypca-tkp-nwtqreu cough and cold medicines can be used according to the instructions on the package. Some gxwo-gnq-viawcza medicines also contain acetaminophen. Make sure you are not taking more than your recommended dose. For those not hospitalized, there is no specific treatment available for this illness. Antibiotics do not treat Coronaviruses. Follow-Up Follow up with your doctor by scheduling a virtual visit or consider follow-up at one of our urgent care fever clinics. If you are having difficulty breathing, or are very weak and having difficulty standing, this is a medical emergency. Call 911 or have someone take you to the nearest emergency room immediately. If possible, wear a facemask. Additional guidance from the CDC for patients who tested POSITIVE for COVID-19 How to isolate: Isolate yourself in a specific room at home and limit your contact with others. Use a separate bathroom from other members of the household, when possible. Leave home only to get essential medical care. Do not go to work, school or public areas. Avoid using public transportation, ride-sharing, or taxis. Restrict contact with pets and other animals. If you must care for your pet or be around animals while you are sick, wash your hands before and after your interaction and wear a facemask. Make sure that shared spaces in the home have good airflow, such as by an air conditioner or an opened window, weather permitting. Personal Hygiene Procedures: Wear a face mask when in the same room as other people or pets. If a face mask interferes with your breathing, others should wear a mask when sharing space with you. Frequent hand-washing: wash your hands with soap and water for at least 20 seconds. If soap and water are not available, use alcohol-based hand kieselguhr regenerator operator. Avoid touching your eyes, nose, and mouth with unwashed hands. Household Hygiene Procedures: Avoid sharing personal household items such as dishes, glassware, cups, eating utensils, towels or bedding with other people or pets in your home. After use, these items should be washed with soap and hot water. Disinfect all high-touch surfaces every day with antibacterial cleaning solutions such as Lysol wipes, bleach, cleansers, etc. High-touch surfaces include tabletops, doorknobs, bathroom fixtures, toilets, phones, keyboards, tablets and bedside tables. Immediately clean any surfaces that may have blood, poop or body fluids on them, using antibacterial cleaning solutions such as Lysol wipes, bleach, cleansers, etc. If clothing or bedding come into contact with blood, poop or body fluids, they should be washed immediately. Follow the directions on the laundry detergent and clothing labels but hot water is recommended when possible. Stopping home isolation precautions: If possible, consult your doctor before stopping home isolation precautions. According to the CDC, you can discontinue home isolation precautions when you have met both of these criteria: Your fever and respiratory symptoms have been gone for 24 fredo (more content not included)... Normal [facility] GLUCOSE-[facility] 08-30-2021 Glucose [Mass/Vol] 231 mg/dL High 74 - 99 [facility] Comment on above: Performed By: #### G GEORGE #### [place] [address] INFLUENZA A/B, COVID 2019 PC R,SYMPTOMATICon 08-30-2021 INFLUENZA A, PCR Not detected Normal Not Detected [facility] Comment on above: Result Comment: Resp iratory virus testing is performed routinely by PCR for Influenza A/B and RSV. Not Detected results do not preclude Influenza A/B or RSV infections since the adequacy of sample collection or low viral burden may impact the clinical sensitivity of this test method. Performed By: #### C OINP #### [place] [address] INFLUENZA B, PCR Not detected Normal Not Detected [facility] Comment on above: Result Comment: Resp iratory virus testing is performed routinely by PCR for Influenza A/B and RSV. Not Detected results do not preclude Influenza A/B or RSV infections since the adequacy of sample collection or low viral burden may impact the clinical sensitivity of this test method. Performed By: #### C OINP #### [place] [address] SARS-CoV-2 (COVID-19) RNA ADAN+probe Ql (Unsp spec) Not detected Normal Not Detected [facility] Comment on above: Result Comment: . This test has received FDA Emergency Use Authorization (EUA) and has been verified by [facility]. This test is only authorized for the duration of time that circumstances exist to justify the authorization of the emergency use of in vitro diagnostic tests for the detection of SARS-CoV-2 virus and/or diagnosis of COVID-19 infection under section 564(b)(1) of the Act, 21 U.S.C. 360bbb-3(b)(1), unless the authorization is terminated or revoked sooner. [facility] is certified under CLIA-88 as qualified to perform high complexity testing. Testing is performed in the [facility] laboratory located at [address] [place] [address]. SARS-CoV-2/Flu/RSV Multiplex Test: Fact sheet for providers: https://www.fda.gov/media/471618/download Fact sheet for patients: https://www.fda.gov/media/048934/download Performed By: #### C OINP #### [place] [address] Lab Specimen Source Nasal, Nasopharyngeal Normal [facility] Comment on above: Performed By: #### C OINP #### [place] [address] DATE OF SYMPTOM ONSET [YYYYMMDD]? [id number] Normal [facility] Comment on above: Performed By: #### C OINP #### [place] [address] LACTATEon 08-30-2021 Lactate [Moles/Vol] 1.4 mmol/L Normal 0.4 - 2.0 [facility] Comment on above: Result Comment: Heidi puncture immediately after or during the administration of Metamizole may lead to falsely low results. Testing should be performed immediately prior to Metamizole dosing. Performed By: #### L ACT #### [place] [address] Provider Note - ED v3on 08-08 Provider Note - ED v3 Provider Note: Chart Review: ED NOTES ED NOTES: HPI: Patient is a 76-year-old male who Zentz for evaluation. Reports of unsteady gait and confusion per family member. Patient's not quite sure why he is here. He is alert and oriented to person and place. He got the Materna booster yesterday. States his arm is a little sore but otherwise he feels fine. He denies having any chest pain or shortness of breath. No abdominal symptoms. No urinary complaints. No change in bowel bladder habits. ROS: All systems are negative other than as noted in HPI. Physical Exam I have reviewed the triage vital signs. Const: Well nourished, well developed, appears stated age, no acute distress Eyes: PERRL, EOM intact, no conjunctival injection, vision grossly normal HENT: Neck supple without meningismus , Moist mucous membranes, no pharyengeal swelling or exudate CV: Regular rate and rhythm, Warm, well-perfused extremities. Chest non tender RESP: Lungs clear bilaterally, Unlabored respiratory effort GI: soft, non-tender, non-distended, no masses : MSK: No gross deformities appreciated Skin: Warm, dry. No rashes Neuro: Alert and oriented x2, GCS 15 , voip network technician II-XII grossly intact. Sensation and motor function of extremities grossly intact. Psych: Appropriate mood and affect. HISTORY OF PRESENTING ILLNESS ZHANNA is a 76 year old Male and was seen by me at 30-Aug-2021 19:35 for a chief complaint of other (Patient states I got my covid booster last night and my family wants me checked out because my arm is sore but theres nothing wrong with me. I called family member who brought the patient who states last Thursday he was unsteady on his feet and was confused, it ended up being his sugar and blood pressure was high and the next day he was fine, today he was doing the same thing, hes confused and wobbly when he walks.)(1). Triage Information: Most recent Vital Sign Value Date Temp (F): 100.6 08-30-2021 19:43 Temp (C): 38.1 08-30-2021 19:43 Heart Rate (beats/min): 80 08-30-2021 19:43 Respirations (breaths/min): 17 08-30-2021 19:43 SpO2 (%): 98 08-30-2021 19:43 BP Systolic (mm Hg): 137 08-30-2021 19:43 BP Diastolic (mm Hg): 80 08-30-2021 19:43 PAST MEDICAL HISTORY ALLERGIES/INTOLERANCES: No Known Allergies HEALTH HISTORY: No documented data. OUTPATIENT MEDICATIONS: Home Medications Review Status for Reconciliation: N/A Med Status: Incomplete Medication History Drug Name: lisinopril 40 mg oral tablet Instructions: 1 tab(s) orally once a day Drug Name: glimepiride 4 mg oral tablet Instructions: 1 tab(s) orally once a day Drug Name: cefuroxime 250 mg oral tablet Instructions: 1 tab(s) orally 2 times a day x 10 days Drug Name: metFORMIN 500 mg oral tablet Instructions: 1 tab(s) orally 2 times a day SIGNIFICANT EVENTS: Past Medical History Description:Diabetes CRITICAL CARE RESULTS: Recent Lab Results: I have reviewed these laboratory results: Urinalysis with Culture if Indicated 30-Aug-2021 20:20:00 ResultValue Color, Urine Yellow Reference Range: STRAW,YELLOW Appearance, Urine CLEAR Specific [place], Urine 1.016 pH, Urine 5.0 Protein, Urine NEGATIVE Glucose, Urine 150(1+) A Blood, Urine NEGATIVE Ketones, Urine NEGATIVE Bilirubin, Urine NEGATIVE Urobilinogen, Urine 4.0 H Nitrite, Urine Negative Leukocyte Esterase, Urine NEGATIVE Influenza A/B,Covid 2019 PCR,Symptomatic 30-Aug-2021 20:07:00 ResultValue Fluid Source Nasal, Nasopharyngeal Influenza A PCR NOT DETECTED Reference Range: Not Detected Respiratory virus testing is performed routinely by PCR for Influenza A/B and RSV. Not Detected results do not preclude Influenza A/B or RSV infections since the adequacy of sample collection or lo Influenza B PCR NOT DETECTED Reference Range: Not Detected Respiratory virus testing is performed routinely by PCR for Influenza A/B and RSV. Not Detected results do not preclude Influenza A/B or RSV infections since the adequacy of sample collection or lo Coronavirus 2019,PCR NOT DETECTED Reference Range: Not Detected .This test has received FDA Emergency Use Authorization (EUA) and has been verified by [facility]. This test is only authorized for the duration of time that circum Date of Symptom Onset [id number] Complete Blood Count + Differential 30-Aug-2021 19:59:00 ResultValue White Blood Cell Count 4.1 L Nucleated Erythrocyte Count 0.1 Red Blood Cell Count 3.20 L HGB 11.8 L HCT 34.9 L MCV 109 H MCHC 34.0 PLT 196 RDW-CV 14.8 H Neutrophil % 76.6 Lymphocyte % 13.3 Monocyte % 8.8 Eosinophil % 0.4 Basophil % 0.9 Neutrophil Count 3.20 Lymphocyte Count 0.60 L Monocyte Count 0.40 Eosinophil Count 0.00 Basophil Count 0.00 Comprehensive Metabolic Panel 30-Aug-2021 19:59:00 ResultValue Glucose, Serum 233 H NA 133 L K 4.1 CL 101 Bicar (more content not included)... Normal [facility] RED CELL MORPHOLOGYon 2020 RBC morphology finding Nom (Bld) NORMAL Normal [facility] Comment on above: Performed By: #### M ORP2 #### [place] [address] Risk Screen - Adult Emergenc yon 08-30-2021 Risk Screen - Adult Emergency Preferred Language: Preferred Language: Preferred Language for Discussing Health Care (patient/designee)Bengali Advanced Directives: Advance Directive/DNRno Advance Directive Information Givenpatient/family declined Family Violence Adult: Abuse Screen: Are you or have you been threatened or abused physically, emotionally, or sexually by anyoneno Learning Assessment (Patient): Learning Assessment (Patient): Patient is Able to be Assessed for Learningyes Factors Influencing Readiness to Learninterest in learning Factors that Impact Ability to Learnnone Devices/Methods Used to Communicatenone Learning Preferencesverbal instruction Cultural Considerationsnone Developmental Considerationsnone Restoration Considerationsnone Learning Assessment (Other Learner): Learning Assessment (Other Learner): Other learner availableno Pressure Injury/TB/Substance: Pressure Injury: Pressure Injury Present on Admissionno Do you have a coughno Smoking Statusnever smoker Alcohol Usedenies Drug Usedenies Admission Risk Screen: Significant IndicatorsComplete CAGE: CAGE: Is this an injured patient at a Trauma Center ([facility]/[place]): no Electronic Signatures: Angela Lagos) (Signed 30-Aug-2021 19:49) Authored: Preferred Language, Advanced Directives, Family Violence Adult, Learning Assessment (Patient), Learning Assessment (Other Learner), Pressure Injury/TB/Substance, Pressure Injury, CAGE Last Updated: 30-Aug-2021 19:49 by Angela Lagos (RN) [facility] Triage - EDon 08-30-2021 Triage - ED Chart Review: PRIMARY ASSESSMENT ABCD Normal Findings: airway open and patent, breathing normal and circulation normal Disability Disability/AVPU: ZHANNA is confused ARRIVAL INFORMATION Means of Arrival: wheelchair Mode of Arrival: private vehicle Arrival From: home Accompanied By: self Language: Spoken Language Preferred: Bengali CHIEF COMPLAINT ZHANNA OH is a Male patient with a chief complaint of other (Patient states I got my covid booster last night and my family wants me checked out because my arm is sore but theres nothing wrong with me. I called family member who brought the patient who states last Thursday he was unsteady on his feet and was confused, it ended up being his sugar and blood pressure was high and the next day he was fine, today he was doing the same thing, hes confused and wobbly when he walks.). Triage Date/Time: 30-Aug-2021 19:33 KATHY: 3 Pain Rating (0-10): 1 = Mild Vital Signs: Temperature: 100.6F ( 38.1C) taken temporal Blood Pressure: 137/80 Mean: Heart Rate: 80 Respiratory Rate: 17 Pulse Oximetry: 98% on room air, no respiratory support. Height: 6 feet 0.00 inches. 182.8 CM Weight: 220.4 pounds. Calculated 100.0 kg. (stated) Calculated BMI (kg/m2): 29.925 Calculated BSA (m2) 2.25 Yvonne Coma Scale: Best Eye Response: (E4) spontaneous Best Motor Response: (M6) obeys commands Best Verbal Response: (V4) confused Yvonne Score: 14 Allergies: no Mask applied: yes Patient has homicidal thoughts: no Last Known Well: known Time Last Known Well Date/Time: 30-Aug-2021 19:47 Risk Screens Suicide Risk Screen In the Past Month: Have you wished you were or wished you could go to sleep and not wake up no In the Past Month: Have you had any actual thoughts of killing yourself no In Your Lifetime: Have you ever done anything, started to do anything, or prepared to do anything to end your life no Manrique Fall Scale Screening Has the patient fallen before (or is the patient in the ED as a result of a fall) has not had a fall Does the patient have an impaired gait has impaired gait Is the patient cognitively impaired cognitively impaired Manrique Fall Scale History of falling (immediate or previous) no (0) Secondary Diagnosis yes (15) Intravenous Therapy/ Heparin/Saline Lock no (0) Gait/Transferring impaired (20) Ambulatory Aids none/bedrest/nurse assist (0) Mental Status overestimates/forgets limitations (15) Manrique Fall Risk Score: 50 Interventions: Manrique Fall Interventions: HIGH INTERVENTIONS *Low and Moderate Interventions Plus: * supervised toileting at all times TRAVEL HISTORY Travel History Coronavirus Screening: positive for symptoms Travel Exposure History: NO travel to International locations in the past 30 days PAIN Pain Scale Used: TERESA Pain Rating (0-10): 1 = Mild Past Medical History: Past Medical History Reviewedyes Electronic Signatures: Angela Lagos (KENYATTA) (Signed 30-Aug-2021 19:48) Authored: Quick Triage, Risk Screens, Pain, Arrival, ABCD, Travel History, Chart Review, Scores, Past Medical History Last Updated: 30-Aug-2021 19:48 by Angela Lagos (KENYATTA) Normal [facility] URINALYSIS WITH CULTURE IF I NDICATEDon 08-30-2021 Appearance (U) CLEAR Normal CLEAR [facility] Comment on above: Performed By: #### U ARFX #### [address] [address] Bilirubin Ql (U) Negative Normal NEGATIVE [facility] Comment on above: Performed By: #### U ARFX #### [address] [address] Color (U) Yellow Normal STRAW,YELLO W [facility] Comment on above: Performed By: #### U ARFX #### [address] [address] Glucose Ql (U) 150(1+) Abnormal NEGATIVE [facility] Comment on above: Performed By: #### U ARFX #### [address] [address] Hemoglobin Ql (U) Negative Normal NEGATIVE [facility] Comment on above: Performed By: #### U ARFX #### [place] [address] Ketones Ql (U) Negative Normal NEGATIVE [facility] Comment on above: Performed By: #### U ARFX #### [place] [id number] Leukocyte esterase Test strip Ql (U) Negative Normal NEGATIVE [facility] Comment on above: Performed By: #### U ARFX #### [place] [id number] Nitrite Ql (U) Negative Normal NEGATIVE [facility] Comment on above: Performed By: #### U ARFX #### [place] [address] pH (U) 5.0 [pH] Normal 5.0 - 8.0 [facility] Comment on above: Performed By: #### U ARFX #### [place] [address] Protein Ql (U) Negative Normal NEGATIVE [facility] Comment on above: Performed By: #### U ARFX #### [place] [address] Specific gravity (U) [Rel density] 1.016 Normal 1.005 - 1.035 [facility] Comment on above: Performed By: #### U ARFX #### [place] [address] Urobilinogen (U) [Mass/Vol] 4.0 mg/dL High 0.0 - 1.9 [facility] Comment on above: Result Comment: SOME PIGMENTS AND MEDICATIONS MAY CAUSE A FALSE POSITIVE UROBILINOGEN Performed By: #### U ARFX #### [place] [id number] MRI PROSTATE WO/W IVCONon MRI PROSTATE WO/W IVCON Final Report DATE OF EXAM: Mar 12 2020 12:25PM [place] [id number] - MRI PROSTATE WO/W IVCON / PROCEDURE REASON: Malignant neoplasm of prostate (HCC) Physician Interpretation EXAMINATION: MRI PELVIS WITHOUT AND WITH CONTRAST (MULTIPARAMETRIC PROSTATE MRI): ... CLINICAL HISTORY: 74-year-old man with low-grade prostate carcinoma (Yisel 6) noted on biopsy from 10/03/2019. Previous biopsy: As above. PSA: 5.49 ng/mL (07/2019) Prior therapy: None. TECHNIQUE: Multiparametric MRI of the prostate and pelvis performed on a 1.5 T (Siemens) MR system utilizing a torso phased array coil. Sequences obtained: Sagittal, axial and coronal high resolution T2-WI with small [id number]; Axial diffusion weighted images with multiple B-values and creation of ADC-maps; Dynamic contrast enhanced T1-weighted images through the prostate were also obtained before, during and after the administration of intravenous gadolinium. Subsequently, larger field of view 3D T1 weighted axial images were obtained through the pelvis. Prostate dimension, volume and pharmacokinetics were obtained using a semi-automated software (LINAGORA). M: MRPro_2 Contrast: IV administration of 20 ml of Dotarem COMPARISON: None RESULT: Prostate: Dimensions: 6.6 x 6.3 x 5.9 cm corresponding to a volume of approximately 125 cc. Peripheral zone: Several foci T2 hypointensity and decreased ADC noted in the left posterior peripheral zone as described below. PIRADS 4 Lesion#: 1 Location: Posterior left peripheral zone mid body Greatest dimension: 1.2-cm (series:8; image:23) T2-WI: Hypointense DWI/ADC: Fluid restriction (Mean ADC: 580) DCE: None. Extra-prostatic extension: None. PI-RADS assessment category: 4 (based on size). Lesion #2 Location: Posterior left peripheral zone near junction of the transition zone and peripheral zone mid body towards apex. Greatest dimension: 0.8 cm (series: 8; image: 25) T2 WI: Hypointense DWI/ADC: Fluid restriction (mean ADC: 868). DCE: None. Extraprostatic extension: None. PIRADS assessment category: 4 Transition zone: Inhomogeneous with hypertrophic nodularity. Focal area of T2 abnormality which is equivocal for clinically significant prostate carcinoma. It may be encapsulated and may represent a dominant hypertrophic nodule. PIRADS 3. Lesion#: 3 Location: right transition zone lateral mid body Greatest dimension: 2.9-cm (series:8; image:23) T2-WI: Markedly hypointense DWI/ADC: Fluid restriction DCE: Minimal Extra-prostatic extension: Slight bulging of the right lateral capsule. PI-RADS assessment category: 3 Central zone: No significant additional findings. Neurovascular bundle: Intact. Seminal vesicles: Intact. Adjacent Organ Involvement: None.. Lymphadenopathy: None. Other Findings: No significant additional findings. IMPRESSION: Area in the left posterior peripheral zone which is suspicious for clinically significant prostate neoplasm. It is localized for fusion biopsy as clinically indicated. It is considered PIRADS 4 based on signal characteristics and size. Second tiny area seen at the junction of the transition zone and peripheral zone left side. It is localized for fusion biopsy but is quite small. It is considered PIRADS 4 based on signal characteristics and size. Third area is large and located within the right transition zone laterally mid body. It is unclear whether this represents a prominent hypertrophic nodule. On several sequences it may be bordered by a capsule. On other sequences it has ill-defined margins. It is considered equivocal for clinically significant prostate neoplasm and classified as a PIRADS 3. Number of targets created for MR/US fusion biopsy: Peripheral zone: 2 Transition zone: 1 Central zone: 0 Targets were numbered in order of level of suspicion for clinically significant prostate cancer (Smithwick score 3 + 4 or higher). PI-RADS assessment categories: PI-RADS 1: Clinically significant cancer is highly unlikely PI-RADS 2: Clinically significant cancer is unlikely PI-RADS 3: Clinically significant cancer is equivocal PI-RADS 4: Clinically significant cancer is likely PI-RADS 5: Clinically significant cancer is highly likely Operations Analyst: DANETTE Transcribe Date/Time: Mar 14 2020 9:34A Dictated by : CHRISTINE BURNETTE MD This examination was interpreted and the report reviewed and electronically signed by: CHRISTINE BURNETTE MD on Mar 14 2020 12:42PM EST Normal [facility] Surgical Pathology Depar tmenton 12-21-2019 [facility] Surgical Pathology Department Name [place] [place] Pathologist: SHANNEN DICKEY MD Date of Procedure: 12/21/2019 Date Received: 12/21/2019 Date Reported 12/23/2019 Submitting Physician: LEATHA PRECIADO D.O Location: [facility] FINAL DIAGNOSIS RESULTS OF ANCILLARY TESTING ORDERED BY PATIENT'S PHYSICIAN/PATHOLOGIST ON OUTSIDE/ARCHIVED MATERIAL WILL BE RESULTED AN ADDENDUM. NO DIAGNOSIS IS RENDERED ON THIS CASE Electronically Signed Out By SHANNEN DICKEY MD/PRASHANT By the signature on this report, the individual or group listed as making the Final Interpretation/Diagnosis certifies that they have reviewed this case. Addendum/Procedures: Special Oncology Report With Image Date Ordered: 01/03/2020 Status: Signed Out Date Complete: 01/03/2020 Date Reported: 01/09/2020 Addendum Diagnosis A complete Oncotype Dx Prostate by PCR result issued by [facility] ([place], [place]) is on file in the Department of Anatomic Pathology at [facility]. GPS Score: 20 Electronically Signed Out By MEDINA ZHAO MD/HARJINDER By the signature on this report, the individual or group listed as making the Final Interpretation/Diagnosis certifies that they have reviewed this case. Clinical History: {Not Provided} Specimens Submitted As: A: [id number] A2 (10/03/19) Gross Description: {Not Entered} Normal [facility] Comment on above: Performed By: #### U [facility] #### [facility] Surgical Pathology Department [address] [facility] [address] Complete Blood Count + Diffe jessicatialon 10-21-2019 Basophils (Bld) [#/Vol] 0.00 {x10E9/L} See Below [facility] Work Phone: Comment on above: Reference Range: 0.0 0 - 0.10 Basophils/100 WBC (Bld) 0.4 % 0.0 - 2.0 [facility] Internal [facility] Work Phone: Eosinophils (Bld) [#/Vol] 0.10 {x10E9/L} See Below [facility] Work Phone: Comment on above: Reference Range: 0.0 0 - 0.40 Eosinophils/100 WBC (Bld) 1.5 % 0.0 - 6.0 [facility] Work Phone: Erythrocyte distribution width (RBC) [Ratio] 14.3 % See Below [facility] Work Phone: Comment on above: Reference Range: 11. 5 - 14.5 Hematocrit (Bld) [Volume fraction] 35.8 % below low threshold See Below [facility] Work Phone: Comment on above: Reference Range: 41. 0 - 52.0 Hemoglobin (Bld) [Mass/Vol] 12.1 g/dL below low threshold See Below [facility] Work Phone: Comment on above: Reference Range: 13. 5 - 17.5 Lymphocytes (Bld) [#/Vol] 1.30 {x10E9/L} See Below [facility] Work Phone: Comment on above: Reference Range: 0.8 0 - 3.00 Lymphocytes/100 WBC (Bld) 15.4 % See Below [facility] Work Phone: Comment on above: Reference Range: 13. 0 - 44.0 MCHC (RBC) [Mass/Vol] 33.8 g/dL See Below [facility] Work Phone: Comment on above: Reference Range: 32. 0 - 36.0 MCV (RBC) [Entitic vol] 104 fL above high threshold 80 - 100 [facility] Work Phone: Monocytes (Bld) [#/Vol] 0.50 {x10E9/L} See Below [facility] Work Phone: Comment on above: Reference Range: 0.0 5 - 0.80 Monocytes/100 WBC (Bld) 5.8 % 2.0 - 10.0 [facility] Work Phone: Neutrophils/100 WBC (Bld) 76.9 % See Below [facility] Work Phone: Comment on above: Reference Range: 40. 0 - 80.0 Platelets (Bld) [#/Vol] 269 {x10E9/L} 150 - 450 [facility] Work Phone: RBC (Bld) [#/Vol] 3.46 {x10E12/L} below low threshold See Below [facility] Work Phone: Comment on above: Reference Range: 4.5 0 - 5.90 WBC (Bld) [#/Vol] 8.4 {x10E9/L} 4.4 - 11.3 [facility] Work Phone: Complete Blood Count + Differential 6.50 {x10E9/L} above high threshold See Below [facility] Work Phone: Comment on above: Reference Range: 1.6 0 - 5.50 Metabolic Panelon 10-21-2019 ALP [Catalytic activity/Vol] 62 U/L 33 - 136 [facility] Work Phone: Anion gap [Moles/Vol] 11 mmol/L 10 - 20 [facility] Work Phone: Bilirubin [Mass/Vol] 0.5 mg/dL 0.0 - 1.2 [facility] Work Phone: Calcium [Mass/Vol] 9.6 mg/dL 8.6 - 10.3 [facility] Work Phone: Chloride [Moles/Vol] 100 mmol/L 98 - 107 [facility] Work Phone: CO2 [Moles/Vol] 29 mmol/L 21 - 32 [facility] Work Phone: Creatinine [Mass/Vol] 1.30 mg/dL See Below [facility] Work Phone: Comment on above: Reference Range: 0.5 0 - 1.30 Glucose [Mass/Vol] 256 mg/dL above high threshold 74 - 99 [facility] Work Phone: Potassium [Moles/Vol] 4.3 mmol/L 3.5 - 5.3 [facility] Work Phone: Protein [Mass/Vol] 7.1 g/dL 6.4 - 8.2 [facility] Work Phone: Sodium [Moles/Vol] 136 mmol/L 136 - 145 [facility] Work Phone: Urea nitrogen [Mass/Vol] 19 mg/dL 6 - 23 [facility] Work Phone: Otheron 10-21-2019 Albumin BCP dye [Mass/Vol] 4.1 g/dL 3.4 - 5.0 [facility] Work Phone: ALT With P-5'-P [Catalytic activity/Vol] 28 U/L 10 - 52 [facility] Work Phone: Comment on above: Patients treated wit h Sulfasalazine may generate falsely decreased results for ALT. AST With P-5'-P [Catalytic activity/Vol] 20 U/L 9 - 39 [facility] Work Phone: 54 {mL/min/1.73m2} Abnormal >60 [facility] Work Phone: 65 {mL/min/1.73m2} >60 [facility] Work Phone: Comment on above: CALCULATIONS OF DEZ MATED GFR ARE PERFORMED USING THE MDRD STUDY EQUATION FOR THE IDMS-TRACEABLE CREATININE METHODS. CLIN CHEM 2007;53:766-72 Hematologyon 10-09-2019 Hematocrit (Bld) [Volume fraction] 28.5 % below low threshold See Below [facility] Work Phone: Comment on above: Reference Range: 41. 0 - 52.0 Ordering Provider: A GRANT GATES [address] Hemoglobin (Bld) [Mass/Vol] 9.9 g/dL below low threshold See Below [facility] Work Phone: Comment on above: Reference Range: 13. 5 - 17.5 Ordering Provider: A GRANT GATES [address] MCV (RBC) [Entitic vol] 104 fL above high threshold 80 - 100 [facility] Work Phone: Comment on above: Ordering Provider: A GRANT GATES [address] Platelets (Bld) [#/Vol] 112 {x10E9/L} below low threshold 150 - 450 [facility] Work Phone: Comment on above: Ordering Provider: A GRANT Bautista8 RBC (Bld) [#/Vol] 2.74 {x10E12/L} below low threshold See Below [facility] [place] Work Phone: Comment on above: Reference Range: 4.5 0 - 5.90 Ordering Provider: A GRANT Bautista8 WBC (Bld) [#/Vol] 2.9 {x10E9/L} below low threshold 4.4 - 11.3 [facility] Work [facility]: Comment on above: Ordering Provider: A GRANT GATES [address] Metabolic Panelon 10-09-2019 Glucose [Mass/Vol] 204 mg/dL above high threshold 74 - 99 [facility] Work Phone: Comment on above: Ordering Provider: A ALFIE WALKER [address] Anion gap [Moles/Vol] 12 mmol/L 10 - 20 [facility] Work [facility]: Comment on above: Ordering Provider: A GRANT GATES 118[address] Calcium [Mass/Vol] 8.0 mg/dL below low threshold 8.6 - 10.3 [facility] Work Phone: Comment on above: Ordering Provider: A GRANT GATES [address] Chloride [Moles/Vol] 103 mmol/L 98 - 107 [facility] Work Phone: Comment on above: Ordering Provider: A GRANT GATES [address]672 CO2 [Moles/Vol] 24 mmol/L 21 - 32 [facility] [place] Work Phone: Comment on above: Ordering Provider: A GRANT GATES [address] Creatinine [Mass/Vol] 1.62 mg/dL above high threshold See Below [facility] Work Phone: Comment on above: Reference Range: 0.5 0 - 1.30 Ordering Provider: A BDHARLEY SHERMANDANI [address] Glucose [Mass/Vol] 207 mg/dL above high threshold 74 - 99 [facility] Work Phone: Comment on above: Ordering Provider: A GRANT Bautista8 Potassium [Moles/Vol] 3.7 mmol/L 3.5 - 5.3 [facility] Work Phone: Comment on above: Ordering Provider: A GRANT Haile Sodium [Moles/Vol] 135 mmol/L below low threshold 136 - 145 [facility] Work Phone: Comment on above: Ordering Provider: A GRANT Haile Urea nitrogen [Mass/Vol] 25 mg/dL above high threshold 6 - 23 [facility] Work Phone: Comment on above: Ordering Provider: A GRANT GATES [address] Otheron 10-09-2019 Erythrocyte distribution width (RBC) [Ratio] 14.8 % above high threshold See Below [facility] Work Phone: Comment on above: Reference Range: 11. 5 - 14.5 Ordering Provider: A GRANT GATES [address] MCHC (RBC) [Mass/Vol] 34.7 g/dL See Below [facility] Work Phone: Comment on above: Reference Range: 32. 0 - 36.0 Ordering Provider: A GRANT Haile 42 {mL/min/1.73m2} Abnormal >60 [facility] Work Phone: Comment on above: Ordering Provider: A GRANT Haile 51 {mL/min/1.73m2} Abnormal >60 [facility] Work Phone: Comment on above: CALCULATIONS OF DEZ MATED GFR ARE PERFORMED USING THE MDRD STUDY EQUATION FOR THE IDMS-TRACEABLE CREATININE METHODS. CLIN CHEM 2007;53:766-72 Ordering Provider: A GRANT GATES [address] Hematologyon 10-08-2019 Hematocrit (Bld) [Volume fraction] 29.7 % below low threshold See Below [facility] Work Phone: Comment on above: Reference Range: 41. 0 - 52.0 Ordering Provider: A GRANT Haile Hemoglobin (Bld) [Mass/Vol] 10.3 g/dL below low threshold See Below [employer] Work Phone: Comment on above: Reference Range: 13. 5 - 17.5 Ordering Provider: A GRANT Haile MCV (RBC) [Entitic vol] 104 fL above high threshold 80 - 100 [employer] Work Phone: Comment on above: Ordering Provider: A GRANT Haile Platelets (Bld) [#/Vol] 132 {x10E9/L} below low threshold 150 - 450 [employer] Work Phone: Comment on above: Ordering Provider: A GRANT Haile RBC (Bld) [#/Vol] 2.85 {x10E12/L} below low threshold See Below [employer] Work Phone: Comment on above: Reference Range: 4.5 0 - 5.90 Ordering Provider: A GRANT Haile WBC (Bld) [#/Vol] 3.8 {x10E9/L} below low threshold 4.4 - 11.3 [employer] Work Phone: Comment on above: Ordering Provider: A GRANT GATES [address] Metabolic Panelon 10-08-2019 Glucose [Mass/Vol] 203 mg/dL above high threshold 74 - 99 [employer] Work Phone: Comment on above: Ordering Provider: A GRANT Bautista8 Glucose [Mass/Vol] 196 mg/dL above high threshold 74 - 99 [employer] Work Phone: Comment on above: Ordering Provider: A GRANT GATES [address]258 Glucose [Mass/Vol] 249 mg/dL above high threshold 74 - 99 [employer] Work Phone: Comment on above: Ordering Provider: A GRANT GATES [address]8932 Glucose [Mass/Vol] 175 mg/dL above high threshold 74 - 99 [facility] [place] Work Phone: Comment on above: Ordering Provider: A BDHARLEY GATES [address]1557 Anion gap [Moles/Vol] 14 mmol/L 10 - 20 [facility] [place] Work Phone: Comment on above: Ordering Provider: A BDHARLEY GATES [address]8918 Calcium [Mass/Vol] 8.0 mg/dL below low threshold 8.6 - 10.3 [facility] Work Phone: Comment on above: Ordering Provider: A BDHARLEY GATES [address]24 Chloride [Moles/Vol] 104 mmol/L 98 - 107 [facility] Work Phone: Comment on above: Ordering Provider: A BDHARLEY GATES 36279 CO2 [Moles/Vol] 22 mmol/L 21 - 32 -[facility] [place] Work Phone: Comment on above: Ordering Provider: A BDHARLEY WALSHNI [address]05 Creatinine [Mass/Vol] 1.84 mg/dL above high threshold See Below [facility] Work Phone: Comment on above: Reference Range: 0.5 0 - 1.30 Ordering Provider: A GRANT GATES 64529 Glucose [Mass/Vol] 181 mg/dL above high threshold 74 - 99 [facility] Work Phone: Comment on above: Ordering Provider: A BDHARLEY WALSHNI [address]9628 Potassium [Moles/Vol] 3.5 mmol/L 3.5 - 5.3 [facility] Work Phone: Comment on above: Ordering Provider: A BDUL NICONI 47832 Sodium [Moles/Vol] 136 mmol/L 136 - 145 -[facility] [place] Work Phone: Comment on above: Ordering Provider: A BDUL WHITDANI [address]9559 Urea nitrogen [Mass/Vol] 25 mg/dL above high threshold 6 - 23 [facility] [place] Work Phone: Comment on above: Ordering Provider: A BDHARLEY WALSHNI 24411 Otheron 10-08-2019 Erythrocyte distribution width (RBC) [Ratio] 14.8 % above high threshold See Below [facility] Work Phone: Comment on above: Reference Range: 11. 5 - 14.5 Ordering Provider: A GRANT GATES [address]00 MCHC (RBC) [Mass/Vol] 34.7 g/dL See Below [facility] Work Phone: Comment on above: Reference Range: 32. 0 - 36.0 Ordering Provider: A GRANT Haile 36 {mL/min/1.73m2} Abnormal >60 [facility] Work Phone: Comment on above: Ordering Provider: A GRANT Haile 44 {mL/min/1.73m2} Abnormal >60 [facility] Work Phone: Comment on above: CALCULATIONS OF DEZ MATED GFR ARE PERFORMED USING THE MDRD STUDY EQUATION FOR THE IDMS-TRACEABLE CREATININE METHODS. CLIN CHEM 2007;53:766-72 Ordering Provider: A GRANT GATES 35217 Hematologyon 10-07-2019 Hematocrit (Bld) [Volume fraction] 32.6 % below low threshold See Below [facility] Work Phone: Comment on above: Reference Range: 41. 0 - 52.0 Ordering Provider: A GRANT GATES [address]993 Hemoglobin (Bld) [Mass/Vol] 11.3 g/dL below low threshold See Below [facility] Work Phone: Comment on above: Reference Range: 13. 5 - 17.5 Ordering Provider: A GRANT GATES 73643 MCV (RBC) [Entitic vol] 104 fL above high threshold 80 - 100 [facility] Work Phone: Comment on above: Ordering Provider: A GRANT GATES 30149 Platelets (Bld) [#/Vol] 159 {x10E9/L} 150 - 450 [facility] Work Phone: Comment on above: Ordering Provider: A GRANT GATES 97639 RBC (Bld) [#/Vol] 3.14 {x10E12/L} below low threshold See Below [facility] Work Phone: Comment on above: Reference Range: 4.5 0 - 5.90 Ordering Provider: A GRANT GATES 01993 WBC (Bld) [#/Vol] 6.7 {x10E9/L} 4.4 - 11.3 [facility] Work Phone: Comment on above: Ordering Provider: A GRANT GATES 71832 Hemoglobin A1Con 10-07-2019 HbA1c (Bld) [Mass fraction] 8.0 % [facility] Work Phone: Comment on above: Diagnosis of Diabete s-Adults Non-Diabetic: < or = 5.6% Increased risk for developing diabetes: 5.7-6.4% Diagnostic of diabetes: > or = 6.5%. Monitoring of Diabetes Age (y) Therapeutic Goal (%) Adults: >18 <7.0 Pediatrics: 13-18 <7.5 7-12 <8.0 0- 6 7.5-8.5 [place] [employer]. Diabetes Care 33(S1), Sep 2009. Ordering Provider: A GRANT GATES 47566 HbA1c (Bld) [Mass fraction] 183 {MG/DL} [facility] Work Phone: Comment on above: Ordering Provider: A GRANT GATES 04604 Lactate, Levelon 10-07-2019 Lactate [Moles/Vol] 1.7 mmol/L 0.4 - 2.0 [facility] Work Phone: Comment on above: Venipuncture immedia tely after or during the administration of Metamizole may lead to falsely low results. Testing should be performed immediately prior to Metamizole dosing. Ordering Provider: Key COSTA 65472 Metabolic Panelon 10-07-2019 Glucose [Mass/Vol] 188 mg/dL above high threshold 74 - 99 [facility] Work Phone: Comment on above: Ordering Provider: A BDUL WHITDANI 71141 Glucose [Mass/Vol] 240 mg/dL above high threshold 74 - 99 [facility] [place] Work Phone: Comment on above: Ordering Provider: A BDUL SAMDANI 10034 Glucose [Mass/Vol] 221 mg/dL above high threshold 74 - 99 [facility] Work Phone: Comment on above: Ordering Provider: A BDUL WHITDANI 83788 Glucose [Mass/Vol] 317 mg/dL above high threshold 74 - 99 [facility] Work Phone: Comment on above: Ordering Provider: A BDUL WHITDANI 26667 Anion gap [Moles/Vol] 15 mmol/L 10 - 20 [facility] Work Phone: Comment on above: Ordering Provider: A BDUL WHITDANI 41425 Calcium [Mass/Vol] 8.1 mg/dL below low threshold 8.6 - 10.3 [facility] Work Phone: Comment on above: Ordering Provider: A BDUL WHITDANI 26205 Chloride [Moles/Vol] 101 mmol/L 98 - 107 [facility] Work Phone: Comment on above: Ordering Provider: A BDUL WHITDANI 07185 CO2 [Moles/Vol] 22 mmol/L 21 - 32 [facility] Work Phone: Comment on above: Ordering Provider: A BDUL WHITDANI 44284 Creatinine [Mass/Vol] 1.71 mg/dL above high threshold See Below [facility] Work Phone: Comment on above: Reference Range: 0.5 0 - 1.30 Ordering Provider: A BDUL SAMDANI 80320 Glucose [Mass/Vol] 289 mg/dL above high threshold 74 - 99 [facility] Work [facility] Comment on above: Ordering Provider: A BDUL SAMDANI 19923 Potassium [Moles/Vol] 3.6 mmol/L 3.5 - 5.3 -[facility] [place] Work Phone: Comment on above: Ordering Provider: A GRANT Bautista8 Sodium [Moles/Vol] 134 mmol/L below low threshold 136 - 145 -[facility] Work Phone: Comment on above: Ordering Provider: A GRANT GATES 90232 Urea nitrogen [Mass/Vol] 26 mg/dL above high threshold 6 - 23 -[facility] Work Phone: Comment on above: Ordering Provider: A GRANT GATES 30664 Otheron 10-07-2019 Erythrocyte distribution width (RBC) [Ratio] 14.7 % above high threshold See Below [facility] Work Phone: Comment on above: Reference Range: 11. 5 - 14.5 Ordering Provider: A GRANT GATES 82581 MCHC (RBC) [Mass/Vol] 34.6 g/dL See Below [facility] Work Phone: Comment on above: Reference Range: 32. 0 - 36.0 Ordering Provider: A GRANT GATES 81387 47 {mL/min/1.73m2} Abnormal >60 MP[facility] Work Phone: Comment on above: CALCULATIONS OF DEZ MATED GFR ARE PERFORMED USING THE MDRD STUDY EQUATION FOR THE IDMS-TRACEABLE CREATININE METHODS. CLIN CHEM 2007;53:766-72 Ordering Provider: A GRANT GATES 48181 39 {mL/min/1.73m2} Abnormal >60 [facility] Work Phone: Comment on above: Ordering Provider: A GRANT GATES 61028 Acetaminophen Level, Serumon 10-06-2019 Acetaminophen [Mass/Vol] <10.0 See Below [facility] MEXICOPasteurization Technology Group ([employer])[facility] Work Phone: Comment on above: Reference Range: 10. 0 - 30.0 Ordering Provider: Key COSTA 39860 Acetylsalicylic Acid Level, Serumon 10-06-2019 Salicylates [Mass/Vol] mg/dL 4 - 20 -[facility] Work Phone: Comment on above: Ordering Provider: Key COSTA 63381 Activated Partial Thrombopla stin Timeon 10-06-2019 aPTT Coag (PPP) [Time] 32 {sec} 28 - 38 [facility] Work Phone: Comment on above: THE APTT IS NO LONGE R USED FOR MONITORING UNFRACTIONATED HEPARIN THERAPY. FOR MONITORING HEPARIN THERAPY, USE THE HEPARIN ASSAY. Ordering Provider: Key COSTA 08419 Alcohol, Serumon 10-06-2019 Ethanol [Mass/Vol] mg/dL [employer] [facility] logC[facility] Work Phone: Comment on above: FOR MEDICAL USE ONLY . .REF VALUES <10 Ordering Provider: Key COSTA 05242 Ammonia, Plasmaon 10-06-2019 Ammonia (P) [Mass/Vol] 52 umol/L [facility] Work Phone: Comment on above: .REFERENCE VALUESDAY 1 to DAY 7 <110DAY 8 to DAY 14 < 90DAY 15 to ADULT 16-53 MILD HEMOLYSIS DETECTED. The result may be falsely elevated due tohemolysis or other interferents. Clinical correlation is recommended.Repeat testing may be considered. Ordering Provider: Key COSTA 43116 BLOOD CULTURE,BIOFIRE FILMAR Pipo 10-06-2019 INR Coag (Bld) [Relative time] NOT DETECTED See Below [facility] Work Phone: Comment on above: Reference Range: NOT DETECTED Called- RB to Ruby Cortez, 10/07/2019 10:27Ordering Provider: RACHEL Pizarro BLOOD CULTURE,BIOFIRE FILMARRAY NOT DETECTED See Below [facility] Work Phone: Comment on above: Reference Range: NOT DETECTED Called- RB to Ruby Cortez, 10/07/2019 10:27Ordering Provider: RACHEL Pizarro BLOOD CULTURE,BIOFIRE FILMARRAY PERIPHERAL See Below [facility] Work Phone: Comment on above: SOURCE: Reference Ra nge: NOT DETECTED Called- RB to Ruby Cortez, 10/07/2019 10:27Ordering Provider: RACHEL Wise2 SOURCE: BLOOD CULTURE,BIOFIRE FILMARRAY DETECTED Abnormal See Below [facility] Work Phone: Comment on above: Reference Range: NOT DETECTEDThis is a critical result. Per Laboratory policy, critical results for this test only qualify to the call list once per 24 hours. This is a corrected result. Previous value was DETECTED, verified at 10/07/2019 10:19 Called- RB to Ruby Cortez, 10/07/2019 10:27 Called- RB to Ruby Cortez, 10/07/2019 10:27Ordering Provider: RACHEL Pizarro BLOOD CULTURE,BIOFIRE FILMARRAY ANTECUBITAL [facility] Work Phone: Comment on above: SOURCE: Reference Ra nge: NOT DETECTED Called- RB to jenni odell , 10/08/2019 20:28Ordering Provider: RACHEL Camacho792 SOURCE: BLOOD CULTURE,BIOFIRE FILMARRAY NOT DETECTED See Below [facility] Work Phone: Comment on above: Reference Range: NOT DETECTED Called- RB to jenni odell , 10/08/2019 20:28Ordering Provider: RACHEL Camacho792 BLOOD CULTURE,BIOFIRE FILMARRAY DETECTED Critically abnormal See Below [facility] Work Phone: Comment on above: Reference Range: NOT DETECTED Called- RB to jenni odell , 10/08/2019 20:28 Called- RB to jenni odell , 10/08/2019 20:28Ordering Provider: RACHEL Camacho792 C Reactive Protein, Serumon 10-06-2019 CRP [Mass/Vol] 15.08 mg/dL Abnormal [facility] Work Phone: Comment on above: REF VALUE< 1.00 Ordering Provider: Key Camacho792 Complete Blood Count + Diffe rentialon 10-06-2019 Erythrocyte distribution width (RBC) [Ratio] 14.8 % above high threshold See Below [facility] Work Phone: Comment on above: Reference Range: 11. 5 - 14.5 Ordering Provider: Key Camacho792 Hematocrit (Bld) [Volume fraction] 36.0 % below low threshold See Below -[facility] [place] Work Phone: Comment on above: Reference Range: 41. 0 - 52.0 Ordering Provider: Key COSTA 96733 Hemoglobin (Bld) [Mass/Vol] 12.4 g/dL below low threshold See Below [facility] Work Phone: Comment on above: Reference Range: 13. 5 - 17.5 Ordering Provider: Key Pizarro MCHC (RBC) [Mass/Vol] 34.4 g/dL See Below [facility] [place] Work Phone: Comment on above: Reference Range: 32. 0 - 36.0 Ordering Provider: Key COSTA 78695 MCV (RBC) [Entitic vol] 104 fL above high threshold 80 - 100 [facility] Work Phone: Comment on above: Ordering Provider: Key COSTA 35785 Platelets (Bld) [#/Vol] 199 {x10E9/L} 150 - 450 [facility] Work Phone: [phone] Comment on above: Ordering Provider: Key COSTA 22930 RBC (Bld) [#/Vol] 3.46 {x10E12/L} below low threshold See Below [facility]rolog[facility] Work Phone: [phone] Comment on above: Reference Range: 4.5 0 - 5.90 Ordering Provider: Key Camacho792 WBC (Bld) [#/Vol] 7.6 {x10E9/L} 4.4 - 11.3 MP-U [facility] Work Phone: [phone] Comment on above: Ordering Provider: Key COSTA 26194 Complete Blood Count + Differential SEE MANUAL DIFF [facility]OUrolog[facility] Work Phone: Comment on above: Ordering Provider: Key COSTA 40305 Cult, Urineon 10-06-2019 Bacteria identified Cx Nom (U) PATIENT: ZHANNA [place] LOCATION: [address] [id number] : 49 AGE: SEX: M ORDERED BY: CAROLYN COSTA: URINE COLLECTED: 10/06/19 19:28ANTIBIOTICS AT STEPHAN.: RECEIVED : 10/07/19 12:24SITE: Clean Catch/Voided R E S U L T S URINE CULTURE,BACTERIAL FINAL 10/09/19 08:45 ISOLATE1 : Escherichia coli >100,000 CFU/ML Organism E coli Antibiotic BP INTRP Ampicillin S Cefazolin S Ciprofloxacin S Nitrofurantoin S Gentamicin S Levofloxacin S Piperc/Tazobact S Trimeth/Sulfa S Tetracycline S S=S USCEPTIBLE I=INTERMEDIATE R=RESISTANT SDD=SUSCEPTIBLE DOSE DEPENDENT NS=NONSUSCEPTIBLEX=REPORTED IN ERROR __ Abnormal [facility]rologC[facility] Work Phone: Comment on above: Ordering Provider: Key COSTA 45491 Hematologyon 10-06-2019 Band form neutrophils/100 WBC (Bld) 1.0 % 0.0 - 5.0 -[facility] Work Phone: Comment on above: Ordering Provider: Key COSTA 57668 Basophils (Bld) [#/Vol] 0.00 {x10E9/L} See Below [employer] [place] Work Phone: Comment on above: Reference Range: 0.0 0 - 0.10 Ordering Provider: Key COSTA 81879 Basophils/100 WBC (Bld) 0.0 % 0.0 - 2.0 [employer] [place] Work Phone: Comment on above: Ordering Provider: Key COSTA 52330 Eosinophils (Bld) [#/Vol] 0.00 {x10E9/L} See Below [employer] [place] Work Phone: Comment on above: Reference Range: 0.0 0 - 0.40 Ordering Provider: Key COSTA 49823 Eosinophils/100 WBC (Bld) 0.0 % 0.0 - 6.0 [employer] [place] Work Phone: Comment on above: Ordering Provider: Key COSTA 06501 INR Coag (PPP) [Relative time] 1.2 {INR} above high threshold 0.9 - 1.1 [employer] [place] Work Phone: Comment on above: Ordering Provider: Key COSTA 43988 Lymphocytes (Bld) [#/Vol] 0.38 {x10E9/L} below low threshold See Below [employer] [place] Work Phone: Comment on above: Reference Range: 0.8 0 - 3.00 Ordering Provider: Key COSTA 75174 Lymphocytes/100 WBC (Bld) 5.0 % See Below [employer] [place] Work Phone: Comment on above: Reference Range: 13. 0 - 44.0 Ordering Provider: Key Pizarro Monocytes (Bld) [#/Vol] 0.08 {x10E9/L} See Below [employer] [place] Work Phone: Comment on above: Reference Range: 0.0 5 - 0.80 Ordering Provider: Key COSTA 32568 Monocytes/100 WBC (Bld) 1.0 % 2.0 - 10.0 [facility] Work Phone: Comment on above: Ordering Provider: Key Camacho792 PT Coag (PPP) [Time] 14.4 {sec} above high threshold 9.7 - 12.7 [facility] Work Phone: Comment on above: Ordering Provider: Key Pizarro Hepatic Function Panelon Albumin BCP dye [Mass/Vol] 4.4 g/dL 3.4 - 5.0 [facility] Work Phone: Comment on above: Ordering Provider: Key Pizarro ALP [Catalytic activity/Vol] 37 U/L 33 - 136 [facility] Work Phone: Comment on above: Ordering Provider: Key COSTA 08811 ALT With P-5'-P [Catalytic activity/Vol] 15 U/L 10 - 52 [facility] Work Phone: Comment on above: Patients treated wit h Sulfasalazine may generate falsely decreased results for ALT. Ordering Provider: Key Pizarro AST With P-5'-P [Catalytic activity/Vol] 23 U/L 9 - 39 [facility] Work Phone: Comment on above: Ordering Provider: Key COSTA 18327 Bilirubin [Mass/Vol] 0.7 mg/dL 0.0 - 1.2 -[facility] Work Phone: Comment on above: Ordering Provider: Key COSTA 82330 Bilirubin.direct [Mass/Vol] 0.1 mg/dL 0.0 - 0.3 [facility] Work Phone: Comment on above: Ordering Provider: Key Camacho792 Protein [Mass/Vol] 7.4 g/dL 6.4 - 8.2 -[facility] Work Phone: Comment on above: Ordering Provider: Key COSTA 25873 Lactate, Levelon 10-06-2019 Lactate [Moles/Vol] 4.1 mmol/L Critically high 0.4 - 2.0 [facility]: Comment on above: Venipuncture immedia tely after or during the administration of Metamizole may lead to falsely low results. Testing should be performed immediately prior to Metamizole dosing.Critical Called- RB to Patricia Carlos Alberto, 10/06/2019 20:25 Critical Called- RB to Patricia Carcamo, 10/06/2019 20:25Ordering Provider: RACHEL COSTA 71077 Metabolic Panelon 10-06-2019 Anion gap [Moles/Vol] 17 mmol/L 10 - 20 [facility] Work [facility]: Comment on above: Ordering Provider: Key COSTA 77267 Calcium [Mass/Vol] 9.1 mg/dL 8.6 - 10.3 -[facility] [place] Work Phone: Comment on above: Ordering Provider: Key COSTA 37930 Chloride [Moles/Vol] 97 mmol/L below low threshold 98 - 107 -[facility] Work Phone: Comment on above: Ordering Provider: Key COSTA 45515 CO2 [Moles/Vol] 24 mmol/L 21 - 32 -[facility] [place] Work Phone: Comment on above: Ordering Provider: Key COSTA 80612 Creatinine [Mass/Vol] 1.84 mg/dL above high threshold See Below -[facility] [place] Work Phone: Comment on above: Reference Range: 0.5 0 - 1.30 Ordering Provider: Key COSTA 64848 Glucose [Mass/Vol] 309 mg/dL above high threshold 74 - 99 -[facility] [place] Work Phone: Comment on above: Ordering Provider: Key COSTA 75349 Potassium [Moles/Vol] 3.9 mmol/L 3.5 - 5.3 -[facility] Work Phone: Comment on above: Ordering Provider: Kye COSTA 94945 Sodium [Moles/Vol] 134 mmol/L below low threshold 136 - 145 [facility] Work Phone: Comment on above: Ordering Provider: Key COSTA 53233 Urea nitrogen [Mass/Vol] 25 mg/dL above high threshold 6 - 23 [facility] Work Phone: Comment on above: Ordering Provider: Key COSTA 43991 Otheron 10-06-2019 GROWTH Critically abnormal No Growth [facility] Work Phone: Comment on above: Positive Blood Cultu re. Sample will be analyzed on the [employer] for PreliminaryIdentification and will be sent to [facility]biology Department at [facility] for confirmatory identification and susceptibility. See Blood Culture [employer] FilmArray and Blood Culture,Referred for results.gram negative bacilli Called- RB to Ruby Cortez, 10/07/2019 10:27 Called- RB to Ruby Cortez, 10/07/2019 10:27Ordering Provider: RACHEL COSTA 35541 PATIENT: DELGADO [place] LOCATION: [address] [id number] : 49 AGE: SEX: M ORDERED BY: CAROLYN COSTA: Blood COLLECTED: 10/06/19 20:29ANTIBIOTICS AT STEPHAN.: RECEIVED : 10/07/19 20:51SITE: PERIPHERAL R E S U L T S BLOOD CULTURE,REFERRED FINAL 10/09/19 10:09 ISOLATE1 : Escherichia coli AEROBIC VIAL POSITIVE ANAEROBIC VIAL POSITIVE Organism E coli Antibiotic BP INTRP Ampicillin S Cefazolin S Ciprofloxacin S Gentamicin S Levofloxacin S Piperc/Tazobact S Trimeth/Sulfa S S=S USCEPTIBLE I=INTERMEDIATE R=RESISTANT SDD=SUSCEPTIBLE DOSE DEPENDENT NS=NONSUSCEPTIBLEX=REPORTED IN ERROR __ Abnormal [facility] [place] Work Phone: Comment on above: Ordering Provider: Key COSTA 72376 CT Head limited WO contrast Interpreted by: KHOA SOLITARIO10/06/19 20:38STUDY:CT Head without IV Contrast; 10/06/2019 8:09 PM. INDICATION:Altered mental status. COMPARISON:None Available. ORDERING CLINICIAN:RACHEL COSTA DO TECHNIQUE:Noncontrast axial CT scan of head was performed. Angled reformats inbrain and bone windows were generated. The images were reviewed inbone, brain, blood and soft tissue windows. Automated mA/kV exposure control was utilized and patient examinationwas performed in strict accordance with principles of ALARA. FINDINGS:CSF Spaces: The ventricles, sulci and basal cisterns are withinnormal limits for age. There is no extraaxial fluid collection. Mildpatchy areas of low-attenuation are seen in the subcortical and deepperiventricular white matter suggesting areas of chronic microvascularischemia. Parenchyma: The milligan-white differentiation is intact. There is nomass effect or midline shift. There is no intracranial hemorrhage. Calvarium: The calvarium is unremarkable. Paranasal sinuses and mastoids: Visualized paranasal sinuses andmastoids are clear. IMPRESSION:No acute intracranial abnormality. Signed by Khoa Solitario MDElectronically signed by: KHOA SOLITARIO 10/06/19 20:38 Normal [facility] [place] Work Phone: Comment on above: Ordering Provider: Key COSTA 79523 GROWTH Critically abnormal No Growth [facility] [place] Work Phone: Comment on above: Positive Blood Cultu re. Sample will be analyzed on the [employer] for PreliminaryIdentification and will be sent to [facility] Department at [facility] for confirmatory identification and susceptibility. See Blood Culture [employer] FilmArray and Blood Culture,Referred for results.gram negative bacilliCALLED TO JENNI ODELL 10/08/19 AT 1658 BY DLFThis is a corrected result. Previous value was No growth at 2 days, verified at 10/08/2019 13:53REVISED REPORT, Previously reported as: gram negative bacilli (Reported 10/08/2019 16:05) Called- RB to jenni odell , 10/08/2019 20:28 Called- RB to jenni odell , 10/08/2019 20:28Ordering Provider: RACHEL COSTA 62212 PATIENT: DELGADO [place] LOCATION: [address]#: [id number] : 49 AGE: SEX: M ORDERED BY: CAROLYN COSTA: Blood COLLECTED: 10/06/19 20:05ANTIBIOTICS AT STEPHAN.: RECEIVED : 10/08/19 22:35SITE: ANTECUBITAL R E S U L T S BLOOD CULTURE,REFERRED FINAL 10/09/19 13:38 ISOLATE1 : Escherichia coli AEROBIC VIAL POSITIVE FOR ANTIBIOTIC SUSCEPTIBILITY RESULTS SEE ACCN#/DATE [id number], 10/06/2019 Abnormal [facility] [place] Work Phone: Comment on above: Ordering Provider: Key COSTA 84212 44 {mL/min/1.73m2} Abnormal >60 [facility]- [place] Work Phone: Comment on above: CALCULATIONS OF DEZ MATED GFR ARE PERFORMED USING THE MDRD STUDY EQUATION FOR THE IDMS-TRACEABLE CREATININE METHODS. CLIN CHEM 2007;53:766-72 Ordering Provider: Key COSTA 16517 36 {mL/min/1.73m2} Abnormal >60 [facility] [place] Work Phone: Comment on above: Ordering Provider: Key COSTA 78983 No growth at 1 day No Growth [facility] [place] Work Phone: Comment on above: Called- RB to jenni odell , 10/08/2019 20:28Ordering Provider: RACHEL Camacho792 Segmented neutrophils/100 WBC (Bld) 93.0 % See Below [facility] [place] Work Phone: Comment on above: Reference Range: 40. 0 - 80.0 Percent differential counts (%) should be interpreted in the context of the absolute cell counts (cells/L). Ordering Provider: Key COSTA 16796 7.15 {x10E9/L} above high threshold See Below [facility] [place] Work Phone: Comment on above: Reference Range: 1.6 0 - 5.50 Ordering Provider: Key CSOTA 17340 7.07 {x10E9/L} above high threshold See Below [facility] [place] Work Phone: Comment on above: Reference Range: 1.6 0 - 5.00 Ordering Provider: Key COSTA 48201 NORMAL -[facility] [place] Work Phone: Comment on above: Ordering Provider: Key COSTA 20621 0.08 {x10E9/L} See Below -[facility] [place] Work Phone: Comment on above: Reference Range: 0.0 0 - 0.50 Ordering Provider: Key COSTA 33649 Interpreted by: NATE BECERRIL10/06/19 20:27STUDY:Chest Radiograph; 10/06/2019 INDICATION:Altered mental stats. COMPARISON:None Available. ORDERING CLINICIAN:RACHEL COSTA DO TECHNIQUE: Frontal chest was obtained at 19:47 hours. FINDINGS: Apical lordotic projection. No focal consolidation, pleural effusionor pneumothorax. Heart size normal. Impression: Apical lordotic projection. No focal consolidation, pleural effusionor pneumothorax. Heart size normal. Signed by Judi Becerril MDElectronically signed by: JUDI BECERRIL 10/06/19 20:27 Normal [facility] [place] Work Phone: [phone] Comment on above: Ordering Provider: Key COSTA 78730 14 1 [facility] [place] Work Phone: Comment on above: Ordering Provider: Key Costa 85306 420 1 [facility] [place] Work Phone: Comment on above: Ordering Provider: Key Costa 16217 15 1 [facility] [place] Work Phone: Comment on above: Ordering Provider: Key Costa 15118 90 1 [facility] [place] Work Phone: Comment on above: Ordering Provider: Key Costa 38956 344 1 [facility] [place] Work Phone: Comment on above: Ordering Provider: Key Costa 36457 186 1 [facility] [place] Work Phone: Comment on above: Ordering Provider: Key Costa 97428 129 1 [facility] [place] Work Phone: Comment on above: Ordering Provider: Key Costa 11367 168 1 [facility] [place] Work Phone: Comment on above: Ordering Provider: Key Costa 52910 394 1 [facility] [place] Work Phone: Comment on above: Ordering Provider: Key Costa 78315 393 1 [facility] [place] Work Phone: Comment on above: Ordering Provider: Key Costa 89585 Please see physicia n note for formal interpretation confirmed by Scribe [facility] [place] Work Phone: Comment on above: Ordering Provider: Key Costa 46303 [id number] [facility] Work Phone: Comment on above: Ordering Provider: Key Costa 43143 222 1 [facility] Work Phone: Comment on above: Ordering Provider: Key Costa 12390 85 1 [facility] Work Phone: Comment on above: Ordering Provider: Key Costa 01646 96 1 [facility] Work Phone: Comment on above: Ordering Provider: Key Costa 26398 FLUAV RNA ADAN+probe Ql (Unsp spec) NOT DETECTED See Below [facility] Work Phone: Comment on above: SOURCE: Nasal, Nasop haryngealReference Range: Not Detected Respiratory virus testing is performed routinely by PCR for Influenza A/B and RSV. Not Detected results do not preclude Influenza A/B or RSV infections since the adequacy of sample collection or low viral burden may impact the clinical sensitivity of this test method. Ordering Provider: Key COSTA 45379 FLUBV RNA ADAN+probe Ql (Unsp spec) NOT DETECTED See Below [facility] Work Phone: Comment on above: Reference Range: Not Detected Respiratory virus testing is performed routinely by PCR for Influenza A/B and RSV. Not Detected results do not preclude Influenza A/B or RSV infections since the adequacy of sample collection or low viral burden may impact the clinical sensitivity of this test method. Ordering Provider: Key COSTA 24779 NOT DETECTED See Below [facility] Work Phone: Comment on above: SOURCE: Nasal, Nasop haryngealReference Range: Not Detected Respiratory virus testing is performed routinely by PCR for Influenza A/B and RSV. Not Detected results do not preclude Influenza A/B or RSV infections since the adequacy of sample collection or low viral burden may impact the clinical sensitivity of this test method. Ordering Provider: Key COSTA 75609 Reference Range: Not Detected Respiratory virus testing is performed routinely by PCR for Influenza A/B and RSV. Not Detected results do not preclude Influenza A/B or RSV infections since the adequacy of sample collection or low viral burden may impact the clinical sensitivity of this test method. Amphetamines Screen Ql (U) Negative NEGATIVE -[facility] [place] Work Phone: Comment on above: CUTOFF LEVEL: 500 NG /ML Cross-reactivity has been reported with high concentrations of the following drugs: buproprion, chloroquine, chlorpromazine, ephedrine, mephentermine, fenfluramine, phentermine, phenylpropanolamine, pseudoephedrine, and propranolol. Ordering Provider: Key COSTA 99592 Benzoylecgonine Screen Ql (U) Negative NEGATIVE -[facility] [place] Work Phone: Comment on above: CUTOFF LEVEL: 150 NG /ML Ordering Provider: Key COSTA 86048 Methadone Screen Ql (U) Negative NEGATIVE -[facility] Work Phone: Comment on above: CUTOFF LEVEL: 150 NG /ML The metabolite C-vcycy-tgsdehbtqqacgd (LAAM) is not detected by this method in concentrations that would be found in the urine of patients on LAAM therapy. Ordering Provider: Key COSTA 82163 Opiates Screen Ql (U) Negative NEGATIVE -[facility] Work Phone: Comment on above: CUTOFF LEVEL: 300 NG /ML The opiate screen does not detect fentanyl, meperidine, or tramadol. Oxycodone is not consistently detected (refer to Oxycodone Screen, Urine result). Ordering Provider: Key COSTA 69199 Oxycodone+Oxymorphon e Screen Ql (U) Negative NEGATIVE -[facility] [place] Work Phone: Comment on above: CUTOFF LEVEL: 100 NG /ML This test will accurately detect both oxycodone and oxymorphone. Ordering Provider: Key COSTA 75042 SEE BELOW -[facility] [place] Work Phone: Comment on above: Drug screen results are presumptive and should not be used to assess compliance with prescribed medication. Contact the performing [facility] laboratory to add-on definitive confirmatory testing if clinically indicated. .Toxicology screening results are reported qualitatively. The concentration must be greater than or equal to the cutoff to be reported as positive. The concentration at which the screening test can detect an individual drug or metabolite varies. The absence of expected drug(s) and/or drug metabolite(s) may indicate non-compliance, inappropriate timing of specimen collection relative to drug administration, poor drug absorption, diluted/adulterated urine, or limitations of testing. For medical purposes only; not valid for forensic use. .Interpretive questions should be directed to the laboratory medical directors. Ordering Provider: Key COSTA 34643 TSH - Thyroid Stimulating Ho rmone, Serumon 10-06-2019 TSH Qn 2.43 {mIU/L} See Below [facility] Work Phone: Comment on above: Reference Range: 0.4 4 - 3.98 TSH testing is performed using different testing methodology at [facility] than at other [facility]. Direct result comparisons should only be made within the same method. Ordering Provider: Key COSTA 72000 Troponin I, Serumon 10-06-19 20 Troponin I.cardiac [Mass/Vol] 0.03 ng/mL See Below [facility] Work Phone: Comment on above: Reference Range: 0.0 0 - 0.03LESS THAN 0.04 NG/ML: NEGATIVEREPEAT TESTING IN THREE TO SIX HOURSIF CLINICALLY INDICATED.0.04 - 0.5 NG/ML: CONSISTENT WITH POSSIBLECARDIAC DAMAGE AND POSSIBLE INCREASEDCLINICAL RISK.SERIAL MEASUREMENTS MAY HELP ASSESS EXTENT OFMYOCARDIAL DAMAGE.>0.5 NG/ML: CONSISTENT WITH CARDIAC DAMAGE,INCREASED CLINICAL RISK AND MYOCARDIALINFARCTION. SERIAL MEASUREMENTS MAY HELPASSESS EXTENT OF MYOCARDIAL DAMAGE..Note: Troponin I testing is performed using different testing methodology at [facility] than at other [facility]. Direct result comparisons should only be made within the same method. Ordering Provider: Key COSTA 96148 Urinalysison 10-06-2019 Barbiturates Screen Ql (U) Negative NEGATIVE [facility] Work Phone: Comment on above: CUTOFF LEVEL: 200 NG /ML Ordering Provider: Key COSTA 12284 Benzodiazepines Ql (U) Negative NEGATIVE [facility] Work Phone: Comment on above: CUTOFF LEVEL: 200 NG /ML Ordering Provider: Key COSTA 71252 Cannabinoids Screen Ql (U) Negative NEGATIVE [facility] Work Phone: Comment on above: CUTOFF LEVEL: 50 NG/ ML Ordering Provider: Key COSTA 06370 Phencyclidine Ql (U) Negative NEGATIVE [facility] [place] Work Phone: Comment on above: CUTOFF LEVEL: 25 NG/ ML Cross-reactivity has been reported with dextromethorphan. Ordering Provider: Key Pizarro Appearance (U) HAZY CLEAR [facility] [place] Work Phone: Comment on above: Ordering Provider: Key Pizarro Color (U) Yellow See Below [facility] [place] Work Phone: Comment on above: Reference Range: STR AW,YELLOW Ordering Provider: Key COSTA 61617 Glucose Ql (U) >=500(3+) Abnormal NEGATIVE [facility] [place] Work Phone: [phone] Comment on above: Ordering Provider: Key Camacho792 Ketones Ql (U) 5(TRACE) Abnormal NEGATIVE [facility] [place] Work Phone: [phone] Comment on above: Ordering Provider: Key Camacho792 Leukocyte esterase Test strip Ql (U) MODERATE(2+) Abnormal NEGATIVE [facility] [place] Work Phone: [phone] Comment on above: Ordering Provider: Key COSTA 60335 pH (U) 5.0 [pH] 5.0 - 8.0 [facility] [place] Work Phone: [phone] Comment on above: Ordering Provider: Key COSTA 43075 Protein (U) [Mass/Vol] 100(2+) Abnormal NEGATIVE [facility] [place] Work Phone: [phone] Comment on above: Ordering Provider: Key Camacho792 RBC (U) [#/Vol] LARGE(3+) Abnormal NEGATIVE [facility] [place] Work Phone: Comment on above: Ordering Provider: J USTIN ANDES 25531 Specific gravity (U) [Rel density] 1.024 1 See Below [facility] [place] Work Phone: Comment on above: Reference Range: 1.0 05 - 1.035 Ordering Provider: Key COSTA 36260 Urinalysis Negative NEGATIVE [facility] [place] Work Phone: Comment on above: Ordering Provider: Key COSTA 14952 Urinalysis <2.0 0.0 - 1.9 [facility] [place] Work Phone: Comment on above: Ordering Provider: Key COSTA 00149 Urinalysis, Microscopicon Bacteria LM.HPF (Urine sed) [#/Area] 2+ Abnormal [facility] [place] Work Phone: Comment on above: Ordering Provider: Key COSTA 17557 Urinalysis, Microscopic >182 Abnormal 0-5 [facility] [place] Work Phone: Comment on above: Ordering Provider: Key COSTA 79488 Urinalysis, Microscopic FEW [facility] [place] Work Phone: [phone] Comment on above: Ordering Provider: Key COSTA 92021 Urinalysis, Microscopic 6 {/HPF} Abnormal 0-5 [facility] [place] Work Phone: [phone] Comment on above: Ordering Provider: Key COSTA 71157 Urinalysis, Microscopic 1 {/HPF} [facility] [place] Work Phone: [phone] Comment on above: Ordering Provider: Key COSTA 45487 Urinalysis, Microscopic 1+ [facility] [place] Work Phone: [phone] Comment on above: Ordering Provider: Key COSTA 01160 Otheron 10-03-2019 Name ZHANNA [place] Pathologist: MEDINA ZHAO, MDDate of Procedure: 10/03/2019Date Received: 10/04/2019Date Reported 10/10/2019Submitting Physician: TERESA GOMEZ II, MDLocation: Other External # FINAL DIAGNOSISA. PROSTATE, RIGHT SIDE, BIOPSY: --ADENOCARCINOMA, YISEL SCORE 6 (3+3) INVOLVING TWO OF SIX CORES AND 8% OFTHE SUBMITTED TISSUE; SEE NOTE.Note: Immunohistochemical stains for p63 and 34-beta-E12 are confirmatory. B. PROSTATE, LEFT SIDE, BIOPSY: --ADENOCARCINOMA, YISEL SCORE 6 (3+3) INVOLVING ONE OF SEVEN CORE FRAGMENTSAND LESS THAN 5% OF THE SUBMITTED TISSUEThe International Society of Urologic Pathologists has developed a new prostatecancer grading system (the Grade Group System) which has been accepted by [facility]. Shown below is a correlation between conventionalGleason grading/scoring and the new Grade Group system: Grade Group 1 (Smithwick score =6) Grade Group 2 (Smithwick score 3+4=7) Grade Group 3 (Yisel score 4+3=7) Grade Group 4 (Smithwick score 8) Grade Group 5 (Yisel scores 9-10)The gross and/or microscopic findings were reviewed in conjunction withpathology resident, Amy Charles MD. Electronically Signed Out By MEDINA ZHAO MD/Kasia the signature on this report, the individual or group listed as making theFinal Interpretation/Diagnosis certifies that they have reviewed this case. Clinical History:R97.20Specimens Submitted As:A: PROSTATE RIGHT BX B: PROSTATE LEFT BX Gross Description:A: Received in formalin, labeled with the patient's name and hospital numberand right prostate, are multiple cylindrical fragments of irwin soft tissueranging from 0.3 cm to 2.0 cm in length by less than 0.1 cm in diameter. Thespecimen is submitted in toto in 2 cassettes.DPGB: Received in formalin, labeled with the patient's name and hospital numberand left prostate tissue, are multiple cylindrical fragments of irwin softtissue ranging from 0.2 cm to 1.2 cm in length by less than 0.1 cm in diameter. The specimen is submitted in toto in 2 cassettes.DPGdpg/10/04/2019 The assays/tests were performed with appropriate positive and negative controlswhich stained appropriately. [facility]: [facility] Surgical Pathology Depar tmenton 10-03-2019 [facility] Surgical Pathology Department Name ZHANNA [place] Pathologist: MEDINA ZHAO MD Date of Procedure: 10/03/2019 Date Received: 10/04/2019 Date Reported 10/10/2019 Submitting Physician: TERESA GOMEZ II, MD Location: Other External # FINAL DIAGNOSIS A. PROSTATE, RIGHT SIDE, BIOPSY: --ADENOCARCINOMA, YISEL SCORE 6 (3+3) INVOLVING TWO OF SIX CORES AND 8% OF THE SUBMITTED TISSUE; SEE NOTE. Note: Immunohistochemical stains for p63 and 34-beta-E12 are confirmatory. B. PROSTATE, LEFT SIDE, BIOPSY: --ADENOCARCINOMA, YISEL SCORE 6 (3+3) INVOLVING ONE OF SEVEN CORE FRAGMENTS AND LESS THAN 5% OF THE SUBMITTED TISSUE The International Society of Urologic Pathologists has developed a new prostate cancer grading system (the Grade Group System) which has been accepted by the World Health Organization. Shown below is a correlation between conventional Smithwick grading/scoring and the new Grade Group system: ? Grade Group 1 (Smithwick score =6) ? Grade Group 2 (Smithwick score 3+4=7) ? Grade Group 3 (Smithwick score 4+3=7) ? Grade Group 4 (Yisel score 8) ? Grade Group 5 (Yisel scores 9-10) The gross and/or microscopic findings were reviewed in conjunction with pathology resident, Amy Charles MD. Electronically Signed Out By MEDINA ZHAO MD/Yokasta By the signature on this report, the individual or group listed as making the Final Interpretation/Diagnosis certifies that they have reviewed this case. Clinical History: R97.20 Specimens Submitted As: A: PROSTATE RIGHT BX B: PROSTATE LEFT BX Gross Description: A: Received in formalin, labeled with the patient's name and hospital number and right prostate, are multiple cylindrical fragments of irwin soft tissue ranging from 0.3 cm to 2.0 cm in length by less than 0.1 cm in diameter. The specimen is submitted in toto in 2 cassettes. DPG B: Received in formalin, labeled with the patient's name and hospital number and left prostate tissue, are multiple cylindrical fragments of irwin soft tissue ranging from 0.2 cm to 1.2 cm in length by less than 0.1 cm in diameter. The specimen is submitted in toto in 2 cassettes. DPG dpg/10/04/2019 The assays/tests were performed with appropriate positive and negative controls which stained appropriately. Normal [facility] Comment on above: Performed By: #### U HCS #### [facility] Surgical Pathology Department [address] [address] Gallegos [facility] [address] CMPon 01-10-2019 Albumin mass conc 4.4 g/dL Normal 3.4-5.0 [facility] Comment on above: Performed By: #### 2 [id number] #### [facility] [employer] [address] [place] [address] Albumin/Globulin mass ratio 1.8 {ratio} Normal 1.1-1.9 [facility] Comment on above: Performed By: #### 2 [id number] #### [facility] [employer] [address] [place] [address] Alk Phos 34 Int._Unit/L Normal 33-136 [facility] Comment on above: Performed By: #### 2 [id number] #### [facility] [employer] [address] [place] [address] ALT enzyme act/vol 19 Int._Unit/L Normal 10-52 [facility] Comment on above: Performed By: #### 2 146847 #### [facility] [employer] [address] [place] [address] Anion gap molar conc 13 mmol/L Normal 10-20 [facility] Comment on above: Performed By: #### 2 [id number] #### [facility] [employer] [address] [place] [address] AST enzyme act/vol 26 Int._Unit/L Normal 9-39 [facility] Comment on above: Performed By: #### 2 109020 #### [facility] [employer] [address] [place] [address] Bili Total 0.57 mg/dL Normal 0.00-1.20 [facility] Comment on above: Performed By: #### 2 178074 #### [facility] [employer] [address] [place] [address] Calcium mass conc 9.6 mg/dL Normal 8.6-10.3 [facility] Comment on above: Performed By: #### 2 848221 #### [facility] [employer] [address] [place] [address] Chloride molar conc 99 mmol/L Normal 98-107 [facility] Comment on above: Performed By: #### 2 800816 #### [facility] [employer] [address] [place] [address] CO2 molar conc 27.0 mmol/L Normal 21.0-32.0 [facility] Comment on above: Performed By: #### 2 111069 #### [facility] [employer] [address] [place] [address] Creatinine mass conc 1.1 mg/dL Normal 0.5-1.3 [facility] Comment on above: Performed By: #### 2 668125 #### [facility] [employer] [address] [place] [address] Globulin mass conc (S) 3.0 g/dL Normal 2.0-4.0 [facility] Comment on above: Performed By: #### 2 [id number] #### [facility] [employer] [address] [place] [address] Glucose mass conc 125 mg/dL High 70-99 [facility] Comment on above: Performed By: #### 2 030320 #### [facility] [employer] [address] [place] [address] Potassium molar conc 3.6 mmol/L Normal 3.5-5.3 [facility] Comment on above: Performed By: #### 2 416857 #### [facility] [employer] [address] [place] [address] Protein mass conc 6.9 g/dL Normal 6.4-8.2 [facility] Comment on above: Performed By: #### 2 094133 #### [facility] [employer] [address] [place] [address] Sodium molar conc 135 mmol/L Low 136-145 [facility] Comment on above: Performed By: #### 2 018440 #### [facility] [employer] [address] [place] [address] Urea nitrogen mass conc 13 mg/dL Normal 6-23 [facility] Comment on above: Performed By: #### 2 052502 #### [facility] [employer] [address] [place] [address] Urea nitrogen/Creatinine mass ratio 11.8 ratio Normal 5.4-30.0 [facility] Comment on above: Performed By: #### 2 209202 #### [facility] [employer] [facility] [place] [address] [id number] 01-10-2019 Hemoglobin A1c/Hemoglobin.total mass fraction (Bld) 7.3 % High 4.0-6.3 [facility] Comment on above: Performed By: #### 3 [id number] #### [facility] Chemistry Manual Subsection [address] [place], [place] [id number] eGFRon 01-10-2019 GFR/1.73 sq M predicted among non-blacks MDRD vol rate/area (S/P/Bld) mL/min/{1.73_m2} Normal [facility] Comment on above: Order Comment: Order added by Discern Expert. Performed By: #### 1 [id number] #### [facility] [employer] [address] [place] [address] CMPon 07-13-2018 Albumin mass conc 4.2 g/dL Normal 3.4-5.0 [facility] Comment on above: Performed By: #### 2 112412 #### [facility] [employer] [address] [place], [place] [id number] Albumin/Globulin mass ratio 1.8 {ratio} Normal 1.1-1.9 [facility] Comment on above: Performed By: #### 2 467457 #### [facility] [employer] [address] [place] [address] Alk Phos 55 Int._Unit/L Normal 33-136 [facility] Comment on above: Performed By: #### 2 993817 #### [facility] [employer] [address] [place] [address] ALT enzyme act/vol 21 Int._Unit/L Normal 10-52 [facility] Comment on above: Performed By: #### 2 036711 #### [facility] [employer] [address] [place] [address] Anion gap molar conc 11 mmol/L Normal 10-20 [facility] Comment on above: Performed By: #### 2 192072 #### [facility] [employer] [address] [place] [address] AST enzyme act/vol 29 Int._Unit/L Normal 9-39 [facility] Comment on above: Performed By: #### 2 276672 #### [facility] [employer] [address] [place] [address] Bili Total 0.4 mg/dL Normal 0.0-1.2 [facility] Comment on above: Performed By: #### 2 [id number] #### [facility] [employer] [address] [place] [address] Calcium mass conc 9.4 mg/dL Normal 8.6-10.3 [facility] Comment on above: Performed By: #### 2 621064 #### [facility] [employer] [address] [place] [address] Chloride molar conc 101 mmol/L Normal 98-107 [facility] Comment on above: Performed By: #### 2 897657 #### [facility] [employer] [address] [place] [address] CO2 molar conc 27.0 mmol/L Normal 21.0-32.0 [facility] Comment on above: Performed By: #### 2 [id number] #### [employer] [address] [place] [address] Creatinine mass conc 1.2 mg/dL Normal 0.5-1.3 [facility] Comment on above: Performed By: #### 2 [id number] #### [facility] [employer] [address] [place] [address] Globulin mass conc (S) 2.0 g/dL Normal 2.0-4.0 [facility] Comment on above: Performed By: #### 2 788380 #### [facility] [employer] [address] [place] [address] Glucose mass conc 164 mg/dL High 70-99 [facility] Comment on above: Performed By: #### 2 901664 #### [facility] [employer] [address] [place] [address] Potassium molar conc 3.7 mmol/L Normal 3.5-5.3 [facility] Comment on above: Performed By: #### 2 954715 #### [facility] [employer] [address] [place] [address] Protein mass conc 6.6 g/dL Normal 6.4-8.2 [facility] Comment on above: Performed By: #### 2 440063 #### [facility] [employer] [address] [place] [address] Sodium molar conc 135 mmol/L Low 136-145 [facility] Comment on above: Performed By: #### 2 997791 #### [facility] [employer] [address] [place] [address] Urea nitrogen mass conc 20 mg/dL Normal 6-23 [facility] Comment on above: Performed By: #### 2 902636 #### [facility] [employer] [address] [place] [address] Urea nitrogen/Creatinine mass ratio 16.7 ratio Normal 5.4-30.0 [facility] Comment on above: Performed By: #### 2 500919 #### [facility] [employer] [address] [place] [address] [id number] 07-13-2018 Hemoglobin A1c/Hemoglobin.total mass fraction (Bld) 8.0 % High 4.0-6.3 [facility] Comment on above: Performed By: #### 3 [id number] #### [facility] Chemistry Manual Subsection [address] [place] [address] Lipid Profileon 07-13-2018 Cholesterol in HDL mass conc 27 mg/dL Normal [facility] Comment on above: Performed By: #### 3 [id number] #### [facility] [employer] [address] [place] [address] Cholesterol in LDL mass conc 23 mg/dL Normal 0-130 [facility] Comment on above: Result Comment: <100 OPTIMAL 100-129 NEAR / ABOVE OPTIMAL 130-159 BORDERLINE HIGH 160-189 HIGH >190 VERY HIGH CALC LDL NOT VALID WHEN TRIGLYCERIDE IS >400 MG/DL Performed By: #### 3 [id number] #### [facility] [employer] [facility] [place] [address] Cholesterol in VLDL mass conc 96 mg/dL Normal [facility] Comment on above: Performed By: #### 3 [id number] #### [facility] [employer] [address] [place] [address] Cholesterol mass conc 146 mg/dL Normal 120-200 [facility] Comment on above: Result Comment: TOTA L CHOLEESTEROL: <200 NORMAL 200 - 239 BORDERLINE HIGH >240 HIGH Performed By: #### 3 [id number] #### [facility] [employer] [address] [place] [address] Triglyceride mass conc 479 mg/dL High 0-150 [facility] Comment on above: Result Comment: <150 NORMAL 150-199 BORDERLINE HIGH 200-499 HIGH >500 VERY HIGH Performed By: #### 3 [id number] #### [facility] [employer] [address] [place] [address] eGFRon 07-13-2018 GFR/1.73 sq M predicted among non-blacks MDRD vol rate/area (S/P/Bld) mL/min/{1.73_m2} Normal [facility] Comment on above: Order Comment: Order added by Discern Expert. Performed By: #### 1 [id number] #### [facility] [employer] [facility] [place] [address] Vital Signs Date Time Vital Sign Value Performing Clinician Facility 09-20-2024 13:38-0500 Body height 184.2 cm Todd Bunch MD Work Phone: [facility] 09-20-2024 13:38-0500 Body mass index (BMI) [Ratio] 30.76 kg/m2 Todd Bunch MD Work Phone: [facility] 09-20-2024 13:38-0500 Body weight 104.33 kg Todd Bunch MD Work Phone: [facility] 09-20-2024 13:38-0500 Diastolic blood pressure 84 mm[Hg] Todd Bunch MD Work Phone: [facility] 09-20-2024 13:38-0500 Heart rate 56 /min Todd Bunch MD Work Phone: [facility] 09-20-2024 13:38-0500 Respiratory rate 16 /min Todd Bunch MD Work Phone: [facility] 09-20-2024 13:38-0500 Systolic blood pressure 128 mm[Hg] Todd Bunch MD Work Phone: [facility] 03-15-2024 11:50-0400 Diastolic blood pressure 76 mm[Hg] Talia Dorsey APRN.MACHINING SUPERVISOR Work Phone: [facility] 03-15-2024 11:50-0400 Systolic blood pressure 133 mm[Hg] Talia Dorsey APRN.MACHINING SUPERVISOR Work Phone: [facility] 03-15-2024 11:27-0400 Body mass index (BMI) [Ratio] 30.47 kg/m2 Talia Dorsey APRN.MACHINING SUPERVISOR Work Phone: [facility] 03-15-2024 11:27-0400 Body weight 102.06 kg Talia Dorsey APRN.MACHINING SUPERVISOR Work Phone: [facility] 03-15-2024 11:27-0400 Heart rate 51 /min Talia Dorsey APRN.MACHINING SUPERVISOR Work Phone: [facility] 03-15-2024 11:27-0400 Respiratory rate 14 /min Talia Dorsey APRN.MACHINING SUPERVISOR Work Phone: [facility] 05-20-2023 11:17-0400 Body weight 101.61 kg Todd Bunch MD Work Phone: [facility] 05-20-2023 11:17-0400 Diastolic blood pressure 70 mm[Hg] Todd Bunch MD Work Phone: [facility] 05-20-2023 11:17-0400 Heart rate 64 /min Todd Bunch MD Work Phone: [facility] 05-20-2023 11:17-0400 Respiratory rate 18 /min Todd Bunch MD Work Phone: [facility] 05-20-2023 11:17-0400 Systolic blood pressure 130 mm[Hg] Todd Bunch MD Work Phone: [facility] 05-13-2023 17:32-0400 Body weight 104.33 kg Todd Bunch MD Work Phone: [facility] 05-13-2023 17:32-0400 Diastolic blood pressure 80 mm[Hg] Todd Bunch MD Work Phone: [facility] 09-06-2023 17:32-0400 Heart rate 68 /min Todd Bunch MD Work Phone: [facility] 05-13-2023 17:32-0400 Respiratory rate 16 /min Todd Bunch MD Work Phone: [facility] 05-13-2023 17:32-0400 Systolic blood pressure 140 mm[Hg] Todd Bunch MD Work Phone: [facility] 03-11-2023 11:52-0400 Body temperature 97.7 [degF] Monserrat Cortez PA-C Work Phone: [facility] 03-11-2023 11:52-0400 Body weight 99.79 kg Monserrat Cortez PA-C Work Phone: [facility] 03-11-2023 11:52-0400 Diastolic blood pressure 72 mm[Hg] Monserrat Cortez PA-C Work Phone: [facility] 03-11-2023 11:52-0400 Heart rate 62 /min Monserrat Cortez PA-C Work Phone: [facility] 03-11-2023 11:52-0400 Respiratory rate 16 /min Monserrat Cortez PA-C Work Phone: [facility] 03-11-2023 11:52-0400 Systolic blood pressure 120 mm[Hg] Monserrat Cortez PA-C Work Phone: [facility] 02-23-2023 14:20-0400 Body height 187.[address] Todd Bunch Work Phone: [facility] 02-23-2023 14:20-0400 Body mass index (BMI) [Ratio] 28.3 kg/m2 Dr. Todd Bunch Work Phone: [facility] 02-23-2023 14:20-0400 Body weight 100.[address] Todd Bunch Work Phone: [facility] 02-23-2023 14:20-0400 Diastolic blood pressure 84 mm[Hg] Dr. Todd Bunch Work Phone: [facility] 02-23-2023 14:20-0400 Heart rate 62 /min Dr. Todd Bunch Work Phone: [facility] 02-23-2023 14:20-0400 SaO2% (BldA) [Mass fraction] 95 % Dr. Todd Bunch Work Phone: [facility] 02-23-2023 14:20-0400 Systolic blood pressure 147 mm[Hg] Dr. Todd Bunch Work Phone: [facility] 12-09-2022 13:01-0400 Body temperature 97.3 [degF] Monserratumer Cortez PA-C Work Phone: [facility] 12-09-2022 13:01-0400 Body weight 100.25 kg Monserratumer Cortez PA-C Work Phone: [facility] 12-09-2022 13:01-0400 Diastolic blood pressure 76 mm[Hg] Monserrat Cortez PA-C Work Phone: [facility] 12-09-2022 13:01-0400 Heart rate 66 /min Monserrat Cortez PA-C Work Phone: [facility] 12-09-2022 13:01-0400 Respiratory rate 18 /min Monserratumer Cortez PA-C Work Phone: [facility] 12-09-2022 13:01-0400 Systolic blood pressure 106 mm[Hg] Monserrat Cortez PA-C Work Phone: [facility] 09-11-2022 11:33-0500 Body height 185.4 cm Ann Marie Mcdaniel MD Work Phone: [facility] 09-11-2022 11:33-0500 Body temperature 97.39 [degF] Ann Marie Mcdaniel MD Work Phone: [facility] 09-11-2022 11:33-0500 Body weight 102.97 kg Ann Marie Mcdaniel MD Work Phone: [facility] 09-11-2022 11:33-0500 Diastolic blood pressure 92 mm[Hg] Ann Marie Mcdaniel MD Work Phone: [facility] 09-11-2022 11:33-0500 Heart rate 74 /min Ann Marie Mcdaniel MD Work Phone: [facility] 09-11-2022 11:33-0500 Respiratory rate 14 /min Ann Marie Mcdaniel MD Work Phone: [facility] 09-11-2022 11:33-0500 SaO2% (BldA) [Mass fraction] 97 % Ann Marie Mcdaniel MD Work Phone: [facility] 09-11-2022 11:33-0500 Systolic blood pressure 170 mm[Hg] Ann Marie Mcdaniel MD Work Phone: [facility] 09-10-2022 10:25-0500 Body height 184.2 cm Todd Bunch MD Work Phone: [facility] 09-10-2022 10:25-0500 Body weight 101.15 kg Todd Bunch MD Work Phone: [facility] 09-10-2022 10:25-0500 Diastolic blood pressure 82 mm[Hg] Todd Bunch MD Work Phone: [facility] 09-10-2022 10:25-0500 Heart rate 76 /min Todd Bunch MD Work Phone: [facility] 09-10-2022 10:25-0500 Respiratory rate 18 /min Todd Bunch MD Work Phone: [facility] 09-10-2022 10:25-0500 Systolic blood pressure 130 mm[Hg] Todd Bunch MD Work Phone: [facility] 08-14-2022 07:17-0500 Body temperature 98 [degF] Dr. Todd Bunch Work Phone: [facility] Work Phone: 08-14-2022 07:17-0500 Diastolic blood pressure 71 mm[Hg] Dr. Todd Bunch Work Phone: [facility] Work Phone: 08-14-2022 07:17-0500 Heart rate 60 /min Dr. Todd Bunch Work Phone: [facility] Work Phone: 08-14-2022 07:17-0500 Respiratory rate 16 /min Dr. Todd Bunch Work Phone: [facility] Work Phone: 08-14-2022 07:17-0500 SaO2% (BldA) [Mass fraction] 97 % Dr. Todd Bunch Work Phone: [facility] Work Phone: 08-14-2022 07:17-0500 Systolic blood pressure 124 mm[Hg] Dr. Todd Bunch Work Phone: [facility] Work Phone: 08-14-2022 05:59-0500 Body height 187.[address] Todd Bunch Work Phone: [facility] Work Phone: 08-14-2022 05:59-0500 Body mass index (BMI) [Ratio] 28.5 kg/m2 Dr. Todd Bunch Work Phone: [facility] Work Phone: 08-14-2022 05:59-0500 Body weight 100.[address] Todd Bunch Work Phone: [facility] Work Phone: 03-03-2022 11:22-0400 Body height 188 cm Rafa De La Vega MD Work Phone: [facility] 03-03-2022 11:22-0400 Body weight 99.34 kg Rafa De La Vega MD Work Phone: [facility] 02-21-2022 13:56-0400 Diastolic blood pressure 68 mm[Hg] Todd Bunch MD Work Phone: [facility] 02-21-2022 13:56-0400 Systolic blood pressure 122 mm[Hg] Todd Bunch MD Work Phone: [facility] 02-21-2022 13:11-0400 Body weight 99.79 kg Todd Bunch MD Work Phone: [facility] 02-21-2022 13:11-0400 Heart rate 76 /min Todd Bunch MD Work Phone: [facility] 02-21-2022 13:11-0400 Respiratory rate 18 /min Todd Bunch MD Work Phone: [facility] 12-19-2021 11:22-0400 Body height 188 cm Leatha Preciado DO Work Phone: [facility] 12-19-2021 11:22-0400 Body weight 102.51 kg Leatha Preciado DO Work Phone: [facility] 12-17-2021 10:45-0400 Body height 188 cm Pst 1 [facility] 12-17-2021 10:45-0400 Body temperature 97.3 [degF] Pst 1 [facility] 12-17-2021 10:45-0400 Body weight 102.06 kg Pst 1 [facility] 12-17-2021 10:45-0400 Diastolic blood pressure 74 mm[Hg] Pst 1 [facility] 12-17-2021 10:45-0400 Heart rate 59 /min Pst 1 [facility] 12-17-2021 10:45-0400 Respiratory rate 18 /min Pst 1 [facility] 12-17-2021 10:45-0400 SaO2% (BldA) [Mass fraction] 96 % Pst 1 [facility] 12-17-2021 10:45-0400 Systolic blood pressure 136 mm[Hg] Pst 1 [facility] 12-02-2021 13:27-0400 Body temperature 97.5 [degF] Dr. Mo Gorman Work Phone: [facility] Work Phone: 12-02-2021 13:27-0400 Diastolic blood pressure 82 mm[Hg] Dr. Mo Gorman Work Phone: [facility] Work Phone: 12-02-2021 13:27-0400 Heart rate 46 /min Dr. Mo Gorman Work Phone: [facility] Work Phone: 12-02-2021 13:27-0400 Respiratory rate 18 /min Dr. Mo Gorman Work Phone: [facility] Work Phone: 12-02-2021 13:27-0400 SaO2% (BldA) [Mass fraction] 99 % Dr. Mo Gorman Work Phone: [facility] Work Phone: 12-02-2021 13:27-0400 Systolic blood pressure 132 mm[Hg] Dr. Mo Gorman Work Phone: [facility] Work Phone: 12-02-2021 11:19-0400 Body height 187.[address] Mo Gorman Work Phone: [facility] Work Phone: 12-02-2021 11:19-0400 Body mass index (BMI) [Ratio] 28 kg/m2 Dr. Mo Gorman Work Phone: [facility] Work Phone: 12-02-2021 11:19-0400 Body weight 99.[address] Mo Gorman Work Phone: [facility] Work Phone: 08-30-2021 23:24-0500 Diastolic blood pressure 83 mm[Hg] Text Entry [facility] 08-30-2021 23:24-0500 Heart rate 66 /min Text Entry [facility] 08-30-2021 23:24-0500 Respiratory rate 18 /min Text Entry [facility] 08-30-2021 23:24-0500 SaO2% (BldA) [Mass fraction] 96 % Text Entry [facility] 08-30-2021 23:24-0500 Systolic blood pressure 123 mm[Hg] Text Entry Free [facility] 08-30-2021 21:43-0500 Body height 182.8 cm Text Entry Free [facility] 08-30-2021 21:43-0500 Body temperature 100.58 [degF] Text Entry Free [facility] 08-30-2021 21:43-0500 Body weight 100 kg Text Entry Free [facility] 10-25-2019 17:05-0500 BMI (Body Mass Index) 27.37 kg/m2 Mo Tavallaee [facility] Work Phone: 10-25-2019 17:05-0500 Body weight 96.7 kg Mo Tavallaee [facility] Work Phone: 10-25-2019 17:05-0500 BP Diastolic 80 mm[Hg] Mo Tavallaee [facility] Work Phone: 10-25-2019 17:05-0500 BP Systolic 122 mm[Hg] Mo Tavallaee [facility] Work Phone: 10-25-2019 17:05-0500 BSA (Body Surface Area) 2.23 m2 Mo Tavallaee [facility] Work Phone: 10-25-2019 17:05-0500 Height 187.96 cm Mo Tavallaee [facility] Work Phone: 10-25-2019 17:05-0500 Pulse (Heart Rate) 74 /min Mo Tavallaee [facility] Work Phone: 10-18-2019 16:33-0500 BMI (Body Mass Index) 28.02 kg/m2 Mo Tavallaee [facility] Work Phone: 10-18-2019 16:33-0500 Body Temperature 98.2 [degF] Mo Tavallaee [facility] Work Phone: 10-18-2019 16:33-0500 Body weight 99 kg Mo Tavallaee [facility] Work Phone: 10-18-2019 16:33-0500 BP Diastolic 90 mm[Hg] Mo Tavallaee [facility] Work Phone: 10-18-2019 16:33-0500 BP Systolic 144 mm[Hg] Mo Tavallaee [facility] Work Phone: 10-18-2019 16:33-0500 BSA (Body Surface Area) 2.26 m2 Mo Tavallaee [facility] Work Phone: 10-18-2019 16:33-0500 Height 187.96 cm Mo Tavallaee [facility] Work Phone: 10-18-2019 16:33-0500 Pulse (Heart Rate) 68 /min Mo Александрallaee [facility] Work Phone: 10-17-2019 16:49-0500 BMI (Body Mass Index) 28.41 kg/m2 Teresa Camposk II RM-Brktcfj-Qxqbddl Work Phone: 10-17-2019 16:49-0500 Body weight 100.36 kg Teresa Gomez II [place]-Dkxbvxf-[place] Work Phone: 10-17-2019 16:49-0500 BP Diastolic 93 mm[Hg] Teresa Gomez II SF-Nghkcay-Oadez nd Work Phone: 10-17-2019 16:49-0500 BP Systolic 152 mm[Hg] Teresa Gomez II NG-Qkjtpum-Tymrq nd Work Phone: 10-17-2019 16:49-0500 BSA (Body Surface Area) 2.27 m2 Teresa Gomez II CF-Hhsabyg-Gmvezbt Work Phone: 10-17-2019 16:49-0500 Height 187.96 cm Teresa Gomez II ZY-Pkstecs-Paerk nd Work Phone: 10-17-2019 16:49-0500 Pulse (Heart Rate) 65 /min Teresa Gomez II KF-Lzitxcq-Hp hland Work Phone: 10-03-2019 16:01-0500 BMI (Body Mass Index) 29.84 kg/m2 Teresa Gomez II LS-Pvcrvth-Nwlgaxg Work Phone: 10-03-2019 16:01-0500 Body weight 105.41 kg Teresa Gomez II IR-Psqhwcq-Ukpon nd Work Phone: 10-03-2019 16:01-0500 BP Diastolic 74 mm[Hg] Teresa Gomez II UB-Afgymfb-Kttvq nd Work Phone: 10-03-2019 16:01-0500 BP Systolic 131 mm[Hg] Teresa Gomez II DD-Wkbbtzr-Jygab nd Work Phone: 10-03-2019 16:01-0500 BSA (Body Surface Area) 2.32 m2 Teresa Gomez II CB-Rpulonv-Mhsfjbv Work Phone: 10-03-2019 16:01-0500 Height 187.96 cm Teresa Gomez II LX-Xjzvqlt-Fibmg nd Work Phone: 10-03-2019 16:01-0500 Pulse (Heart Rate) 71 /min Teresa Gomez II OC-Fhdmjdx-Ie hland Work Phone: Encounters Encounter Date Encounter Type Care Provider Facility Start: 02-07-2025 End: 02-07-2025 Refill Todd Bunch MD Work Phone: [facility] [place] Comment on above: Refill Request Start: 02-01-2025 End: 02-01-2025 Refill Todd Bunch MD Work Phone: [facility] [place] Comment on above: Refill Request Start: 01-10-2025 End: 01-10-2025 Refill Todd Bunch MD Work Phone: [facility] [place] Comment on above: Refill Request Start: 10-18-2024 End: 10-18-2024 Chart abstracting Todd Bunch MD Work Phone: [facility] [place] Comment on above: Outside Diabetic Eye Exam Start: 10-18-2024 End: 10-18-2024 Ophthalmic examination and evaluation Todd Bunch MD Work Phone: [facility] Start: 10-17-2024 End: 10-17-2024 Patient encounter procedure Pedro Washington MD Work Phone: Urology Comment on above: Prostate cancer (HCC ) (Primary Dx); Benign prostatic hyperplasia with nocturia Start: 10-17-2024 End: 10-17-2024 ambulatory PEDRO WASHINGTON Facility:[id number] Start: 09-20-2024 End: 09-20-2024 Subsequent hospital visit by physician Pamela [facility] [place] Work Phone: Radiology Comment on above: Asbestos exposure [Z 77.090] Start: 09-20-2024 End: 09-22-2024 Telephone encounter Todd Bunch MD Work Phone: [facility] [place] Comment on above: Results Start: 09-20-2024 End: 09-20-2024 ambulatory PEDRO WASHINGTON Facility:[facility] Start: 09-20-2024 End: 09-20-2024 Ophthalmic examination and evaluation Todd Bunch MD Work Phone: [facility] Start: 09-20-2024 End: 09-20-2024 Patient encounter procedure Todd Bunch MD Work Phone: [facility] Comment on above: Medicare annual well ness visit, subsequent (Primary Dx); Type 2 diabetes mellitus with stage 3b chronic kidney disease, without long-term current use of insulin (HCC); Diabetic eye exam (HCC); Hypertension, essential; Mixed hyperlipidemia; Anemia of chronic disease; Iron deficiency anemia, unspecified iron deficiency anemia type; Memory impairment; Stage 3b chronic kidney disease (HCC); Prostate cancer (HCC); Vitamin B12 deficiency; Foot callus; Advance directive discussed with patient; Encounter for immunization; Asbestos exposure Start: 08-26-2024 End: 08-26-2024 Refill Todd Bunch MD Work Phone: [facility] Comment on above: Refill Request Start: 07-27-2024 End: 07-28-2024 Refill [facility] Comment on above: Refill Request Start: 04-04-2024 End: 04-04-2024 Patient encounter procedure Pedro Washington MD Work Phone: Urology Comment on above: Prostate cancer (HCC ) (Primary Dx); Benign prostatic hyperplasia with nocturia Start: 04-04-2024 End: 04-04-2024 ambulatory PEDRO WASHINGTON Facility:[id number] Start: 03-17-2024 Telephone encounter Talia steele APRN.MACHINING SUPERVISOR Work Phone: [facility] Comment on above: Results Start: 03-15-2024 End: 03-15-2024 ambulatory TALIA DORSEY Facility:[facility] Start: 03-15-2024 End: 03-15-2024 Patient encounter procedure Talia Dorsey [employer].MACHINING SUPERVISOR Work Phone: [facility] [place] Comment on above: Type 2 diabetes manisha itus with stage 3b chronic kidney disease, without long-term current use of insulin (HCC) (Primary Dx); Mixed hyperlipidemia; Hypertension, essential; Iron deficiency anemia, unspecified iron deficiency anemia type; Vitamin B12 deficiency; Stage 3b chronic kidney disease (HCC) Start: 03-09-2024 End: 03-09-2024 ambulatory PEDRO WASHINGTON Facility:[facility] Start: 03-07-2024 Refill Todd reynolds MD Work Phone: [facility] [place] Comment on above: Refill Request Start: 02-02-2024 Refill Todd reynolds MD Work Phone: [facility] [place] Comment on above: Refill Request Start: 12-28-2023 End: 12-28-2023 ambulatory ADAL HOWELL Facility:[facility] Start: 10-17-2023 Chart abstracting Todd friedman MD Work Phone: [facility] [place] Comment on above: Outside Diabetic Eye Exam Start: 10-17-2023 Ophthalmic examinati on and evaluation Todd Bunch MD Work Phone: [facility] Start: 09-15-2023 End: 09-15-2023 Subsequent hospital visit by physician Xr [facility] [place] Work Phone: Radiology Comment on above: Asbestos exposure [Z 77.090] Start: 09-15-2023 Patient encounter procedure Todd Bunch MD Work Phone: [facility] Work Phone: Start: 06-18-2023 Chart abstracting Todd friedman MD Work Phone: [facility] [place] Comment on above: Opened In Error outside nephrology Start: 05-20-2023 End: 05-20-2023 Patient encounter procedure Todd Bunch MD Work Phone: [facility] [place] Comment on above: 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); Skin lesion of back; Squamous cell skin cancer Start: 05-15-2023 Refill Todd reynolds MD Work Phone: [facility] [place] Comment on above: Refill Request Start: 05-13-2023 End: 05-13-2023 Patient encounter procedure Todd Bunch MD Work Phone: [facility] [place] Comment on above: 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); Skin lesion of back; Stage 3b chronic kidney disease (HCC) Start: 03-12-2023 Telephone encounter Monserrat camargo PA-C Work Phone: [facility] [place] Comment on above: Results Start: 03-11-2023 End: 03-11-2023 Patient encounter procedure Monserrat Cortez PA-C Work Phone: [facility] [place] Comment on above: Type 2 diabetes manisha itus without complication, without long- term current use of insulin (HCC) (Primary Dx); Hypertension, essential; Mixed hyperlipidemia; Vitamin B12 deficiency; Stage 3a chronic kidney disease (HCC); Anemia of chronic disease; Prostate cancer (HCC) Start: 02-23-2023 End: 02-23-2023 ambulatory Elda Mojica NP Facility:[facility] Start: 02-23-2023 End: 02-23-[address] Todd Bunch Work Phone: [facility] Start: 02-23-2023 End: 02-23-[address] Todd Bunch Work Phone: [facility] Work Phone: Start: 01-12-2023 Telephone encounter Monserrat camargo PA-C Work Phone: [facility] Comment on above: Results Start: 12-10-2022 Telephone encounter Todd Bunch MD Work Phone: [facility] Comment on above: Results Start: 12-09-2022 Telephone encounter Todd Bunch MD Work Phone: [facility] Comment on above: Medication Problem Start: 12-09-2022 End: 12-09-2022 Patient encounter procedure Monserrat Cortez PA-C Work Phone: [facility] Comment on above: Type 2 diabetes manisha itus without complication, without long- term current use of insulin (HCC) (Primary Dx); Mixed hyperlipidemia; Hypertension, essential; Stage 3a chronic kidney disease (HCC) Start: 09-11-2022 End: 09-11-2022 Patient encounter procedure Ann Marie Mcdaniel MD Work Phone: Pulmonary Medicine Comment on above: Asbestos exposure (P rimary Dx) Start: 09-10-2022 End: 09-10-2022 Ophthalmic examination and evaluation Todd Bunch MD Work Phone: [facility] [place] Start: 09-10-2022 End: 09-10-2022 Patient encounter procedure Todd Bunch MD Work Phone: [facility] Comment on above: Medicare annual well ness visit, subsequent (Primary Dx); Type 2 diabetes mellitus without complication, without long-term current use of insulin (HCC); Diabetic eye exam (HCC); Hypertension, essential; Mixed hyperlipidemia; Stage 3a chronic kidney disease (HCC); Memory impairment; Iron deficiency anemia, unspecified iron deficiency anemia type; Vitamin B12 deficiency; Prostate cancer (HCC); Asbestosis (HCC); Generalized arthritis; Advance directive discussed with patient Start: 09-02-2022 Refill Monserrat Biggs on PA-C Work Phone: [facility] Comment on above: Refill Request Start: 08-28-2022 End: 08-28-2022 ambulatory Elda Mojica NP Facility:[facility] Start: 08-28-2022 End: 08-28-[address] Todd Bunch Work Phone: [facility] Work Phone: Start: 08-28-2022 End: 08-28-[address] Todd Bunch Work Phone: [facility] Start: 08-14-2022 Chart abstracting Todd friedman MD Work Phone: [facility] Comment on above: Outside Colonoscopy Start: 08-14-2022 ambulatory Todd Bunch Facility :[facility] Start: 08-14-2022 End: 08-14-2022 ambulatory Todd Bunch Facility:[facility] Start: 08-14-2022 Non-patient / Non-visit Dr. Haider Bunch Work Phone: [facility] Start: 08-14-2022 End: 08-14-2022 Admission to same day surgery center Dr. Todd Bunch Work Phone: [facility] Start: 08-14-2022 End: 08-14-[address] Todd Bunch Work Phone: [facility] Work Phone: Start: 07-03-2022 End: 07-04-2022 ambulatory LEATHA PRECIADO Facility:[facility] Start: 07-03-2022 Telephone encounter Leatha dougherty DO Work Phone: Urology Comment on above: Orders Start: 06-18-2022 End: 06-18-2022 ambulatory Todd Bunch Facility:[facility] Start: 06-18-2022 End: 06-18-[address] Todd Bunch Work Phone: [facility] Start: 03-14-2022 ambulatory Dari Le RN [facility] Comment on above: [facility] CDM [facility] ([facility] Chronic Disease Management Program: CKD enrollment call #2) Start: 03-11-2022 ambulatory Dari Le RN [facility] Comment on above: [facility] ([facility] CDM program enrollment: CKD ) Start: 03-03-2022 End: 03-03-2022 Patient encounter procedure Rafa De La Vega MD Work Phone: Urology Comment on above: Phimosis (Primary Dx ) Start: 03-02-2022 Telephone encounter Todd Bunch MD Work Phone: [facility] Comment on above: Results Start: 02-21-2022 End: 02-21-2022 Ophthalmic examination and evaluation Todd Bunch MD Work Phone: [facility] Start: 02-21-2022 End: 02-21-2022 Patient encounter procedure Todd Bunch MD Work Phone: [facility] Comment on above: Type 2 diabetes manisha itus without complication, without long- term current use of insulin (HCC) (Primary Dx); Diabetic eye exam (HCC); Hypertension, essential; Mixed hyperlipidemia; Anemia of chronic disease; Stage 3a chronic kidney disease (HCC); Memory impairment; Iron deficiency anemia, unspecified iron deficiency anemia type; Prostate cancer (HCC); Asbestosis (HCC); Vitamin B12 deficiency; Screening for colon cancer Start: 02-06-2022 ambulatory Talia Hutton s) [place] [place] Comment on above: Population Health Na vigation Outreach ([employer] Gaps) Start: 12-19-2021 End: 12-19-2021 Patient encounter procedure Leatha Preciado DO Work Phone: Urology Comment on above: Prostate cancer (HCC ) (Primary Dx); Phimosis; BPH with obstruction/lower urinary tract symptoms Start: 12-17-2021 End: 12-17-2021 Admission to [address] Start: 12-17-2021 End: 12-17-2021 ambulatory Pst 1 Pre Surgical Testing Comment on above: Preop examination (P rimary Dx); Iron deficiency anemia, unspecified iron deficiency anemia type; Asbestosis (HCC); Stage 3 chronic kidney disease, unspecified whether stage 3a or 3b CKD (HCC); Hyperlipidemia, unspecified hyperlipidemia type; Hypertension, unspecified type; Controlled type 2 diabetes mellitus without complication, without long-term current use of insulin (HCC); Phimosis Start: 12-17-2021 End: 12-17-2021 Preprocedural examination done Pst 1 Pre Surgical Testing Start: 12-02-2021 Non-patient / Non-visit Dr. Me ez Gorman Work Phone: [facility] Start: 12-02-2021 End: 12-02-2021 Admission to same day surgery center Dr. Mo Gorman Work Phone: [facility] Start: 10-02-2021 End: 10-02-[address] Mo Gorman Work Phone: [facility] Start: 08-30-2021 End: 08-31-2021 Emergency department patient visit Matt Snider [facility] Emergency 14 Start: 08-23-2021 Patient encounter procedure Pst 1 [facility] Work Phone: Start: 07-02-2021 Ophthalmic examinati on and evaluation Pst 1 [facility] Start: 02-19-2021 Telephone encounter Todd Bunch MD Work Phone: [facility] [place] Comment on above: Patient Update Start: 01-18-2020 Patient encounter procedure Mo Gorman [facility] Work Phone: Start: 10-25-2019 Patient encounter procedure Mo Gorman [facility] Work Phone: Start: 10-18-2019 Patient encounter procedure Mo Gorman [facility] Work Phone: Start: 10-17-2019 Patient encounter procedure Teresa Gomez II ZO-Nkyxoci-Jakooxv Work Phone: Start: 10-03-2019 Patient encounter procedure Teresa Gomze II HA-Jnkjfqf-Uqrwgnp Work Phone: Start: 09-05-2019 Patient encounter procedure Teresa Gomez II FU-Whcmjax-Wmigaaa Work Phone: Start: 07-21-2019 Patient encounter procedure Teresa Gomez II OS-Isexthi-Mittdfi Work Phone: Start: 01-29-2018 Patient encounter procedure Teresa Gomez II WY-Jnzvllr-Ftseyql Work Phone: Procedures Date Procedure Procedure Detail Performing Clinician Start: 10-17-2024 BLADDER SCAN Pedro Washington MD Work Phone: Start: 09-20-2024 Radiologic exam ches t 2 views Todd Bunch MD Work Phone: Start: 09-20-2024 PFIZER-BIONTECH COVI D-19 VACCINE AGE 12+ YR (COMIRNATY) Todd Bunch MD Work Phone: Start: 04-04-2024 BLADDER SCAN [facility] Provid er Start: 04-04-2024 Urnls dip stick/tabl et rgnt auto w/o microscopy Pedro Washington MD Work Phone: Start: 03-15-2024 Adult depression scr eening assessment Pedro Washington MD Work Phone: Start: 09-15-2023 Radiologic exam ches t 2 views Ann Marie Mcdaniel MD Work Phone: Start: 05-20-2023 SURGICAL PATHOLOGY Laurent Bunch MD Work Phone: Start: 08-14-2022 End: 08-14-[address] Todd Bunch Work Phone: Start: 02-21-2022 Adult depression scr eening assessment Todd Bunch MD Work Phone: Start: 12-02-2021 End: 12-02-[address] Mo templeton Work Phone: Start: 02-18-2021 Adult depression scr eening assessment Pst 1 Start: 10-25-2019 Follow-up visit Start: 10-18-2019 Follow-up visit Start: 10-18-2019 Blood count complete auto&auto difrntl wbc Mo Gorman Start: 10-18-2019 Comprehensive metabo lic 2000 panel Mo Gorman Start: 10-17-2019 Follow-up visit Start: 10-03-2019 Follow-up visit Start: 09-05-2019 Follow-up visit Start: 07-21-2019 Follow-up visit Start: 07-09-2017 Colonoscopy Pst 1 Colonoscopy Teresa Gomez II Plan of Treatment Date Care Activity Detail Author Start: 08-14-2027 Colonoscopy COLONOSCOPY [facility] Start: 08-14-2027 COLORECTAL CANCER SCREENING COLORECTAL CANCER SCREENING [facility] Start: 10-18-2025 Glaucoma screening Dilated Retinal E xam [facility] Start: 09-20-2025 Annual PCP Team Chronic Disease Visit Annual PCP Team Chronic Disease Visit [facility] Start: 09-20-2025 Complete blood count Hemoglobin/Hossein tocrit [facility] Start: 09-20-2025 Creatinine measurement Serum Creatin ine [facility] Start: 09-20-2025 Diabetic foot examination Diabetic Foot Exam [facility] Start: 09-20-2025 Hepatitis B screening Urine Albumin:Creatinine Ratio [facility] [facility] Start: 09-20-2025 Hepatitis B surface antibody level LDL Cholesterol [facility] Start: 09-20-2025 RSV Vaccine (1 - 1-dose 75+ series) RSV Vaccine (1 - 1-dose 75+ series) [facility] Comment on above: Postponed from 03/16 (Insurance Coverage) Start: 04-17-2025 End: 04-17-2025 Patient encounter procedure 04/17/2025 10:30 AM EDT Office Visit Urology [address] [facility] [address] Pedro Washington MD [address] [place] [address] 6 month PSA Urology Comment on above: 6 month PSA Start: 04-16-2025 End: 07-16-2025 Prostate specific Ag [Mass/volume] in Serum or Plasma PROSTATE-SPECIFIC ANTIGEN DIAGNOSTIC Lab Routine Prostate cancer (HCC) Expected: 04/16/2025 (Approximate), Expires: 07/16/2025 [facility] Work Phone: Comment on above: Expected: 04/16/2025 (Approximate), Expires: 07/16/2025 Start: 03-20-2025 Covid-19 Vaccine () Covid-19 Vaccine () [facility] Start: 03-20-2025 Hemoglobin A1c measurement HbA1C [facility] Start: 03-20-2025 End: 03-20-2025 Patient encounter procedure 03/20/2025 1:40 PM EDT Office Visit Family Radha Lewis [address] [place], [place] [id number] Monserrat Cortez PA-C [address] [place], [place] [id number] 6 month follow up Family Medicine [facility] Comment on above: 6 month follow up Start: 03-15-2025 Annual PCP Team Chronic Disease Visit Annual PCP Team Chronic Disease Visit [facility] Start: 03-15-2025 Anxiety Screening Anxiety Screening [facility] Start: 03-15-2025 BP Controlled (<130/80) BP Controlled (<130/80) [facility] Start: 03-15-2025 Depression Screening Depression Scre ening [facility] Start: 03-15-2025 Hepatitis B surface antibody level LDL Cholesterol [facility] Start: 03-03-2025 End: 06-02-2025 Basic metabolic 2000 panel - Serum or Plasma BASIC METABOLIC PANEL Lab Routine Type 2 diabetes mellitus with stage 3b chronic kidney disease, without long-term current use of insulin (HCC) Hypertension, essential Mixed hyperlipidemia Stage 3b chronic kidney disease (HCC) Expected: 03/03/2025, Expires: 06/02/2025 [facility] Comment on above: Expected: 03/03/2025 , Expires: 06/02/2025 Start: 03-03-2025 End: 06-02-2025 Hemoglobin A1c in Blood HEMOGLOBIN A1C Lab Routine Type 2 diabetes mellitus with stage 3b chronic kidney disease, without long-term current use of insulin (HCC) Expected: 03/03/2025, Expires: 06/02/2025 [facility] Comment on above: Expected: 03/03/2025 , Expires: 06/02/2025 Start: 03-03-2025 End: 06-02-2025 LIPID PANEL, NONFASTING LIPID PANEL, NONFASTING Lab Routine Mixed hyperlipidemia Expected: 03/03/2025, Expires: 06/02/2025 [facility] Comment on above: Expected: 03/03/2025 , Expires: 06/02/2025 Start: 12-27-2024 Complete blood count Hemoglobin/Hossein tocrit [facility] Start: 12-27-2024 Creatinine measurement Serum Creatin ine [facility] Start: 12-02-2024 Colonoscopy COLONOSCOPY [facility] Start: 12-02-2024 COLORECTAL CANCER SCREENING COLORECTAL CANCER SCREENING [facility] Start: 10-17-2024 End: 10-17-2024 Patient encounter procedure 10/17/2024 10:45 AM EST Office Visit Urology [address] [place], [place] [id number] Pedro Washington MD [address] [place] [address] 6 month follow up - PSA prior Urology Comment on above: 6 month follow up - PSA prior Start: 10-16-2024 Glaucoma screening Dilated Retinal E xam [facility] Start: 10-05-2024 End: 01-04-2025 Prostate specific Ag [Mass/volume] in Serum or Plasma PROSTATE-SPECIFIC ANTIGEN DIAGNOSTIC Lab Routine Prostate cancer (HCC) Expected: 10/05/2024, Expires: 01/04/2025 [facility] Work Phone: Comment on above: Expected: 10/05/2024 , Expires: 01/04/2025 Start: 09-20-2024 End: 12-20-2024 Microalbumin/Creatinin e [Mass Ratio] in Urine [facility] Work Phone: Comment on above: Expected: 09/20/2024 , Expires: 12/20/2024 Start: 09-20-2024 End: 09-20-2024 Patient encounter procedure 09/20/2024 1:40 PM EST Office Visit Family Medicine [facility] [address] [place], [place] [phone] Todd Bunch MD [address] [place], [place] [phone] medicare wellness Family Medicine [facility] Comment on above: medicare wellness Start: 09-15-2024 Annual PCP Team Chronic Disease Visit Annual PCP Team Chronic Disease Visit [facility] Start: 09-15-2024 Complete blood count Hemoglobin/Hossein tocrit [facility] Start: 09-15-2024 Creatinine measurement Serum Creatin ine [facility] Start: 09-15-2024 Diabetic foot examination Diabetic Foot Exam [facility] Start: 09-15-2024 Hemoglobin A1c measurement HbA1C [facility] Start: 09-15-2024 Hepatitis B screening Urine Albumin:Creatinine Ratio [facility] Start: 09-15-2024 Hepatitis B surface antibody level LDL Cholesterol [facility] Start: 09-15-2024 RSV Vaccine (1 - 1-dose 60+ series) RSV Vaccine (1 - 1-dose 60+ series) [facility] Comment on above: Postponed from 03/17 (Insurance Coverage) Start: 09-15-2024 RSV Vaccine (1 - 1-dose 75+ series) RSV Vaccine (1 - 1-dose 75+ series) [facility] Comment on above: Postponed from 03/17 (Insurance Coverage) Start: 05-20-2024 Annual PCP Team Chronic Disease Visit Annual PCP Team Chronic Disease Visit [facility] Start: 05-13-2024 ANNUAL PCP TEAM CHRONIC DISEASE VISIT ANNUAL PCP TEAM CHRONIC DISEASE VISIT [facility] Start: 05-08-2024 Covid-19 Vaccine ( season) Covid-19 Vaccine ( season) [facility] Start: 05-08-2024 Covid-19 Vaccine ( season) Covid-19 Vaccine ( season) [facility] Start: 04-06-2024 SERUM CREATININE SERUM CREATININE Cl [facility] Start: 04-04-2024 End: 04-04-2024 Patient encounter procedure 04/04/2024 10:45 AM EDT Office Visit Urology [address] [place] [address] Pedro Washington MD [address] [place], [place] [id number] 6 month follow up, psa prior Urology Comment on above: 6 month follow up, p sa prior Start: 03-15-2024 End: 06-14-2024 Hemoglobin A1c in Blood [facility] Work Phone: Comment on above: Expected: 03/15/2024 , Expires: 06/14/2024 Start: 03-15-2024 Hemoglobin A1c measurement HbA1C [facility] Start: 03-15-2024 End: 06-14-2024 LIPID PANEL, NONFASTING [facility] Comment on above: Expected: 03/15/2024 , Expires: 06/14/2024 Start: 03-15-2024 End: 03-15-2024 Patient encounter procedure 03/15/2024 11:40 AM EDT Office Visit Family Medicine [facility] [address] [place], [place] [phone] Talia Dorsey APRN.[facility] [address] [place], [place] [phone] 6 month follow up Family Radha Lewis Comment on above: 6 month follow up Start: 03-11-2024 ANNUAL PCP TEAM CHRONIC DISEASE VISIT ANNUAL PCP TEAM CHRONIC DISEASE VISIT [facility] Start: 03-11-2024 BP CONTROLLED (<130/80) BP CONTROLLED (<130/80) [facility] Start: 03-11-2024 Hepatitis B surface antibody level LDL CHOLESTEROL [facility] Start: 03-11-2024 SERUM CREATININE SERUM CREATININE Cl [facility] Start: 02-24-2024 HEMOGLOBIN/HEMATOCRIT HEMOGLOBIN/HEM ATOCRIT [facility] Start: 12-10-2023 ANNUAL PCP TEAM CHRONIC DISEASE VISIT ANNUAL PCP TEAM CHRONIC DISEASE VISIT [facility] Start: 12-10-2023 BP CONTROLLED (<130/80) BP CONTROLLED (<130/80) [facility] Start: 12-10-2023 Hepatitis B surface antibody level LDL CHOLESTEROL [facility] Start: 12-10-2023 SERUM CREATININE SERUM CREATININE Cl [facility] Start: 11-05-2023 Covid-19 Vaccine () Covid-19 Vaccine () [facility] Start: 09-11-2023 Hemoglobin A1c/Hemoglobin.total in Blood HBA1C [facility] Start: 09-10-2023 3 comp foot exam completed DIABETIC FOOT EXAM [facility] Start: 09-10-2023 ANNUAL PCP TEAM CHRONIC DISEASE VISIT ANNUAL PCP TEAM CHRONIC DISEASE VISIT [facility] Start: 09-10-2023 Hepatitis B screening URINE ALBUMIN:CREATININE RATIO [facility] Start: 09-10-2023 Hepatitis B surface antibody level LDL CHOLESTEROL [facility] Start: 09-10-2023 SERUM CREATININE SERUM CREATININE [facility] Start: 09-07-2023 Behavioral Health Screening Behavioral Health Screening [facility] Start: 06-10-2023 Hemoglobin A1c/Hemoglobin.total in Blood HBA1C [facility] Start: 05-08-2023 Covid-19 Vaccine () Covid-19 Vaccine () [facility] Start: 03-26-2023 End: 05-26-2023 Renal function 2000 panel - Serum or Plasma RENAL FUNCTION PANEL Lab Routine Stage 3b chronic kidney disease (HCC) Expected: 03/26/2023, Expires: 05/26/2023 [facility] Work Phone: Comment on above: Expected: 03/26/2023 , Expires: 05/26/2023 Start: 03-11-2023 End: 05-11-2023 Basic metabolic 2000 panel - Serum or Plasma [facility] Work Phone: Comment on above: Expected: 03/11/2023 , Expires: 05/11/2023 Start: 03-11-2023 End: 05-11-2023 LIPID PANEL, NONFASTING [facility] Work Phone: Comment on above: Expected: 03/11/2023 , Expires: 05/11/2023 Start: 03-10-2023 Hemoglobin A1c/Hemoglobin.total in Blood HBA1C [facility] Start: 02-21-2023 Adult depression screening assessment DEPRESSION SCREENING [facility] Start: 02-21-2023 ANNUAL PCP TEAM CHRONIC DISEASE VISIT ANNUAL PCP TEAM CHRONIC DISEASE VISIT [facility] Start: 02-21-2023 BP CONTROLLED (<130/80) BP CONTROLLED (<130/80) [facility] Start: 02-21-2023 Hepatitis B surface antibody level LDL CHOLESTEROL [facility] Start: 02-21-2023 SERUM CREATININE SERUM CREATININE [facility] Start: 02-12-2023 End: 04-14-2023 Cobalamin (Vitamin B12) [Mass/volume] in Serum or Plasma VITAMIN B12 BLOOD Lab Routine Vitamin B12 deficiency Expected: 02/12/2023, Expires: 04/14/2023 [facility] Work Phone: Comment on above: Expected: 02/12/2023 , Expires: 04/14/2023 Start: 01-10-2023 End: 03-12-2023 Cobalamin (Vitamin B12) [Mass/volume] in Serum or Plasma VITAMIN B12 BLOOD Lab Routine Vitamin B12 deficiency Expected: 01/10/2023, Expires: 03/12/2023 [facility] Work Phone: Comment on above: Expected: 01/10/2023 , Expires: 03/12/2023 Start: 11-26-2022 COVID-19 VACCINE (6 - Moderna series) COVID-19 VACCINE (6 - Moderna series) [facility] Start: 09-07-2022 ADVANCE DIRECTIVE DISCUSSION ADVANCE DIRECTIVE DISCUSSION [facility] Start: 09-07-2022 DEPRESSION ASSESSMENT DEPRESSION ASS ESSMENT [facility] Start: 08-23-2022 3 comp foot exam completed DIABETIC FOOT EXAM [facility] Start: 08-23-2022 ANNUAL PCP TEAM CHRONIC DISEASE VISIT ANNUAL PCP TEAM CHRONIC DISEASE VISIT [facility] Start: 08-23-2022 BP CONTROLLED (<130/80) BP CONTROLLED (<130/80) [facility] Start: 08-23-2022 Hemoglobin A1c/Hemoglobin.total in Blood HBA1C [facility] Start: 08-23-2022 HEMOGLOBIN/HEMATOCRIT HEMOGLOBIN/HEM ATOCRIT [facility] Start: 08-23-2022 Hepatitis B screening URINE ALBUMIN:CREATININE RATIO [facility] Start: 08-23-2022 Hepatitis B surface antibody level LDL CHOLESTEROL [facility] Start: 08-23-2022 SERUM CREATININE SERUM CREATININE Cl [facility] Start: 08-14-2022 Colonoscopy w/biopsy single/multiple COLONOSCOPY AND BIOPSY [facility] Work Phone: Start: 08-14-2022 Colsc flexible w/control bleeding any method COLONOSCOPY W/CONTROL BLEED [facility] Work Phone: Start: 08-14-2022 Patient discharge [facility] Work Phone: Start: 07-04-2022 Hepatitis C antibody , confirmatory test DILATED RETINAL EXAM [facility] Start: 07-01-2022 Hepatitis C antibody , confirmatory test DILATED RETINAL EXAM [facility] Start: 04-01-2022 COVID-19 VACCINE (5 - Booster for Moderna series) COVID-19 VACCINE (5 - Booster for Moderna series) [facility] Start: 02-18-2022 Adult depression screening assessment DEPRESSION SCREENING [facility] Start: 12-28-2021 COVID-19 VACCINE (4 - Booster for Moderna series) COVID-19 VACCINE (4 - Booster for Moderna series) [facility] Start: 12-19-2021 End: 02-18-2022 Prostate specific Ag [Mass/volume] in Serum or Plasma PSA/PROSTSPECAG DIAG Lab Routine Prostate cancer (HCC) Expected: 12/19/2021, Expires: 02/18/2022 [facility] Work Phone: Comment on above: Expected: 12/19/2021 , Expires: 02/18/2022 Start: 12-11-2021 End: 02-10-2022 Bacteria identified in Urine by Culture URINE CULTURE Microbiology Routine Preop examination Expected: 12/11/2021, Expires: 02/10/2022 [facility] Comment on above: Expected: 12/11/2021 , Expires: 02/10/2022 Start: 11-21-2021 Hemoglobin A1c/Hemoglobin.total in Blood HBA1C [facility] Start: 09-07-2021 ADVANCE DIRECTIVE DISCUSSION ADVANCE DIRECTIVE DISCUSSION [facility] Start: 09-07-2021 DEPRESSION ASSESSMENT DEPRESSION ASS ESSMENT [facility] Start: 07-09-2020 Colonoscopy [facility] Start: 07-09-2020 COLORECTAL CANCER SCREENING COLORECTAL CANCER SCREENING [facility] Start: 03-17-2007 Hepatitis B Vaccine (1 of 3 - Risk 3-dose series) Hepatitis B Vaccine (1 of 3 - Risk 3-dose series) [facility] Start: 2007 Hepatitis B Vaccine (1 of 3 - Risk 3-dose series) Hepatitis B Vaccine (1 of 3 - Risk 3-dose series) [facility] Start: 1992 COLOGUARD (FIT-DNA) COLOGUARD (FIT-D NA) [facility] Start: [address] COLONOGRAPHY [facility] [place] [facility] Start: 1992 FECAL OCCULT BLOOD FECAL OCCULT BLOO D [facility] Start: 1992 SIGMOIDOSCOPY SIGMOIDOSCOPY [facility] Bacteria identified in Urine by Culture URINE CULTURE Microbiology Routine Preop examination 12/17/2021 11:04 AM EDT [facility] Patient referral [facility] Work Phone: End: 10-11-2023 Radiologic exam chest 2 views XR CHEST 2V FRONTAL/LAT Radiology Routine Asbestos exposure 1 Occurrences starting 09/11/2022 until 10/11/2023 [facility] Work Phone: Comment on above: 1 Occurrences starti ng 09/11/2022 until 10/11/2023 End: 08-03-2023 XR ABDOMEN 1V SUPINE XR ABDOMEN 1V SUPINE Radiology Routine Kidney stone 1 Occurrences starting 07/06/2022 until 08/03/2023 [facility] Work Phone: Comment on above: 1 Occurrences starti ng 07/06/2022 until 08/03/2023 [id number] and Work Phone: [facility] NEGATED: Highlighted row has been ruled out! Planned Goals not documented [facility] Work Phone: Immunizations Immunization Date Immunization Notes Care Provider Adolph mendoza 09-20-2024 COVID-19 vaccine, ag e 12+ yr (PFIZER-BIONTECH COMIRNATY) Xr [place] Work Phone: [facility] 08-25-2023 COVID-19 original vaccine, booster dose, monovalent (MODERNA) Todd Bunch MD Work Phone: [facility] Work Phone: 08-25-2023 influenza, high dose seasonal, preservative-free Todd Bunch MD Work Phone: [facility] Work Phone: 08-29-2021 Covid (Moderna) Dr. Mo Gorman Work Phone: [facility] 12-20-2020 COVID-19 vaccine, fu ll dose (MODERNA) Pst 1 [facility] 11-22-2020 COVID-19 vaccine, fu ll dose (MODERNA) Pst 1 [facility] 03-18-2013 zoster vaccine, live Monserrat Cortez PA-C Work Phone: [facility] Payers Date Payer Category Payer Medicare (Managed Care) [facility] [employer] PPO [id number] 2022 Unknown [id number] 2022 Self-pay [id number] 2021 Medicare AETNA MEDICARE A ETNA MEDICARE PPO [id number] 2021-Present [phone] [address] [place] [address] PPO [id number] 2021 Medicare [id number] 2021 Private Health Insurance [id number] 2017 Medicare AETNA MEDICARE A ETNA MEDICARE PPO [id number] 2017-2021 [address] [place] [address] PPO [id number] Unknown AETNA\AETNA MIKE [place]OW[place]UR[place] Medicare MEDICARE PART A B [id number] Unknown [id number] Unknown [id number] Unknown [id number] Unknown [id number] Unknown [id number] Unknown [id number] Unknown [id number] Social History Date Type Detail Facility Assertion Unknown if ever smoked -[facility] Work Phone: Start: 11-29-2021 End: 02-23-2023 Tobacco smoking consumption unknown [facility] Start: 11-02-2019 None [facility] Start: 11-02-2019 Spouse/ Signif icant Other [facility] Start: 1945 Sex Assigned At Male W [facility] Start: 07-03-2022 Tobacco smoking stat us NHIS Never smoked tobacco [facility] Start: 12-17-2021 End: 09-21-2024 Alcohol intake Current non-drinker of alcohol (finding) [facility] Start: 08-15-2014 End: 07-03-2022 Tobacco Comment Mother smoked in childhood home. [facility] Start: 1945 End: 1945 Sex Assigned At Not on file [facility] Start: 12-07-2021 End: 07-03-2022 Exposure to SARS-CoV-2 (event) Not sure [facility] Start: 07-03-2022 Tobacco use and exposure Smokeless tobacco non-user [facility] Start: 05-13-2023 End: 09-20-2024 History of Social function [facility] Work Phone: Start: 05-13-2023 End: 09-20-2024 Tobacco use panel [facility] Work Phone: Adult Depression Screening Assessment 0 [facility] Work Phone: How often to you hav e a drink containing alcohol? Never [facility] Medical Equipment Procedure Code Equipment Code Equipment Original Text Equipment Identifier Dates [id number], [id number] Start: 10-01-2021 End: 02-01-2025 Comment on above: Test blood sugar(s) two times daily. Dx: Type 2 DM - Controlled E11.9 Insulin: No before meals and at bedtime. Use as instructed 1 Strip once daily. Use as instructed Test blood sugar(s) once daily. Dx: Type 2 DM - Controlled E11.9 Insulin: No Goals Date Patient Goal Desired Activity /State Functional Status Date Assessment Result Facility 08-15-2014 Are you deaf, or do you have serious difficulty hearing No 08/15/2014 1:35 PM Mine Chin LPN No [facility] 08-15-2014 Are you blind, or do you have serious difficulty seeing, even when wearing glasses No 08/15/2014 1:35 PM Mine Chin LPN No [facility] 08-15-2014 Do you have serious difficulty walking or climbing stairs No 08/15/2014 1:35 PM Mine Chin LPN No [facility] 08-15-2014 Do you have difficul ty dressing or bathing No 08/15/2014 1:35 PM Mine Chin LPN No [facility] 08-15-2014 Because of a physica l, mental, or emotional condition, do you have difficulty doing errands alone such as visiting a physician's office or shopping No 08/15/2014 1:35 PM Mine Chin LPN No [facility] NEGATED: Highlighted row Functional performance Functional status health issues are not documented Disease [id number] Work Phone: Mental Status Date Assessment Result Facility 08-14-2022 Cognitive function Voice/Name [facility] Work Phone: 08-14-2022 Cognitive function Patient Verna cardenas Person;Place;Time [facility] Work Phone: 12-02-2021 Cognitive function Voice/Name [facility] Work Phone: 08-15-2014 Because of a physical, mental, or emotional condition, do you have serious difficulty concentrating, remembering, or making decisions No 08/15/2014 1:35 PM Mine Chin LPN No [facility] NEGATED: Highlighted row Cognitive function [Interpretation] Cognitive status health issues are not documented Disease [facility] Work Phone: Clinical Notes 08-13-2020 to 02-07-2025 Telephone Encounter - Tracie Horner LPN - 02/07/2025 11:07 AM EDTTelephone Encounter - Tracie Horner LPN - 02/07/2025 11:07 AM Sol Shah LPN - 10/18/2024 1:57 PM EST Note Date & Type Note Facility 02-07-2025 Telephone encounter Note The patient has been identified by name and date of : Yes, pharmacy Caregiver verified no other encounters exist for this prescription request: Yes Caregiver confirmed with patient/requestor that no other refills are due, in the near future, with this provider at this time: Yes The last office visit in the department: 09/20/2024 Does the patient have a future office visit with this provider/department: Yes 03/20/2025 Requested Prescriptions Pending Prescriptions Disp Refills amLODIPine (NORVASC) 5 mg tablet 90 tablet 1 Sig: Take 1 tablet by mouth once daily. atorvastatin (LIPITOR) 40 mg tablet 90 tablet 1 Sig: Take 1 tablet by mouth daily at bedtime. For cholesterol. fenofibrate nanocrystallized (TRICOR) 48 mg tablet 90 tablet 1 Sig: Take 1 tablet by mouth once daily. glimepiride (AMARYL) 4 mg tablet 90 tablet 1 Sig: Take 1 tablet by mouth once daily. lisinopril (ZESTRIL) 40 mg tablet 90 tablet 1 Sig: Take 1 tablet by mouth once daily. metFORMIN (GLUCOPHAGE) 500 mg tablet 360 tablet 1 Sig: Take 2 tablets by mouth two times a day with meals. pioglitazone (ACTOS) 30 mg tablet 90 tablet 1 Sig: Take 1 tablet by mouth once daily. Tracie Horner LPN February 07, 2025 11:08 AM [facility] 02-07-2025 Miscellaneous Notes The patient has been identified by name and date of : Yes, pharmacy Caregiver verified no other encounters exist for this prescription request: Yes Caregiver confirmed with patient/requestor that no other refills are due, in the near future, with this provider at this time: Yes The last office visit in the department: 09/20/2024 Does the patient have a future office visit with this provider/department: Yes 03/20/2025 Requested Prescriptions Pending Prescriptions Disp Refills amLODIPine (NORVASC) 5 mg tablet 90 tablet 1 Sig: Take 1 tablet by mouth once daily. atorvastatin (LIPITOR) 40 mg tablet 90 tablet 1 Sig: Take 1 tablet by mouth daily at bedtime. For cholesterol. fenofibrate nanocrystallized (TRICOR) 48 mg tablet 90 tablet 1 Sig: Take 1 tablet by mouth once daily. glimepiride (AMARYL) 4 mg tablet 90 tablet 1 Sig: Take 1 tablet by mouth once daily. lisinopril (ZESTRIL) 40 mg tablet 90 tablet 1 Sig: Take 1 tablet by mouth once daily. metFORMIN (GLUCOPHAGE) 500 mg tablet 360 tablet 1 Sig: Take 2 tablets by mouth two times a day with meals. pioglitazone (ACTOS) 30 mg tablet 90 tablet 1 Sig: Take 1 tablet by mouth once daily. Tracie Horner LPN February 07, 2025 11:08 AM documented in this encounter [facility] 02-01-2025 Telephone encounter Note The patient has been identified by name and date of : Yes Caregiver verified no other encounters exist for this prescription request: Yes Caregiver confirmed with patient/requestor that no other refills are due, in the near future, with this provider at this time: Yes The last office visit in the department: 09/20/2024 Does the patient have a future office visit with this provider/department: Yes 03/20/2025 Requested Prescriptions Pending Prescriptions Disp Refills blood sugar diagnostic (PRODIGY NO CODING) test strip 100 strip 5 Si strip once daily. Use as instructed Lancets 100 each 5 Sig: Test blood sugar(s) once daily. Dx: Type 2 DM - Controlled E11.9 Insulin: No Winnie Corado RN February 01, 2025 11:39 AM [facility] 02-01-2025 Miscellaneous Notes The patient has been identified by name and date of : Yes Caregiver verified no other encounters exist for this prescription request: Yes Caregiver confirmed with patient/requestor that no other refills are due, in the near future, with this provider at this time: Yes The last office visit in the department: 09/20/2024 Does the patient have a future office visit with this provider/department: Yes 03/20/2025 Requested Prescriptions Pending Prescriptions Disp Refills blood sugar diagnostic (PRODIGY NO CODING) test strip 100 strip 5 Si strip once daily. Use as instructed Lancets 100 each 5 Sig: Test blood sugar(s) once daily. Dx: Type 2 DM - Controlled E11.9 Insulin: No Winnie Corado RN February 01, 2025 11:39 AM documented in this encounter [facility] 01-10-2025 Telephone encounter Note The following approved medication requests have been transmitted electronically. Requested Prescriptions Signed Prescriptions Disp Refills Ferrous Sulfate 142 mg (45 mg iron) TbER 90 tablet 3 Sig: Take 1 tablet by mouth once daily. Authorizing Provider: TODD BUNCH MD [facility] 01-10-2025 Miscellaneous Notes The following approved medication requests have been transmitted electronically. Requested Prescriptions Signed Prescriptions Disp Refills Ferrous Sulfate 142 mg (45 mg iron) TbER 90 tablet 3 Sig: Take 1 tablet by mouth once daily. Authorizing Provider: TODD BUNCH MD The patient has been identified by name and date of : Yes Caregiver verified no other encounters exist for this prescription request: Yes Caregiver confirmed with patient/requestor that no other refills are due, in the near future, with this provider at this time: Yes The last office visit in the department: 09/20/2024 Does the patient have a future office visit with this provider/department: Yes 03/20/2025 Requested Prescriptions Pending Prescriptions Disp Refills Ferrous Sulfate 142 mg (45 mg iron) TbER 90 tablet 1 Sig: Take 1 tablet by mouth once daily. Debra Gresham RN documented in this encounter [facility] 01-10-2025 Telephone encounter Note The patient has been identified by name and date of : Yes Caregiver verified no other encounters exist for this prescription request: Yes Caregiver confirmed with patient/requestor that no other refills are due, in the near future, with this provider at this time: Yes The last office visit in the department: 09/20/2024 Does the patient have a future office visit with this provider/department: Yes 03/20/2025 Requested Prescriptions Pending Prescriptions Disp Refills Ferrous Sulfate 142 mg (45 mg iron) TbER 90 tablet 1 Sig: Take 1 tablet by mouth once daily. Debra Gresham RN [facility] 10-18-2024 Note HNO ID: [id number] Author: SOL LEE LPN Service: ? Author Type: LICENSED NURSE Type: Progress Notes Filed: 10/18/2024 13:57 Note Text: Scan on 10/18/2024 12:22 PM by ProviderCandelaria PA-C: Consultation - Ophthalmology [facility] 10-18-2024 History of Presen t illness Narrative Scan on 10/18/2024 12:22 PM by ProviderCandelaria PA-C: Consultation - Ophthalmology documented in this encounter [facility] 10-17-2024 Note HNO ID: [id number] Author: PEDRO WASHINGTON MD Service: ? Author Type: Physician Type: Progress Notes Filed: 10/17/2024 10:35 Note Text: ESTABLISHED PATIENT OFFICE VISIT The patient is here for follow-up of prostate cancer and BPH. He is content with his urination and denies bony pain. His IPSS is 3/0. Postvoid residual is 120 cc. His PSA decreased significantly after starting finasteride 6 months ago. The current value was 3.79 (September 2024) LAB RESULTS Creatinine Date Value Ref Range Status 09/20/2024 1.60 (H) 0.73 - 1.22 mg/dL Final PSA (ng/mL) Date Value 09/20/2024 3.79 03/09/2024 13.56 09/15/2023 10.63 07/03/2022 11.32 12/13/2020 8.81 06/14/2020 7.72 GLUCOSE UA (POCT) (mg/dL) Date Value 04/04/2024 Negative BILIRUBIN UA (POCT) (no units) Date Value 04/04/2024 Negative KETONE UA (POCT) (mg/dL) Date Value 04/04/2024 Negative SPECIFIC GRAVITY UA (POCT) (no units) Date Value 04/04/2024 1.010 HEMOGLOBIN/BLOOD UA (POCT) (no units) Date Value 04/04/2024 Negative PH UA (POCT) (no units) Date Value 04/04/2024 6.0 PROTEIN UA (POCT) (mg/dL) Date Value 04/04/2024 Negative UROBILINOGEN UA (POCT) (E.U./dL) Date Value 04/04/2024 0.2 NITRITE UA (POCT) (no units) Date Value 04/04/2024 Negative LEUKOCYTES UA (POCT) (no units) Date Value 04/04/2024 Negative COLOR UA (POCT) (no units) Date Value 04/04/2024 Yellow CLARITY UA (POCT) (no units) Date Value 04/04/2024 Clear ] ALLERGIES No Known Allergies MEDICATIONS: amLODIPine (NORVASC) 5 mg tablet Take 1 tablet by mouth once daily. atorvastatin (LIPITOR) 40 mg tablet Take 1 tablet by mouth daily at bedtime. For cholesterol. fenofibrate nanocrystallized (TRICOR) 48 mg tablet Take 1 tablet by mouth once daily. glimepiride (AMARYL) 4 mg tablet Take 1 tablet by mouth once daily. lisinopril (ZESTRIL) 40 mg tablet Take 1 tablet by mouth once daily. metFORMIN (GLUCOPHAGE) 500 mg tablet Take 2 tablets by mouth two times a day with meals. pioglitazone (ACTOS) 30 mg tablet Take 1 tablet by mouth once daily. cyanocobalamin (VITAMIN B-12) 1,000 mcg tab Take 2 tablets by mouth once daily. Ferrous Sulfate 142 mg (45 mg iron) TbER Take 1 tablet by mouth once daily. finasteride (PROSCAR) 5 mg tablet Take 1 tablet by mouth once daily. blood sugar diagnostic ([employer] NO CODING) test strip 1 Strip once daily. Use as instructed Lancets Test blood sugar(s) once daily. Dx: Type 2 DM - Controlled E11.9 Insulin: No tamsulosin (FLOMAX) 0.4 mg Take 1 capsule by mouth daily at bedtime for 30 doses. aspirin, enteric coated (ASPIRIN, ENTERIC COATED) 81 mg EC tablet Take 81 mg by mouth once daily. REVIEW OF SYSTEMS GENERAL:no unintentional weight loss, malaise or fevers. NEUROLOGIC: pt is alert and oriented GASTROINTESTINAL: No nausea, vomiting, or diarrhea GENITOURINARY: No history of dysuria, frequency or incontinence MUSCULOSKELETAL: Negative for joint pain or swelling, back pain or muscle pain SKIN: Negative for lesions, rash, and itching. ACTIVE PROBLEM LIST Generalized Arthritis Over Weight Prostate Cancer (Hcc) Hypertension, Essential Type 2 Diabetes Mellitus With Stage 3b Chronic Kidney Disease, Without Long-Term Current Use of Insulin (Hcc) Mixed Hyperlipidemia Hammer Toes of Both Feet Medicare Annual Wellness Visit, Subsequent Diabetic Eye Exam (Hcc) Anemia of Chronic Disease Stage 3b chronic kidney disease (HCC) History of 2019 Novel Coronavirus Disease (Covid-19) Memory Impairment Iron Deficiency Anemia Vitamin B12 Deficiency Screening for Colon Cancer Living Will in Place Advance Directive Discussed With Patient Asbestos Exposure Squamous Cell Skin Cancer Prostate Disorder Foot Callus HISTORIES PAST MEDICAL HISTORY Diagnosis Date Advance directive discussed with patient 09/10/2022 Discussed 09/2022 Needs to bring in copies Asbestos exposure 09/11/2022 Asbestosis (HCC) 08/13/[address] Seth. Foot callus 09/15/2023 Generalized arthritis 10/02/2003 Hammer toes of both feet 08/13/2020 History of 2019 novel coronavirus disease (COVID-19) 02/18/2021 Had but not aware of date Hypertension, essential 08/13/2020 Iron deficiency anemia 08/25/[address] 09/10/2022 DPA: Ann-Marie (daughter) Medicare annual wellness visit, subsequent 08/13/2020 Medicare Part B: 03/07/2012, last done 08/23/2021 Memory impairment 02/18/2021 Secondary to chemo Tx for hs prostate cancer. Mixed hyperlipidemia 08/13/2020 Over weight 01/18/2018 Prostate cancer (HCC) 11/17/2019 Seeing Urology and oncology (Dr. Logan) Squamous cell skin cancer 05/25/2023 Right upper back removed 05/2023 Stage 3a chronic kidney disease (HCC) 08/15/2020 Type 2 diabetes mellitus with stage 3b chronic kidney disease, without long-term current use of insulin (HCC) 08/13/2020 Type 2 diabetes mellitus without complication, without long-term current use of insulin (HC (more content not included)... [facility] 10-17-2024 History of Presen t illness Narrative ESTABLISHED PATIENT OFFICE VISIT The patient is here for follow-up of prostate cancer and BPH. He is content with his urination and denies bony pain. His IPSS is 3/0. Postvoid residual is 120 cc. His PSA decreased significantly after starting finasteride 6 months ago. The current value was 3.79 (September 2024) LAB RESULTS Creatinine Date Value Ref Range Status 09/20/2024 1.60 (H) 0.73 - 1.22 mg/dL Final PSA (ng/mL) Date Value 09/20/2024 3.79 03/09/2024 13.56 09/15/2023 10.63 07/03/2022 11.32 12/13/2020 8.81 06/14/2020 7.72 GLUCOSE UA (POCT) (mg/dL) Date Value 04/04/2024 Negative BILIRUBIN UA (POCT) (no units) Date Value 04/04/2024 Negative KETONE UA (POCT) (mg/dL) Date Value 04/04/2024 Negative SPECIFIC GRAVITY UA (POCT) (no units) Date Value 04/04/2024 1.010 HEMOGLOBIN/BLOOD UA (POCT) (no units) Date Value 04/04/2024 Negative PH UA (POCT) (no units) Date Value 04/04/2024 6.0 PROTEIN UA (POCT) (mg/dL) Date Value 04/04/2024 Negative UROBILINOGEN UA (POCT) (E.U./dL) Date Value 04/04/2024 0.2 NITRITE UA (POCT) (no units) Date Value 04/04/2024 Negative LEUKOCYTES UA (POCT) (no units) Date Value 04/04/2024 Negative COLOR UA (POCT) (no units) Date Value 04/04/2024 Yellow CLARITY UA (POCT) (no units) Date Value 04/04/2024 Clear ] ALLERGIES No Known Allergies MEDICATIONS: amLODIPine (NORVASC) 5 mg tablet Take 1 tablet by mouth once daily. atorvastatin (LIPITOR) 40 mg tablet Take 1 tablet by mouth daily at bedtime. For cholesterol. fenofibrate nanocrystallized (TRICOR) 48 mg tablet Take 1 tablet by mouth once daily. glimepiride (AMARYL) 4 mg tablet Take 1 tablet by mouth once daily. lisinopril (ZESTRIL) 40 mg tablet Take 1 tablet by mouth once daily. metFORMIN (GLUCOPHAGE) 500 mg tablet Take 2 tablets by mouth two times a day with meals. pioglitazone (ACTOS) 30 mg tablet Take 1 tablet by mouth once daily. cyanocobalamin (VITAMIN B-12) 1,000 mcg tab Take 2 tablets by mouth once daily. Ferrous Sulfate 142 mg (45 mg iron) TbER Take 1 tablet by mouth once daily. finasteride (PROSCAR) 5 mg tablet Take 1 tablet by mouth once daily. blood sugar diagnostic (S5 [employer] NO CODING) test strip 1 Strip once daily. Use as instructed Lancets Test blood sugar(s) once daily. Dx: Type 2 DM - Controlled E11.9 Insulin: No tamsulosin (FLOMAX) 0.4 mg Take 1 capsule by mouth daily at bedtime for 30 doses. aspirin, enteric coated (ASPIRIN, ENTERIC COATED) 81 mg EC tablet Take 81 mg by mouth once daily. REVIEW OF SYSTEMS GENERAL:no unintentional weight loss, malaise or fevers. NEUROLOGIC: pt is alert and oriented GASTROINTESTINAL: No nausea, vomiting, or diarrhea GENITOURINARY: No history of dysuria, frequency or incontinence MUSCULOSKELETAL: Negative for joint pain or swelling, back pain or muscle pain SKIN: Negative for lesions, rash, and itching. ACTIVE PROBLEM LIST Generalized Arthritis Over Weight Prostate Cancer (Hcc) Hypertension, Essential Type 2 Diabetes Mellitus With Stage 3b Chronic Kidney Disease, Without Long-Term Current Use of Insulin (Hcc) Mixed Hyperlipidemia Hammer Toes of Both Feet Medicare Annual Wellness Visit, Subsequent Diabetic Eye Exam (Hcc) Anemia of Chronic Disease Stage 3b chronic kidney disease (HCC) History of 2019 Novel Coronavirus Disease (Covid-19) Memory Impairment Iron Deficiency Anemia Vitamin B12 Deficiency Screening for Colon Cancer Living Will in Place Advance Directive Discussed With Patient Asbestos Exposure Squamous Cell Skin Cancer Prostate Disorder Foot Callus HISTORIES PAST MEDICAL HISTORY Diagnosis Date Advance directive discussed with patient 09/10/2022 Discussed 09/2022 Needs to bring in copies Asbestos exposure 09/11/2022 Asbestosis (HCC) 08/13/[address] Seth. Foot callus 09/15/2023 Generalized arthritis 10/02/2003 Hammer toes of both feet 08/13/2020 History of 2019 novel coronavirus disease (COVID-19) 02/18/2021 Had but not aware of date Hypertension, essential 08/13/2020 Iron deficiency anemia 08/25/[address] 09/10/2022 DPA: Ann-Marie (daughter) Medicare annual wellness visit, subsequent 08/13/2020 Medicare Part B: 03/07/2012, last done 08/23/2021 Memory impairment 02/18/2021 Secondary to chemo Tx for hs prostate cancer. Mixed hyperlipidemia 08/13/2020 Over weight 01/18/2018 Prostate cancer (HCC) 11/17/2019 Seeing Urology and oncology (Dr. Logan) Squamous cell skin cancer 05/25/2023 Right upper back removed 05/2023 Stage 3a chronic kidney disease (HCC) 08/15/2020 Type 2 diabetes mellitus with stage 3b chronic kidney disease, without long-term current use of insulin (HCC) 08/13/2020 Type 2 diabetes mellitus without complication, without long-term current use of insulin (HCC) 08/13/2020 Vitamin B12 deficiency 08/25/2021 PAST SURGICAL HISTORY Procedure Laterality Date COLONOSCOPY 12/2021 EGD W/O BRSH SPEC VARICIES INJ 12/2021 PROSTATE BIOPSY 2019 REMV CATARACT EXTRACAP,INSERT LENS 06/2020 TONSILLECTOMY HX as a child FAMILY HISTORY Problem Relation Age of Onset Lung Cancer Mother Pneumonectomy. 2nd surgery. COPD Mother Emphysema. Smoker. other (Other) Father age 101. Diabetes Sister Diabetes Sister SOCIAL HISTORY Social History Tobacco Use Smoking status: Never Smokeless tobacco: Never Tobacco comments: Mother smoked in childhood home. Vaping Use Vaping status: Never Used Substance Use Topics Alcohol use: No Drug use: No PHYSICAL EXAMINATION General appearance: Well appearing, alert, in no acute distress, well-hydrated, well nourished Psych Alert and oriented to person, place and time Cardiac: no peripheral edema Pulmonary: normal respiratory effort Genitourinary: MALE EXAM: Exam NOT Indicated ASSESSMENT/PLAN: 1. Prostate cancer (HCC) - ICD9: 185, ICD10: C61 (primary diagnosis) T1c, grade group 1 prostate cancer on watchful waiting. I will continue his finasteride. Repeat PSA in 6 months. - PROSTATE-SPECIFIC ANTIGEN DIAGNOSTIC 2. Benign prostatic hyperplasia with nocturia - ICD9: 600.01, 788.43, ICD10: N40.1, R35.1 Doing well on finasteride and tamsulosin. - BLADDER SCAN Pedro Washington MD documented in this encounter [facility] 09-22-2024 Telephone encounter Note Pt notified. Uma Pereira MA [facility] 09-22-2024 Miscellaneous Notes Pt notified. Uma Pereira MA Left message for pt to contact office. Sol Lee LPN Let patient know chest x-ray was ok. documented in this encounter [facility] 09-21-2024 Telephone encounter Note Left message for pt to contact office. Sol Lee LPN [facility] 09-20-2024 Telephone encounter Note Let patient know chest x-ray was ok. [facility] 09-20-2024 History of Presen t illness Narrative Radiology Service Progress Note PATIENT NAME: Zhanna Oh DATE OF SERVICE: September 20, 2024 TIME: 3:11 PM PATIENT IDENTITY VERIFICATION COMPLETED USING TWO (2) IDENTIFIERS: Name and Date of confirmed by patient verbally. FALL SCREENING: Has the patient had 2 falls in the last year or 1 fall with injury or currently using an Ambulatory Assistive Device (Walker, Cane, Wheelchair, Crutches, etc.)? No PATIENT GENDER DATA: Assigned male at PATIENT RELEVANT IMPLANT DATA REVIEWED: Yes PATIENT PRESENTS WITH AN IMPLANTABLE OR ATTACHED AQUATIC DIRECTOR: No RADIOLOGY DEPARTMENT: General X-ray: Exam(s) Completed: Chest X-Ray PERIPHERAL IV DATA: Not applicable SIGNED BY: RT Ruddy(R) September 20, 2024 3:11 PM documented in this encounter [facility] 09-20-2024 Note HNO ID: [id number] Author: BELKIS AGUILLON RT(Demetria) Service: ? Author Type: Paint Dipper Type: Progress Notes Filed: 09/20/2024 15:17 Note Text: Radiology Service Progress Note PATIENT NAME: Zhanna Oh DATE OF SERVICE: September 20, 2024 TIME: 3:11 PM PATIENT IDENTITY VERIFICATION COMPLETED USING TWO (2) IDENTIFIERS: Name and Date of confirmed by patient verbally. FALL SCREENING: Has the patient had 2 falls in the last year or 1 fall with injury or currently using an Ambulatory Assistive Device (Walker, Cane, Wheelchair, Crutches, etc.)? No PATIENT GENDER DATA: Assigned male at PATIENT RELEVANT IMPLANT DATA REVIEWED: Yes PATIENT PRESENTS WITH AN IMPLANTABLE OR ATTACHED AQUATIC DIRECTOR: No RADIOLOGY DEPARTMENT: General X-ray: Exam(s) Completed: Chest X-Ray PERIPHERAL IV DATA: Not applicable SIGNED BY: RT Ruddy(R) September 20, 2024 3:11 PM [facility] 09-20-2024 Instructions Todd Bunch MD - 09/20/2024 1:50 PM EST Consider getting the RSV vaccine from a local pharmacy Please bring in copies of your power of commonwealth attorney for health care and living will. Please get labs done on or after 03/03/2025 prior to your next visit. Screening schedule The following prevention plan is recommended: RSV Vaccine(1 - 1-dose 75+ series) Never done Covid-19 Vaccine( season) due on 05/08/2024 Advance Directive Discussion due on 09/07/2024 HbA1C due on 09/15/2024 Urine Albumin:Creatinine Ratio due on 09/15/2024 Diabetic Foot Exam due on 09/15/2024 Dilated Retinal Exam due on 10/16/2024 WHAT YOU CAN DO TO PREVENT FALLS Many falls can be prevented. By making some changes, you can lower your chances of falling. Four things YOU can do to prevent falls for you* and your caregiver 1. Begin a regular exercise program Exercise is one of the most important ways to lower your chances of falling. It makes you stronger and helps you feel better. Exercises that improve balance and coordination (like Fausto Chi) are the most helpful. Lack of exercise leads to weakness and increases your chances of falling. Ask your doctor or health care provider about the best type of exercise program for you. 2. Have your health care provider review your medicines Have your doctor or pharmacist review all the medicines you take, even [id number] medicines. As you get older, the way medicines work in your body can change. Some medicines, or combinations of medicines, can make you sleepy or dizzy and can cause you to fall. 3. Have your vision checked Have your eyes checked by an eye doctor at least once a year. You may be wearing the wrong glasses or have a condition like glaucoma or cataracts that limits your vision. Poor vision can increase your chances of falling. 4. Make your home safer About half of all falls happen at home. To make your home safer: Remove things you can trip over (like papers, books, clothes, and shoes) from stairs and places where you walk. Remove small throw rugs or use double-sided tape to keep the rugs from slipping. Keep items you use often in cabinets you can reach easily without using a step stool. Have grab bars put in next to your toilet and in the tub or shower. Use non-slip mats in the bathtub and on shower floors. Improve the lighting in your home. As you get older, you need brighter lights to see well. Hang light-weight curtains or shades to reduce glare. Have handrails and lights put in on all staircases. Wear shoes both inside and outside the house. Avoid going barefoot or wearing slippers. For more information, contact: Centers for Disease Control and Prevention www.cdc.gov/injury * This information may not apply if you have certain medical conditions. documented in this encounter [facility] 09-20-2024 Note HNO ID: [id number] Author: TODD BUNCH MD Service: ? Author Type: Physician Type: Progress Notes Filed: 09/21/2024 11:11 Note Text: Zhanna Oh is a 79 year old male here for a Medicare wellness visit. Medicare Health Risk Assessment General Health Good Exercise: Minutes/Day 60 min Exercise: Days/Week On average, how many days per week do you engage in moderate to strenuous exercise (like a brisk walk)?: 7 days (outside work) Alcohol: Daily Use Never Alcohol: Drinks/Day Patient does not drink Alcohol: 6 or more drinks Never Feel off balance No Concerns: Teeth/Dentures No Concerns: Sexual function No Troubled by feelings None of the above Frequency: Eating healthy diet More than half the days ADLs requiring help None of the above Safety precautions in home/vehicle No Smoke, vape, chews tobacco No Difficulty hearing Yes Difficulty seeing No Current Providers Specialists: I have reviewed specialist-related care of the patient in the medical record. Current care team: Patient Care Team: Todd Bunch MD as PCP - General (Family Medicine) Talia Dorsey APRN.CNP as Software Validation Engineer (Family Medicine) Monserrat Cortez PA-C as Software Validation Engineer (Family Medicine) Urology Optho Medical/Family history review Reviewed and updated problem list, medical/surgical/family/social history, medications, and allergies. Opioid use review Opioid Medications (last 90 days) No data to display Anxiety/Depression screening PHQ-2 Score: 0 (Lower risk for depression) Recommendation: no further intervention at this time Cognitive screening Score: 4 Cognitive screening reviewed and No further action needed (score 3-5). Functional Observation Was the patient's Timed Up AND Go test unsteady or >= 12 seconds? No Advance Care Planning Surrogate decision maker and/or advance care plan documented Measurements BP 128/84 Pulse (!) 56 Resp 16 Ht 184.2 cm (6' 0.5) Wt 104.3 kg (230 lb) BMI 30.76 kg/m? Vision Screening: Follows with optometry/ophthalmology Assessment/Plan Medicare annual wellness visit, subsequent (Z00.) - Counseled on healthy diet and regular exercise - Fall avoidance information provided - Personalized prevention plan provided See below Chief Complaint Patient presents with: Medicare Wellness Exam HPI Zhanna Oh is a 79 year old male who presents here today for Chronic Medical Conditions. and Medicare Annual Visit. Patient with hx HTN, hyperlipidemia, CKD, DM2, anemia, prostate cancer, Arthritis and those as below. Component Ref Range AND Units 6 mo ago (03/15/24) 1 yr ago (09/15/23) 1 yr ago (03/11/23) 1 yr ago (12/09/22) 2 yr ago (09/10/22) 2 yr ago (02/21/22) 3 yr ago (08/23/21) Hemoglobin A1C 4.3 - 5.6 % 6.7 High 6.6 High CM 6.5 High CM 7.2 High CM 7.7 High CM 6.3 High CM 9.4 High Patient see Urology -next visit 10/2024 Patient has been noting that his blood sugars in the morning seem to be higher then they had been. Past medical history, appointments, medications, allergies reviewed. Previous Medical History PAST MEDICAL HISTORY Diagnosis Date Advance directive discussed with patient 09/10/2022 Discussed 09/2022 Needs to bring in copies Asbestos exposure 09/11/2022 Asbestosis (HCC) 08/13/[address] Seth. Foot callus 09/15/2023 Generalized arthritis 10/02/2003 Hammer toes of both feet 08/13/2020 History of 2019 novel coronavirus disease (COVID-19) 02/18/2021 Had but not aware of date Hypertension, essential 08/13/2020 Iron deficiency anemia 08/25/[address] 09/10/2022 DPA: Ann-Marie (daughter) Medicare annual wellness visit, subsequent 08/13/2020 Medicare Part B: 03/07/2012, last done 08/23/2021 Memory impairment 02/18/2021 Secondary to chemo Tx for hs prostate cancer. Mixed hyperlipidemia 08/13/2020 Over weight 01/18/2018 Prostate cancer (HCC) 11/17/2019 Seeing Urology and oncology (Dr. Logan) Squamous cell skin cancer 05/25/2023 Right upper back removed 05/2023 Stage 3a chronic kidney disease (HCC) 08/15/2020 Type 2 diabetes mellitus with stage 3b chronic kidney disease, without long-term current use of insulin (HCC) 08/13/2020 Type 2 diabetes mellitus without complication, without long-term current use of insulin (HCC) 08/13/2020 Vitamin B12 deficiency 08/25/2021 Previous Surgical History PAST SURGICAL HISTORY Procedure Laterality Date COLONOSCOPY 12/2021 EGD W/O BRSH SPEC VARICIES INJ 12/2021 PROSTATE BIOPSY 2019 REMV CATARACT EXTRACAP,INSERT LENS 06/2020 TONSILLECTOMY HX as a child Family History FAMILY HISTORY Problem Relation Age of Onset Lung Cancer Mother Pneumonectomy. 2nd surgery. COPD Mother Emphysema. Smoker. other (Other) Father age 101. Diabetes Sister Diabetes Sister Patient Allergies ALLERGIES No Known Allergies Current Medications Current Outpatient Medications on File Prior to Visit Medication Sig amLODIP (more content not included)... [facility] 09-20-2024 History of Presen t illness Narrative Images from the original note were not included. Zhanna Oh is a 79 year old male here for a Medicare wellness visit. Medicare Health Risk Assessment General Health Good Exercise: Minutes/Day 60 min Exercise: Days/Week On average, how many days per week do you engage in moderate to strenuous exercise (like a brisk walk)?: 7 days (outside work) Alcohol: Daily Use Never Alcohol: Drinks/Day Patient does not drink Alcohol: 6 or more drinks Never Feel off balance No Concerns: Teeth/Dentures No Concerns: Sexual function No Troubled by feelings None of the above Frequency: Eating healthy diet More than half the days ADLs requiring help None of the above Safety precautions in home/vehicle No Smoke, vape, chews tobacco No Difficulty hearing Yes Difficulty seeing No Current Providers Specialists: I have reviewed specialist-related care of the patient in the medical record. Current care team: Patient Care Team: Todd Bunch MD as PCP - General (Family Medicine) Talia Dorsey APRN.MACHINING SUPERVISOR as Software Validation Engineer (Family Medicine) Monserrat Cortez PA-C as Software Validation Engineer (Family Medicine) Urology Optho Medical/Family history review Reviewed and updated problem list, medical/surgical/family/social history, medications, and allergies. Opioid use review Opioid Medications (last 90 days) No data to display Anxiety/Depression screening PHQ-2 Score: 0 (Lower risk for depression) Recommendation: no further intervention at this time Cognitive screening Score: 4 Cognitive screening reviewed and No further action needed (score 3-5). Functional Observation Was the patient's Timed Up & Go test unsteady or >= 12 seconds? No Advance Care Planning Surrogate decision maker and/or advance care plan documented Measurements BP 128/84 Pulse (!) 56 Resp 16 Ht 184.2 cm (6' 0.5) Wt 104.3 kg (230 lb) BMI 30.76 kg/m Vision Screening: Follows with optometry/ophthalmology Assessment/Plan Medicare annual wellness visit, subsequent (Z00.00) - Counseled on healthy diet and regular exercise - Fall avoidance information provided - Personalized prevention plan provided See below Chief Complaint Patient presents with: Medicare Wellness Exam HPI Zhanna Oh is a 79 year old male who presents here today for Chronic Medical Conditions. and Medicare Annual Visit. Patient with hx HTN, hyperlipidemia, CKD, DM2, anemia, prostate cancer, Arthritis and those as below. Component Ref Range & Units 6 mo ago (03/15/24) 1 yr ago (09/15/23) 1 yr ago (03/11/23) 1 yr ago (12/09/22) 2 yr ago (09/10/22) 2 yr ago (02/21/22) 3 yr ago (08/23/21) Hemoglobin A1C 4.3 - 5.6 % 6.7 High 6.6 High CM 6.5 High CM 7.2 High CM 7.7 High CM 6.3 High CM 9.4 High Patient see Urology -next visit 10/2024 Patient has been noting that his blood sugars in the morning seem to be higher then they had been. Past medical history, appointments, medications, allergies reviewed. Previous Medical History PAST MEDICAL HISTORY Diagnosis Date Advance directive discussed with patient 09/10/2022 Discussed 09/2022 Needs to bring in copies Asbestos exposure 09/11/2022 Asbestosis (HCC) 08/13/[address] Seth. Foot callus 09/15/2023 Generalized arthritis 10/02/2003 Hammer toes of both feet 08/13/2020 History of 2019 novel coronavirus disease (COVID-19) 02/18/2021 Had but not aware of date Hypertension, essential 08/13/2020 Iron deficiency anemia 08/25/[address] 09/10/2022 DPA: Ann-Marie (daughter) Medicare annual wellness visit, subsequent 08/13/2020 Medicare Part B: 03/07/2012, last done 08/23/2021 Memory impairment 02/18/2021 Secondary to chemo Tx for hs prostate cancer. Mixed hyperlipidemia 08/13/2020 Over weight 01/18/2018 Prostate cancer (HCC) 11/17/2019 Seeing Urology and oncology (Dr. Logan) Squamous cell skin cancer 05/25/2023 Right upper back removed 05/2023 Stage 3a chronic kidney disease (HCC) 08/15/2020 Type 2 diabetes mellitus with stage 3b chronic kidney disease, without long-term current use of insulin (HCC) 08/13/2020 Type 2 diabetes mellitus without complication, without long-term current use of insulin (HCC) 08/13/2020 Vitamin B12 deficiency 08/25/2021 Previous Surgical History PAST SURGICAL HISTORY Procedure Laterality Date COLONOSCOPY 12/2021 EGD W/O BRSH SPEC VARICIES INJ 12/2021 PROSTATE BIOPSY 2019 REMV CATARACT EXTRACAP,INSERT LENS 06/2020 TONSILLECTOMY HX as a child Family History FAMILY HISTORY Problem Relation Age of Onset Lung Cancer Mother Pneumonectomy. 2nd surgery. COPD Mother Emphysema. Smoker. other (Other) Father age 101. Diabetes Sister Diabetes Sister Patient Allergies ALLERGIES No Known Allergies Current Medications Current Outpatient Medications on File Prior to Visit Medication Sig amLODIPine (NORVASC) 5 mg tablet Take 1 tablet by mouth once daily. atorvastatin (LIPITOR) 40 mg tablet Take 1 tablet by mouth daily at bedtime. For cholesterol. fenofibrate nanocrystallized (TRICOR) 48 mg tablet Take 1 tablet by mouth once daily. glimepiride (AMARYL) 4 mg tablet Take 1 tablet by mouth once daily. lisinopril (ZESTRIL) 40 mg tablet Take 1 tablet by mouth once daily. metFORMIN (GLUCOPHAGE) 500 mg tablet Take 2 tablets by mouth two times a day with meals. pioglitazone (ACTOS) 30 mg tablet Take 1 tablet by mouth once daily. cyanocobalamin (VITAMIN B-12) 1,000 mcg tab Take 2 tablets by mouth once daily. Ferrous Sulfate 142 mg (45 mg iron) TbER Take 1 tablet by mouth once daily. finasteride (PROSCAR) 5 mg tablet Take 1 tablet by mouth once daily. blood sugar diagnostic ([employer] NO CODING) test strip 1 Strip once daily. Use as instructed Lancets Test blood sugar(s) once daily. Dx: Type 2 DM - Controlled E11.9 Insulin: No tamsulosin (FLOMAX) 0.4 mg Take 1 capsule by mouth daily at bedtime for 30 doses. aspirin, enteric coated (ASPIRIN, ENTERIC COATED) 81 mg EC tablet Take 81 mg by mouth once daily. No current facility-administered medications on file prior to visit. Social History Social History Tobacco Use Smoking status: Never Smokeless tobacco: Never Tobacco comments: Mother smoked in childhood home. Vaping Use Vaping status: Never Used Substance Use Topics Alcohol use: No Drug use: No Review of Symptoms REVIEW OF SYSTEMS GENERAL: No weight loss, malaise or fevers HEENT: Negative for frequent or significant headaches, No changes in vision, no nose bleeds or other nasal problems. Has difficulty hearing in one ear (not sure which) and does not want to see a fire investigator. NECK: Negative for lumps, goiter, pain and significant neck swelling RESPIRATORY: Negative for cough, hemoptysis, wheezing, COPD, slight dyspnea or shortness of breath with steps. CARDIOVASCULAR: Negative for chest pain, increased leg swelling, hypertension, CHF or palpitations GI: No nausea, vomiting, or diarrhea, No heartburn or reflux symptoms, and no blood : No history of dysuria, frequency or blood MUSCULOSKELETAL: Negative for joint pain or swelling, back pain or muscle pain SKIN: Negative for lesions, rash, and itching PSYCH: Negative for sleep disturbance, mood disorder and recent psychosocial stressors HEMATOLOGY/LYMPHOLOGY: Negative for prolonged bleeding, bruising easily or swollen nodes ENDOCRINE: Negative for cold or heat intolerance, symptoms of low BS's. NEURO: No history of headaches, syncope, paralysis, seizures or tremors EXAM: BP 128/84 Pulse (!) 56 Resp 16 Ht 184.2 cm (6' 0.5) Wt 104.3 kg (230 lb) BMI 30.76 kg/m Last 5 Encounter Wt Readings: Date: Wt: 09/20/2024 104.3 kg (230 lb) 03/15/2024 102.1 kg (225 lb) 10/05/2023 101.2 kg (223 lb) 09/15/2023 101.2 kg (223 lb) 05/20/2023 101.6 kg (224 lb) General Appearance: Well appearing, alert, in no acute distress, well-hydrated, well nourished.. Skin: Skin color, texture, turgor normal, no suspicious rashes or lesions. Head: Normocephalic, no masses, lesions, tenderness or abnormalities. Eyes: Anicteric sclera. Pupils are equally round and reactive to light. Extraocular movements are intact. . Ears: External ears, TM's normal, canals clear. Nose/Sinuses: Nares normal, septum midline, mucosa normal, no drainage or sinus tenderness. Oropharynx: Lips, mucosa, and tongue normal, teeth and gums normal, oropharynx normal. Neck: Supple, no adenopathy; thyroid symmetric, normal size, no bruits. Lungs: Lungs clear to auscultation. No wheezing, rhonchi, rales.. Heart: RRR without murmur, gallop, or rubs. No ectopy. Abdomen: Normal abdominal exam, Abdomen soft, non-tender. Bowel sounds normal. No masses, organomegaly. Extremities: No deformities, edema, skin discoloration, clubbing or cyanosis. Good capillary refill. . Musculoskeletal: Muscular strength intact, No joint swelling, deformity, or tenderness. Peripheral Pulses: Normal. Neurologic: Gait normal. Reflexes normal and symmetric. Sensation to light touch and crainal nerves 2-12 intact.. Genitalia: declined. . Diabetic Foot Exam: Feet: Shoes and socks removed, no deformities, ulcers, calluses, normal distal pulses, sensitive to 10 gm microfilament, and vibratory exam within normal limits Skin: warm, dry, and no callouses or ulcer Vascular Pulses: Normal SEMMES-SHORTY MONOFILAMENT TESTING Left Foot Right Foot Dorsal Surface Intact Dorsal Surface Intact Plantar Surface Intact Plantar Surface Intact Health Maintenance List RSV Vaccine(1 - 1-dose 75+ series) Never done Covid-19 Vaccine( season) due on 05/08/2024 Advance Directive Discussion due on 09/07/2024 HbA1C due on 09/15/2024 Urine Albumin:Creatinine Ratio due on 09/15/2024 Diabetic Foot Exam due on 09/15/2024 Dilated Retinal Exam due on 10/16/2024 Serum Creatinine due on 12/27/2024 Hemoglobin/Hematocrit due on 12/27/2024 LDL Cholesterol due on 03/15/2025 Annual PCP Team Chronic Disease Visit due on 03/15/2025 Depression Screening due on 03/15/2025 Anxiety Screening due on 03/15/2025 BP Controlled (<130/80) due on 03/15/2025 HPV Vaccine Aged Out DTaP,Tdap,Td Vaccine Discontinued Influenza Vaccine Discontinued Colorectal Cancer Screening Discontinued Hepatitis C Screening Discontinued Shingrix Vaccine Discontinued Pneumococcal Vaccine: 50+ Discontinued Data reviewed A/P ASSESSMENT/PLAN: 1. Medicare annual wellness visit, subsequent - ICD9: V70.0, ICD10: Z00.00 (primary diagnosis) - Counseled on healthy diet and regular exercise - Discussed need for and benefit of weight loss. BMI 30.76 kg/(m^2) - Patient counseled on and acknowledged vaccine benefits/risks/side effects; VIS provided: COVID-19 - Follow up for annual exam in one year - advised on RSV. 2. Type 2 diabetes mellitus with stage 3b chronic kidney disease, without long-term current use of insulin (HCC) - ICD9: 250.40, 585.3, ICD10: E11.22, N18.32 - Control undetermined, due for labs - Continue current medications - Counseled on healthy diet and regular exercise - Discussed need for and benefit of weight loss. BMI 30.76 kg/(m^2) Check - ALBUMIN/CREATININE RATIO, URINE - COMPREHENSIVE METABOLIC PANEL - HEMOGLOBIN A1C - URINALYSIS, WITH MICROSCOPIC - LIPID PANEL, NONFASTING - COMPLETE BLOOD COUNT AND DIFFERENTIAL 3. Diabetic eye exam (HCC) - ICD9: V72.0, 250.00, ICD10: Z01.00, E11.9 - up to date 4. Hypertension, essential - ICD9: 401.9, ICD10: I10 - Controlled - Continue current medications - Recommend home blood pressure monitoring, to bring results to next visit - Encouraged sodium restriction, DASH or Mediterranean diet - Recommend regular aerobic exercise - Discussed need for and benefit of weight loss. BMI 30.76 kg/(m^2) - COMPREHENSIVE METABOLIC PANEL - URINALYSIS, WITH MICROSCOPIC - LIPID PANEL, NONFASTING 5. Mixed hyperlipidemia - ICD9: 272.2, ICD10: E78.2 - Control undetermined, due for labs - Continue current medications - Counseled on healthy diet and regular exercise - Discussed need for and benefit of weight loss. BMI 30.76 kg/(m^2) - COMPREHENSIVE METABOLIC PANEL - URINALYSIS, WITH MICROSCOPIC - LIPID PANEL, NONFASTING 6. Anemia of chronic disease - ICD9: 285.29, ICD10: D63.8 Check - COMPLETE BLOOD COUNT AND DIFFERENTIAL 7. Iron deficiency anemia, unspecified iron deficiency anemia type - ICD9: 280.9, ICD10: D50.9 Check - IRON AND TIBC - COMPLETE BLOOD COUNT AND DIFFERENTIAL 8. Memory impairment - ICD9: 780.93, ICD10: R41.3 - stable no Tx needed. 9. Stage 3b chronic kidney disease (HCC) - ICD9: 585.3, ICD10: N18.32 Await labs - Counseled on avoiding NSAIDs, adequate hydration - ACEi/ARB prescribed: Yes Check - COMPREHENSIVE METABOLIC PANEL - COMPLETE BLOOD COUNT AND DIFFERENTIAL 10. Prostate cancer (HCC) - ICD9: 185, ICD10: C61 - follows with Urology for care. 11. Vitamin B12 deficiency - ICD9: 266.2, ICD10: E53.8 Check - VITAMIN B12 12. Foot callus - ICD9: 700, ICD10: L84 - none on exam today. 13. Advance directive discussed with patient - ICD9: V65.49, ICD10: Z71.89 - patient needs to bring in copies. 14. Encounter for immunization - ICD9: V03.89, ICD10: Z23 - PFIZER-[employer]ION[employer] COVID-19 VACCINE AGE 12+ YR (COMIRNATY): given 15. Asbestos exposure - ICD9: V15.84, ICD10: Z77.090 Check - XR CHEST 2V FRONTAL/LAT F/u 6 months routine check A1c, Lipid and BMP prior I spent a total of 40 minutes on the date of the service which included preparing to see the patient, [id number] patient care, completing clinical documentation, performing a medically appropriate examination, counseling and educating the patient/family/caregiver and ordering medications, tests, or procedures. Todd Bunch MD documented in this encounter [facility] 08-26-2024 Telephone encounter Note The following approved medication requests have been transmitted electronically. Requested Prescriptions Signed Prescriptions Disp Refills amLODIPine (NORVASC) 5 mg tablet 90 tablet 1 Sig: Take 1 tablet by mouth once daily. Authorizing Provider: TODD BUNCH atorvastatin (LIPITOR) 40 mg tablet 90 tablet 1 Sig: Take 1 tablet by mouth daily at bedtime. For cholesterol. Authorizing Provider: TODD BUNCH fenofibrate nanocrystallized (TRICOR) 48 mg tablet 90 tablet 1 Sig: Take 1 tablet by mouth once daily. Authorizing Provider: TODD BUNCH glimepiride (AMARYL) 4 mg tablet 90 tablet 1 Sig: Take 1 tablet by mouth once daily. Authorizing Provider: TODD BUNCH lisinopril (ZESTRIL) 40 mg tablet 90 tablet 1 Sig: Take 1 tablet by mouth once daily. Authorizing Provider: TODD BUNCH metFORMIN (GLUCOPHAGE) 500 mg tablet 360 tablet 1 Sig: Take 2 tablets by mouth two times a day with meals. Authorizing Provider: TODD BUNCH pioglitazone (ACTOS) 30 mg tablet 90 tablet 1 Sig: Take 1 tablet by mouth once daily. Authorizing Provider: TODD BUNCH cyanocobalamin (VITAMIN B-12) 1,000 mcg tab 180 tablet 3 Sig: Take 2 tablets by mouth once daily. Authorizing Provider: TODD BUNCH MD [facility] 08-26-2024 Miscellaneous Notes The following approved medication requests have been transmitted electronically. Requested Prescriptions Signed Prescriptions Disp Refills amLODIPine (NORVASC) 5 mg tablet 90 tablet 1 Sig: Take 1 tablet by mouth once daily. Authorizing Provider: TODD BUNCH atorvastatin (LIPITOR) 40 mg tablet 90 tablet 1 Sig: Take 1 tablet by mouth daily at bedtime. For cholesterol. Authorizing Provider: TODD BUNCH fenofibrate nanocrystallized (TRICOR) 48 mg tablet 90 tablet 1 Sig: Take 1 tablet by mouth once daily. Authorizing Provider: TODD BUNCH glimepiride (AMARYL) 4 mg tablet 90 tablet 1 Sig: Take 1 tablet by mouth once daily. Authorizing Provider: TODD BUNCH lisinopril (ZESTRIL) 40 mg tablet 90 tablet 1 Sig: Take 1 tablet by mouth once daily. Authorizing Provider: TODD BUNCH metFORMIN (GLUCOPHAGE) 500 mg tablet 360 tablet 1 Sig: Take 2 tablets by mouth two times a day with meals. Authorizing Provider: TODD BUNCH pioglitazone (ACTOS) 30 mg tablet 90 tablet 1 Sig: Take 1 tablet by mouth once daily. Authorizing Provider: TODD BUNCH cyanocobalamin (VITAMIN B-12) 1,000 mcg tab 180 tablet 3 Sig: Take 2 tablets by mouth once daily. Authorizing Provider: TODD BUNCH MD The patient has been identified by name and date of : Yes Caregiver verified no other encounters exist for this prescription request: Yes Caregiver confirmed with patient/requestor that no other refills are due, in the near future, with this provider at this time: Yes The last office visit in the department: 03/15/2024 Does the patient have a future office visit with this provider/department: Yes 09/20/2024 Requested Prescriptions Pending Prescriptions Disp Refills amLODIPine (NORVASC) 5 mg tablet 90 tablet 1 Sig: Take 1 tablet by mouth once daily. atorvastatin (LIPITOR) 40 mg tablet 90 tablet 1 Sig: Take 1 tablet by mouth daily at bedtime. For cholesterol. fenofibrate nanocrystallized (TRICOR) 48 mg tablet 90 tablet 1 Sig: Take 1 tablet by mouth once daily. glimepiride (AMARYL) 4 mg tablet 90 tablet 1 Sig: Take 1 tablet by mouth once daily. lisinopril (ZESTRIL) 40 mg tablet 90 tablet 1 Sig: Take 1 tablet by mouth once daily. metFORMIN (GLUCOPHAGE) 500 mg tablet 360 tablet 1 Sig: Take 2 tablets by mouth two times a day with meals. pioglitazone (ACTOS) 30 mg tablet 90 tablet 1 Sig: Take 1 tablet by mouth once daily. cyanocobalamin (VITAMIN B-12) 1,000 mcg tab 180 tablet 3 Sig: Take 2 tablets by mouth once daily. Rachelle Yeboah RN August 26, 2024 9:40 AM documented in this encounter [facility] 08-26-2024 Telephone encounter Note The patient has been identified by name and date of : Yes Caregiver verified no other encounters exist for this prescription request: Yes Caregiver confirmed with patient/requestor that no other refills are due, in the near future, with this provider at this time: Yes The last office visit in the department: 03/15/2024 Does the patient have a future office visit with this provider/department: Yes 09/20/2024 Requested Prescriptions Pending Prescriptions Disp Refills amLODIPine (NORVASC) 5 mg tablet 90 tablet 1 Sig: Take 1 tablet by mouth once daily. atorvastatin (LIPITOR) 40 mg tablet 90 tablet 1 Sig: Take 1 tablet by mouth daily at bedtime. For cholesterol. fenofibrate nanocrystallized (TRICOR) 48 mg tablet 90 tablet 1 Sig: Take 1 tablet by mouth once daily. glimepiride (AMARYL) 4 mg tablet 90 tablet 1 Sig: Take 1 tablet by mouth once daily. lisinopril (ZESTRIL) 40 mg tablet 90 tablet 1 Sig: Take 1 tablet by mouth once daily. metFORMIN (GLUCOPHAGE) 500 mg tablet 360 tablet 1 Sig: Take 2 tablets by mouth two times a day with meals. pioglitazone (ACTOS) 30 mg tablet 90 tablet 1 Sig: Take 1 tablet by mouth once daily. cyanocobalamin (VITAMIN B-12) 1,000 mcg tab 180 tablet 3 Sig: Take 2 tablets by mouth once daily. Rachelle Yeboah RN August 26, 2024 9:40 AM [facility] 07-27-2024 Telephone encounter Note The patient has been identified by name and date of : Yes Caregiver verified no other encounters exist for this prescription request: Yes Caregiver confirmed with patient/requestor that no other refills are due, in the near future, with this provider at this time: Yes The last office visit in the department: 03/15/2024 Does the patient have a future office visit with this provider/department: Yes 09/20/2024 Requested Prescriptions Pending Prescriptions Disp Refills Ferrous Sulfate 142 mg (45 mg iron) TbER 90 tablet 1 Sig: Take 1 tablet by mouth once daily. Debra Gresham RN [facility] 07-27-2024 Miscellaneous Notes The patient has been identified by name and date of : Yes Caregiver verified no other encounters exist for this prescription request: Yes Caregiver confirmed with patient/requestor that no other refills are due, in the near future, with this provider at this time: Yes The last office visit in the department: 03/15/2024 Does the patient have a future office visit with this provider/department: Yes 09/20/2024 Requested Prescriptions Pending Prescriptions Disp Refills Ferrous Sulfate 142 mg (45 mg iron) TbER 90 tablet 1 Sig: Take 1 tablet by mouth once daily. Debra Gresham RN documented in this encounter [facility] 04-04-2024 Note HNO ID: [id number] Author: PEDRO WASHINGTON MD Service: ? Author Type: Physician Type: Progress Notes Filed: 04/04/2024 11:07 Note Text: ESTABLISHED PATIENT OFFICE VISIT F/u BPH and CaP. He is content with his urination on tamsulosin. His current IPSS is 7/3. Postvoid residuals 168 cc. His PSA increased slightly this visit to 13.56. LAB RESULTS Creatinine Date Value Ref Range Status 12/28/2023 1.73 (H) 0.73 - 1.22 mg/dL Final PSA (ng/mL) Date Value 03/09/2024 13.56 09/15/2023 10.63 07/03/2022 11.32 12/13/2020 8.81 06/14/2020 7.72 GLUCOSE UA (POCT) (mg/dL) Date Value 04/04/2024 Negative BILIRUBIN UA (POCT) (no units) Date Value 04/04/2024 Negative KETONE UA (POCT) (mg/dL) Date Value 04/04/2024 Negative SPECIFIC GRAVITY UA (POCT) (no units) Date Value 04/04/2024 1.010 HEMOGLOBIN/BLOOD UA (POCT) (no units) Date Value 04/04/2024 Negative PH UA (POCT) (no units) Date Value 04/04/2024 6.0 PROTEIN UA (POCT) (mg/dL) Date Value 04/04/2024 Negative UROBILINOGEN UA (POCT) (E.U./dL) Date Value 04/04/2024 0.2 NITRITE UA (POCT) (no units) Date Value 04/04/2024 Negative LEUKOCYTES UA (POCT) (no units) Date Value 04/04/2024 Negative COLOR UA (POCT) (no units) Date Value 04/04/2024 Yellow CLARITY UA (POCT) (no units) Date Value 04/04/2024 Clear ] ALLERGIES No Known Allergies MEDICATIONS: Ferrous Sulfate 142 mg (45 mg iron) TbER Take 1 tablet by mouth once daily. amLODIPine (NORVASC) 5 mg tablet Take 1 tablet by mouth once daily. atorvastatin (LIPITOR) 40 mg tablet Take 1 tablet by mouth daily at bedtime. For cholesterol. fenofibrate nanocrystallized (TRICOR) 48 mg tablet Take 1 tablet by mouth once daily. glimepiride (AMARYL) 4 mg tablet Take 1 tablet by mouth once daily. lisinopril (ZESTRIL) 40 mg tablet Take 1 tablet by mouth once daily. metFORMIN (GLUCOPHAGE) 500 mg tablet Take 2 tablets by mouth two times a day with meals. pioglitazone (ACTOS) 30 mg tablet Take 1 tablet by mouth once daily. blood sugar diagnostic ([employer] NO CODING) test strip 1 Strip once daily. Use as instructed Lancets Test blood sugar(s) once daily. Dx: Type 2 DM - Controlled E11.9 Insulin: No cyanocobalamin (VITAMIN B-12) 1,000 mcg tab Take 2 tablets by mouth once daily. aspirin, enteric coated (ASPIRIN, ENTERIC COATED) 81 mg EC tablet Take 81 mg by mouth once daily. finasteride (PROSCAR) 5 mg tablet Take 1 tablet by mouth once daily. tamsulosin (FLOMAX) 0.4 mg Take 1 capsule by mouth daily at bedtime for 30 doses. REVIEW OF SYSTEMS GENERAL:no unintentional weight loss, malaise or fevers. NEUROLOGIC: pt is alert and oriented GASTROINTESTINAL: No nausea, vomiting, or diarrhea GENITOURINARY: No history of dysuria, frequency or incontinence MUSCULOSKELETAL: Negative for joint pain or swelling, back pain or muscle pain SKIN: Negative for lesions, rash, and itching. ACTIVE PROBLEM LIST Generalized Arthritis Over Weight Prostate Cancer (Hcc) Hypertension, Essential Type 2 Diabetes Mellitus With Stage 3b Chronic Kidney Disease, Without Long-Term Current Use of Insulin (Hcc) Mixed Hyperlipidemia Hammer Toes of Both Feet Medicare Annual Wellness Visit, Subsequent Diabetic Eye Exam ([facility]) Anemia of Chronic Disease Stage 3b chronic kidney disease (HCC) History of 2019 Novel Coronavirus Disease (Covid-19) Memory Impairment Iron Deficiency Anemia Vitamin B12 Deficiency Screening for Colon Cancer Living Will in Place Advance Directive Discussed With Patient Asbestos Exposure Squamous Cell Skin Cancer Prostate Disorder Foot Callus HISTORIES PAST MEDICAL HISTORY Diagnosis Date Advance directive discussed with patient 09/10/2022 Discussed 09/2022 Needs to bring in copies Asbestos exposure 09/11/2022 Asbestosis (HCC) 08/13/[address] Seth. Foot callus 09/15/2023 Generalized arthritis 10/02/2003 Hammer toes of both feet 08/13/2020 History of 2019 novel coronavirus disease (COVID-19) 02/18/2021 Had but not aware of date Hypertension, essential 08/13/2020 Iron deficiency anemia 08/25/[address] 09/10/2022 DPA: Ann-Marie (daughter) Medicare annual wellness visit, subsequent 08/13/2020 Medicare Part B: 03/07/2012, last done 08/23/2021 Memory impairment 02/18/2021 Secondary to chemo Tx for hs prostate cancer. Mixed hyperlipidemia 08/13/2020 Over weight 01/18/2018 Prostate cancer (HCC) 11/17/2019 Seeing Urology and oncology (Dr. Logan) Squamous cell skin cancer 05/25/2023 Right upper back removed 05/2023 Stage 3a chronic kidney disease (HCC) 08/15/2020 Type 2 diabetes mellitus with stage 3b chronic kidney disease, without long-term current use of insulin (HCC) 08/13/2020 Type 2 diabetes mellitus without complication, without long-term current use of insulin (HCC) 08/13/2020 Vitamin B12 deficiency 08/25/2021 PAST SURGICAL HISTORY Procedure Laterality Date COLONOSCOPY 12/2021 EGD W/O (more content not included)... [facility] 04-04-2024 History of Presen t illness Narrative ESTABLISHED PATIENT OFFICE VISIT F/u BPH and CaP. He is content with his urination on tamsulosin. His current IPSS is 7/3. Postvoid residuals 168 cc. His PSA increased slightly this visit to 13.56. LAB RESULTS Creatinine Date Value Ref Range Status 12/28/2023 1.73 (H) 0.73 - 1.22 mg/dL Final PSA (ng/mL) Date Value 03/09/2024 13.56 09/15/2023 10.63 07/03/2022 11.32 12/13/2020 8.81 06/14/2020 7.72 GLUCOSE UA (POCT) (mg/dL) Date Value 04/04/2024 Negative BILIRUBIN UA (POCT) (no units) Date Value 04/04/2024 Negative KETONE UA (POCT) (mg/dL) Date Value 04/04/2024 Negative SPECIFIC GRAVITY UA (POCT) (no units) Date Value 04/04/2024 1.010 HEMOGLOBIN/BLOOD UA (POCT) (no units) Date Value 04/04/2024 Negative PH UA (POCT) (no units) Date Value 04/04/2024 6.0 PROTEIN UA (POCT) (mg/dL) Date Value 04/04/2024 Negative UROBILINOGEN UA (POCT) (E.U./dL) Date Value 04/04/2024 0.2 NITRITE UA (POCT) (no units) Date Value 04/04/2024 Negative LEUKOCYTES UA (POCT) (no units) Date Value 04/04/2024 Negative COLOR UA (POCT) (no units) Date Value 04/04/2024 Yellow CLARITY UA (POCT) (no units) Date Value 04/04/2024 Clear ] ALLERGIES No Known Allergies MEDICATIONS: Ferrous Sulfate 142 mg (45 mg iron) TbER Take 1 tablet by mouth once daily. amLODIPine (NORVASC) 5 mg tablet Take 1 tablet by mouth once daily. atorvastatin (LIPITOR) 40 mg tablet Take 1 tablet by mouth daily at bedtime. For cholesterol. fenofibrate nanocrystallized (TRICOR) 48 mg tablet Take 1 tablet by mouth once daily. glimepiride (AMARYL) 4 mg tablet Take 1 tablet by mouth once daily. lisinopril (ZESTRIL) 40 mg tablet Take 1 tablet by mouth once daily. metFORMIN (GLUCOPHAGE) 500 mg tablet Take 2 tablets by mouth two times a day with meals. pioglitazone (ACTOS) 30 mg tablet Take 1 tablet by mouth once daily. blood sugar diagnostic ([employer] NO CODING) test strip 1 Strip once daily. Use as instructed Lancets Test blood sugar(s) once daily. Dx: Type 2 DM - Controlled E11.9 Insulin: No cyanocobalamin (VITAMIN B-12) 1,000 mcg tab Take 2 tablets by mouth once daily. aspirin, enteric coated (ASPIRIN, ENTERIC COATED) 81 mg EC tablet Take 81 mg by mouth once daily. finasteride (PROSCAR) 5 mg tablet Take 1 tablet by mouth once daily. tamsulosin (FLOMAX) 0.4 mg Take 1 capsule by mouth daily at bedtime for 30 doses. REVIEW OF SYSTEMS GENERAL:no unintentional weight loss, malaise or fevers. NEUROLOGIC: pt is alert and oriented GASTROINTESTINAL: No nausea, vomiting, or diarrhea GENITOURINARY: No history of dysuria, frequency or incontinence MUSCULOSKELETAL: Negative for joint pain or swelling, back pain or muscle pain SKIN: Negative for lesions, rash, and itching. ACTIVE PROBLEM LIST Generalized Arthritis Over Weight Prostate Cancer (Hcc) Hypertension, Essential Type 2 Diabetes Mellitus With Stage 3b Chronic Kidney Disease, Without Long-Term Current Use of Insulin (Hcc) Mixed Hyperlipidemia Hammer Toes of Both Feet Medicare Annual Wellness Visit, Subsequent Diabetic Eye Exam ([facility]) Anemia of Chronic Disease Stage 3b chronic kidney disease (HCC) History of 2019 Novel Coronavirus Disease (Covid-19) Memory Impairment Iron Deficiency Anemia Vitamin B12 Deficiency Screening for Colon Cancer Living Will in Place Advance Directive Discussed With Patient Asbestos Exposure Squamous Cell Skin Cancer Prostate Disorder Foot Callus HISTORIES PAST MEDICAL HISTORY Diagnosis Date Advance directive discussed with patient 09/10/2022 Discussed 09/2022 Needs to bring in copies Asbestos exposure 09/11/2022 Asbestosis (HCC) 08/13/[address] Seth. Foot callus 09/15/2023 Generalized arthritis 10/02/2003 Hammer toes of both feet 08/13/2020 History of 2019 novel coronavirus disease (COVID-19) 02/18/2021 Had but not aware of date Hypertension, essential 08/13/2020 Iron deficiency anemia 08/25/[address] 09/10/2022 DPA: Ann-Marie (daughter) Medicare annual wellness visit, subsequent 08/13/2020 Medicare Part B: 03/07/2012, last done 08/23/2021 Memory impairment 02/18/2021 Secondary to chemo Tx for hs prostate cancer. Mixed hyperlipidemia 08/13/2020 Over weight 01/18/2018 Prostate cancer (HCC) 11/17/2019 Seeing Urology and oncology (Dr. Logan) Squamous cell skin cancer 05/25/2023 Right upper back removed 05/2023 Stage 3a chronic kidney disease (HCC) 08/15/2020 Type 2 diabetes mellitus with stage 3b chronic kidney disease, without long-term current use of insulin (HCC) 08/13/2020 Type 2 diabetes mellitus without complication, without long-term current use of insulin (HCC) 08/13/2020 Vitamin B12 deficiency 08/25/2021 PAST SURGICAL HISTORY Procedure Laterality Date COLONOSCOPY 12/2021 EGD W/O BRSH SPEC VARICIES INJ 12/2021 PROSTATE BIOPSY 2019 REMV CATARACT EXTRACAP,INSERT LENS 06/2020 TONSILLECTOMY HX as a child FAMILY HISTORY Problem Relation Age of Onset Lung Cancer Mother Pneumonectomy. 2nd surgery. COPD Mother Emphysema. Smoker. other (Other) Father age 101. Diabetes Sister Diabetes Sister SOCIAL HISTORY Social History Tobacco Use Smoking status: Never Smokeless tobacco: Never Tobacco comments: Mother smoked in childhood home. Vaping Use Vaping Use: Never used Substance Use Topics Alcohol use: No Drug use: No PHYSICAL EXAMINATION General appearance: Well appearing, alert, in no acute distress, well-hydrated, well nourished Psych Alert and oriented to person, place and time Cardiac: no peripheral edema Pulmonary: normal respiratory effort Genitourinary: MALE EXAM: No ALEXA today. ASSESSMENT/PLAN: 1. Prostate cancer (HCC) - ICD9: 185, ICD10: C61 (primary diagnosis) T1c, grade group 1 prostate cancer on active surveillance. I recommend switching to watchful waiting. Because his PSA is greater than 10, I will start him on finasteride. If his PSA decreases significantly, this will confirm that prostate enlargement is driving his PSA. The most recent MRI volume was approximately 125 cc. Follow-up in 6 months with PSA 2. Benign prostatic hyperplasia with nocturia - ICD9: 600.01, 788.43, ICD10: N40.1, R35.1 Continue tamsulosin. I will add finasteride. - FINASTERIDE 5 MG TABLET Pedro Washington MD documented in this encounter [facility] 03-17-2024 Telephone encounter Note Pt called and is notified of providers results. Pt voices understanding. Jodie Roe RN [facility] 03-17-2024 Miscellaneous Notes Pt called and is notified of providers results. Pt voices understanding. Jodie Roe RN Please let patient know their labs are stable. documented in this encounter [facility] 03-17-2024 Telephone encounter Note Please let patient know their labs are stable. [facility] 03-15-2024 Note HNO ID: [id number] Author: TALIA DORSEY APRN.CNP Service: ? Author Type: Nurse Practitioner Type: Progress Notes Filed: 03/15/2024 11:55 Note Text: Chief Complaint Patient presents with: 6 Month Exam HPI Zhanna Oh is a 78 year old male who presents here today for Above Complaints.. Patient presents for routine follow up. Patient has follow up with urology later this month. Patient reports he is feeling well. Past medical history, appointments, medications, allergies reviewed. Previous Medical History PAST MEDICAL HISTORY Diagnosis Date Advance directive discussed with patient 09/10/2022 Discussed 09/2022 Needs to bring in copies Asbestos exposure 09/11/2022 Asbestosis (HCC) 08/13/[address] Seth. Foot callus 09/15/2023 Generalized arthritis 10/02/2003 Hammer toes of both feet 08/13/2020 History of 2019 novel coronavirus disease (COVID-19) 02/18/2021 Had but not aware of date Hypertension, essential 08/13/2020 Iron deficiency anemia 08/25/[address] 09/10/2022 DPA: Ann-Marie (daughter) Medicare annual wellness visit, subsequent 08/13/2020 Medicare Part B: 03/07/2012, last done 08/23/2021 Memory impairment 02/18/2021 Secondary to chemo Tx for hs prostate cancer. Mixed hyperlipidemia 08/13/2020 Over weight 01/18/2018 Prostate cancer (HCC) 11/17/2019 Seeing Urology and oncology (Dr. Logan) Squamous cell skin cancer 05/25/2023 Right upper back removed 05/2023 Stage 3a chronic kidney disease (HCC) 08/15/2020 Type 2 diabetes mellitus with stage 3b chronic kidney disease, without long-term current use of insulin (HCC) 08/13/2020 Type 2 diabetes mellitus without complication, without long-term current use of insulin (HCC) 08/13/2020 Vitamin B12 deficiency 08/25/2021 Previous Surgical History PAST SURGICAL HISTORY Procedure Laterality Date COLONOSCOPY 12/2021 EGD W/O BRSH SPEC VARICIES INJ 12/2021 PROSTATE BIOPSY 2019 REMV CATARACT EXTRACAP,INSERT LENS 06/2020 TONSILLECTOMY HX as a child Family History FAMILY HISTORY Problem Relation Age of Onset Lung Cancer Mother Pneumonectomy. 2nd surgery. COPD Mother Emphysema. Smoker. other (Other) Father age 101. Diabetes Sister Diabetes Sister Patient Allergies ALLERGIES No Known Allergies Current Medications Current Outpatient Medications on File Prior to Visit Medication Sig amLODIPine (NORVASC) 5 mg tablet Take 1 tablet by mouth once daily. atorvastatin (LIPITOR) 40 mg tablet Take 1 tablet by mouth daily at bedtime. For cholesterol. fenofibrate nanocrystallized (TRICOR) 48 mg tablet Take 1 tablet by mouth once daily. glimepiride (AMARYL) 4 mg tablet Take 1 tablet by mouth once daily. lisinopril (ZESTRIL) 40 mg tablet Take 1 tablet by mouth once daily. metFORMIN (GLUCOPHAGE) 500 mg tablet Take 2 tablets by mouth two times a day with meals. pioglitazone (ACTOS) 30 mg tablet Take 1 tablet by mouth once daily. blood sugar diagnostic (PRODIGY NO CODING) test strip 1 Strip once daily. Use as instructed Lancets Test blood sugar(s) once daily. Dx: Type 2 DM - Controlled E11.9 Insulin: No cyanocobalamin (VITAMIN B-12) 1,000 mcg tab Take 2 tablets by mouth once daily. tamsulosin (FLOMAX) 0.4 mg Take 1 capsule by mouth daily at bedtime for 30 doses. Ferrous Sulfate (SLOW FE) 142 mg (45 mg iron) TbER Take one tab daily aspirin, enteric coated (ASPIRIN, ENTERIC COATED) 81 mg EC tablet Take 81 mg by mouth once daily. No current facility-administered medications on file prior to visit. Social History Social History Tobacco Use Smoking status: Never Smokeless tobacco: Never Tobacco comments: Mother smoked in childhood home. Vaping Use Vaping Use: Never used Substance Use Topics Alcohol use: No Drug use: No Review of Symptoms REVIEW OF SYSTEMS SEE HPI EXAM: BP 155/77 Pulse (!) 51 Resp 14 Wt 102.1 kg (225 lb) BMI 30.47 kg/m? General Appearance: Well appearing, alert, in no acute distress, well-hydrated, well nourished.. Lungs: Lungs clear to auscultation. No wheezing, rhonchi, rales.. Heart: RRR without murmur, gallop, or rubs. No ectopy. Peripheral Pulses: Normal. Health Maintenance List BP Controlled (<130/80) due on 08/23/2022 Behavioral Health Screening Never done Covid-19 Vaccine( season) due on 11/05/2023 HbA1C due on 03/15/2024 RSV Vaccine(1 - 1-dose 60+ series) due on 09/15/2024 Urine Albumin:Creatinine Ratio due on 09/15/2024 LDL Cholesterol due on 09/15/2024 Diabetic Foot Exam due on 09/15/2024 Annual PCP Team Chronic Disease Visit due on 09/15/2024 Dilated Retinal Exam due on 10/16/2024 Serum Creatinine due on 12/27/2024 Hemoglobin/Hematocrit due on 12/27/2024 Advance Directive Discussion Completed HPV Vaccine Aged Out DTaP,Tdap,Td Vaccine Discontinued Influenza Vaccine Discontinued Colorectal Cancer Screening Discontinued Hepatitis C Screening Discontinued Shingrix Vaccine Disco (more content not included)... [facility] 03-15-2024 History of Presen t illness Narrative Chief Complaint Patient presents with: 6 Month Exam HPI Zhanna Oh is a 78 year old male who presents here today for Above Complaints.. Patient presents for routine follow up. Patient has follow up with urology later this month. Patient reports he is feeling well. Past medical history, appointments, medications, allergies reviewed. Previous Medical History PAST MEDICAL HISTORY Diagnosis Date Advance directive discussed with patient 09/10/2022 Discussed 09/2022 Needs to bring in copies Asbestos exposure 09/11/2022 Asbestosis (HCC) 08/13/[address] Seth. Foot callus 09/15/2023 Generalized arthritis 10/02/2003 Hammer toes of both feet 08/13/2020 History of 2019 novel coronavirus disease (COVID-19) 02/18/2021 Had but not aware of date Hypertension, essential 08/13/2020 Iron deficiency anemia 08/25/[address] 09/10/2022 DPA: Ann-Marie (daughter) Medicare annual wellness visit, subsequent 08/13/2020 Medicare Part B: 03/07/2012, last done 08/23/2021 Memory impairment 02/18/2021 Secondary to chemo Tx for hs prostate cancer. Mixed hyperlipidemia 08/13/2020 Over weight 01/18/2018 Prostate cancer (HCC) 11/17/2019 Seeing Urology and oncology (Dr. Logan) Squamous cell skin cancer 05/25/2023 Right upper back removed 05/2023 Stage 3a chronic kidney disease (HCC) 08/15/2020 Type 2 diabetes mellitus with stage 3b chronic kidney disease, without long-term current use of insulin (HCC) 08/13/2020 Type 2 diabetes mellitus without complication, without long-term current use of insulin (HCC) 08/13/2020 Vitamin B12 deficiency 08/25/2021 Previous Surgical History PAST SURGICAL HISTORY Procedure Laterality Date COLONOSCOPY 12/2021 EGD W/O BRSH SPEC VARICIES INJ 12/2021 PROSTATE BIOPSY 2019 REMV CATARACT EXTRACAP,INSERT LENS 06/2020 TONSILLECTOMY HX as a child Family History FAMILY HISTORY Problem Relation Age of Onset Lung Cancer Mother Pneumonectomy. 2nd surgery. COPD Mother Emphysema. Smoker. other (Other) Father age 101. Diabetes Sister Diabetes Sister Patient Allergies ALLERGIES No Known Allergies Current Medications Current Outpatient Medications on File Prior to Visit Medication Sig amLODIPine (NORVASC) 5 mg tablet Take 1 tablet by mouth once daily. atorvastatin (LIPITOR) 40 mg tablet Take 1 tablet by mouth daily at bedtime. For cholesterol. fenofibrate nanocrystallized (TRICOR) 48 mg tablet Take 1 tablet by mouth once daily. glimepiride (AMARYL) 4 mg tablet Take 1 tablet by mouth once daily. lisinopril (ZESTRIL) 40 mg tablet Take 1 tablet by mouth once daily. metFORMIN (GLUCOPHAGE) 500 mg tablet Take 2 tablets by mouth two times a day with meals. pioglitazone (ACTOS) 30 mg tablet Take 1 tablet by mouth once daily. blood sugar diagnostic (S5 [employer] NO CODING) test strip 1 Strip once daily. Use as instructed Lancets Test blood sugar(s) once daily. Dx: Type 2 DM - Controlled E11.9 Insulin: No cyanocobalamin (VITAMIN B-12) 1,000 mcg tab Take 2 tablets by mouth once daily. tamsulosin (FLOMAX) 0.4 mg Take 1 capsule by mouth daily at bedtime for 30 doses. Ferrous Sulfate (SLOW FE) 142 mg (45 mg iron) TbER Take one tab daily aspirin, enteric coated (ASPIRIN, ENTERIC COATED) 81 mg EC tablet Take 81 mg by mouth once daily. No current facility-administered medications on file prior to visit. Social History Social History Tobacco Use Smoking status: Never Smokeless tobacco: Never Tobacco comments: Mother smoked in childhood home. Vaping Use Vaping Use: Never used Substance Use Topics Alcohol use: No Drug use: No Review of Symptoms REVIEW OF SYSTEMS SEE HPI EXAM: BP 155/77 Pulse (!) 51 Resp 14 Wt 102.1 kg (225 lb) BMI 30.47 kg/m General Appearance: Well appearing, alert, in no acute distress, well-hydrated, well nourished.. Lungs: Lungs clear to auscultation. No wheezing, rhonchi, rales.. Heart: RRR without murmur, gallop, or rubs. No ectopy. Peripheral Pulses: Normal. Health Maintenance List BP Controlled (<130/80) due on 08/23/2022 Behavioral Health Screening Never done Covid-19 Vaccine( season) due on 11/05/2023 HbA1C due on 03/15/2024 RSV Vaccine(1 - 1-dose 60+ series) due on 09/15/2024 Urine Albumin:Creatinine Ratio due on 09/15/2024 LDL Cholesterol due on 09/15/2024 Diabetic Foot Exam due on 09/15/2024 Annual PCP Team Chronic Disease Visit due on 09/15/2024 Dilated Retinal Exam due on 10/16/2024 Serum Creatinine due on 12/27/2024 Hemoglobin/Hematocrit due on 12/27/2024 Advance Directive Discussion Completed HPV Vaccine Aged Out DTaP,Tdap,Td Vaccine Discontinued Influenza Vaccine Discontinued Colorectal Cancer Screening Discontinued Hepatitis C Screening Discontinued Shingrix Vaccine Discontinued Pneumococcal Vaccine: 65+ Discontinued ASSESSMENT/PLAN: 1. Type 2 diabetes mellitus with stage 3b chronic kidney disease, without long-term current use of insulin (HCC) - ICD9: 250.40, 585.3, ICD10: E11.22, N18.32 (primary diagnosis) - Control undetermined, due for labs - Continue current medications - Counseled on healthy diet and regular exercise - Discussed need for and benefit of weight loss. BMI 30.47 kg/(m^2) - eGFR: 40 Stable - Counseled on avoiding NSAIDs, adequate hydration - Counseled on low sodium diet - HEMOGLOBIN A1C 2. Mixed hyperlipidemia - ICD9: 272.2, ICD10: E78.2 - Control undetermined, due for labs - Continue current medications - Counseled on healthy diet and regular exercise - Discussed need for and benefit of weight loss. BMI 30.47 kg/(m^2) - LIPID PANEL, NONFASTING 3. Hypertension, essential - ICD9: 401.9, ICD10: I10 - Controlled - Continue current medications - Recommend home blood pressure monitoring, to bring results to next visit - Encouraged sodium restriction, DASH or Mediterranean diet - Recommend regular aerobic exercise - Discussed need for and benefit of weight loss. BMI 30.47 kg/(m^2) 4. Iron deficiency anemia, unspecified iron deficiency anemia type - ICD9: 280.9, ICD10: D50.9 - FERROUS SULFATE ER 142 MG (45 MG IRON) TABLET,EXTENDED RELEASE 5. Vitamin B12 deficiency - ICD9: 266.2, ICD10: E53.8 -Stable, continue supplementation 6. Stage 3b chronic kidney disease (HCC) - ICD9: 585.3, ICD10: N18.32 - eGFR: 40 Stable - Counseled on avoiding NSAIDs, adequate hydration - Counseled on low sodium diet Talia Dorsey APRN.MACHINING SUPERVISOR documented in this encounter [facility] 03-07-2024 Telephone encounter Note The patient has been identified by name and date of : Yes Caregiver verified no other encounters exist for this prescription request: Yes Caregiver confirmed with patient/requestor that no other refills are due, in the near future, with this provider at this time: Yes The last office visit in the department: 09/15/2023 Does the patient have a future office visit with this provider/department: Yes 03/15/2024 Requested Prescriptions Pending Prescriptions Disp Refills amLODIPine (NORVASC) 5 mg tablet 90 tablet 1 Sig: Take 1 tablet by mouth once daily. atorvastatin (LIPITOR) 40 mg tablet 90 tablet 1 Sig: Take 1 tablet by mouth daily at bedtime. For cholesterol. fenofibrate nanocrystallized (TRICOR) 48 mg tablet 90 tablet 1 Sig: Take 1 tablet by mouth once daily. glimepiride (AMARYL) 4 mg tablet 90 tablet 1 Sig: Take 1 tablet by mouth once daily. lisinopril (ZESTRIL) 40 mg tablet 90 tablet 1 Sig: Take 1 tablet by mouth once daily. metFORMIN (GLUCOPHAGE) 500 mg tablet 360 tablet 1 Sig: Take 2 tablets by mouth two times a day with meals. pioglitazone (ACTOS) 30 mg tablet 90 tablet 1 Sig: Take 1 tablet by mouth once daily. Winnie Corado RN March 07, 2024 8:34 AM [facility] 03-07-2024 Miscellaneous Notes The patient has been identified by name and date of : Yes Caregiver verified no other encounters exist for this prescription request: Yes Caregiver confirmed with patient/requestor that no other refills are due, in the near future, with this provider at this time: Yes The last office visit in the department: 09/15/2023 Does the patient have a future office visit with this provider/department: Yes 03/15/2024 Requested Prescriptions Pending Prescriptions Disp Refills amLODIPine (NORVASC) 5 mg tablet 90 tablet 1 Sig: Take 1 tablet by mouth once daily. atorvastatin (LIPITOR) 40 mg tablet 90 tablet 1 Sig: Take 1 tablet by mouth daily at bedtime. For cholesterol. fenofibrate nanocrystallized (TRICOR) 48 mg tablet 90 tablet 1 Sig: Take 1 tablet by mouth once daily. glimepiride (AMARYL) 4 mg tablet 90 tablet 1 Sig: Take 1 tablet by mouth once daily. lisinopril (ZESTRIL) 40 mg tablet 90 tablet 1 Sig: Take 1 tablet by mouth once daily. metFORMIN (GLUCOPHAGE) 500 mg tablet 360 tablet 1 Sig: Take 2 tablets by mouth two times a day with meals. pioglitazone (ACTOS) 30 mg tablet 90 tablet 1 Sig: Take 1 tablet by mouth once daily. Winnie Corado RN March 07, 2024 8:34 AM documented in this encounter [facility] 02-02-2024 Telephone encounter Note The following approved medication requests have been transmitted electronically. Requested Prescriptions Signed Prescriptions Disp Refills blood sugar diagnostic (PRODIGY NO CODING) test strip 100 Strip 5 Si Strip once daily. Use as instructed Authorizing Provider: TODD BUNCH Lancets 100 Each 5 Sig: Test blood sugar(s) once daily. Dx: Type 2 DM - Controlled E11.9 Insulin: No Authorizing Provider: TODD BUNCH MD [facility] 02-02-2024 Miscellaneous Notes The following approved medication requests have been transmitted electronically. Requested Prescriptions Signed Prescriptions Disp Refills blood sugar diagnostic (PRODIGY NO CODING) test strip 100 Strip 5 Si Strip once daily. Use as instructed Authorizing Provider: TODD BUNCH Lancets 100 Each 5 Sig: Test blood sugar(s) once daily. Dx: Type 2 DM - Controlled E11.9 Insulin: No Authorizing Provider: TODD BUNCH MD Patient has been identified by name and date of : Yes, Hope Tracy RN Date 02/02/2024 Time 2:254 PM Pharmacy phones for refill(s): Requested Prescriptions Pending Prescriptions Disp Refills blood sugar diagnostic (PRODIGY NO CODING) test strip 100 Strip 5 Si Strip once daily. Use as instructed Lancets 100 Each 5 Sig: Test blood sugar(s) once daily. Dx: Type 2 DM - Controlled E11.9 Insulin: No Date of last office visit in primary care: 09/15/2023 Date of next office visit in primary care: 03/15/2024 Please advise. Thank you. Hope Tracy RN. documented in this encounter [facility] 02-02-2024 Telephone encounter Note Patient has been identified by name and date of : Yes, Hope Tracy RN Date 02/02/2024 Time 2:254 PM Pharmacy phones for refill(s): Requested Prescriptions Pending Prescriptions Disp Refills blood sugar diagnostic (PRODIGY NO CODING) test strip 100 Strip 5 Si Strip once daily. Use as instructed Lancets 100 Each 5 Sig: Test blood sugar(s) once daily. Dx: Type 2 DM - Controlled E11.9 Insulin: No Date of last office visit in primary care: 09/15/2023 Date of next office visit in primary care: 03/15/2024 Please advise. Thank you. Hope Tracy RN. [facility] 10-17-2023 History of Presen t illness Narrative Scan on 10/16/2023 2:08 PM by Provider, External, KHARIC: Consultation - Ophthalmology documented in this encounter [facility] 09-15-2023 History of Presen t illness Narrative Radiology Service Progress Note PATIENT NAME: Zhanna Oh DATE OF SERVICE: September 15, 2023 TIME: 3:18 PM PATIENT IDENTITY VERIFICATION COMPLETED USING TWO (2) IDENTIFIERS: Name and Date of confirmed by patient verbally. FALL SCREENING: Has the patient had 2 falls in the last year or 1 fall with injury or currently using an Ambulatory Assistive Device (Walker, Cane, Wheelchair, Crutches, etc.)? No PATIENT GENDER DATA: Male PATIENT RELEVANT IMPLANT DATA REVIEWED: Not Applicable RADIOLOGY DEPARTMENT: General X-ray: Exam(s) Completed: Chest X-Ray PERIPHERAL IV DATA: Not applicable SIGNED BY: RT Huang(R) September 15, 2023 3:18 PM documented in this encounter [facility] 06-18-2023 History of Presen t illness Narrative Scan on 06/16/2023 3:05 PM by Provider, ELIO Gaona: Consultation - Nephrology/Renal documented in this encounter [facility] 05-20-2023 Procedure note Procedure(s): SKIN BIOPSY Pre-Procedure Diagnose(s): Neoplasm of uncertain behavior of skin of back; Skin lesion of back Post-Procedure Diagnose(s): Neoplasm of uncertain behavior of skin of back; Skin lesion of back UNIVERSAL PROTOCOL / SAFETY CHECKLIST Procedure to be Performed: excisional skin biopsy Sign In: A Moment of CARE was completed. Personnel directly involved with the procedure wore the appropriate PPE (Personal Protective Equipment). Patient/Surrogate Stated/Verified: PATIENT VERIFIED(optional for EMERGENT procedures): Patient name, Date of , Relevant allergies, and The intended procedure Time Out Communication: Intended patient and procedure match the source documents. Consent documented and matches the intended procedure. Correct side/site marked and visible. Medications required for procedure verified. Fire risk assessed and interventions discussed. Sign Out: SIGN OUT (optional for EMERGENT procedures): All specimen containers correctly labeled. All instruments, equipment, possible retained foreign bodies accounted for. Post-procedure follow-up management communicated and Plan of Care Visit completed when applicable. Area was cleansed with betadine and alcohol then anesthetized with 0.5% lidocaine with Epi at 1:200,000. The area was draped in usual sterile fashion. The lesion was excised with a #15 blade in an elliptical fashion. Electrocaughtery set at 28 was used to aid in hemostasis. The edges were brought back together with 3-0 Ethilon with 7 interrupted mattress sutures. The are was cleansed and covered with antibiotic ointment and a sterile dressing. Size: 3.5 cm x 1.8 cm Todd Bunch MD documented in this encounter [facility] 05-20-2023 History of Presen t illness Narrative Chief Complaint Patient presents with: Lesion Removal HPI Zhanna Oh is a 78 year old male who presents here today for removal of lesion right upper back. Patient was seen on 05/13/2023 complaining he has had what he thought was a mole on his back but in the last 6 months the spot of has now grown and very tender to touch. No fevers, chills or drainage from area. Per patient looks red. Patient is here today to have said lesion removed on his upper back today. Discussed with patient no known allergies; no pacemaker. No known allergies Past medical history, appointments, medications, allergies reviewed. Previous Medical History PAST MEDICAL HISTORY Diagnosis Date Advance directive discussed with patient 09/10/2022 Discussed 09/2022 Needs to bring in copies Asbestosis (HCC) 08/13/[address] Seth. Generalized arthritis 10/02/2003 Hammer toes of both feet 08/13/2020 History of 2019 novel coronavirus disease (COVID-19) 02/18/2021 Had but not aware of date Hypertension, essential 08/13/2020 Iron deficiency anemia 08/25/[address] 09/10/2022 DPA: Ann-Marie (daughter) Medicare annual wellness visit, subsequent 08/13/2020 Medicare Part B: 03/07/2012, last done 08/23/2021 Memory impairment 02/18/2021 Secondary to chemo Tx for hs prostate cancer. Mixed hyperlipidemia 08/13/2020 Over weight 01/18/2018 Prostate cancer (HCC) 11/17/2019 Seeing Urology and oncology (Dr. Logan) Stage 3a chronic kidney disease (HCC) 08/15/2020 Type 2 diabetes mellitus without complication, without long-term current use of insulin (HCC) 08/13/2020 Vitamin B12 deficiency 08/25/2021 Previous Surgical History PAST SURGICAL HISTORY Procedure Laterality Date COLONOSCOPY 12/2021 EGD W/O BRSH SPEC VARICIES INJ 12/2021 PROSTATE BIOPSY 2019 REMV CATARACT EXTRACAP,INSERT LENS 06/2020 TONSILLECTOMY HX as a child Family History FAMILY HISTORY Problem Relation Age of Onset Lung Cancer Mother Pneumonectomy. 2nd surgery. COPD Mother Emphysema. Smoker. other (Other) Father age 101. Diabetes Sister Diabetes Sister Patient Allergies ALLERGIES No Known Allergies Current Medications Current Outpatient Medications on File Prior to Visit Medication Sig atorvastatin (LIPITOR) 40 mg tablet Take 1 tablet by mouth daily at bedtime. For cholesterol. pioglitazone (ACTOS) 30 mg tablet Take 1 tablet by mouth once daily. metFORMIN (GLUCOPHAGE) 500 mg tablet Take 2 tablets by mouth twice daily with meals. glimepiride (AMARYL) 4 mg tablet Take 1 tablet by mouth once daily. lisinopril (ZESTRIL) 40 mg tablet Take 1 tablet by mouth once daily. amLODIPine (NORVASC) 5 mg tablet Take 1 tablet by mouth once daily. fenofibrate nanocrystallized (TRICOR) 48 mg tablet Take 1 tablet by mouth once daily. blood sugar diagnostic (PRODIGY NO CODING) test strip 1 Strip once daily. Use as instructed cyanocobalamin (VITAMIN B-12) 1,000 mcg tab Take 1 tablet by mouth once daily. Lancets lancets Test blood sugar(s) once daily. Dx: Type 2 DM - Controlled E11.9 Insulin: No tamsulosin (FLOMAX) 0.4 mg Take 1 capsule by mouth daily at bedtime for 30 doses. Ferrous Sulfate (SLOW FE) 142 mg (45 mg iron) TbER Take one tab daily aspirin, enteric coated (ASPIRIN, ENTERIC COATED) 81 mg EC tablet Take 81 mg by mouth once daily. No current facility-administered medications on file prior to visit. Social History Social History Tobacco Use Smoking status: Never Smokeless tobacco: Never Tobacco comments: Mother smoked in childhood home. Vaping Use Vaping Use: Never used Substance Use Topics Alcohol use: No Drug use: No Review of Symptoms REVIEW OF SYSTEMS See HPI EXAM: BP 130/70 (BP Site: Left Arm, BP Position: Sitting, BP Cuff Size: Large Adult) Pulse 64 Resp 18 Wt 101.6 kg (224 lb) BMI 29.55 kg/m General Appearance: Well appearing, alert, in no acute distress, well-hydrated, well nourished.. Skin: has an irritated appearing growth right upper back concerning for BCC or SCC.. Health Maintenance List Dilated Retinal Exam due on 07/04/2022 BP Controlled (<130/80) due on 08/23/2022 Covid-19 Vaccine(6 - Moderna series) due on 11/26/2022 Urine Albumin:Creatinine Ratio due on 09/10/2023 Diabetic Foot Exam due on 09/10/2023 HbA1C due on 09/11/2023 Hemoglobin/Hematocrit due on 02/24/2024 LDL Cholesterol due on 03/11/2024 Serum Creatinine due on 04/06/2024 Annual PCP Team Chronic Disease Visit due on 05/13/2024 Advance Directive Discussion Completed Depression Assessment Completed HPV Vaccine Aged Out DTaP,Tdap,Td Vaccine Discontinued Influenza Vaccine Discontinued Colorectal Cancer Screening Discontinued Hepatitis C Screening Discontinued Shingrix Vaccine Discontinued Pneumococcal Vaccine: 65+ Discontinued Data reviewed A/P ASSESSMENT/PLAN: 1. Neoplasm of uncertain behavior of skin of back - ICD9: 238.2, ICD10: D48.5 (primary diagnosis) - discussed excisional biopsy and patient in agreement. - consent signed. - see procedure note. 2. Skin lesion of back - ICD9: 709.9, ICD10: L98.9 - as above Patient to f/u in 12-14 days for suture removal or sooner due to issues as discussed. Care sheet provided. Todd Bunch MD documented in this encounter [facility] 05-15-2023 Miscellaneous Notes Patient has been identified by name and date of : Yes, Hope Tracy RN Date 05/15/2023 Time 9:28 am Pharmacy phones for refill(s): Requested Prescriptions Pending Prescriptions Disp Refills atorvastatin (LIPITOR) 40 mg tablet 90 tablet 1 Sig: Take 1 tablet by mouth daily at bedtime. For cholesterol. pioglitazone (ACTOS) 30 mg tablet 90 tablet 1 Sig: Take 1 tablet by mouth once daily. Date of last office visit with pcp: 05/13/2023 Future appt: 05/20/2023 Last 2 Encounter Wt Readings: Date: Wt: 05/13/2023 104.3 kg (230 lb) 03/11/2023 99.8 kg (220 lb) Previous labs/tests for medication: Diabetes: Hemoglobin A1C (%) Date Value 03/11/2023 6.5 12/09/2022 7.2 08/23/2021 9.4 02/19/2021 6.0 Blood Pressure: BUN (mg/dL) Date Value 04/06/2023 21 08/23/2021 16 Sodium (mmol/L) Date Value 04/06/2023 139 08/23/2021 139 Last 1 Encounter BP Readings: Date: BP: 05/13/2023 140/80 Liver Function: ALT (U/L) Date Value 12/09/2022 15 08/23/2021 13 AST (U/L) Date Value 12/09/2022 27 08/23/2021 22 Please advise. Thank you. Hope Tracy RN documented in this encounter [facility] 05-13-2023 History of Presen t illness Narrative Chief Complaint Patient presents with: Pain HPI Zhanna Oh is a 78 year old male who presents here today for Acute onset of spot on upper back. Office visit - spot on upper back right side. Patient indicated that he has had what he thought was a mole on his back but in the last 6 months the spot of has now grown and very tender to touch. No fevers, chills or drainage from area. Per patient looks red. Patient indicated that he is scheduled to see a kidney doctor in [place]. Patient is wanting to get a kidney doctor closer to [place]. Patient with hx of Diabetes, HTN, hyperlipidemia, CKD, anemia, prostate cancer, OA and those as below. Patient reports home glucose readings in 100-120s. Past medical history, appointments, medications, allergies reviewed. Previous Medical History PAST MEDICAL HISTORY Diagnosis Date Advance directive discussed with patient 09/10/2022 Discussed 09/2022 Needs to bring in copies Asbestosis (HCC) 08/13/[address] Seth. Generalized arthritis 10/02/2003 Hammer toes of both feet 08/13/2020 History of 2019 novel coronavirus disease (COVID-19) 02/18/2021 Had but not aware of date Hypertension, essential 08/13/2020 Iron deficiency anemia 08/25/[address] 09/10/2022 DPA: Ann-Marie (daughter) Medicare annual wellness visit, subsequent 08/13/2020 Medicare Part B: 03/07/2012, last done 08/23/2021 Memory impairment 02/18/2021 Secondary to chemo Tx for hs prostate cancer. Mixed hyperlipidemia 08/13/2020 Over weight 01/18/2018 Prostate cancer (HCC) 11/17/2019 Seeing Urology and oncology (Dr. Logan) Stage 3a chronic kidney disease (HCC) 08/15/2020 Type 2 diabetes mellitus without complication, without long-term current use of insulin (HCC) 08/13/2020 Vitamin B12 deficiency 08/25/2021 Previous Surgical History PAST SURGICAL HISTORY Procedure Laterality Date COLONOSCOPY 12/2021 EGD W/O BRSH SPEC VARICIES INJ 12/2021 PROSTATE BIOPSY 2019 REMV CATARACT EXTRACAP,INSERT LENS 06/2020 TONSILLECTOMY HX as a child Family History FAMILY HISTORY Problem Relation Age of Onset Lung Cancer Mother Pneumonectomy. 2nd surgery. COPD Mother Emphysema. Smoker. other (Other) Father age 101. Diabetes Sister Diabetes Sister Patient Allergies ALLERGIES No Known Allergies Current Medications Current Outpatient Medications on File Prior to Visit Medication Sig pioglitazone (ACTOS) 30 mg tablet Take 1 tablet by mouth once daily. atorvastatin (LIPITOR) 40 mg tablet Take 1 tablet by mouth daily at bedtime. For cholesterol. blood sugar diagnostic ([employer] NO CODING) test strip 1 Strip once daily. Use as instructed cyanocobalamin (VITAMIN B-12) 1,000 mcg tab Take 1 tablet by mouth once daily. metFORMIN (GLUCOPHAGE) 500 mg tablet Take 2 tablets by mouth twice daily with meals. glimepiride (AMARYL) 4 mg tablet Take 1 tablet by mouth once daily. lisinopril (ZESTRIL) 40 mg tablet Take 1 tablet by mouth once daily. amLODIPine (NORVASC) 5 mg tablet Take 1 tablet by mouth once daily. fenofibrate nanocrystallized (TRICOR) 48 mg tablet Take 1 tablet by mouth once daily. Lancets lancets Test blood sugar(s) once daily. Dx: Type 2 DM - Controlled E11.9 Insulin: No tamsulosin (FLOMAX) 0.4 mg Take 1 capsule by mouth daily at bedtime for 30 doses. Ferrous Sulfate (SLOW FE) 142 mg (45 mg iron) TbER Take one tab daily aspirin, enteric coated (ASPIRIN, ENTERIC COATED) 81 mg EC tablet Take 81 mg by mouth once daily. No current facility-administered medications on file prior to visit. Social History Social History Tobacco Use Smoking status: Never Smokeless tobacco: Never Tobacco comments: Mother smoked in childhood home. Vaping Use Vaping Use: Never used Substance Use Topics Alcohol use: No Drug use: No Review of Symptoms REVIEW OF SYSTEMS See HPI EXAM: BP 140/80 (BP Site: Right Arm, BP Position: Sitting, BP Cuff Size: Large Adult) Pulse 68 Resp 16 Wt 104.3 kg (230 lb) BMI 30.34 kg/m General Appearance: Well appearing, alert, in no acute distress, well-hydrated, well nourished.. Skin: Skin color, texture, turgor normal, has an irritated appearing growth concerning for BCC or SCC. Health Maintenance List DILATED RETINAL EXAM due on 07/04/2022 COVID-19 VACCINE(6 - Moderna series) due on 11/26/2022 URINE ALBUMIN:CREATININE RATIO due on 09/10/2023 DIABETIC FOOT EXAM due on 09/10/2023 HBA1C due on 09/11/2023 HEMOGLOBIN/HEMATOCRIT due on 02/24/2024 LDL CHOLESTEROL due on 03/11/2024 ANNUAL PCP TEAM CHRONIC DISEASE VISIT due on 03/11/2024 BP CONTROLLED (<130/80) due on 03/11/2024 SERUM CREATININE due on 04/06/2024 ADVANCE DIRECTIVE DISCUSSION Completed DEPRESSION ASSESSMENT Completed HPV VACCINE Aged Out DTAP,TDAP,TD Discontinued INFLUENZA Discontinued COLORECTAL CANCER SCREENING Discontinued HEPATITIS C SCREENING Discontinued SHINGRIX VACCINE Discontinued PNEUMOCOCCAL: 65+ Discontinued Data reviewed A/P ASSESSMENT/PLAN: 1. 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 Skin lesion of back - ICD9: 709.9, ICD10: L98.9 - as per #1 3. Stage 3b chronic kidney disease (HCC) - ICD9: 585.3, ICD10: N18.32 - CONSULT TO NEPHROLOGY: Dr Jess lewis Requested Prescriptions Signed Prescriptions Disp Refills metFORMIN (GLUCOPHAGE) 500 mg tablet 360 tablet 1 Sig: Take 2 tablets by mouth twice daily with meals. glimepiride (AMARYL) 4 mg tablet 90 tablet 1 Sig: Take 1 tablet by mouth once daily. lisinopril (ZESTRIL) 40 mg tablet 90 tablet 1 Sig: Take 1 tablet by mouth once daily. amLODIPine (NORVASC) 5 mg tablet 90 tablet 1 Sig: Take 1 tablet by mouth once daily. fenofibrate nanocrystallized (TRICOR) 48 mg tablet 90 tablet 1 Sig: Take 1 tablet by mouth once daily. Todd Bunch MD documented in this encounter [facility] 03-12-2023 Miscellaneous Notes Patient notified of results and provider's instructions. Patient verbalizes understanding. Sol Lee LPN A1c is at 6.5% which is good. Cholesterol stable. Trigs still high but much better than last couple checks. Renal function is slightly worse. This has slowly been worsening over the past year. I would like to have patient rechecked in 2-4 weeks. Fully hydrate prior. Avoid NSAIDs. Thanks. Monserrat Cortez PA-C documented in this encounter [facility] 03-11-2023 History of Presen t illness Narrative Chief Complaint Patient presents with: 6 Month Exam HPI Zhanna Oh is a 77 year old male who presents here today for Chronic Medical Conditions.. Patient with hx of Diabetes, HTN, hyperlipidemia, CKD, anemia, prostate cancer, OA and those as below. Patient reports home glucose readings in 100-120s. No concerns today. Past medical history, appointments, medications, allergies reviewed. Previous Medical History PAST MEDICAL HISTORY Diagnosis Date Advance directive discussed with patient 09/10/2022 Discussed 09/2022 Needs to bring in copies Asbestosis (HCC) 08/13/[address] Seth. Generalized arthritis 10/02/2003 Hammer toes of both feet 08/13/2020 History of 2019 novel coronavirus disease (COVID-19) 02/18/2021 Had but not aware of date Hypertension, essential 08/13/2020 Iron deficiency anemia 08/25/[address] 09/10/2022 DPA: Ann-Marie (daughter) Medicare annual wellness visit, subsequent 08/13/2020 Medicare Part B: 03/07/2012, last done 08/23/2021 Memory impairment 02/18/2021 Secondary to chemo Tx for hs prostate cancer. Mixed hyperlipidemia 08/13/2020 Over weight 01/18/2018 Prostate cancer (HCC) 11/17/2019 Seeing Urology and oncology (Dr. Logan) Stage 3a chronic kidney disease (HCC) 08/15/2020 Type 2 diabetes mellitus without complication, without long-term current use of insulin (HCC) 08/13/2020 Vitamin B12 deficiency 08/25/2021 Previous Surgical History PAST SURGICAL HISTORY Procedure Laterality Date COLONOSCOPY 12/2021 EGD W/O BRSH SPEC VARICIES INJ 12/2021 PROSTATE BIOPSY 2019 REMV CATARACT EXTRACAP,INSERT LENS 06/2020 TONSILLECTOMY HX as a child Family History FAMILY HISTORY Problem Relation Age of Onset Lung Cancer Mother Pneumonectomy. 2nd surgery. COPD Mother Emphysema. Smoker. other (Other) Father age 101. Diabetes Sister Diabetes Sister Patient Allergies ALLERGIES No Known Allergies Current Medications Current Outpatient Medications on File Prior to Visit Medication Sig pioglitazone (ACTOS) 30 mg tablet Take 1 tablet by mouth once daily. atorvastatin (LIPITOR) 40 mg tablet Take 1 tablet by mouth daily at bedtime. For cholesterol. blood sugar diagnostic ([employer] NO CODING) test strip 1 Strip once daily. Use as instructed cyanocobalamin (VITAMIN B-12) 1,000 mcg tab Take 1 tablet by mouth once daily. metFORMIN (GLUCOPHAGE) 500 mg tablet Take 2 tablets by mouth twice daily with meals. glimepiride (AMARYL) 4 mg tablet Take 1 tablet by mouth once daily. lisinopril (ZESTRIL) 40 mg tablet Take 1 tablet by mouth once daily. amLODIPine (NORVASC) 5 mg tablet Take 1 tablet by mouth once daily. fenofibrate nanocrystallized (TRICOR) 48 mg tablet Take 1 tablet by mouth once daily. Lancets lancets Test blood sugar(s) once daily. Dx: Type 2 DM - Controlled E11.9 Insulin: No tamsulosin (FLOMAX) 0.4 mg Take 1 capsule by mouth daily at bedtime for 30 doses. blood sugar diagnostic (BLOOD GLUCOSE TEST) test strip Test blood sugar(s) two times daily. Dx: Type 2 DM - Controlled E11.9 Insulin: No Ferrous Sulfate (SLOW FE) 142 mg (45 mg iron) TbER Take one tab daily aspirin, enteric coated (ASPIRIN, ENTERIC COATED) 81 mg EC tablet Take 81 mg by mouth once daily. No current facility-administered medications on file prior to visit. Social History Social History Tobacco Use Smoking status: Never Smokeless tobacco: Never Tobacco comments: Mother smoked in childhood home. Vaping Use Vaping Use: Never used Substance Use Topics Alcohol use: No Drug use: No Review of Symptoms REVIEW OF SYSTEMS GENERAL: No weight loss, malaise or fevers NECK: Negative for lumps, goiter, pain and significant neck swelling RESPIRATORY: Negative for cough, hemoptysis, wheezing, COPD, dyspnea or shortness of breath CARDIOVASCULAR: Negative for chest pain, leg swelling, hypertension, CHF or palpitations NEURO: No history of headaches, syncope, paralysis, seizures or tremors EXAM: BP 120/72 (BP Site: Right Arm, BP Position: Sitting, BP Cuff Size: Large Adult) Pulse 62 Temp 36.5 C (97.7 F) Resp 16 Wt 99.8 kg (220 lb) BMI 29.03 kg/m General Appearance: Well appearing, alert, in no acute distress, well-hydrated, well nourished.. Neck: Supple, no adenopathy; thyroid symmetric, normal size, no bruits. Lungs: Lungs clear to auscultation. No wheezing, rhonchi, rales.. Heart: RRR without murmur, gallop, or rubs. No ectopy. Extremities: No deformities, edema, skin discoloration, clubbing or cyanosis. Good capillary refill. . Peripheral Pulses: Normal. Health Maintenance List DILATED RETINAL EXAM due on 07/04/2022 HEMOGLOBIN/HEMATOCRIT due on 08/23/2022 HBA1C due on 06/10/2023 URINE ALBUMIN:CREATININE RATIO due on 09/10/2023 DIABETIC FOOT EXAM due on 09/10/2023 LDL CHOLESTEROL due on 12/10/2023 ANNUAL PCP TEAM CHRONIC DISEASE VISIT due on 12/10/2023 SERUM CREATININE due on 12/10/2023 BP CONTROLLED (<130/80) due on 12/10/2023 COLORECTAL CANCER SCREENING due on 08/14/2027 ADVANCE DIRECTIVE DISCUSSION Completed DEPRESSION ASSESSMENT Completed COVID-19 VACCINE Completed DTAP,TDAP,TD Discontinued INFLUENZA Discontinued HEPATITIS C SCREENING Discontinued SHINGRIX VACCINE Discontinued PNEUMOCOCCAL: 65+ Discontinued Data reviewed N/a ASSESSMENT/PLAN: 1. Type 2 diabetes mellitus without complication, without long-term current use of insulin (HCC) - ICD9: 250.00, ICD10: E11.9 (primary diagnosis) - Control undetermined, due for labs - Continue current medications - Counseled on healthy diet and regular exercise - HGB A1C - BASIC METABOLIC PNL 2. Hypertension, essential - ICD9: 401.9, ICD10: I10 - Controlled - Continue current medications - Recommend home blood pressure monitoring, to bring results to next visit - Encouraged sodium restriction, DASH or Mediterranean diet - Recommend regular aerobic exercise 3. Mixed hyperlipidemia - ICD9: 272.2, ICD10: E78.2 - Control undetermined, due for labs - Continue current medications - Counseled on healthy diet and regular exercise - LIPID PANEL, NONFASTING 4. Vitamin B12 deficiency - ICD9: 266.2, ICD10: E53.8 Await labs - VITAMIN B12 BLOOD 5. Stage 3a chronic kidney disease (HCC) - ICD9: 585.3, ICD10: N18.31 Await labs - BASIC METABOLIC PNL 6. Anemia of chronic disease - ICD9: 285.29, ICD10: D63.8 stable 7. Prostate cancer (HCC) - ICD9: 185, ICD10: C61 Continue with specialists Follow up in 6 months for wellness. Monserrat Cortez PA-C documented in this encounter [facility] 01-12-2023 Miscellaneous Notes Pt notified of Monserrat's message and instructions, verbalizes understanding. Sol Lee LPN Noted. Since it did improve some, we will just recheck again in 1 month. Monserrat Cortez PA-C Patient phoned back to report B12 is in his pill pack from [facility]. Advised pt of Monserrat's message. Pt is not able to get to pill packs right now. He will call back and ask to speak with a Triage Nurse to verify if B12 is in his daily pill packs. Sol Lee LPN B12 is better but not at goal yet. Ask them to check their packs from [facility] to make sure it is on his daily med list. Monserrat Cortez PA-C documented in this encounter [facility] 12-11-2022 Miscellaneous Notes Pt notified of Monserrat's message and instructions. Pt verbalizes understanding and will do lab in 1 month as ordered. Sol Lee LPN Let patient know that it is possible that previous pharmacy did not give him the b12 but we know for sure now that his b12 supplement will be part of his pill packs from [facility].. Therefore let's recheck B12 level in 1 month to see if improving. Thanks. Monserrat Cortez PA-C [facility] to [facility]. Yes Pt has a B12 in his med packs. Karli Otto LPN Can we check with pharmacy to see if the b12 is added to med pack. Sometimes it's denied by insurance and they have to get it OTC. Monserrat Cortez PA-C Pt called and is notified of providers results and instructions. Pt voices understanding. He states as long as it's on his med list he is taking it. I told him the B12 is on there, so he said he has been taking it. He is just switching over to [facility] and they will be packing his pills for him. Removed all other pharmacies for him. Please call and advise about B12. Jodie Roe RN Let patient know Hepatitis A, B and C were all negative. Electrolytes and liver functions were normal. Kidney functions show a slight decrease for previous labs. Advise good hydration with 6-8 eight ounce glasses of water a day. He should only take Tylenol (Acetaminophen) for pain and fevers since all other OTC meds can make kidney function worse. His B12 has not improved any in the last year. Still less then 150. Ask him if he even takes his B12 1000 mcg once a day. Lipid panel showed Trigs elevated at 307 (goal<150 and were 656), HDL low at 32 (goal>40 and were 29), LDL is good at 65. I would like to bump the lipitor up to 40 mg a day. If ok will send in new script? A1c is improved at 7.2% from 7.7 % and goal is <7%. I will send in script to increase his Actos (pioglitazone) from 15 mg a day to 30 mg a day. documented in this encounter [facility] 12-11-2022 Evaluation note Diagnosis Vitamin B12 deficiency- Primary Other B-complex deficiencies Stage 3a chronic kidney disease (HCC) documented in this encounter [facility]04-04-2023 Miscellaneous Notes* Telephone Encounter - Monserrat Cortez PA-C - 12/09/2022 2:44 PM EDT Resent. * Telephone Encounter - Rachelle Yeboah RN - 12/09/2022 2:03 PM EDT [facility], reports they received order for test strips test once daily (the lancets on the same day, state test 2 times daily). Asking provider to advise [facility]. documented in this encounter[facility] History of Present illness Narrative* Monserrat Cortez PA-C - 12/09/2022 1:08 PM EDT Chief Complaint Patient presents with: Recheck: 3 month HPI Zhanna Oh is a 77 year old male who presents here today for Chronic Medical Conditions.. Patient with hx HTN, hyperlipidemia, CKD, DM2, anemia, prostate cancer, Arthritis and those as below. Patient states his home BG is variable. Would like his meds done through a [facility] for pillpacks. Otherwise doing okay. Past medical history, appointments, medications, allergies reviewed. Previous Medical History PAST MEDICAL HISTORY Diagnosis Date Advance directive discussed with patient 09/10/2022 Discussed 09/2022 Needs to bring in copies Asbestosis (HCC) 08/13/[address] Seth. Generalized arthritis 10/02/2003 Hammer toes of both feet 08/13/2020 History of 2019 novel coronavirus disease (COVID-19) 02/18/2021 Had but not aware of date Hypertension, essential 08/13/2020 Iron deficiency anemia 08/25/[address] 09/10/2022 DPA: Ann-Marie (daughter) Medicare annual wellness visit, subsequent 08/13/2020 Medicare Part B: 03/07/2012, last done 08/23/2021 Memory impairment 02/18/2021 Secondary to chemo Tx for hs prostate cancer. Mixed hyperlipidemia 08/13/2020 Over weight 01/18/2018 Prostate cancer (HCC) 11/17/2019 Seeing Urology and oncology (Dr. Logan) Stage 3a chronic kidney disease (HCC) 08/15/2020 Type 2 diabetes mellitus without complication, without long-term current use of insulin (HCC) 08/13/2020 Vitamin B12 deficiency 08/25/2021 Previous Surgical History PAST SURGICAL HISTORY Procedure Laterality Date COLONOSCOPY 12/2021 EGD W/O BRSH SPEC VARICIES INJ 12/2021 PROSTATE BIOPSY 2019 REMV CATARACT EXTRACAP,INSERT LENS 06/2020 TONSILLECTOMY HX as a child Family History FAMILY HISTORY Problem Relation Age of Onset Lung Cancer Mother Pneumonectomy. 2nd surgery. COPD Mother Emphysema. Smoker. other (Other) Father age 101. Diabetes Sister Diabetes Sister Patient Allergies ALLERGIES No Known Allergies Current Medications Current Outpatient Medications on File Prior to Visit Medication Sig cyanocobalamin (VITAMIN B-12) 1,000 mcg tab Take 1 tablet by mouth once daily. pioglitazone (ACTOS) 15 mg tablet Take 1 tablet by mouth once daily. atorvastatin (LIPITOR) 20 mg tablet Take 1 tablet by mouth once daily. metFORMIN (GLUCOPHAGE) 500 mg tablet Take 2 tablets by mouth twice daily with meals. glimepiride (AMARYL) 4 mg tablet Take 1 tablet by mouth once daily. lisinopril (ZESTRIL, PRINIVIL) 40 mg tablet Take 1 tablet by mouth once daily. amLODIPine (NORVASC) 5 mg tablet Take 1 tablet by mouth once daily. tamsulosin (FLOMAX) 0.4 mg Take 1 capsule by mouth daily at bedtime for 30 doses. fenofibrate nanocrystallized (TRICOR) 48 mg tablet Take 1 tablet by mouth once daily. blood sugar diagnostic ([employer] NO CODING) test strip before meals and at bedtime. Use as instructed blood sugar diagnostic (BLOOD GLUCOSE TEST) test strip Test blood sugar(s) two times daily. Dx: Type 2 DM - Controlled E11.9 Insulin: No Lancets lancets Test blood sugar(s) two times daily. Dx: Type 2 DM - Controlled E11.9 Insulin: No Ferrous Sulfate (SLOW FE) 142 mg (45 mg iron) TbER Take one tab daily aspirin, enteric coated (ASPIRIN, ENTERIC COATED) 81 mg EC tablet Take 81 mg by mouth once daily. No current facility-administered medications on file prior to visit. Social History Social History Tobacco Use Smoking status: Never Smokeless tobacco: Never Tobacco comments: Mother smoked in childhood home. Vaping Use Vaping Use: Never used Substance Use Topics Alcohol use: No Drug use: No Review of Symptoms REVIEW OF SYSTEMS GENERAL: No weight loss, malaise or fevers RESPIRATORY: Negative for cough, hemoptysis, wheezing, COPD, dyspnea or shortness of breath CARDIOVASCULAR: Negative for chest pain, leg swelling, hypertension, CHF or palpitations EXAM: BP 106/76 (BP Site: Right Arm, BP Position: Sitting, BP Cuff Size: Large Adult) Pulse 66 Temp 36.3 C (97.3 F) Resp 18 Wt 100.2 kg (221 lb) BMI 29.16 kg/m General Appearance: Well appearing, alert, in no acute distress, well-hydrated, well nourished.. Neck: Supple, no adenopathy; thyroid symmetric, normal size, no bruits. Lungs: Lungs clear to auscultation. No wheezing, rhonchi, rales.. Heart: RRR without murmur, gallop, or rubs. No ectopy. Extremities: No deformities, edema, skin discoloration, clubbing or cyanosis. Good capillary refill. . Health Maintenance List DILATED RETINAL EXAM due on 07/04/2022 HEMOGLOBIN/HEMATOCRIT due on 08/23/2022 BP CONTROLLED (<130/80) due on 08/23/2022 HBA1C due on 03/10/2023 URINE ALBUMIN:CREATININE RATIO due on 09/10/2023 LDL CHOLESTEROL due on 09/10/2023 DIABETIC FOOT EXAM due on 09/10/2023 ANNUAL PCP TEAM CHRONIC DISEASE VISIT due on 09/10/2023 SERUM CREATININE due on 09/10/2023 COLORECTAL CANCER SCREENING due on 08/14/2027 ADVANCE DIRECTIVE DISCUSSION Completed DEPRESSION ASSESSMENT Completed COVID-19 VACCINE Completed DTAP,TDAP,TD Discontinued INFLUENZA Discontinued HEPATITIS C SCREENING Discontinued SHINGRIX VACCINE Discontinued PNEUMOCOCCAL: 65+ Discontinued Data reviewed ASSESSMENT/PLAN: 1. Type 2 diabetes mellitus without complication, without long-term current use of insulin (HCC) - ICD9: 250.00, ICD10: E11.9 (primary diagnosis) Patient to get labs today. Cont meds for now 2. Mixed hyperlipidemia - ICD9: 272.2, ICD10: E78.2 Await labs 3. Hypertension, essential - ICD9: 401.9, ICD10: I10 - good control - Continue current medication(s) - Recommended regular aerobic exercise. - Recommend home blood pressure monitoring, to bring results in on next visit - Goal of BP <130/80 4. Stage 3a chronic kidney disease (HCC) - ICD9: 585.3, ICD10: N18.31 Follow up as scheduled in March. Monserrat Cortez PA-C documented in this encounterProm[facility] History of Present illness Narrative* Ann Marie Mcdaniel MD - 09/11/2022 11:45 AM EST Images from the original note were not included. . 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 Seth, new to me. He presents presents for yearly follow-up. Denies significant shortness ofbreath, cough, sputum production, wheezing. No weight loss or other constitutional symptoms. Chest x-rays have been normal and pulmonary function tests have been normal as well. DATA: PFT 09/2021: Review of spirometry is normal Imaging / Diagnostic Studies: DATE OF EXAM: Oct 01 2021 1:45PM [id number] [id number] - XR CHEST 2V FRONTAL/LAT / CLINICAL HISTORY: Asbestosis (HCC) MQ: [id number] EXAM DATE/TIME: 10/01/2021 1:45 PM COMPARISON: January 20, 2019 RESULT: Lines, tubes, and devices: None. Lungs and pleura: No consolidation. No lung mass. No pleural effusion. No pneumothorax. Cardiomediastinal silhouette: Normal cardiomediastinal silhouette. Bones and soft tissues: Unremarkable. I personally reviewed the images which shows a normal chest. PAST MEDICAL HISTORY Diagnosis Date Advance directive discussed with patient 09/10/2022 Discussed 09/2022 Needs to bring in copies Asbestosis ([facility]) 08/13/[address] Seth. Generalized arthritis 10/02/2003 Hammer toes of both feet 08/13/2020 History of 2019 novel coronavirus disease (COVID-19) 02/18/2021 Had but not aware of date Hypertension, essential 08/13/2020 Iron deficiency anemia 08/25/[address] 09/10/2022 DPA: Ann-Marie (daughter) Medicare annual wellness visit, subsequent 08/13/2020 Medicare Part B: 03/07/2012, last done 08/23/2021 Memory impairment 02/18/2021 Secondary to chemo Tx for hs prostate cancer. Mixed hyperlipidemia 08/13/2020 Over weight 01/18/2018 Prostate cancer ([facility]) 11/17/2019 Seeing Urology and oncology (Dr. Logan) Stage 3a chronic kidney disease ([facility]) 08/15/2020 Type 2 diabetes mellitus without complication, without long-term current use of insulin ([facility]) 08/13/2020 Vitamin B12 deficiency 08/25/2021 ALLERGIES No Known Allergies metFORMIN (GLUCOPHAGE) 500 mg tablet Take 2 tablets by mouth twice daily with meals. glimepiride (AMARYL) 4 mg tablet Take 1 tablet by mouth once daily. atorvastatin (LIPITOR) 10 mg tablet Take 1 tablet by mouth once daily. lisinopril (ZESTRIL, PRINIVIL) 40 mg tablet Take 1 tablet by mouth once daily. amLODIPine (NORVASC) 5 mg tablet Take 1 tablet by mouth once daily. cyanocobalamin (VITAMIN B-12) 1,000 mcg tab Take 1 tablet by mouth once daily. fenofibrate nanocrystallized (TRICOR) 48 mg tablet Take 1 tablet by mouth once daily. blood sugar diagnostic ([employer] NO CODING) test strip before meals and at bedtime. Use as instructed blood sugar diagnostic (BLOOD GLUCOSE TEST) test strip Test blood sugar(s) two times daily. Dx: Type 2 DM - Controlled E11.9 Insulin: No Lancets lancets Test blood sugar(s) two times daily. Dx: Type 2 DM - Controlled E11.9 Insulin: No Ferrous Sulfate (SLOW FE) 142 mg (45 mg iron) TbER Take one tab daily pioglitazone (ACTOS) 15 mg tablet Take 1 tablet by mouth once daily. aspirin, enteric coated (ASPIRIN, ENTERIC COATED) 81 mg EC tablet Take 81 mg by mouth once daily. tamsulosin (FLOMAX) 0.4 mg Take 1 capsule by mouth daily at bedtime for 30 doses. Social History Tobacco Use Smoking status: Never Smokeless tobacco: Never Tobacco comments: Mother smoked in childhood home. 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 2nd surgery. COPD Mother Emphysema. Smoker. other (Other) Father age 101. Diabetes Sister Diabetes Sister PAST SURGICAL HISTORY Procedure Laterality Date COLONOSCOPY 12/2021 EGD W/O BRSH SPEC VARICIES INJ 12/2021 PROSTATE BIOPSY 2019 REMV CATARACT EXTRACAP,INSERT LENS 06/2020 TONSILLECTOMY HX as a child PMH, Social history, family history and surgical history reviewed and updated in EMR REVIEW OF SYSTEMS: CONSTITUTIONAL: No fevers, chills, nightsweats, unintended weight loss CARDIOVASCULAR: No chest pain, dyspnea, palpitations, orthopnea, PND, edema. PULM: See HPI GI: No dysphagia/odynophagia, problematic reflux, constipation, diarrhea. : No urinary complaints, including dysuria, gross hematuria or pyuria. History of prostate cancer PSY: No concerns regarding depression, anxiety INTEGUMENTARY: No new skin changes or rashes PHYSICAL EXAMINATION: BP 170/92 Pulse 74 Temp (Src) 97.4 (Temporal) Resp 14 Ht 6' 1 (1.85m) Wt 227 lb (103.0kg) SpO2 97% BMI 29.96 kg/(m^2). General Appearance: Elderly male, NAD Skin: Skin color, texture, turgor normal, no suspicious rashes or lesions. Head: Normocephalic, no masses, lesions, tenderness or abnormalities. Eyes: Sclera, conjunctiva normal Oropharynx: Adequate dentition, no thrush Lungs: Not labored, normal to percussion, no wheezes or crackles Heart: RRR, no murmur Extremities: No edema, no clubbing Assessment/Plan: 1. Asbestos exposure -No evidence of asbestosis or cancer -Continue surveillance chest x-ray -No need for spirometry Ann Marie Mcdaniel MD [facility] documented in this encounterProm[facility] History of Present illness Narrative* Todd Bunch MD - 09/10/2022 10:40 AM EST Chief Complaint Patient presents with: Medicare Wellness Exam HPI Zhanna Oh is a 77 year old male who presents here today for Medicare Annual Visit. Patient with Hx of DM 2, HTN, Hyperlipidemia, obesity, prostate cancer, asbestos exposure, general arthritis, memory issues, CKD, anemia, as well as those reviewed and addressed below and in ROS. Patient has been doing good. Seeing optho in a week. Past medical history, appointments, medications, allergies reviewed. Previous Medical History PAST MEDICAL HISTORY Diagnosis Date Asbestosis (HCC) 08/13/[address] Seth. Generalized arthritis 10/02/2003 Hammer toes of both feet 08/13/2020 History of 2019 novel coronavirus disease (COVID-19) 02/18/2021 Had but not aware of date Hypertension, essential 08/13/2020 Iron deficiency anemia 08/25/2021 Medicare annual wellness visit, subsequent 08/13/2020 Medicare Part B: 03/07/2012, last done 08/23/2021 Memory impairment 02/18/2021 Secondary to chemo Tx for hs prostate cancer. Mixed hyperlipidemia 08/13/2020 Over weight 01/18/2018 Prostate cancer (HCC) 11/17/2019 Seeing Urology and oncology (Dr. Logan) Stage 3a chronic kidney disease (HCC) 08/15/2020 Type 2 diabetes mellitus without complication, without long-term current use of insulin (HCC) 08/13/2020 Vitamin B12 deficiency 08/25/2021 Previous Surgical History PAST SURGICAL HISTORY Procedure Laterality Date COLONOSCOPY 12/2021 EGD W/O BRSH SPEC VARICIES INJ 12/2021 PROSTATE BIOPSY 2019 REMV CATARACT EXTRACAP,INSERT LENS 06/2020 TONSILLECTOMY HX as a child Family History FAMILY HISTORY Problem Relation Age of Onset Cancer Mother Pneumonectomy. 2nd surgery. COPD Mother Emphysema. Smoker. other (Other) Father age 101. Diabetes Sister Diabetes Sister Patient Allergies ALLERGIES No Known Allergies Current Medications Current Outpatient Medications on File Prior to Visit Medication Sig glimepiride (AMARYL) 4 mg tablet Take 1 tablet by mouth once daily. atorvastatin (LIPITOR) 10 mg tablet Take 1 tablet by mouth once daily. lisinopril (ZESTRIL, PRINIVIL) 40 mg tablet Take 1 tablet by mouth once daily. amLODIPine (NORVASC) 5 mg tablet Take 1 tablet by mouth once daily. tamsulosin (FLOMAX) 0.4 mg Take 1 capsule by mouth daily at bedtime for 30 doses. cyanocobalamin (VITAMIN B-12) 1,000 mcg tab Take 1 tablet by mouth once daily. fenofibrate nanocrystallized (TRICOR) 48 mg tablet Take 1 tablet by mouth once daily. metFORMIN (GLUCOPHAGE) 500 mg tablet Take 2 tablets by mouth twice daily with meals. Take two tablets by mouth twice daily. blood sugar diagnostic ([employer] NO CODING) test strip before meals and at bedtime. Use as instructed blood sugar diagnostic (BLOOD GLUCOSE TEST) test strip Test blood sugar(s) two times daily. Dx: Type 2 DM - Controlled E11.9 Insulin: No bacitracin 500 unit/gram ointment Apply to affected area twice daily. Lancets lancets Test blood sugar(s) two times daily. Dx: Type 2 DM - Controlled E11.9 Insulin: No Ferrous Sulfate (SLOW FE) 142 mg (45 mg iron) TbER Take one tab daily pioglitazone (ACTOS) 15 mg tablet Take 1 tablet by mouth once daily. aspirin, enteric coated (ASPIRIN, ENTERIC COATED) 81 mg EC tablet Take 81 mg by mouth once daily. No current facility-administered medications on file prior to visit. Social History Social History Tobacco Use Smoking status: Never Smokeless tobacco: Never Tobacco comments: Mother smoked in childhood home. Vaping Use Vaping Use: Never used Substance Use Topics Alcohol use: No Drug use: No Review of Symptoms REVIEW OF SYSTEMS GENERAL: No weight loss, malaise or fevers HEENT: Negative for frequent or significant headaches, No changes in hearing or vision, no nose bleeds or other nasal problems NECK: Negative for lumps, goiter, pain and significant neck swelling RESPIRATORY: Negative for cough, hemoptysis, wheezing, COPD, dyspnea or shortness of breath CARDIOVASCULAR: Negative for chest pain, leg swelling, hypertension, CHF or palpitations GI: No nausea, vomiting, or diarrhea, No heartburn or reflux symptoms, and no blood : No history of dysuria, blood MUSCULOSKELETAL: Negative for joint pain or swelling, back pain or muscle pain SKIN: Negative for lesions, rash, and itching PSYCH: Negative for sleep disturbance, mood disorder and recent psychosocial stressors HEMATOLOGY/LYMPHOLOGY: Negative for prolonged bleeding, bruising easily or swollen nodes ENDOCRINE: Negative for cold or heat intolerance, symptoms of low BS's NEURO: No history of headaches, syncope, paralysis, seizures or tremors EXAM: BP 130/82 (BP Site: Right Arm, BP Position: Sitting, BP Cuff Size: Large Adult) Pulse 76 Resp 18 Ht 184.2 cm (6' 0.5) Wt 101.2 kg (223 lb) BMI 29.83 kg/m Last 5 Encounter Wt Readings: Date: Wt: 09/10/2022 101.2 kg (223 lb) 07/03/2022 100.2 kg (221 lb) 03/03/2022 99.3 kg (219 lb) 02/21/2022 99.8 kg (220 lb) 12/19/2021 102.5 kg (226 lb) General Appearance: Well appearing, alert, in no acute distress, well-hydrated, well nourished. andOverweight. Skin: Skin color, texture, turgor normal, no suspicious rashes or lesions. Head: Normocephalic, no masses, lesions, tenderness or abnormalities. Eyes: Anicteric sclera. Pupils are equally round and reactive to light. Extraocular movements are intact. . Ears: External ears, TM's normal, canals clear. Neck: Supple, no adenopathy; thyroid symmetric, normal size, no bruits. Lungs: Lungs clear to auscultation. No wheezing, rhonchi, rales.. Heart: RRR without murmur, gallop, or rubs. No ectopy. Abdomen: Normal abdominal exam, Abdomen soft, non-tender. Bowel sounds normal. No masses, organomegaly. Extremities: No deformities, edema, skin discoloration, clubbing or cyanosis. Good capillary refill. . Musculoskeletal: Muscular strength intact, No joint swelling, deformity, or tenderness. Peripheral Pulses: Normal. Neurologic: Gait normal. Reflexes normal and symmetric. Sensation grossly intact.. Genitalia: Normal, Penis normal. No urethral discharge. Scrotum normal to palpation. No hernia.. Health Maintenance List ADVANCE DIRECTIVE DISCUSSION Never done DEPRESSION ASSESSMENT Never done COVID-19 VACCINE(5 - Booster for Moderna series) due on 04/01/2022 DILATED RETINAL EXAM due on 07/04/2022 HEMOGLOBIN/HEMATOCRIT due on 08/23/2022 HBA1C due on 08/23/2022 URINE ALBUMIN:CREATININE RATIO due on 08/23/2022 DIABETIC FOOT EXAM due on 08/23/2022 LDL CHOLESTEROL due on 02/21/2023 ANNUAL PCP TEAM CHRONIC DISEASE VISIT due on 02/21/2023 SERUM CREATININE due on 02/21/2023 BP CONTROLLED (<130/80) due on 02/21/2023 COLORECTAL CANCER SCREENING due on 08/14/2027 DTAP,TDAP,TD Discontinued INFLUENZA Discontinued HEPATITIS C SCREENING Discontinued SHINGRIX VACCINE Discontinued PNEUMOCOCCAL: 65+ Discontinued Data reviewed A/P ASSESSMENT/PLAN: 1. Medicare annual wellness visit, subsequent - ICD9: V70.0, ICD10: Z00.00 (primary diagnosis) - Counseled on healthy diet and regular exercise - Follow up for annual exam in one year 2. Type 2 diabetes mellitus without complication, without long-term current use of insulin (HCC) - ICD9: 250.00, ICD10: E11.9 - will await labs to see if any changes needed. Check - ALBUMIN/CREAT RATIO RND UR - COMP METABOLIC PANEL - HGB A1C - URINALYSIS, WITH MICROSCOPIC - LIPID PANEL, NONFASTING - CBC + DIFF 3. Diabetic eye exam (HCC) - ICD9: V72.0, 250.00, ICD10: Z01.00, E11.9 - being updated in a week 4. Hypertension, essential - ICD9: 401.9, ICD10: I10 - good control - Continue current medication(s) - Recommended regular aerobic exercise. - Recommend home blood pressure monitoring, to bring results in on next visit - Goal of BP <130/80 - COMP METABOLIC PANEL - URINALYSIS, WITH MICROSCOPIC - LIPID PANEL, NONFASTING 5. Mixed hyperlipidemia - ICD9: 272.2, ICD10: E78.2 - to be determined upon return of lab results - Encouraged following a low fat, low cholesterol diet. - Discussed the benefits of regular aerobic exercise and weight loss. - Encouraged following a low carbohydrate, healthy oil intake diet. - Continue current therapy. - COMP METABOLIC PANEL - URINALYSIS, WITH MICROSCOPIC - LIPID PANEL, NONFASTING 6. Stage 3a chronic kidney disease (HCC) - ICD9: 585.3, ICD10: N18.31 - will await labs to determine if changes needed. Check - COMP METABOLIC PANEL - URINALYSIS, WITH MICROSCOPIC - CBC + DIFF 7. Memory impairment - ICD9: 780.93, ICD10: R41.3 - clinically stable 8. Iron deficiency anemia, unspecified iron deficiency anemia type - ICD9: 280.9, ICD10: D50.9 Check - CBC + DIFF - IRON + TIBC 9. Vitamin B12 deficiency - ICD9: 266.2, ICD10: E53.8 Check - CBC + DIFF - VITAMIN B12 BLOOD 10. Prostate cancer (HCC) - ICD9: 185, ICD10: C61 - management per Urology and Heme/Onc 11. Asbestosis (HCC) - ICD9: 501, ICD10: J61 - management per Pulm 12. Generalized arthritis - ICD9: 716.90, ICD10: M19.90 - stable 13. Advance directive discussed with patient - ICD9: V65.49, ICD10: Z71.89 - patient to bring in copies. Requested Prescriptions Signed Prescriptions Disp Refills metFORMIN (GLUCOPHAGE) 500 mg tablet 360 tablet 1 Sig: Take 2 tablets by mouth twice daily with meals. F/u 6 months routine. I spent a total of 40 minutes on the date of the service which included preparing to see the patient, [id number] patient care, completing clinical documentation, performing a medically appropriate examination, counseling and educating the patient/family/caregiver and ordering medications, tests, or procedures. Todd Bunch MD documented in this encounterPromed[facility]12-27-[facility]22 Miscellaneous Notes* Telephone Encounter - Tracie Horner RANDI - 09/02/2022 1:01 PM EST Patient has been identified by name and date of : Pharmacy phones for refill(s): Requested Prescriptions Pending Prescriptions Disp Refills glimepiride (AMARYL) 4 mg tablet 90 tablet 1 Sig: Take 1 tablet by mouth once daily. atorvastatin (LIPITOR) 10 mg tablet 90 tablet 1 Sig: Take 1 tablet by mouth once daily. lisinopril (ZESTRIL, PRINIVIL) 40 mg tablet 90 tablet 1 Sig: Take 1 tablet by mouth once daily. amLODIPine (NORVASC) 5 mg tablet 90 tablet 1 Sig: Take 1 tablet by mouth once daily. Date of last office visit in primary care: 02/21/2022, has appt 09/10/2022 Last 2 Encounter Wt Readings: Date: Wt: 07/03/2022 100.2 kg (221 lb) 03/03/2022 99.3 kg (219 lb) Previous labs/tests for medication: Cholesterol: HDL Cholesterol, Nonfasting (mg/dL) Date Value 02/21/2022 34 08/23/2021 33 LDL Cholesterol, Nonfasting (mg/dL) Date Value 02/21/2022 68 08/23/2021 64 ALT (U/L) Date Value 08/23/2021 13 Non HDL Cholesterol, Nonfasting (mg/dL) Date Value 02/21/2022 123 08/23/2021 101 Blood Pressure: BUN (mg/dL) Date Value 02/21/2022 23 08/23/2021 16 Sodium (mmol/L) Date Value 02/21/2022 137 08/23/2021 139 Last 1 Encounter BP Readings: Date: BP: 02/21/2022 122/68 Please advise. Thank you. Tracie Horner LPN documented in this encounterPromedica [facility]12-08-2022 History of Present illness Narrative* Sol Lee LPN - 08/14/2022 11:13 AM EST Pt's colonoscopy report for review. Sol Lee LPN Scan on 08/14/2022 7:29 AM by External Provider: Colonoscopy Scan on 08/14/2022 7:32 AM by External Provider: Colonoscopy documented in this encounterPromedica [facility]12-08-2022 [facility] Medical Records Department [address] [place] [address] History Physical Exam 08/14/22625 MR#: [id number] Acct: [id number] Name: ZHANNA OH Rep #: [id number] : 1945 77 From: Gabriel Friend DO PCP: Dr. Todd Bunch MD Status:[facility] Location: [place] [address] History and Physical Date of Admission: 08/14/22 77 M who presents to the office today for Follow up visit. Zhanna established with this clinic 10.02.21 with referral from his PCP for anemia evaluation. He has a history of anemia with hemoglobin trending from 14 to 7.7. At time of presentation he was taking PO iron therapy with vitamin C but no etiology had been found. Additional medical history includes diabetes II (treated with metformin and glimepiride), arthritis/osteoarthritis, hyperlipidemia, HTN, asbestos exposure, prostate cancer with treatment. EGD and colonoscopy performed 12.02.21. EGD found three hyperplastic/inflammatory gastric polyps, retrieved. H.Pylori negative. Colonoscopy prep was inadequate. Diverticulosis in recto-sigmoid, sigmoid and descending colon. No specimens collected. Plan LV 12.16.21: Anemia ??? repeat colonoscopy one year r/t inadequate prep. Inflammatory polyps seen in stomach Gastritis ??? continue PPI and carfate. Feels he is doing well overall. ROS Const Constitutional: No anorexia, fatigue, fever(s), weight change or sleep problems Eyes Eyes: No change in vision ENT ENT: No abnormal hearing, difficulty swallowing, mouth lesions, tongue swelling or throat swelling Resp Respiratory: No cough or shortness of breath Cardio Cardiology: No chest pain at rest, chest pain with exertion, shortness of breath or dyspnea on exertion Gastro GI: No difficulty swallowing Genitourinary Male: No difficulty urinating or burning urination Musc Musculoskeletal: No joint pain, joint swelling, muscle weakness or decreased muscle mass Skin Skin: No hair loss in leg, yellowing of the eye, itchy eyes, rash, skin ulcer or skin swelling Neuro Neurology: No abnormal hearing, abnormal movements, confusion, unsteady gait/balance or memory loss Psych Psychiatric: No anxiety, No confusion and No memory loss Endo Endocrine: No fatigue or weight change Aller/Imm Allergy/Immunologic: No itchy eyes, throat swelling or tongue swelling Hossein/Lymp Hematologic/Lymphatic: No easy bleeding, easy bruising or enlarged lymph nodes Exam Const General: cooperative and comfortable Nutritional Appearance: average body habitus and well nourished [facility] Head: normal to inspection Ears: hearing grossly normal bilaterally Nose: external nose normal Face and sinus: normal facial exam Mouth: oral mucosae normal Throat: posterior oropharynx normal Eyes General: appearance normal, both eyes and all related structures Neck Neck: normal visual inspection Chest Chest palpation inspection: normal inspection of the chest and normal palpation of entire chest wall Resp Effort Inspection: normal respiratory effort Auscultation: Bilateral: Clear to Auscultation Cardio Palpation: normal PMI Rate: regular rate Rhythm: regular rhythm GI Inspection: normal to inspection Auscultation: normal bowel sounds Percussion: normal to percussion Palpation: no hepatosplenomegaly Skin General: no rashes or lesions noted Neuro General: patient alert Extrem General: normal to inspection Psych Affect: normal affect Quality Reporting Tobacco Screening ([facility] 138) Smoking Status: Never smoker Assessment and Plan Assessment and Plan (1) Anemia: ?Status:???Chronic ?Plan: He underwent EGD and colonoscopy for his iron deficiency anemia and macrocytosis.??? There were no signs of active bleeding in his upper GI tract and he had a very poor prep for his colonoscopy.??? We will need to repeat his colonoscopy and if that is negative he will need a capsule endoscopy notes to evaluate his entire GI tract.??? We will recheck his iron studies as well as his CBC including hemoglobin and platelets.??? He is not taking nonsteroidals except for aspirin.??? He does not knowhis last hemoglobin A1c.??? He is not having abdominal pain, cramping, hematochezia or melena.??? We will reschedule his colonoscopy. I have examined the patient and the H P has been reviewed. There are no clinical changes since date of exam. 08/14/22 4806 Cosigner Signature (if applicable): CC: Dr. Todd Bunch MD; Gabriel Bradford, SignedWSelect Medical Specialty [facility]10-28-2022 Miscellaneous Notes* Telephone Encounter - Katiana Almaraz RN - 07/04/2022 3:30 PM EDT See pended order. * Telephone Encounter - Deisy Amezcua - 07/03/2022 1:05 PM EDT Patient had appt today. In the check out notes, patient was told to have KUB, but there is no orderplaced. Please advise and place order to proceed with scheduling. Thank you! Deisy Amezcua documented in this encounterPromed[facility]07-[facility] History of Present illness Narrative* Dari Le RN - 03/14/2022 2:44 PM EDT [facility] Enrollment Provider Action/FYI: [phone] outreach attempt #2 [facility] Chronic Disease Management Program: CKD enrollment call Last outreach voicemail did not pickling grader -reached patient's voicemail today and message left as noted below requesting call back Patient referred by: [facility] Simin Contact made with patient: No - 2nd attempt to reach patient, left another message: Hi my name is Dari Le RN and I am calling from the [facility] on behalf of your PCP, Todd Bunch MD. We are excited to share with you a new program to help you manage your health. Please call me back at [phone]. I hope you can take the time to speak with me. ( Closing: Could not reach the patient after two attempted outreaches. documented in this encounterPromedica Defiance [facility]07-05-2022 History of Present illness Narrative* Dari Le RN - 03/11/2022 3:24 PM EDT [facility] Enrollment Provider Action/FYI: [phone] [facility] Program : CKD enrollment call Unable to leave message - no voicemail Patient referred by: [facility] Simin Contact made with patient: No - Unable to leave message: documented in this encounterPromedica [facility]07-05-2022 Evaluation note* Diagnosis Stage 3a chronic kidney disease (HCC)- Primary documented in this encounter [facility]06-27-[facility] History of Present illness Narrative* Rafa De La Vega MD - 03/03/2022 11:31 AM EDT Images from the original note were not included. [facility] UROLOGY ESTABLISHED PATIENT CLINIC NOTE PATIENT INFO: Zhanna Oh PCP: Todd Bunch MD UROLOGY DIAGNOSES: 1. Phimosis - ICD9: 605, ICD10: N47.1 CHIEF COMPLAINT: Phimosis HPI: Patient returns for continuing evaluation and management. S/p Circumcision 12/31/21 Doing well Happy with results Urinating well No pain Prev Note: Severe phimosis Recent Ecoli UTI sepsis HgA1c 9.4 On Flomax Urinate dribbles out Would like to proceed with Circumcision, all R/B/A dw patient PMHx/PSHx: see above, otherwise unchanged Rx: reviewed and unchanged ROS: see above, otherwise unchanged Labs: Imaging: None MEDICATIONS: Current Outpatient Medications Medication Sig glimepiride (AMARYL) 4 mg tablet Take 1 tablet by mouth once daily. cyanocobalamin (VITAMIN B-12) 1,000 mcg tab Take 1 tablet by mouth once daily. atorvastatin (LIPITOR) 10 mg tablet Take 1 tablet by mouth once daily. fenofibrate nanocrystallized (TRICOR) 48 mg tablet Take 1 tablet by mouth once daily. lisinopril (ZESTRIL, PRINIVIL) 40 mg tablet Take 1 tablet by mouth once daily. metFORMIN (GLUCOPHAGE) 500 mg tablet Take 2 tablets by mouth twice daily with meals. Take two tablets by mouth twice daily. amLODIPine (NORVASC) 5 mg tablet Take 1 tablet by mouth once daily. blood sugar diagnostic (PRODIGY NO CODING) test strip before meals and at bedtime. Use as instructed blood sugar diagnostic (BLOOD GLUCOSE TEST) test strip Test blood sugar(s) two times daily. Dx: Type 2 DM - Controlled E11.9 Insulin: No bacitracin 500 unit/gram ointment Apply to affected area twice daily. Lancets lancets Test blood sugar(s) two times daily. Dx: Type 2 DM - Controlled E11.9 Insulin: No Ferrous Sulfate (SLOW FE) 142 mg (45 mg iron) TbER Take one tab daily pioglitazone (ACTOS) 15 mg tablet Take 1 tablet by mouth once daily. tamsulosin (FLOMAX) 0.4 mg Take 1 capsule by mouth daily at bedtime for 30 doses. aspirin, enteric coated (ASPIRIN, ENTERIC COATED) 81 mg EC tablet Take 81 mg by mouth once daily. No current facility-administered medications for this visit. PHYSICAL EXAM: Ht 188 cm (6' 2) Wt 99.3 kg (219 lb) BMI 28.12 kg/m Body mass index is 28.12 kg/m . General: Well masculinized, well nourished male Psych: euthymic, NAD Neuro: A&Ox3 Inguinal: No lesions, adenopathy, or hernias Phallus: normal, circumcised, no lesions Meatus: orthotopic, patent, no discharge Scrotum: no lesions, normal rugae Testes: Descended, nontender, and no masses bilaterally DIAGNOSES: 1. 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 Patient verbalizes understanding. Sol Lee LPN * Telephone Encounter - Todd Bunch MD - 03/02/2022 9:39 PM EDT Let patient know lipid panel shoed Trigs elevated at 274 (goal<150), HDL low at 34 (goal>40) and LDL very good at 68. Work on reduced fat in diet and walking for exercise. A1c is awesome at 6.3 (six months ago was 9.4) BMP shows stable kidney function. documented in this encounterPromedica Defiance [facility]06-17-2022 History of Present illness Narrative* Todd Bunch MD - 02/21/2022 1:00 PM EDT Chief Complaint Patient presents with: F/U 6 months HPI Zhanna Oh is a 76 year old male who presents here today for 6 month follow up. Patient with Hx of DM 2, HTN, Hyperlipidemia, obesity, prostate cancer, asbestos exposure, general arthritis, memory issues, CKD, anemia, as well as those reviewed and addressed below and in ROS. Concerns: none Since last visit have surgery for phimosis and peeing much better. Past medical history, appointments, medications, allergies reviewed. Previous Medical History PAST MEDICAL HISTORY Diagnosis Date Asbestosis (HCC) 08/13/[address] Seth. Generalized arthritis 10/02/2003 Hammer toes of both feet 08/13/2020 History of 2019 novel coronavirus disease (COVID-19) 02/18/2021 Had but not aware of date Hypertension, essential 08/13/2020 Iron deficiency anemia 08/25/2021 Medicare annual wellness visit, subsequent 08/13/2020 Medicare Part B: 03/07/2012, last done 08/23/2021 Memory impairment 02/18/2021 Secondary to chemo Tx for hs prostate cancer. Mixed hyperlipidemia 08/13/2020 Over weight 01/18/2018 Prostate cancer (HCC) 11/17/2019 Seeing Urology and oncology (Dr. Logan) Stage 3a chronic kidney disease (HCC) 08/15/2020 Type 2 diabetes mellitus without complication, without long-term current use of insulin (HCC) 08/13/2020 Vitamin B12 deficiency 08/25/2021 Previous Surgical History PAST SURGICAL HISTORY Procedure Laterality Date COLONOSCOPY 12/2021 EGD W/O BRSH SPEC VARICIES INJ 12/2021 PROSTATE BIOPSY 2019 REMV CATARACT EXTRACAP,INSERT LENS 06/2020 TONSILLECTOMY HX as a child Family History FAMILY HISTORY Problem Relation Age of Onset Cancer Mother Pneumonectomy. 2nd surgery. COPD Mother Emphysema. Smoker. other (Other) Father age 101. Diabetes Sister Diabetes Sister Patient Allergies ALLERGIES No Known Allergies Current Medications Current Outpatient Medications on File Prior to Visit Medication Sig bacitracin 500 unit/gram ointment Apply to affected area twice daily. blood sugar diagnostic (BLOOD GLUCOSE TEST) test strip Test blood sugar(s) two times daily. Dx: Type 2 DM - Controlled E11.9 Insulin: No Lancets lancets Test blood sugar(s) two times daily. Dx: Type 2 DM - Controlled E11.9 Insulin: No glimepiride (AMARYL) 4 mg tablet Take 1 tablet by mouth once daily. cyanocobalamin (VITAMIN B-12) 1,000 mcg tab Take 1 tablet by mouth once daily. Ferrous Sulfate (SLOW FE) 142 mg (45 mg iron) TbER Take one tab daily atorvastatin (LIPITOR) 10 mg tablet Take 1 tablet by mouth once daily. fenofibrate nanocrystallized (TRICOR) 48 mg tablet Take 1 tablet by mouth once daily. lisinopril (ZESTRIL, PRINIVIL) 40 mg tablet Take 1 tablet by mouth once daily. metFORMIN (GLUCOPHAGE) 500 mg tablet Take 2 tablets by mouth twice daily with meals. Take two tablets by mouth twice daily. pioglitazone (ACTOS) 15 mg tablet Take 1 tablet by mouth once daily. tamsulosin (FLOMAX) 0.4 mg Take 1 capsule by mouth daily at bedtime for 30 doses. amLODIPine (NORVASC) 5 mg tablet Take 1 tablet by mouth once daily. aspirin, enteric coated (ASPIRIN, ENTERIC COATED) 81 mg EC tablet Take 81 mg by mouth once daily. No current facility-administered medications on file prior to visit. Social History Social History Tobacco Use Smoking status: Never Smoker Smokeless tobacco: Never Used Tobacco comment: Mother smoked in childhood home. Vaping Use Vaping Use: Never used Substance Use Topics Alcohol use: No Drug use: No Review of Symptoms REVIEW OF SYSTEMS GENERAL: No weight loss, malaise or fevers NECK: Negative for lumps, goiter, pain and significant neck swelling RESPIRATORY: Negative for cough, hemoptysis, wheezing, COPD, dyspnea or shortness of breath CARDIOVASCULAR: Negative for chest pain, leg swelling, hypertension, CHF or palpitations GI: No nausea, vomiting, or diarrhea and No heartburn or reflux symptoms ENDOCRINE: Negative for symptoms of low BS's. Sometimes sugars are slightly high (200) NEURO: No history of headaches, syncope, paralysis, seizures or tremors EXAM: BP 150/88 (BP Site: Left Arm, BP Position: Sitting, BP Cuff Size: Regular Adult) Pulse 76 Resp 18 Wt 99.8 kg (220 lb) BMI 28.25 kg/m BP 122/68 Pulse 76 Resp 18 Wt 99.8 kg (220 lb) BMI 28.25 kg/m General Appearance: Well appearing, alert, in no acute distress, well-hydrated, well nourished.. Eyes: Anicteric sclera. Pupils are equally round and reactive to light. Extraocular movements are intact. . Neck: Supple, no adenopathy; thyroid symmetric, normal size, no bruits. Lungs: Lungs clear to auscultation. No wheezing, rhonchi, rales.. Heart: RRR without murmur, gallop, or rubs. No ectopy. Abdomen: Normal abdominal exam, Abdomen soft, non-tender. Bowel sounds normal. No masses, organomegaly. Extremities: No deformities, edema, skin discoloration. Musculoskeletal: Muscular strength intact, No joint swelling, deformity, or tenderness. Peripheral Pulses: Normal. Neurologic: Gait normal. Sensation to light touch and crainal nerves 2-12 intact.. Health Maintenance List COLORECTAL CANCER SCREENING due on 07/09/2020 ADVANCE DIRECTIVE DISCUSSION Never done HBA1C due on 11/21/2021 COVID-19 VACCINE(4 - Booster for Moderna series) due on 12/28/2021 DEPRESSION SCREENING due on 02/18/2022 DILATED RETINAL EXAM due on 07/01/2022 URINE ALBUMIN:CREATININE RATIO due on 08/23/2022 LDL CHOLESTEROL due on 08/23/2022 DIABETIC FOOT EXAM due on 08/23/2022 ANNUAL PCP TEAM CHRONIC DISEASE VISIT due on 08/23/2022 SERUM CREATININE due on 08/23/2022 HEMOGLOBIN/HEMATOCRIT due on 08/23/2022 BP CONTROLLED (<130/80) due on 08/23/2022 DTAP,TDAP,TD Discontinued INFLUENZA Discontinued HEPATITIS C SCREENING Discontinued SHINGRIX VACCINE Discontinued PNEUMOCOCCAL: 65+ Discontinued Data reviewed Component Latest Ref Rng & Units 08/23/2021 Protein, Total 6.3 - 8.0 g/dL 7.4 Albumin 3.9 - 4.9 g/dL 4.7 Calcium 8.5 - 10.2 mg/dL 10.1 Bilirubin, Total 0.2 - 1.3 mg/dL 0.3 Alkaline Phosphatase 38 - 113 U/L 50 AST 14 - 40 U/L 22 Glucose 74 - 99 mg/dL 154 (H) BUN 9 - 24 mg/dL 16 Creatinine 0.73 - 1.22 mg/dL 1.38 (H) Sodium 136 - 144 mmol/L 139 Potassium 3.7 - 5.1 mmol/L 4.3 Chloride 97 - 105 mmol/L 101 CO2 22 - 30 mmol/L 23 Anion Gap 9 - 18 mmol/L 15 ALT 10 - 54 U/L 13 eGFR- >60 eGFR-All Other Races . 50 Color Yellow Light Yellow (A) Clarity Clear Clear Glucose, Urine Negative mg/dL 2+ (A) Bilirubin, Urine Negative Negative Ketones, Urine Negative Negative Specific [place], Ur 1.005 - 1.030 1.012 Hemoglobin/Blood,Ur Negative Negative pH, Urine 5.0 - 8.0 6.0 Protein, Urine Negative Negative Urobilinogen Negative E.U./dL Negative Nitrites Negative Negative Leukest Negative Negative Comment SEE COMMENT Urine [place] Comment SEE COMMENT WBC, Urine 0 - 5 /HPF 0-5 RBC, Urine 0 - 3 /HPF 0-3 Epithelial Cells /HPF SEE COMMENT Total Cholesterol, Nonfasting <200 mg/dL 134 Triglycerides, Nonfasting <150 mg/dL 185 (H) HDL Cholesterol, Nonfasting >39 mg/dL 33 (L) LDL Cholesterol, Nonfasting <100 mg/dL 64 Non HDL Cholesterol, Nonfasting <130 mg/dL 101 VLDL Cholesterol, Nonfasting <30 mg/dL 37 (H) Total Chol/HDL Ratio, Nonfasting <5.10 mg/dL 4.06 LDL/HDL Ratio, Nonfasting <2.54 mg/dL 1.94 Creatinine, Ur Random (UCRR) 20 - 300 mg/dL 78.0 Albumin, Urine Random mg/L 12.0 Albumin/Creat Ratio <30 mg/g 15 Hemoglobin A1C 4.3 - 5.6 % 9.4 (H) Estimated Average Glucose mg/dL 223 A/P ASSESSMENT/PLAN: 1. Type 2 diabetes mellitus without complication, without long-term current use of insulin (HCC) - ICD9: 250.00, ICD10: E11.9 (primary diagnosis) - Await labs to determine if changes needed. - Continue current medications - Encouraged regular aerobic exercise and weight loss - BP goal of <130/80 - LDL goal of <100 - HGB A1C 2. Diabetic eye exam (HCC) - ICD9: V72.0, 250.00, ICD10: Z01.00, E11.9 - Up to date 3. Hypertension, essential - ICD9: 401.9, ICD10: I10 - good control - Continue current medication(s) - Recommended regular aerobic exercise. - Recommend home blood pressure monitoring, to bring results in on next visit - Goal of BP <130/80 Check lipid, BMP 4. Mixed hyperlipidemia - ICD9: 272.2, ICD10: E78.2 - to be determined upon return of lab results - Encouraged following a low fat, low cholesterol diet. - Discussed the benefits of regular aerobic exercise and weight loss. - Encouraged following a low carbohydrate, healthy oil intake diet. - Continue current therapy. 5. Anemia of chronic disease - ICD9: 285.29, ICD10: D63.8 - Has been stable, Will monitor 6. Stage 3a chronic kidney disease (HCC) - ICD9: 585.3, ICD10: N18.31 - Stable 7. Memory impairment - ICD9: 780.93, ICD10: R41.3 - stable 8. Iron deficiency anemia, unspecified iron deficiency anemia type - ICD9: 280.9, ICD10: D50.9 - Cont to monitor. No changes at this time. 9. Prostate cancer (HCC) - ICD9: 185, ICD10: C61 - Seeing oncology 10. Asbestosis (HCC) - ICD9: 501, ICD10: J61 - Management per Pulm 11. Vitamin B12 deficiency - ICD9: 266.2, ICD10: E53.8 - Cont replacement F/u 6 months extensive. Todd Bunch MD documented in this encounterPromedica Defiance [facility]06-02-2022 History of Present illness Narrative* Talia Hurt Pss - 02/06/2022 1:57 PM EDT POPULATION HEALTH NAVIGATION OUTREACH Action/FYI Patient due for Colonoscopy, HGBA1C, AD, MyChart Activation Left message with my name and direct line for patient to call and schedule. Pt identified by name and : NO Outreach Outcome/Action Unable to reach patient: Left message Did you use a PCP flex slot to schedule this appointment? N/A Reason for Outreach Care Gap or Scheduling/Wellness visits Payer: Payor: [employer]ARE / Plan: [employer] MEDICARE PPO / Product Type: PPO / Care Gap Reviewed:: Colorectal Cancer Screening HBA1C Reminder: Reminder note to check Health Maintenance for items below Health Maintenance items due: COLORECTAL CANCER SCREENING due on 07/09/2020 ADVANCE DIRECTIVE DISCUSSION Never done HBA1C due on 11/21/2021 COVID-19 VACCINE(4 - Booster for Moderna series) due on 12/28/2021 Message Sent to Practice: Yes Navigation Signature: Talia Lowry February 06, 2022 1:57 PM documented in this encounterPromedica Defiance [facility]04-14-2022 History of Present illness Narrative* Leatha Preciado, DO - 12/19/2021 11:44 AM EDT Images from the original note were not included. [facility] UROLOGY LOCATION: [address] [place] [address] ESTABLISHED PATIENT PATIENT INFO: Zhanna Oh 76 year old Chief Complaint: Prostate Cancer HPI Here for 6 month review. No complaints. Did not obtain PSA PREVIOUS HX: Low risk prostate cancer PSA 3.8 ng per mL 04/2018. Noted to increase 5.49 ng per mL 07/2019. Patient underwent prostate biopsy on 10/03/[address] Gomez in [place]. Patient has nocturia. He was admitted to [facility] after the biopsy with Escherichia coli urosepsis. 1-Duration: 2021 2-Location: prostate 3-Severity: N/A 4-Quality: Not applicable 5-Context: N/A 6-Timing: N/A 7-Modifying factors: No treatment prior to referral 8-Associated signs & symptoms: no additional symptoms No question data found. PATHOLOGY: NONE LAB: WBC (k/uL) Date Value 08/23/2021 6.35 RBC (m/uL) Date Value 08/23/2021 3.29 (L) Hemoglobin (g/dL) Date Value 08/23/2021 12.2 (L) Hematocrit (%) Date Value 08/23/2021 35.0 (L) MCV (fL) Date Value 08/23/2021 106.4 (H) MCH (pG) Date Value 08/23/2021 37.1 (H) MCHC (g/dL) Date Value 08/23/2021 34.9 RDW-CV (%) Date Value 08/23/2021 13.2 Platelet Count (k/uL) Date Value 08/23/2021 218 MPV (fL) Date Value 08/23/2021 9.5 Neut% (%) Date Value 08/23/2021 60.2 Lymph% (%) Date Value 08/23/2021 30.1 [place]% (%) Date Value 08/23/2021 6.5 Eosin% (%) Date Value 08/23/2021 2.7 Baso% (%) Date Value 08/23/2021 0.5 Abs Neut (ANC) (k/uL) Date Value 08/23/2021 3.81 Abs [place] (k/uL) Date Value 08/23/2021 0.41 Abs Eosin (k/uL) Date Value 08/23/2021 0.17 Abs Baso (k/uL) Date Value 08/23/2021 0.03 Creatinine Date Value Ref Range Status 08/23/2021 1.38 (H) 0.73 - 1.22 mg/dL Final 02/19/2021 1.33 (H) 0.73 - 1.22 mg/dL Final 08/13/2020 1.53 (H) 0.73 - 1.22 mg/dL Final PSA (ng/mL) Date Value 12/13/2020 8.81 06/14/2020 7.72 URINE POC GLUCOSE UA (POCT) 100 06/20/2021 BILIRUBIN UA (POCT) Negative 06/20/2021 KETONE UA (POCT) Negative 06/20/2021 SPECIFIC GRAVITY UA (POCT) 1.010 06/20/2021 HEMOGLOBIN/BLOOD UA (POCT) Negative 06/20/2021 PH UA (POCT) 6.5 06/20/2021 PROTEIN UA (POCT) Negative 06/20/2021 UROBILINOGEN UA (POCT) 0.2 06/20/2021 NITRITE UA (POCT) Negative 06/20/2021 LEUKOCYTES UA (POCT) Trace 06/20/2021 COLOR UA (POCT) Yellow 06/20/2021 CLARITY UA (POCT) Clear 06/20/2021 IMAGING: None No imaging to review. ALLERGIES: ALLERGIES No Known Allergies MEDICATIONS: blood sugar diagnostic (BLOOD GLUCOSE TEST) test strip Test blood sugar(s) two times daily. Dx: Type 2 DM - Controlled E11.9 Insulin: No Lancets lancets Test blood sugar(s) two times daily. Dx: Type 2 DM - Controlled E11.9 Insulin: No glimepiride (AMARYL) 4 mg tablet Take 1 tablet by mouth once daily. cyanocobalamin (VITAMIN B-12) 1,000 mcg tab Take 1 tablet by mouth once daily. Ferrous Sulfate (SLOW FE) 142 mg (45 mg iron) TbER Take one tab daily atorvastatin (LIPITOR) 10 mg tablet Take 1 tablet by mouth once daily. fenofibrate nanocrystallized (TRICOR) 48 mg tablet Take 1 tablet by mouth once daily. lisinopril (ZESTRIL, PRINIVIL) 40 mg tablet Take 1 tablet by mouth once daily. metFORMIN (GLUCOPHAGE) 500 mg tablet Take 2 tablets by mouth twice daily with meals. Take two tablets by mouth twice daily. pioglitazone (ACTOS) 15 mg tablet Take 1 tablet by mouth once daily. amLODIPine (NORVASC) 5 mg tablet Take 1 tablet by mouth once daily. aspirin, enteric coated (ASPIRIN, ENTERIC COATED) 81 mg EC tablet Take 81 mg by mouth once daily. tamsulosin (FLOMAX) 0.4 mg Take 1 capsule by mouth daily at bedtime for 30 doses. Does the patient take any herbal medications?: No HISTORIES PAST MEDICAL HISTORY Diagnosis Date Asbestosis (HCC) 08/13/[address] Seth. Generalized arthritis 10/02/2003 Hammer toes of both feet 08/13/2020 History of 2019 novel coronavirus disease (COVID-19) 02/18/2021 Had but not aware of date Hypertension, essential 08/13/2020 Iron deficiency anemia 08/25/2021 Medicare annual wellness visit, subsequent 08/13/2020 Medicare Part B: 03/07/2012, last done 08/23/2021 Memory impairment 02/18/2021 Secondary to chemo Tx for hs prostate cancer. Mixed hyperlipidemia 08/13/2020 Over weight 01/18/2018 Prostate cancer (HCC) 11/17/2019 Seeing Urology and oncology (Dr. Logan) Stage 3a chronic kidney disease (HCC) 08/15/2020 Type 2 diabetes mellitus without complication, without long-term current use of insulin (HCC) 08/13/2020 Vitamin B12 deficiency 08/25/2021 Smoking Status Reviewed: Yes REVIEW OF SYSTEMS GENERAL: No fever, chills, weight loss, or fatigue. HEAD & NECK: No blurred vision or Sjogren's syndrome CARDIOVASCULAR: NO CHEST PAIN, PALPITATIONS, ANKLE EDEMA RESPIRATORY: No chronic cough, wheezing, dyspnea, hemoptysis. MUSCULOSKELETAL: NO CHRONIC BACK PAIN, ARTHRITIS, CHRONIC NECK PAIN SKIN: NO VARICOSE VEINS, RASH, ABNORMAL ITCHING BLOOD/LYMPHATIC: No easy bleeding, easy bruising, transfusion Hx NEUROLOGICAL: NO HEADACHES, NUMBNESS, SEIZURES, STROKE PSYCHIATRIC: No depression or inordinate anxiety The remainder of the ROS was negative. PHYSICAL EXAMINATION Ht 188 cm (6' 2) Wt 102.5 kg (226 lb) BMI 29.02 kg/m General appearance: Well appearing, alert, in no acute distress and well- hydrated, well nourished Skin: Skin color, texture, turgor normal, no suspicious rashes or lesions Head: Normocephalic, no masses, lesions, tenderness or abnormalities Abdomen: Normal abdominal exam, Abdomen soft, non-tender. Bowel sounds normal. No masses, organomegaly Genitourinary: MALE EXAM: Exam NOT Indicated PVR: NA IMPRESSION/PLAN: Very low risk prostate cancer [place] 6. PSA 5.1 at diagnosis. Sandra to 8.81 - December 2020. No recent PSA. At this time we had a discussion regarding his prostate cancer. Oncotype GPS 20 Prostate MRI - PIRADS 4, no SHANE. Complains of back pain - AMY negative. Flexeril PRN. Flomax for LUTS Proceed to active surveillance. PSA every 6 months. Needs PSA now. Circumcision next week with Dr. De La Vega. I spent 30 minutes in the visit, with more than 50% of the total [id number] time of the visit in counseling / coordination of care. Leatha Preciado DO MBA documented in this encounterPromedica Def[facility]04-12-2022 History and physical note * Chel Mejia Miller, COUNTY HEALTH OFFICER.MACHINING SUPERVISOR - 12/17/2021 10:40 AM EDT HISTORY AND PHYSICAL EXAMINATION SERVICE DATE: 12/11/2021 SERVICE TIME: 11:02 AM PRIMARY CARE PHYSICIAN: Todd Bunch MD REASON FOR VISIT: Zhanna Oh is a 76 year old male who is scheduled for Procedure(s): CIRCUMCISION ADULT (N/A) at the request of Dr. Rafa De La Vega for routine H&P. My final recommendation will be communicated back to the requesting physician by way of shared medical record or letter. Subjective The patient has the following: ACTIVE PROBLEM LIST Generalized Arthritis Over Weight Prostate Cancer (Hcc) Hypertension, Essential Type 2 Diabetes Mellitus Without Complication, Without Long-Term Current Use of Insulin (Hcc) Mixed Hyperlipidemia Asbestosis (Hcc) Hammer Toes of Both Feet Medicare Annual Wellness Visit, Subsequent Diabetic Eye Exam ([facility]) Anemia of Chronic Disease Stage 3a Chronic Kidney Disease (Hcc) History of 2019 Novel Coronavirus Disease (Covid-19) Memory Impairment Phimosis Iron Deficiency Anemia Vitamin B12 Deficiency COVID-19 Immunization Status COVID-19 VACCINE (Series Information) Completed 08/29/2021 Imm Admin: COVID-19 vaccine, full dose (MODERNA) 12/20/2020 Imm Admin: COVID-19 vaccine, full dose (MODERNA) 11/22/2020 Imm Admin: COVID-19 vaccine, full dose (MODERNA) CHIEF COMPLAINT: Phimosis HPI: Patient is a 76 year old male here for a preoperative exam. Pt diagnosed with prostate cancer about 1 years ago. Pt now complains of inability to pull back foreskin, this has been ongoing for the last year. Pt also complains of weak stream, nocturia, increased frequency. Pt denies hematuria ordysuria. Pt discussed with surgeon and agrees to surgical intervention. REVIEW OF SYSTEMS: General: Negative for: unintentional weight change, malaise and fever. Neurological: Negative for: headaches, seizures and strokes. Respiratory: Asbestosis Negative for: asthma, COPD, URI < 2 weeks and obstructive sleep apnea. Cardiovascular: Positive for: hyperlipidemia and hypertension Negative for: arrhythmia, CAD, chest pain, CHF and DVT/PE. GI: Negative for: abdominal pain, GERD, nausea and vomiting. : See HPI Positive for: decreased stream and frequent urination. Negative for: dysuria, hematuria and renal failure. Endocrine: Positive for: diabetes mellitus. Patient's diabetes mellitus is controlled by oral agents. Negative for: hypothyroidism. Hematology: Positive for: anemia and chronic anti-coagulation/platelet meds. Patient is on anti-coagulation/platelet medication(s): Aspirin. Negative for: factor V Leiden and von Willebrand disease. Oncology: Prostate cancer, no treatment. No history of CA metastasis, chemo within 30 days, or radiotherapy within 90 days. No history of oncological symptoms or problems. Psych: Negative for: anxiety and depression. Musculoskeletal: Negative for joint pain or swelling, back pain or muscle pain. Skin: Negative for lesions, rash and itching. PAST MEDICAL HISTORY Diagnosis Date Asbestosis (HCC) 08/13/[address] Seth. Generalized arthritis 10/02/2003 Hammer toes of both feet 08/13/2020 History of 2019 novel coronavirus disease (COVID-19) 02/18/2021 Had but not aware of date Hypertension, essential 08/13/2020 Iron deficiency anemia 08/25/2021 Medicare annual wellness visit, subsequent 08/13/2020 Medicare Part B: 03/07/2012, last done 08/23/2021 Memory impairment 02/18/2021 Secondary to chemo Tx for hs prostate cancer. Mixed hyperlipidemia 08/13/2020 Over weight 01/18/2018 Prostate cancer ([facility]) 11/17/2019 Seeing Urology and oncology (Dr. Logan) Stage 3a chronic kidney disease ([facility]) 08/15/2020 Type 2 diabetes mellitus without complication, without long-term current use of insulin ([facility]) 08/13/2020 Vitamin B12 deficiency 08/25/2021 PAST SURGICAL HISTORY Procedure Laterality Date COLONOSCOPY 12/2021 EGD W/O BRSH SPEC VARICIES INJ 12/2021 PROSTATE BIOPSY 2019 REMV CATARACT EXTRACAP,INSERT LENS 06/2020 TONSILLECTOMY HX as a child FAMILY HISTORY Problem Relation Age of Onset Cancer Mother Pneumonectomy. 2nd surgery. COPD Mother Emphysema. Smoker. other (Other) Father age 101. Diabetes Sister Diabetes Sister Social History Tobacco Use Smoking status: Never Smoker Smokeless tobacco: Never Used Tobacco comment: Mother smoked in childhood home. Vaping Use Vaping Use: Never used Substance Use Topics Alcohol use: No Drug use: No Prior to Admission medications as of 12/17/21 1027 Medication Sig Last Dose Taking blood sugar diagnostic (BLOOD GLUCOSE TEST) test strip Test blood sugar(s) two times daily. Dx: Type 2 DM - Controlled E11.9 Insulin: No Taking Yes Lancets lancets Test blood sugar(s) two times daily. Dx: Type 2 DM - Controlled E11.9 Insulin: No Taking Yes glimepiride (AMARYL) 4 mg tablet Take 1 tablet by mouth once daily. Taking Yes cyanocobalamin (VITAMIN B-12) 1,000 mcg tab Take 1 tablet by mouth once daily. Taking Yes Ferrous Sulfate (SLOW FE) 142 mg (45 mg iron) TbER Take one tab daily Taking Yes atorvastatin (LIPITOR) 10 mg tablet Take 1 tablet by mouth once daily. Taking Yes fenofibrate nanocrystallized (TRICOR) 48 mg tablet Take 1 tablet by mouth once daily. Taking Yes lisinopril (ZESTRIL, PRINIVIL) 40 mg tablet Take 1 tablet by mouth once daily. Taking Yes metFORMIN (GLUCOPHAGE) 500 mg tablet Take 2 tablets by mouth twice daily with meals. Take two tablets by mouth twice daily. Taking Yes pioglitazone (ACTOS) 15 mg tablet Take 1 tablet by mouth once daily. Taking Yes tamsulosin (FLOMAX) 0.4 mg Take 1 capsule by mouth daily at bedtime for 30 doses. Taking Yes amLODIPine (NORVASC) 5 mg tablet Take 1 tablet by mouth once daily. Taking Yes aspirin, enteric coated (ASPIRIN, ENTERIC COATED) 81 mg EC tablet Take 81 mg by mouth once daily. Taking Yes No medication comments found. ALLERGIES No Known Allergies Objective PHYSICAL EXAM: General: alert and oriented and healthy appearance. Pertinent negatives noted - not distressed. Skin: normal color, no rash or lesions. HEENT: No additional findings for patient's neck. Cardiovascular: regular rate and rhythm, normal S1 and S2, no rub, murmurs, or gallop. Respiratory: normal breath sounds, no wheezes or crackles. No chest wall deformity or tenderness. Abdomen: bowel sounds present and soft. Pertinent negatives noted - not tender. Extremities: no deformity, no edema or tenderness, no joint swelling or clubbing. Neurological: normal cognition and motor skills. Gait normal. No weakness or sensory deficit. PAIN ASSESSMENT: VITALS: BP 136/74 Pulse 59 Temp 97.3 Resp 18 Ht 6' 2 (1.88m) Wt 225 lb (102.1kg) SpO2 96% BMI 28.88 kg/(m^2). Diagnostic tests reviewed for today's visit: Lab Value Units Date High Low HB 12.2 g/dL 08/23/2021 17.0 13.0 HCT 35.0 % 08/23/2021 51.0 39.0 WBC 6.35 k/uL 08/23/2021 11.00 3.70 PLT 218 k/uL 08/23/2021 400 150 NA 139 mmol/L 08/23/2021 144 136 K 4.3 mmol/L 08/23/2021 5.1 3.7 GLUC 154 mg/dL 08/23/2021 99 74 BUN 16 mg/dL 08/23/2021 24 9 CREAT 1.38 mg/dL 08/23/2021 1.22 0.73 PTSEC No results within date range. INR No results within date range. APTT No results within date range. ALT 13 U/L 08/23/2021 54 10 AST 22 U/L 08/23/2021 40 14 TBILI 0.3 mg/dL 08/23/2021 1.3 0.2 TSH No results within date range. Lab Value Units Date High Low HCGQT No results within date range. UHCG No results within date range. HCG, BODY* No results within date range. Lab Value Units Date High Low ABORHD No results within date range. ABSCREEN No results within date range. Hemoglobin A1C (%) Date Value 08/23/2021 9.4 02/19/2021 6.0 08/13/2020 7.5 No results found for this or any previous visit (from the past 8760 hour(s)). No results found for this or any previous visit (from the past 83975 hour(s)). Assessment No problem-specific Assessment & Plan notes found for this encounter. Implantable Devices: IOL OU Patient has the following medical conditions which may affect georges-operative course Diabetes - oral agents,A1C on 08/23/2021 9.4 HTN - controlled on medication, Instructed to take morning of surgery Hyperlipidemia - statin therapy Renal Failure - GFR 08/23/2021 50, Creatinine 1.38 Asbestosis - Follows with Dr. Turpin, last OV 10/01/2021 Anemia - oral Ferrous Sulfate, H/H on 08/23/2022 12.2/35 Pt taking ASA I instructed patient to get preop instructions from surgeon and PCP. The Following Tests/Procedures Have Been Initiated: No orders per surgeon in [facility]. Assessment/Plan Diagnosis: Phimosis [N47.1] PLAN Planned Procedure: Procedure(s): CIRCUMCISION ADULT (N/A) METS: Climb a flight of stairs or walk up a hill (5.50 METs) DASI Score: 5.5; ANESTHESIA FINDINGS: Intubation History: No history of difficult intubation. No abnormal airway history Significant Anesthesia Considerations: none Airway History: No history of difficult airway No abnormal airway history I - PHYSICAL EVALUATION DENTAL Dental findings: poor dentition and missing tooth/teeth. Additional comments: Front left upper tooth missing. . II - ANESTHESIA PLAN Anesthetic Plan: MAC Prepared for Surgery: . No consults pending CONSULTS: The Following Tests/Procedures Have Been Initiated: Orders Placed This Encounter Urine Culture Standing Status: Future Standing Expiration Date: 02/10/2022 Order Specific Question: Source Answer: URINE- MIDSTREAM CLEAN CATCH Planned Anesthetic: MAC Instructions Given to Patient: Instructions located in the after visit summary. Patient given verbal and written preop instructions and voices comprehension and compliance. SIGNATURE: Chel Miller APRN.CNP PATIENT NAME: Zhanna Oh DATE: December 11, 2021 TIME: 5:07 AM PAGER/CONTACT #: documented in this encounterPromedica Def[facility]04-12-2022 Instructions* Patient Instructions* Chel Miller APRN.CNP - 12/17/2021 10:40 AM EDT PATIENT PREOPERATIVE INSTRUCTIONS Dr. De La Vega has scheduled you for your procedure at this surgery center: [facility]: [phone], [address] [place], [place] [address] Please read below carefully for your personalized instructions. Arrival Time for Surgery: DATE: 12/31/2021 OR TIME: 10:50 AM CHECK IN TIME: 8:50 AM Please be aware that emergency situations arise, which may delay or change your surgical time. If this happens, we will notify you as soon as possible and regret any inconvenience. Dietary Restrictions: - No solid food after midnight. - You may have 12 ounces of clear liquids (water, clear juices such as apple juice or gatorade, carbonated beverages, clear tea, black coffee, jello) until 2 hours before scheduled arrival at facility. Do not eat or drink anything, including water and coffee, after 6:50 AM on the morning of your surgery. This is important because if you do, your surgery may have to be cancelled Blood Thinning Medications: - Stop NSAIDS (Ibuprofen, Advil, Aleve, Motrin, Celebrex, Mobic, Voltaren, Diclofenac etc.) 7 days before surgery, as directed by your surgeon. IF YOU TAKE ANY OF THE FOLLOWING BLOOD THINNERS, PLEASE CONTACT YOUR SURGEON AND THE PHYSICIAN WHO PRESCRIBES IT FOR YOU IN ORDER TO GET PERIOPERATIVE INSTRUCTIONS SOON POSSIBLE. BLOOD THINNERS: Aspirin , Coumadin, Plavix, Eliquis, Pradaxa, Xarelto, Lovenox, Brilinta, Effient, Savaysa, Arixtra, etc - Stop Vitamin E, fish oil, multivitamins, Marijuana, CBD oil and other over the counter herbals and dietary supplements 7 days before surgery. ?-This would not apply to cancer patients who are prescribed Marinol or any other prescription formon marijuana or CBD. Medications: Approved medications to take the morning of surgery with a sip of water: BP, Heart, thyroid, psych,seizure, and pain medications excluding NSAIDS. Use inhalers as prescribed. Please bring inhalers. Please follow up with the provider that manages your diabetes and how to prepare you for surgery. If you are taking the following medications for Type 2 diabetes: Canagliflozin (INVOKANA), dapagliflozin (FARXIGA), and empagliflozin (JARDIANCE) should each be discontinued at least 3 days before scheduled surgery. Ertugliflozin (STEGLATRO) should be discontinued at least four days before scheduled surgery. Pain Medications: - Your pain medication may cause thinning of your blood. Please see directions for Blood Thinning Medications. If you take any medications for erectile dysfunction-Cialis (Tadalafil), Levitra, Staxyn (Vardenafil) Viagra (Sildenenafil please do not take these for 48 hours before surgery. Medications to be taken with small amount of fluid on the morning of surgery: see medication list If you start any new medications after today's visit, please contact the surgeon's office. Important Reminders: -- If you have a stimulator, implant or pump that requires a remote please bring the remote with you day of surgery. - If you use CPAP/BIPAP, bring the machine with you to the surgery center. - If you are prescribed inhalers for breathing, continue using them AND bring them to the surgery center. - Candy, mints, gum and tobacco products are NOT permitted the morning of surgery. - Hearing aids, dentures and glasses may be worn the morning of surgery. - NO jewelry, body piercings, makeup, hairpins or contacts are to be worn the day of surgery. -NO keys, wallet, watches, or purses -Oral hygiene and a shower or bath is required the evening before or the morning of surgery. Use the Hibiclens body wash supplied to you along with the instruction. - NO lotion, creams, powders or deodorants on the skin the day of surgery -Wear loose, comfortable clothing that will accommodate bandages. -Your length of stay will be determined by your surgeon - You will need to have someone else (Family or friend) drive you home once discharged from the hospital. You are not allowed to drive yourself home after surgery. - YOU MUST HAVE A RESPONSIBLE STUD BEEF CATTLE FARMER TAKE YOU HOME. A LINSEED OIL PRESS TENDER, CAB OR UBER STUD BEEF CATTLE FARMER CANNOT BE MADEA RESPONSIBLE STUD BEEF CATTLE FARMER. - We recommend that a responsible person stays with you overnight to take care of you. - You cannot stay in a hotel alone after outpatient surgery. You will not be permitted to have yoursurgery, if you do not have someone to take care of you. --IF you are having a TOTAL KNEE or HIP REPLACEMENT please bring your walker into the building withyou. Update to visitor policy. Current policy will allow for 2 visitors. We are not allowing children inour waiting room. No food or drink is allowed. Everyone must keep their masks on. We are not allowing a visitor in our PACU area unless a minor, stores clerk or a special circumstance. Each patient isallowed two visitor on the day of surgery/procedure. Visitors will be asked to wear a mask that covers their nose and mouth at all times. The visitors will be allowed to stay with the patient prior to going to surgery/procedure. No visitors are allowed in our recovery room. -It is recommended patients have a 72 hour period between getting their vaccine and date of surgery. If you develop symptoms such as a fever, cold, or flu, or have other changes to your health within TWO DAYS of scheduled surgery or the morning of surgery, please contact the surgery center above. Personal Belongings: - Leave ALL valuables and money at home or with family members. - You will need a form of ID and insurance card to check in the morning of surgery. - You will have to wear a hospital gown during your stay but if you wish to bring undergarments forafter surgery you may. Chel Miller APRN.CNP 12/11/21 documented in this encounterPromedica Defiance [facility]02-10-2022 NoteHNO ID: [id number] Author: Rafa De La Vega MD Service: ? Author Type: Physician Type: Progress Notes Filed: 10/17/2021 3:14 PM Note Text: [facility] UROLOGY ESTABLISHED PATIENT CLINIC NOTE PATIENT INFO: Zhanna Oh PCP: Todd Bunch MD UROLOGY DIAGNOSES: 1. Phimosis - ICD9: 605, ICD10: N47.1 CHIEF COMPLAINT: Phimosis HPI: Patient returns for continuing evaluation and management. Having difficulty pulling back foreskin Hx of Ecoli sepsis after prostate biopsy Weak stream On Flomax Dr. Preciado Note: Very low risk prostate cancer [place] 6. PSA 5.1?at diagnosis. Sandra to 8.81 - December 2020. No recent PSA. ? At this time we had a discussion regarding his prostate cancer. ? Oncotype?GPS 20 Prostate MRI?- PIRADS 4, no SHANE. Complains of back pain -?AMY?negative. ?Flexeril PRN. Flomax for LUTS ? Proceed to active surveillance. ?PSA every?6?months. ?Needs PSA now.? PMHx/PSHx: see above, otherwise unchanged Rx: reviewed and unchanged ROS: see above, otherwise unchanged Labs: Component Latest Ref Rng AND Units 08/23/2021 Hemoglobin A1C 4.3 - 5.6 % 9.4 (H) Estimated Average Glucose mg/dL 223 Imaging: None MEDICATIONS: Current Outpatient Medications Medication Sig - blood sugar diagnostic (BLOOD GLUCOSE TEST) test strip Test blood sugar(s) two times daily. Dx: Type 2 DM - Controlled E11.9 Insulin: No - Lancets lancets Test blood sugar(s) two times daily. Dx: Type 2 DM - Controlled E11.9 Insulin: No - glimepiride (AMARYL) 4 mg tablet Take 1 tablet by mouth once daily. - cyanocobalamin (VITAMIN B-12) 1,000 mcg tab Take 1 tablet by mouth once daily. - Ferrous Sulfate (SLOW FE) 142 mg (45 mg iron) TbER Take one tab daily - atorvastatin (LIPITOR) 10 mg tablet Take 1 tablet by mouth once daily. - fenofibrate nanocrystallized (TRICOR) 48 mg tablet Take 1 tablet by mouth once daily. - lisinopril (ZESTRIL, PRINIVIL) 40 mg tablet Take 1 tablet by mouth once daily. - metFORMIN (GLUCOPHAGE) 500 mg tablet Take 2 tablets by mouth twice daily with meals. Take two tablets by mouth twice daily. - pioglitazone (ACTOS) 15 mg tablet Take 1 tablet by mouth once daily. - amLODIPine (NORVASC) 5 mg tablet Take 1 tablet by mouth once daily. - iv contrast (will be provided with radiology test) MRI Prostate Inject, intravenously, once for 1 dose. No IV access, insert saline lock prior to the beginning of sedation, infusion, injection of imaging exam. Discontinue saline lock post exam. If Pt. has a central line or IVAD, may access for administration according to line specific nursing protocol. Once exam is complete flush line and de-access according to line specific nursing protocol in the MR contrast administration guidelines link. - aspirin, enteric coated (ASPIRIN, ENTERIC COATED) 81 mg EC tablet Take 81 mg by mouth once daily. - tamsulosin (FLOMAX) 0.4 mg Take 1 capsule by mouth daily at bedtime for 30 doses. No current facility-administered medications for this visit. PHYSICAL EXAM: Wt 98.9 kg (218 lb) BMI 27.99 kg/m? Body mass index is 27.99 kg/m?. General: Well masculinized, well nourished male Psych: euthymic, NAD Neuro: AANDOx3 Inguinal: No lesions, adenopathy, or hernias Phallus: normal, uncircumcised, no lesions Meatus: orthotopic, patent, no discharge Scrotum: no lesions, normal rugae Testes: Descended, nontender, and no masses bilaterally DIAGNOSES: 1. Phimosis - ICD9: 605, ICD10: N47.1 IMPRESSION/PLAN: Severe phimosis Recent Ecoli UTI sepsis HgA1c 9.4 On Flomax Urinate dribbles out Would like to proceed with Circumcision, all R/B/A dw patient Rafa De La Vega, [facility]06-15-2021 Miscellaneous Notes* Telephone Encounter - Talia Ndiaye LPN - 02/19/2021 4:08 PM EDT Faxed x2 medical release requests [facility], Dr. Gorman (colonscopy results) Talia Ndiaye LPN documented in this encounterPromedica Defiance [facility]12-07-2020 History of Past illness Narrative* Problem Noted Date Resolved Date Asbestosis 08/13/2020 09/11/2022 Overview: Seeing Dr. Seth. documented as of this encounter (statuses as of 09/12/2022) [facility] of Past illness Narrative* Problem Noted Date Resolved Date Asbestosis 08/13/2020 09/11/2022 Overview: Seeing Dr. Seth. documented as of this encounter (statuses as of 09/12/2022) [facility] of Past illness Narrative* Problem Noted Date Resolved Date Asbestosis 08/13/2020 09/11/2022 Overview: Seeing Dr. Seth. documented as of this encounter (statuses as of 12/09/2022) [facility] of Past illness Narrative* Problem Noted Date Resolved Date Asbestosis 08/13/2020 09/11/2022 Overview: Seeing Dr. Seth. documented as of this encounter (statuses as of 12/09/2022) [facility] of [facility] illness Narrative* Problem Noted Date Resolved Date Asbestosis 08/13/2020 09/11/2022 Overview: Seeing Dr. Villegas documented as of this encounter (statuses as of 12/11/2022) [facility] Narrative* Problem Noted Date Resolved Date Asbestosis 08/13/2020 09/11/2022 Overview: Seeing Dr. Villegas documented as of this encounter (statuses as of 01/12/2023) [facility] Narrative* Problem Noted Date Resolved Date Asbestosis 08/13/2020 09/11/2022 Overview: Seeing Dr. Villegas documented as of this encounter (statuses as of 03/11/2023) [facility] Narrative* Problem Noted Date Resolved Date Asbestosis 08/13/2020 09/11/2022 Overview: Seeing Dr. Villegas documented as of this encounter (statuses as of 03/12/2023) [facility] Narrative* Problem Noted Date Diagnosed Date Resolved Date Asbestosis 08/13/2020 09/11/2022 Overview: Seeing Dr. Villegas documented as of this encounter (statuses as of 05/14/2023) [facility] Narrative* Problem Noted Date Diagnosed Date Resolved Date Asbestosis 08/13/2020 09/11/2022 Overview: Seeing Dr. Villegas documented as of this encounter (statuses as of 05/15/2023) [facility] Narrative* Problem Noted Date Diagnosed Date Resolved Date Asbestosis 08/13/2020 09/11/2022 Overview: Seeing Dr. Villegas documented as of this encounter (statuses as of 05/26/2023) [facility] Narrative* Problem Noted Date Diagnosed Date Resolved Date Asbestosis 08/13/2020 09/11/2022 Overview: Seeing Dr. Seth. documented as of this encounter (statuses as of 06/18/2023) [facility] Narrative* Problem Noted Date Diagnosed Date Resolved Date Asbestosis 08/13/2020 09/11/2022 Overview: Seeing Dr. Seth. documented as of this encounter (statuses as of 06/23/2023) [facility] Narrative* Problem Noted Date Diagnosed Date Resolved Date Asbestosis 08/13/2020 09/11/2022 Overview: Seeing Dr. Seth. documented as of this encounter (statuses as of 10/17/2023) [facility] noteNo assessment information availableWSelect [facility] Work Phone: Evaluation note* Diagnosis Preop examination- Primary Preoperative examination, unspecified Iron deficiency anemia, unspecified iron deficiency anemia type Asbestosis ([facility]) Stage 3 chronic kidney disease, unspecified whether stage 3a or 3b CKD ([facility]) Hyperlipidemia, unspecified hyperlipidemia type Hypertension, unspecified type Controlled type 2 diabetes mellitus without complication, without long-term current use of insulin ([facility]) Phimosis Redundant prepuce and phimosis Phimosis Redundant prepuce and phimosis documented in this encounter [facility] note* Diagnosis Prostate cancer ([facility])- Primary Malignant neoplasm of prostate Phimosis Redundant prepuce and phimosis BPH with obstruction/lower urinary tract symptoms Hypertrophy of prostate with urinary obstruction and other lower urinary tract symptoms (LUTS) Phimosis Redundant prepuce and phimosis documented in this encounter [facility] note* Diagnosis Type 2 diabetes mellitus without complication, without long-term current use of insulin ([facility])- Primary Diabetic eye exam ([facility]) Type II or unspecified type diabetes mellitus without mention of complication, not stated as uncontrolled Hypertension, essential Unspecified essential hypertension Mixed hyperlipidemia Anemia of chronic disease Anemia of other chronic disease Stage 3a chronic kidney disease ([facility]) Memory impairment Memory loss Iron deficiency anemia, unspecified iron deficiency anemia type Prostate cancer (HCC) Malignant neoplasm of prostate Asbestosis (HCC) Vitamin B12 deficiency Other B-complex deficiencies Screening for colon cancer Special screening for malignant neoplasms, colon [facility] Phimosis- Primary Redundant prepuce and phimosis [facility] Diagnosis Type 2 diabetes mellitus without complication, without long-term current use of insulin (HCC)- Primary [facility]* Diagnosis Kidney stone- Primary Calculus of kidney [facility]* Diagnosis Onset Date Resolution Status Anemia chronic [facility] Work Phone: evaluation note* Diagnosis Onset Date Resolution Status Anemia chronic Anemia [facility] Work Phone: Evaluation note* Diagnosis Medicare annual wellness visit, subsequent- Primary Routine general medical examination at a health care facility Type 2 diabetes mellitus without complication, without long-term current use of insulin (HCC) Diabetic eye exam ([facility]) Type II or unspecified type diabetes mellitus without mention of complication, not stated as uncontrolled Hypertension, essential Unspecified essential hypertension Mixed hyperlipidemia Stage 3a chronic kidney disease (HCC) Memory impairment Memory loss Iron deficiency anemia, unspecified iron deficiency anemia type Vitamin B12 deficiency Other B-complex deficiencies Prostate cancer (HCC) Malignant neoplasm of prostate Asbestosis (HCC) Generalized arthritis Advance directive discussed with patient Other specified counseling [facility]* Diagnosis Asbestos exposure- Primary Personal history of contact with and (suspected) exposure to asbestos [facility]* Diagnosis Type 2 diabetes mellitus without complication, without long-term current use of insulin (HCC)- Primary Mixed hyperlipidemia Hypertension, essential Unspecified essential hypertension Stage 3a chronic kidney disease (HCC) [facility]* Diagnosis Vitamin B12 deficiency- Primary Other B-complex deficiencies [facility]* Diagnosis Type 2 diabetes mellitus without complication, without long-term current use of insulin (HCC)- Primary Hypertension, essential Unspecified essential hypertension Mixed hyperlipidemia Vitamin B12 deficiency Other B-complex deficiencies Stage 3a chronic kidney disease (HCC) Anemia of chronic disease Anemia of other chronic disease Prostate cancer (HCC) Malignant neoplasm of prostate [facility] Stage 3b chronic kidney disease (HCC)- Primary [facility] Diagnosis Neoplasm of uncertain behavior of skin of back- Primary Neoplasm of uncertain behavior of skin Skin lesion of back Unspecified disorder of skin and subcutaneous tissue Stage 3b chronic kidney disease (HCC) [facility]* Diagnosis Neoplasm of uncertain behavior of skin of back- Primary Neoplasm of uncertain behavior of skin Skin lesion of back Unspecified disorder of skin and subcutaneous tissue Squamous cell skin cancer Squamous cell carcinoma of skin, site unspecified [facility] Diagnosis Diabetic eye exam (HCC) Type II or unspecified type diabetes mellitus without mention of complication, not stated as uncontrolled [facility]* Diagnosis Type 2 diabetes mellitus with stage 3b chronic kidney disease, without long-term current use of insulin (HCC)- Primary Mixed hyperlipidemia Hypertension, essential Unspecified essential hypertension Iron deficiency anemia, unspecified iron deficiency anemia type Vitamin B12 deficiency Other B-complex deficiencies Stage 3b chronic kidney disease (HCC) [facility]* Diagnosis Prostate cancer (HCC)- Primary Malignant neoplasm of prostate Benign prostatic hyperplasia with nocturia [facility] Diagnosis Asbestos exposure Personal history of contact with and (suspected) exposure to asbestos [facility]* Diagnosis Iron deficiency anemia, unspecified iron deficiency anemia type [facility] Diagnosis Asbestos exposure Personal history of contact with and (suspected) exposure to asbestos documented [facility] this [facility]* Diagnosis Medicare annual wellness visit, subsequent- Primary Routine general medical examination at a [facility] care facility Type 2 diabetes mellitus with stage 3b chronic kidney disease, without long-term current use of insulin (HCC) Diabetic eye exam (HCC) Type II or unspecified type diabetes mellitus without mention of complication, not stated as uncontrolled Hypertension, essential Unspecified essential hypertension Mixed hyperlipidemia Anemia of chronic disease Anemia of other chronic disease Iron deficiency anemia, unspecified iron deficiency anemia type Memory impairment Memory loss Stage 3b chronic kidney disease (HCC) Prostate cancer (HCC) Malignant neoplasm of prostate Vitamin B12 deficiency Other B-complex deficiencies Foot callus Corns and callosities Advance directive discussed with patient Other specified counseling Encounter for immunization Need for other specified prophylactic vaccination against single bacterial disease Asbestos exposure Personal history of contact with and (suspected) exposure to asbestos Asbestos exposure Personal history of contact with and (suspected) exposure to asbestos [facility] this [facility]* Diagnosis Prostate cancer (HCC)- Primary Malignant neoplasm of prostate Benign prostatic hyperplasia with nocturia documented in this encounter [facility] note* Diagnosis Diabetic eye exam (HCC)- Primary Type II or unspecified type diabetes mellitus without mention of complication, not stated as uncontrolled documented in this encounter [facility] note* Diagnosis Iron deficiency anemia, unspecified iron deficiency anemia type [facility] Diagnostic Procedure Only (Routine) - Pending Review Specialty Diagnoses / Procedures Referred By Madalyn vazquez Referred To Contact XR IMAGING Diagnoses Kidney stone Procedures XR ABDOMEN 1V SUPINE RADIOLOGIC EXAM ABDOMEN 1 VIEW Leatha Preciado DO [address] [place] [address] Xr Imaging Referral ID Status Reason Start Date Expiration Date Visits Requested Visits Authorized [id number] Pending Review Auto-Generat ed Referral 2 08/03/2023 1 1 [facility] Summary Purpose Family History Mother Name Dates Details No pertinent family history( V49.89, Z78.9) Status:Active Father Name Dates Details No pertinent family history( V49.89, Z78.9) Status:Active Sister Name Dates Details Family history of diabetes m ellitus(V18.0, Z83.3) Status:Active Mother Name Dates Details No pertinent family history( V49.89, Z78.9) Status:Active Father Name Dates Details No pertinent family history( V49.89, Z78.9) Status:Active Sister Name Dates Details Family history of diabetes m ellitus(V18.0, Z83.3) Status:Active Mother Name Dates Details No pertinent family history( V49.89, Z78.9) Status:Active Father Name Dates Details No pertinent family history( V49.89, Z78.9) Status:Active Sister Name Dates Details Family history of diabetes m ellitus(V18.0, Z83.3) Status:Active Mother Name Dates Details No pertinent family history( V49.89, Z78.9) Status:Active Father Name Dates Details No pertinent family history( V49.89, Z78.9) Status:Active Sister Name Dates Details Family history of diabetes rachelle hitchcock(V18.0, Z83.3) Status:Active Relationship Condition Age at Onset Recorded Date/T harmeet Unknown Family History?No pe rtinent history Unknown November 03, 2019 12:31am Family History?No pe rtinent history Unknown November 03, 2019 12:31am Family History?No pe rtinent history Unknown August 26, 2021 5:03pm Relationship Condition Age at Onset Recorded Date/T harmeet Unknown Family History?No pe rtinent history Unknown November 02, 2019 11:31pm Family History?No pe rtinent history Unknown November 02, 2019 11:31pm Family History?No pe rtinent history Unknown August 26, 2021 4:03pm Advance Directives Advance Directive Response Recorded Date/ Time Living Will Yes November 29, 2021 3:02pm Power of Pharmacy Retail Support Specialist Yes November 29 3:02pm Documents on File Type Date Recorded Patient Front Window Cashier Expl anation Advance Directive(s) 12/31/2021 8:21 AM Advance Directive Response Recorded Date/ Time Living Will No August 12 3:28pm Power of Pharmacy Retail Support Specialist No August 12, 2022 3:28pm Advance Directive Response Recorded Date/ Time Living Will No August 12 4:28pm Power of Pharmacy Retail Support Specialist No August 12, 2022 4:28pm Chief Complaint and Reason for Visit Chief Complaint Anemia Chief Complaint 6 MO FU Reason for Visit Anemia Chief Complaint 6 MO FU 2 WK FU Reason for Visit Anemia Anemia Chief Complaint 6 MO FU E-ORDER Reason for Visit Anemia Reason for Referral Specialty Diagnoses / Procedures Referred By Contkarishma t Referred To Contact Nephrology Diagnoses Stage 3b chronic kidney disease (HCC) Procedures CONSULT TO NEPHROLOGY OFFICE/OUTPATIENT [facility] 60-74 MINUTES Todd Bunch MD [address] [place] [address] Referral ID Status Reason Start Date Expiration Date Visits Requested Visits Authorized [id number] Pending Review PCP Requested Referral 05/13/2023 05/12/2024 1 1 Additional Source Comments (unrecognized sect ion and content) No Status Records FoundNo Status Records FoundNo Status Records FoundNo Status Records FoundNo Status Records FoundNo Status Records FoundNo Status Records FoundNo Status Records FoundNo Status Records FoundNo Status Records Found INFORMATION SOURCE (unrecogn ized section and content) DATE CREATED AUTHOR 02/15/2019 [facility] DATE CREATED AUTHOR AUTHOR'S ORGANIZ ATION 10/26/2019 [employer] DATE CREATED AUTHOR AUTHOR'S ORGANIZ ATION 03/30/2020 [facility] DATE CREATED AUTHOR AUTHOR'S ORGANIZ ATION 05/22/2020 [facility] DATE CREATED AUTHOR AUTHOR'S ORGANIZ ATION 09/06/2021 [facility] DATE CREATED AUTHOR AUTHOR'S ORGANIZ ATION 01/05/2022 [facility] DATE CREATED AUTHOR AUTHOR'S ORGANIZ ATION 07/05/2022 [facility] DATE CREATED AUTHOR AUTHOR'S ORGANIZ ATION 04/06/2023 [facility] DATE CREATED AUTHOR AUTHOR'S ORGANIZ ATION 10/18/2024 [facility] DATE CREATED AUTHOR AUTHOR'S ORGANIZ ATION 10/20/2024 [facility] <item> Privacy Markings (unrecogniz ed section and content) Section Author: Itzel Yeboah PROHIBITION ON REDISCLOSURE OF CONFIDENTIAL INFORMATION This notice accompanies a disclosure of information concerning a client made to you with the consent of such client. Goals (unrecognized section and content) Goals may be documented in a n alternate sectionGoals may be documented in an alternate section Source Comments (unrecognize d section and content) In the event this informatio n is protected by the Federal Confidentiality of Alcohol and Drug Abuse Patient Records regulations: The Federal rules restrict any use of the information to criminally investigate or prosecute any alcohol or drug abuse patient.[facility] the event this information is protected by the Federal Confidentiality of Alcohol and Drug Abuse Patient Records regulations: The Federal rules restrict any use of the information to criminally investigate or prosecute any alcohol or drug abuse patient.[facility] HospitalIn the event this information is protected by the Federal Confidentiality of Alcohol and Drug Abuse Patient Records regulations: The Federal rules restrict any use of the information to criminally investigate or prosecute any alcohol or drug abuse patient.[facility] HospitalIn the event this information is protected by the Federal Confidentiality of Alcohol and Drug Abuse Patient Records regulations: The Federal rules restrict any use of the information to criminally investigate or prosecute any alcohol or drug abuse patient.[facility] HospitalIn the event this information is protected by the Federal Confidentiality of Alcohol and Drug Abuse Patient Records regulations: The Federal rules restrict any use of the information to criminally investigate or prosecute any alcohol or drug abuse patient.[facility] HospitalIn the event this information is protected by the Federal Confidentiality of Alcohol and Drug Abuse Patient Records regulations: The Federal rules restrict any use of the information to criminally investigate or prosecute any alcohol or drug abuse patient.[facility] HospitalIn the event this information is protected by the Federal Confidentiality of Alcohol and Drug Abuse Patient Records regulations: The Federal rules restrict any use of the information to criminally investigate or prosecute any alcohol or drug abuse patient.[facility] HospitalIn the event this information is protected by the Federal Confidentiality of Alcohol and Drug Abuse Patient Records regulations: The Federal rules restrict any use of the information to criminally investigate or prosecute any alcohol or drug abuse patient.[facility] HospitalIn the event this information is protected by the Federal Confidentiality of Alcohol and Drug Abuse Patient Records regulations: The Federal rules restrict any use of the information to criminally investigate or prosecute any alcohol or drug abuse patient.[facility] HospitalIn the event this information is protected by the Federal Confidentiality of Alcohol and Drug Abuse Patient Records regulations: The Federal rules restrict any use of the information to criminally investigate or prosecute any alcohol or drug abuse patient.[facility] HospitalIn the event this information is protected by the Federal Confidentiality of Alcohol and Drug Abuse Patient Records regulations: The Federal rules restrict any use of the information to criminally investigate or prosecute any alcohol or drug abuse patient.[facility] HospitalIn the event this information is protected by the Federal Confidentiality of Alcohol and Drug Abuse Patient Records regulations: The Federal rules restrict any use of the information to criminally investigate or prosecute any alcohol or drug abuse patient.[facility] HospitalIn the event this information is protected by the Federal Confidentiality of Alcohol and Drug Abuse Patient Records regulations: The Federal rules restrict any use of the information to criminally investigate or prosecute any alcohol or drug abuse patient.[facility] HospitalIn the event this information is protected by the Federal Confidentiality of Alcohol and Drug Abuse Patient Records regulations: The Federal rules restrict any use of the information to criminally investigate or prosecute any alcohol or drug abuse patient.[facility] HospitalIn the event this information is protected by the Federal Confidentiality of Alcohol and Drug Abuse Patient Records regulations: The Federal rules restrict any use of the information to criminally investigate or prosecute any alcohol or drug abuse patient.[facility] HospitalIn the event this information is protected by the Federal Confidentiality of Alcohol and Drug Abuse Patient Records regulations: The Federal rules restrict any use of the information to criminally investigate or prosecute any alcohol or drug abuse patient.[facility] HospitalIn the event this information is protected by the Federal Confidentiality of Alcohol and Drug Abuse Patient Records regulations: The Federal rules restrict any use of the information to criminally investigate or prosecute any alcohol or drug abuse patient.[facility] HospitalIn the event this information is protected by the Federal Confidentiality of Alcohol and Drug Abuse Patient Records regulations: The Federal rules restrict any use of the information to criminally investigate or prosecute any alcohol or drug abuse patient.[facility] HospitalIn the event this information is protected by the Federal Confidentiality of Alcohol and Drug Abuse Patient Records regulations: The Federal rules restrict any use of the information to criminally investigate or prosecute any alcohol or drug abuse patient.[facility] HospitalIn the event this information is protected by the Federal Confidentiality of Alcohol and Drug Abuse Patient Records regulations: The Federal rules restrict any use of the information to criminally investigate or prosecute any alcohol or drug abuse patient.[facility] HospitalIn the event this information is protected by the Federal Confidentiality of Alcohol and Drug Abuse Patient Records regulations: The Federal rules restrict any use of the information to criminally investigate or prosecute any alcohol or drug abuse patient.[facility] HospitalIn the event this information is protected by the Federal Confidentiality of Alcohol and Drug Abuse Patient Records regulations: The Federal rules restrict any use of the information to criminally investigate or prosecute any alcohol or drug abuse patient.[facility] HospitalIn the event this information is protected by the Federal Confidentiality of Alcohol and Drug Abuse Patient Records regulations: The Federal rules restrict any use of the information to criminally investigate or prosecute any alcohol or drug abuse patient.[facility] HospitalIn the event this information is protected by the Federal Confidentiality of Alcohol and Drug Abuse Patient Records regulations: The Federal rules restrict any use of the information to criminally investigate or prosecute any alcohol or drug abuse patient.[facility] HospitalIn the event this information is protected by the Federal Confidentiality of Alcohol and Drug Abuse Patient Records regulations: The Federal rules restrict any use of the information to criminally investigate or prosecute any alcohol or drug abuse patient.[facility] HospitalIn the event this information is protected by the Federal Confidentiality of Alcohol and Drug Abuse Patient Records regulations: The Federal rules restrict any use of the information to criminally investigate or prosecute any alcohol or drug abuse patient.[facility] HospitalIn the event this information is protected by the Federal Confidentiality of Alcohol and Drug Abuse Patient Records regulations: The Federal rules restrict any use of the information to criminally investigate or prosecute any alcohol or drug abuse patient.[facility] HospitalIn the event this information is protected by the Federal Confidentiality of Alcohol and Drug Abuse Patient Records regulations: The Federal rules restrict any use of the information to criminally investigate or prosecute any alcohol or drug abuse patient.[facility] HospitalIn the event this information is protected by the Federal Confidentiality of Alcohol and Drug Abuse Patient Records regulations: The Federal rules restrict any use of the information to criminally investigate or prosecute any alcohol or drug abuse patient.[facility] HospitalIn the event this information is protected by the Federal Confidentiality of Alcohol and Drug Abuse Patient Records regulations: The Federal rules restrict any use of the information to criminally investigate or prosecute any alcohol or drug abuse patient.[facility] HospitalIn the event this information is protected by the Federal Confidentiality of Alcohol and Drug Abuse Patient Records regulations: The Federal rules restrict any use of the information to criminally investigate or prosecute any alcohol or drug abuse patient.[facility] HospitalIn the event this information is protected by the Federal Confidentiality of Alcohol and Drug Abuse Patient Records regulations: The Federal rules restrict any use of the information to criminally investigate or prosecute any alcohol or drug abuse patient.[facility] HospitalIn the event this information is protected by the Federal Confidentiality of Alcohol and Drug Abuse Patient Records regulations: The Federal rules restrict any use of the information to criminally investigate or prosecute any alcohol or drug abuse patient.[facility] HospitalIn the event this information is protected by the Federal Confidentiality of Alcohol and Drug Abuse Patient Records regulations: The Federal rules restrict any use of the information to criminally investigate or prosecute any alcohol or drug abuse patient.[facility] HospitalIn the event this information is protected by the Federal Confidentiality of Alcohol and Drug Abuse Patient Records regulations: The Federal rules restrict any use of the information to criminally investigate or prosecute any alcohol or drug abuse patient.[facility] the event this information is protected by the Federal Confidentiality of Alcohol and Drug Abuse Patient Records regulations: The Federal rules restrict any use of the information to criminally investigate or prosecute any alcohol or drug abuse patient.[facility] the event this information is protected by the Federal Confidentiality of Alcohol and Drug Abuse Patient Records regulations: The Federal rules restrict any use of the information to criminally investigate or prosecute any alcohol or drug abuse patient.[facility] the event this information is protected by the Federal Confidentiality of Alcohol and Drug Abuse Patient Records regulations: The Federal rules restrict any use of the information to criminally investigate or prosecute any alcohol or drug abuse patient.[facility] HospitalIn the event this information is protected by the Federal Confidentiality of Alcohol and Drug Abuse Patient Records regulations: The Federal rules restrict any use of the information to criminally investigate or prosecute any alcohol or drug abuse patient.[facility] HospitalIn the event this information is protected by the Federal Confidentiality of Alcohol and Drug Abuse Patient Records regulations: The Federal rules restrict any use of the information to criminally investigate or prosecute any alcohol or drug abuse patient.[facility] HospitalIn the event this information is protected by the Federal Confidentiality of Alcohol and Drug Abuse Patient Records regulations: The Federal rules restrict any use of the information to criminally investigate or prosecute any alcohol or drug abuse patient.[facility] HospitalIn the event this information is protected by the Federal Confidentiality of Alcohol and Drug Abuse Patient Records regulations: The Federal rules restrict any use of the information to criminally investigate or prosecute any alcohol or drug abuse patient.[facility] Care Teams (unrecognized sec tion and content) Tower Excavator Operator Relationship Specialty Start Date End Date Todd Bunch MD [address] [place], [place] [id number] PCP - General Family Practice 08/13/20 Tower Excavator Operator Relationship Specialty Start Date End Date Todd Bunch MD [address] [place] [address] PCP - General Family Practice 08/13/20 Tower Excavator Operator Relationship Specialty Start Date End Date Todd Bunch MD [facility] [place] [address] PCP - General Family Practice 08/13/20 Tower Excavator Operator Relationship Specialty Start Date End Date Todd Bunch MD [facility] [place] [address] PCP - General Family Practice 08/13/20 Tower Excavator Operator Relationship Specialty Start Date End Date Todd Bunch MD [address] [place] [address], [place] [address] PCP - General Family Practice 08/13/20 Tower Excavator Operator Relationship Specialty Start Date End Date Todd Bunch MD [address] [place] [address], [place] [address] PCP - General Family Practice 08/13/20 Tower Excavator Operator Relationship Specialty Start Date End Date Todd Bunch MD [address] [place] [address], [place] [address] PCP - General Family Practice 08/13/20 Tower Excavator Operator Relationship Specialty Start Date End Date Todd Bunch MD [address] [place] [address], [place] [address] PCP - General Family Practice 08/13/20 Tower Excavator Operator Relationship Specialty Start Date End Date Todd Bunch MD [address] [place] [address], [place] [address] PCP - General Family Medicine 08/13/20 Tower Excavator Operator Relationship Specialty Start Date End Date Todd Bunch MD [address] [place] [address], [place] [address] PCP - General Family Medicine 08/13/20 Tower Excavator Operator Relationship Specialty Start Date End Date Todd Bunch MD [address] [place] [address], [place] [address] PCP - General Family Medicine 08/13/20 Tower Excavator Operator Relationship Specialty Start Date End Date Todd Bunch MD [address] [place] [address] PCP - General Family Medicine 08/13/20 Tower Excavator Operator Relationship Specialty Start Date End Date Todd Bunch MD [address] [place] [address] PCP - General Family Medicine 08/13/20 Tower Excavator Operator Relationship Specialty Start Date End Date Todd Bunch MD [address] [place] [address] PCP - General Family Medicine 08/13/20 Tower Excavator Operator Relationship Specialty Start Date End Date Todd Bunch MD [address] [place] [address] PCP - General Family Medicine 08/13/20 Tower Excavator Operator Relationship Specialty Start Date End Date Todd Bunch MD [address] [place] [address] PCP - General Family Medicine 08/13/20 Team Status: Active Member Role Status Dates Dr. Todd Bunch MD Primary Care Provider Active Team Status: Inactive Member Role Status Dates Dr. Todd Bunch MD Primary Care Provider, Referri ng Provider Active Elda Mojica DIRECTOR OF GLOBAL SALES, DIRECTOR OF GLOBAL SALES-C Attending Provider Active Team Status: Inactive Member Role Status Dates Dr. Todd Bunch MD Primary Care Provider Active Elda Mojica DIRECTOR OF GLOBAL SALES, DIRECTOR OF GLOBAL SALES-C Attending Provider, Referrin g Provider Active Tower Excavator Operator Relationship Specialty Start Date End Date Todd Bunch MD [address] [place] [address] PCP - General Family Medicine 08/13/20 Tower Excavator Operator Relationship Specialty Start Date End Date Todd Bunch MD [address] [place] [address] PCP - General Family Medicine 08/13/20 Tower Excavator Operator Relationship Specialty Start Date End Date Todd Bunch MD [address] [place] [address] PCP - General Family Medicine 08/13/20 Tower Excavator Operator Relationship Specialty Start Date End Date Todd Bunch MD [address] [place] [address] PCP - General Family Medicine 08/13/20 Tower Excavator Operator Relationship Specialty Start Date End Date Tdod Bunch MD [address] [place] [address] PCP - General Family Medicine 08/13/20 Tower Excavator Operator Relationship Specialty Start Date End Date Todd Bunch MD [address] [place] [address] PCP - General Family Medicine 08/13/20 Tower Excavator Operator Relationship Specialty Start Date End Date Todd Bunch MD [address] [place] [address] PCP - General Family Medicine 08/13/20 Tower Excavator Operator Relationship Specialty Start Date End Date Todd Bunch MD [address] [place] [address] PCP - General Family Medicine 08/13/20 Tower Excavator Operator Relationship Specialty Start Date End Date Todd Bunch MD [address] [place] [address] PCP - General Family Medicine 08/13/20 Tower Excavator Operator Relationship Specialty Start Date End Date Todd Bunch MD [address] [place] [address] PCP - General Family Medicine 08/13/20 Tower Excavator Operator Relationship Specialty Start Date End Date Todd Bunch MD [address] [place] [address] PCP - General Family Medicine 08/13/20 Tower Excavator Operator Relationship Specialty Start Date End Date Todd Bunch MD [address] [place] [address] PCP - General Family Medicine 08/13/20 Talia Dorsey APRN.MACHINING SUPERVISOR [address] [place] [phone] Software Validation Engineer Family Medicine 08/13/24 Monserrat Cortez PA-C [facility] [place] [address] Software Validation Engineer Family Medicine 08/13/24 Tower Excavator Operator Relationship Specialty Start Date End Date Todd Bunch MD [address] [place] [address] PCP - General Family Medicine 08/13/20 Talia Dorsey APRN.MACHINING SUPERVISOR [facility] [place] [address] Software Validation Engineer Family Medicine 08/13/24 Monserrat Cortez PA-C [address] [place] [address] Software Validation Engineer Family Medicine 08/13/24 Tower Excavator Operator Relationship Specialty Start Date End Date Todd Bunch MD [address] [place] [address] PCP - General Family Medicine 08/13/20 Talia Doresy APRN.MACHINING SUPERVISOR [address] [place] [address] Software Validation Engineer Family Medicine 08/13/24 Monserrat Cortez PA-C [address] [place] [address] Software Validation Engineer Family Medicine 08/13/24 Tower Excavator Operator Relationship Specialty Start Date End Date Todd Bunch MD [address] [place] [address] PCP - General Family Medicine 08/13/20 Talia Dorsey APRN.MACHINING SUPERVISOR [address] [place] [address] Software Validation Engineer Family Medicine 08/13/24 Monserrat Cortez PA-C [address] [place] [address] Software Validation Engineer Family Medicine 08/13/24 Tower Excavator Operator Relationship Specialty Start Date End Date Todd Bunch MD [address] [place] [address] PCP - General Family Medicine 08/13/20 Talia Dorsey APRN.MACHINING SUPERVISOR [address] [place] [address] Software Validation Engineer Family Medicine 08/13/24 Monserrat Cortez PA-C [address] [place] [address] Software Validation Engineer Family Medicine 08/13/24 Tower Excavator Operator Relationship Specialty Start Date End Date Todd Bunch MD [address] [place] [address] PCP - General Family Medicine 08/13/20 Talia Dorsey APRN.MACHINING SUPERVISOR [address] [place], [place] [address] [phone] Software Validation Engineer Family Medicine 08/13/24 Monserrat Cortez PA-C [address] [place] [address] [facility] 08/13/24 Tower Excavator Operator Relationship Specialty Start Date End Date Todd Bunch MD [address] [place] [address] PCP - General Family Medicine 08/13/20 Monserrat Cortez PA-C [address] [place] [address] [facility] 08/13/24 Tower Excavator Operator Relationship Specialty Start Date End Date Todd Bunch MD [address] [place] [address] PCP - General Family Medicine 08/13/20 Talia Dorsey APRN.MACHINING SUPERVISOR [address] [place] [address] Software Validation Engineer Family Medicine 02/06/25 Monserrat Cortez PA-C [address] [place] [address] Software Validation Engineer Family Medicine 02/06/25 Reason for Visit (unrecogniz ed section and content) Reason Comments Established Patient Prostate Cancer Reason Comments Patient Update Reason Comments F/U 6 months Reason Comments Results Reason Comments Established Patient post-op Reason Onset Date Comments Population Health Navigation Outreach 02/06/2022 [employer] Care Gaps Reason Onset Date Comments [facility] Program 03/11/2022 [facility] program enrollment: CKD Reason Onset Date Comments [facility] Program 03/14/2022 [employer] Summer Intern michelle Disease Management Program: CKD enrollment call #2 Reason Comments Orders Reason Comments Outside Colonoscopy Reason Onset Date Comments Refill Request 09/02/2022 Reason Comments Medicare Wellness Exam Reason Comments Established Patient asbestos exposure Reason Comments Recheck 3 month Reason Comments Medication Problem Reason Comments 6 Month Exam Reason Comments Pain Reason Onset Date Comments Refill Request 05/15/2023 Reason Comments Lesion Removal Reason Comments Opened In Error Reason Comments outside nephrology Reason Comments Outside Diabetic Eye Exam Reason Onset Date Comments Refill Request 02/02/2024 Reason Onset Date Comments Refill Request 03/07/2024 Reason Comments Prostate Cancer 03/09/2024-13.56 Reason Onset Date Comments Refill Request 07/27/2024 Reason Onset Date Comments Refill Request 08/26/2024 Reason Comments Follow Up Prostate Cancer PSA 3.79 on 09/20/24 Benign Prostatic Hypertrophy Taking flom ax and finasteridePVR 120 ml Reason Onset Date Comments Refill Request 01/10/2025 Reason Onset Date Comments Refill Request 02/01/2025 Reason Onset Date Comments Refill Request 02/07/2025 FOR RECORDS PERTAINING TO PATIENTS WHO ARE OR HAVE BEEN ENROLLED IN A CHEMICAL DEPENDENCY/SUBSTANCEABUSE PROGRAM, SOME INFORMATION MAY BE OMITTED. This clinical summary was aggregated from multiple sources. Caution should be exercised in using it in the provision of clinical care. This summary normalizes information from multiple sources, and as a consequence, information in this document may materially change the coding, format and clinical context of patient data. In addition, data may be omitted in some cases. CLINICAL DECISIONS SHOULD BE BASED ON THE PRIMARY CLINICAL RECORDS. [employer] provides no warranty or guarantee of the accuracy or completeness of information in this document.
[2025-02-26 15:03] LABS: Bacteria 0 SEEN /hpf (None Seen); Mucous, Urine 0 SEEN /hpf (<or=2+)
[2025-02-26 15:16] LABS: Color, Urine Straw (Yellow); Glucose, Dipstick Normal (Normal); Ketone-Dipstick Negative (Negative); Leukocyte Esterase-Dipstick Negative /ul (Negative); Nitrite-Dipstick Negative (Negative); Occult Blood-Urine Negative /ul (Negative); Protein-Dipstick Negative (Negative); Specific Gravity, Urine 1.005 (1.002-1.030); Urine Bilirubin Dipstick Negative (Negative); Urine Clarity Clear (Clear); Urine Urobilinogen Normal (Normal)
[2025-02-26 15:19] LABS: Absolute Lymphocyte Count 1.28 X10^3/uL (0.83-4.51); Absolute Neutrophil Count 3.8 X10^3/uL (2.0-7.7); Basophil# 0.03 X10^3/uL; Basophil% 0.5 % (0-1); Eosinophil# 0.25 X10^3/uL; Eosinophils% 4.3 % (0-5); Hematocrit 33.7 % (40-54); Hemoglobin 11.4 g/dL (13.0-16.5); Lymphocyte # 1.28 X10^3/ul (0.83-4.51); Lymphocyte % 22.1 % (19-41); Mean Corp Hgb Conc 33.8 g/dL (32-36); Mean Corpuscular Hgb 31.6 pg (27.0-32.0); Mean Corpuscular Volume 93.4 fL (80-94); Mean Platelet Vol. 8.8 fl (6.2-12.0); Monocyte# 0.41 X10^3/uL; Monocyte% 7.1 % (0-10); NRBC Flagged by Analyzer 0 % (0-5); Neutrophil # 3.81 X10^3/uL (2.7-7.7); Neutrophil % 65.8 % (47-70); Platelet Count 234 K/mm3 (150-450); RBC Distribution Width CV 13.5 % (11.6-14.6); RBC Distribution Width SD 46.3 fl (35.1-43.9); Red Blood Count 3.61 M/mm3 (4.6-6.2); White Blood Count 5.8 K/mm3 (4.4-11.0)
[2025-02-26 15:31] LABS: ALB/GLOB Ratio 1.6 RATIO (0.9-2.4); AST(SGOT) 29 U/L (<=37); Alanine Aminotransfer ALT/SGPT 15 U/L (<=46); Albumin, Serum 4.4 g/dL (3.4-4.8); Alkaline Phosphatase 53 U/L (40-129); Anion Gap 12 (5-15); BUN 15 mg/dL (4-19); BUN/Creat Ratio 9.3 RATIO (10-20); Calcium,Total 9.5 mg/dL (7.6-11.0); Carbon Dioxide 23.9 mmol/L (21.0-32.0); Chloride 105 mmol/L (98-108); Creatinine, Serum 1.57 mg/dL (0.70-1.20); EST Glomerular Filtration Rate 45 (>60); Estimated Creatinine Clearance 49.56 ml/min (50-250); Globulin 2.8 g/dL (2.2-4.2); Glucose 89 mg/dL (70-99); Lipase 49 U/L (13-75); Potassium 4.1 mmol/L (3.3-5.1); Protein, Total 7.2 g/dL (5.9-8.4); Sodium Level 141 mmol/L (133-145); Total Bilirubin 0.32 mg/dL (0.00-1.30)
[2025-02-26 15:35] LABS: Red Blood Cells-Urine 0-5 SEEN /hpf (0-5); Squamous Epithelial Cells - UA 0-5 SEEN /hpf (0-5); White Blood Cells 0-5 SEEN /hpf (0-5)
--- NOTE | 2025-02-26 15:50 | RAD_ITS ---
PROCEDURE: CHEST 1 VIEW (PORTABLE) 02/26/2025 REASON FOR EXAM: DIZZINESS TECHNIQUE: Frontal view of the chest. COMPARISON: Chest radiograph 11/02/2019. FINDINGS: Hardware: None. Heart: Cardiac and mediastinal contours are stable. Lungs: No focal consolidation, pleural effusion or pneumothorax. Bones: Degenerative changes are identified within the thoracic spine. RAD/Chest 1 View (Portable) IMPRESSION: Negative Chest. Reading Location: [id number]
--- NOTE | 2025-02-26 15:54 | ED.RN ---
1500 pt up mult times at side of bed to void. urine pale and diluted. denies any dysuria. pt steady when up but still a little dizzy but is better than has been
[2025-02-26 16:00] VITALS: BP 145/86; PULSE 64; RESP 14; O2SAT 99
[2025-02-26 16:04] LABS: Troponin T High Sensitivity 18 ng/L (<=22)
--- NOTE | 2025-02-26 16:10 | NURSING ---
1305. pt with c/o dizzyness past couple days and reports memory changes reports that same kind of symptoms as when had sepsis last time no unilateral weakness obs. no nystagmus noted. symptoms with no change in postional changes. bs in [employer] [facility].
[2025-02-26 17:19] VITALS: BP 145/86; PULSE 64; RESP 14; TEMP 36.6; O2SAT 99
[2025-02-26 19:00] LABS: Reflex Lactate? Y
== END 2025-02-26 17:20 | disposition home or self-care (01) ==
PROVIDERS: Emergency Provider Emergency Medicine; PCP Family Medicine; Visit Provider Emergency Medicine
DX: R42 Dizziness and giddiness (principal); E11.9 Type 2 diabetes mellitus without complications; E78.00 Pure hypercholesterolemia, unspecified; N13.30 Unspecified hydronephrosis; I10 Essential (primary) hypertension; R41.0 Disorientation, unspecified; Z79.899 Other long term (current) drug therapy; Z79.82 Long term (current) use of aspirin; Z79.84 Long term (current) use of oral hypoglycemic drugs
CPT/HCPCS: 70450; 71045; 74177; 80053; 81001; 83605; 83690; 84484; 85025; 93005; 96360; 99285; Q9967